=== PATIENT | male | born 1955 | race Caucasian/White ===

== ENCOUNTER 2024-02-17 15:14 | Emergency (ER) | payer OTHER, SELFPAY ==
[2024-02-17 15:19] VITALS: BP 118/83
[2024-02-17 15:41] LABS: % Basophils 0.4 % (0-2); % Eosinophils 1.2 % (0-6); % Immature Granulocytes 0.4 % (0-0.5); % Monocytes 6.1 % (1.7-9.3); % Neutrophils 59.9 % (42.2-75.2); Absolute Basophils 0.1 10^3/uL (0-0.2); Absolute Eosinophils 0.2 10^3/uL (0-0.7); Absolute Immature Granulocytes 0.1 10^3/uL (0-0.05); Absolute Lymphocytes 4.3 10^3/uL (1.2-3.4); Absolute Monocytes 0.8 10^3/uL (0.1-0.6); Hematocrit 40.7 % (39.0-52.0); Hemoglobin 13.7 g/dL (13.0-18.0); Mean Corp Hgb Conc. 33.7 g/dL (33.0-37.0); Mean Corpuscular Hgb 27.5 pg (27.0-31.0); Mean Corpuscular Volume 81.7 fL (80.0-94.0); Mean Platelet Volume 10.4 fL (7.4-10.4); Nucleated Red Blood Cells % 0 % (-); Platelet Count 431 10^3/uL (130-400); Red Blood Cell Count 4.98 10^6/uL (4.70-6.10); Red Cell Dist. Width 13.2 % (11.5-14.5); White Blood Cell Count 13.4 10^3/uL (4.8-10.8)
[2024-02-17 15:56] LABS: ALT (SGPT) 38 U/L (0-50); AST (SGOT) 47 U/L (17-59); Albumin 4.7 g/dl (3.5-5.0); Alkaline Phosphatase 75 U/L (38-126); Blood Urea Nitrogen 23 mg/dl (9-20); Calcium 10.2 mg/dl (8.4-10.2); Carbon Dioxide 27 mmol/L (22-30); Chloride 94 mmol/L (98-107); Glucose 409 mg/dl (70-99); Lipase 95 U/L (23-300); Potassium 4.4 mmol/L (3.5-5.1); Sodium 135 mmol/L (135-145); Total Bilirubin 0.7 mg/dl (0.2-1.3); Total Protein 7.7 g/dl (6.3-8.2); eGFR 55.43
--- NOTE | 2024-02-17 16:49 | ED.GENMED ---
History of Present Illness
General
Chief Complaint: Abdominal Symptoms
Time Seen by Provider: 02/17/24 16:38
History of Present Illness
History of Present Illness:
68 yo male presents to the Emergency Department for evaluation of fatigue, weakness and EDDY x 2-3 days. Also endorses nausea and vomiting for that period of time as well. Small amount of non bloody diarrhea as well. Denies any abd pain. He is a
known diabetic however has not been on meds; was started on metformin one month ago, did not tolerate this due to GI side effects, ultimately was d/c and switched to Farxiga, which he cannot afford. Does note increased thirst and urination as well.
No fevers or night sweats
Review of Systems
Review of Systems
Allergies reviewed?: Yes
All Other Systems: ROS reviewed and negative except as documented in HPI and ROS
Phy Exam
Physical Exam
Physical Exam:
GEN: Well appearing, NAD, WDWN
Eyes: PERRLA, EOMs intact, no scleral icterus
HENT: NCAT, oral mucosa moist, no JVD
Lungs: CTAB, no wheezes, rales, rhonchi, normal chest wall excursion
Cardiac: RRR, no M/R/G, no peripheral edema. Radial pulses 2+ bilat
Abdomen: S, NT, ND, NABS, no masses or hepatosplenomegaly
Neuro: AO x 3
MSK: No gross deformity or ecchymosis. No edema. No digital clubbing
Skin: No rashes, petechiae. Normal color, no pallor or jaundice.
Psych: Calm, cooperative, proper hygiene
Course
Orders/Labs/Results
Orders:
Orders
02/17/24 15:30
Complete Blood Count/With Diff Urgent
Comprehensive Metabolic Panel Urgent
Lipase Urgent
02/17/24 16:48
Lactated Ringers [Lr] 1,000 ml IV BOLUS
02/17/24 16:49
CR Chest - 2 Views Urgent
Comment:
Reason For Exam: SOB
02/17/24 17:02
Acetone [B-Hydroxybutyrate] Urgent
Venous Blood Gas Urgent
%Oxygen/Room Air: 99
02/17/24 17:08
COVID-19 Antigen Urgent
Source: Nasal Swab
02/17/24 17:42
Insulin Aspart [NOVOLOG vial] 10 units SC NOW STA
02/17/24 17:43
Lactated Ringers [Lr] 1,000 ml IV BOLUS
02/17/24 18:13
Urinalysis Reflex To Culture Urgent
Date Specimen was Collected: 02/17/24
Time Specimen was Collected: 18:11
02/17/24 18:18
Amoxicillin [Amoxil] 2,000 mg PO NOW STA
Azithromycin [Zithromax] 500 mg PO NOW STA
02/17/24 19:00
Bedside Glucose- Treatment ONCE
Abnormal Lab Results
02/17/24 02/17/24 02/17/24
15:30 17:02 18:13
WBC 13.4 H 10^3/uL
(4.8-10.8)
Plt Count 431 H 10^3/uL
(130-400)
Abs Immat Gran (auto) 0.1 H 10^3/uL
(0-0.05)
Absolute Neuts (auto) 8.0 H 10^3/uL
(1.4-6.5)
Absolute Lymphs (auto) 4.3 H 10^3/uL
(1.2-3.4)
Absolute Monos (auto) 0.8 H 10^3/uL
(0.1-0.6)
VBG HCO3 28.5 H mmol/L
(22-27)
Chloride 94 L mmol/L
(98-107)
BUN 23 H mg/dl
(9-20)
Creatinine 1.4 H mg/dL
(0.7-1.3)
Glucose 409 H mg/dl
(70-99)
Urine Glucose 3+ A
(Negative)
POC Glucose
02/17/24 02/17/24
18:15 19:28
WBC
Plt Count
Abs Immat Gran (auto)
Absolute Neuts (auto)
Absolute Lymphs (auto)
Absolute Monos (auto)
VBG HCO3
Chloride
BUN
Creatinine
Glucose
Urine Glucose
POC Glucose 316 H mg/dl 284 H mg/dl
(70-99) (70-99)
02/17/24 15:30
02/17/24 15:30
Vital Signs
Initial and Last Documented VS:
Initial Vital Signs
Temp Pulse Resp BP Pulse Ox
98.0 F 82 16 118/83 99
02/17/24 15:19 02/17/24 15:19 02/17/24 15:19 02/17/24 15:19 02/17/24 15:19
Last Documented Vital Signs
Temp Pulse Resp BP Pulse Ox
98.0 F 65 18 146/79 98
02/17/24 15:19 02/17/24 19:38 02/17/24 19:38 02/17/24 19:38 02/17/24 19:38
MDM/Problems Addressed
MDM/Problems Addressed:
68-year-old male presents with shortness of breath as well as nausea vomiting diarrhea. Workup is significant for hyperglycemia but no evidence for DKA, he was given IV fluids and subcu insulin with great improvement in glucose. He reported
significant improvement in shortness of breath with IV hydration. Likely component of volume loss from GI symptoms coupled with polyuria. Additionally chest x-ray reveals a right basilar infiltrate, he does note coughing and given the report of
shortness of breath we will treat this as an acute pneumonia. He does have leukocytosis but this could also be secondary to volume loss. Will treat with azithromycin and amoxicillin. Of note the patient reportedly has some occasional issues with
dysphagia and coughing post eating, certainly this could represent a aspiration pneumonia, recommend he see a speech pathologist as an outpatient and to assess this further
*Critical Care Note
Total Time (30-74mins, 75-104mins- exclusive of procedures): Not Applicable
ED Attending Note
-
Portions of this chart may have been created with voice recognition software.� Occasional wrong word or��sound alike� substitutions may have occurred due to the inherent limitations of voice recognition software.
Discharge Plan
Departure
Patient Disposition: Home (Routine Discharge)
Date of Disposition: 02/17/24
Time of Disposition: 19:30
Patient with high blood pressure during this ER visit?: No
Discharge Problem:
Right lower lobe pneumonia, Acute hyperglycemia
Instructions: Pneumonia, Adult (DC)
Prescriptions:
New
amoxicillin 500 mg capsule
2,000 mg PO BID Qty: 36 0RF
azithromycin [Zithromax] 250 mg tablet
250 mg PO DAILY Qty: 4 0RF
Referrals:
Zachary Holly DO [Family Provider] -
Activity Restrictions/Additional Instructions:
Follow-up with your primary care physician to discuss more appropriate medications to control your blood pressure
Take the antibiotics as prescribed. If your symptoms worsen return to the emergency department
Interventions
Interventions:
*Risk Screen - Suicide Last Done: 02/17/24 17:24
*General Assessment Last Done: 02/17/24 17:24
*Neglect/Abuse Screening Last Done: 02/17/24 17:24
ED- Fall Risk Assessment Last Done: 02/17/24 19:25
*Nursing Disposition Last Done: 02/17/24 19:39
OI-Rblxwx-Peifjsewan Assessment Last Done: 02/17/24 17:24
ED- Cardiac Assessment Last Done: 02/17/24 17:24
ED- Neurological Assessment Last Done: 02/17/24 17:24
ED- Pulmonary Assessment Last Done: 02/17/24 17:24
Discharge Date and Time
Discharge Date/Time: 02/17/24 19:43
Print Language: [place]
[2024-02-17] MEDS: LR 1000 IV ×2 (17:05→18:21)
[2024-02-17 17:14] LABS: Venous Blood Gas B.E. 3.2 mmol/L (-4 to +4); Venous Blood Gas HCO3 28.5 mmol/L (22-27); Venous Blood Gas O2 Sat % 86.3 %; Venous Blood Gas pCO2 45 mmHg (35-48); Venous Blood Gas pH 7.41 (7.32-7.43); Venous Blood Gas pO2 48 mmHg (30-50)
[2024-02-17 17:22] VITALS: BP 125/87
[2024-02-17 17:32] LABS: COVID-19 Antigen Negative (Negative)
[2024-02-17 18:00] VITALS: BP 142/79
[2024-02-17 18:18] LABS: Glucose - Point of Care 316 mg/dl (70-99)
[2024-02-17] MEDS: NOVOLOG vial 10 UNITS SC (18:19)
[2024-02-17] MEDS: ZITHROMAX 500 MG PO (18:22)
[2024-02-17] MEDS: AMOXIL 2000 MG PO (18:22)
[2024-02-17 18:33] LABS: Urine Albumin Trace (Neg - Trace); Urine Bilirubin Negative (Negative); Urine Character Clear (Clear); Urine Color Yellow; Urine Glucose 3+ (Negative); Urine Ketone Negative (Negative); Urine Leukocyte Negative (Negative); Urine Nitrite Negative (Negative); Urine Occult Blood Negative (Negative); Urine Urobilinogen Negative (Neg - 1+)
[2024-02-17 19:31] LABS: Glucose - Point of Care 284 mg/dl (70-99)
[2024-02-17 19:38] VITALS: BP 146/79
== END 2024-02-17 19:43 | disposition home or self-care (01) ==
LOC: EMR 15:14
PROVIDERS: Emergency Medicine; Physician Assistant; EMERGENCY PHYSICIAN Emergency Medicine; FAMILY PHYSICIAN Family Medicine
DX: J18.9 Pneumonia, unspecified organism (principal); R11.2 Nausea with vomiting, unspecified; E11.65 Type 2 diabetes mellitus with hyperglycemia; R19.7 Diarrhea, unspecified; R13.10 Dysphagia, unspecified; Z11.52 Encounter for screening for COVID-19
CPT/HCPCS: 99284; 96360; 96372; 71046; 80053; 81003; 82010; 82805; 82962; 83690; 85025; 87811

== ENCOUNTER 2024-05-21 00:40 | Inpatient (IN) | payer OTHER, SELFPAY ==
[2024-05-20] VITALS (10 sets, daily range): BP systolic 102–179; BP diastolic 72–91; PULSE 66–83; BMI 26.5
--- NOTE | 2024-05-20 15:06 | ED.GENMED ---
ED Provider Triage
<James Jennings PA-C - Last Filed: 05/20/24 15:08>
-
Patient seen by provider in Triage?: Seen in Triage
68 yo male presents due to orthostasis and SOB x 2-3 days. Near syncope described. No CP. Feels 'weak' at rest but markedly worse when standing. No syncope. No black/bloody stool. Does take BP meds
No orthostasis noted in triage. Does look pale.
Check labs, T&S, EKG
History of Present Illness
<James Jennings PA-C - Last Filed: 05/20/24 15:08>
General
Chief Complaint: Dizziness
Time Seen by Provider: 05/20/24 19:24
<TIFFANY Abernathy - Last Filed: 05/20/24 22:13>
General
Source: patient
Exam Limitations: none
History of Present Illness
History of Present Illness:
This is a 68 year old male that comes in with multiple complaints. States that when he stands up he passes out. States that he can feeling it coming on and he sits down right away. Sates that he did fall 2 days ago when he passed out. States that he
feels like his head is cloudy. State that this started a few days ago. States that he feels weak, and then feels like he can't breath. States that he has had chest discomfort with SOB, nausea, abd pain, headache, dizziness. Denies any fever, chills,
vomiting, diarrhea, urinary burning.
Past History
<TIFFANY Abernathy - Last Filed: 05/20/24 22:13>
Past History
ED Past Medical History: Arrthythmia (Palpitations), Cancer (Bladder cancer), GERD, HTN, Hypercholesterolemia, NIDDM, Psychiatric (Depression) and Other (chronic back and neck pain, Neuropathy, Colitis, Renal calculus, )
ED Past Surgical History: Cardiac (Ablation, ) and Orthopedic (Back surgery, Lumbar fusion, )
Social History
Tobacco: Former smoker
Alcohol: None
Drug: Other (Opiod dependence due to Multiple back surgery)
Personal:
Living: with family
Review of Systems
<TIFFANY Abernathy - Last Filed: 05/20/24 22:13>
Review of Systems
All Other Systems: ROS reviewed and negative except as documented in HPI and ROS
Constitutional: Reports no symptoms; Denies fever or chills
EENT: Reports no symptoms
Respiratory: Reports trouble breathing; Denies cough
Cardiac: Reports chest pain
ABD/GI: Reports abdominal pain and nausea; Denies vomiting or diarrhea
: Reports no symptoms; Denies dysuria, frequency or urgency
Musculoskeletal: Reports no symptoms
Skin: Reports no symptoms
Neurological: Reports dizzy and headache
Psychiatric: Reports no symptoms
Phy Exam
<TIFFANY Abernathy - Last Filed: 05/20/24 22:13>
General Physical Exam
General Presentation: no apparent distress
General age: appears stated age
General Skin: warm and dry
General Habitus: normal
General Mental: alert
General Hydration: appears well hydrated
ENT Exam
ENT Exam: TM's normal, pharynx normal and neck supple
Eye Exam
Eye Exam: EOMI
Cardiovascular Exam
Cardiovascular Exam: regular rate/rhythm, no edema and normal peripheral pulses
Pulmonary Exam
Pulmonary Exam: lungs clear, no respiratory distress, no rales, chest non tender, no crackles, no rhonchi, no wheezing and no cough
Gastrointestinal Exam
Gastrointestinal Exam: normal bowel sounds, soft, no organomegaly, no pulsatile mass, non distended and tender (Generalized tenderness with palpation)
Musculoskeletal Exam
Musculoskeletal Exam: full ROM and no edema
Skin Exam
Skin Exam: normal color, warm/dry, no rash and no petechia
Psychiatric Exam
Psychiatric Exam: normal mood/affect
Course
<James Jennings PA-C - Last Filed: 05/20/24 15:08>
Orders/Labs/Results
Orders:
Orders
05/20/24 15:05
Electrocardiogram (*1) Urgent
Reason for Study: Vertigo / Dizzy
EKG- Treatment ONCE
05/20/24 15:23
Type+Screen Urgent
Complete Blood Count/With Diff Urgent
Comprehensive Metabolic Panel Urgent
05/20/24 20:07
CT Head W/o Iv Contrast Urgent
Comment:
Reason For Exam: Syncope, Falls
0.9% Sodium Chloride 1000 ml [Nss] 1,000 ml IV BOLUS
05/20/24 20:09
ABO2 Urgent
BBK Wristband Number:
Associate notified that ABO2 has been ordered: [id number]
Date: 05/20/24
Time: 15:57
Line Repairer Tower ID: [id number]
CT Chest/abd/pelvis Angio W/wo Urgent
Comment:
Reason For Exam: Chest pain. abd pain, Syncope with standing up
Troponin I Urgent
Abnormal Lab Results
05/20/24
15:23
WBC 14.7 H 10^3/uL
(4.8-10.8)
RBC 4.69 L 10^6/uL
(4.70-6.10)
Plt Count 424 H 10^3/uL
(130-400)
MPV 10.5 H fL
(7.4-10.4)
Abs Immat Gran (auto) 0.1 H 10^3/uL
(0-0.05)
Absolute Neuts (auto) 8.9 H 10^3/uL
(1.4-6.5)
Absolute Lymphs (auto) 4.3 H 10^3/uL
(1.2-3.4)
Absolute Monos (auto) 0.8 H 10^3/uL
(0.1-0.6)
Carbon Dioxide 21 L mmol/L
(22-30)
BUN 21 H mg/dl
(9-20)
Creatinine 1.4 H mg/dL
(0.7-1.3)
Glucose 136 H mg/dl
(70-99)
05/20/24 15:23
05/20/24 15:23
Vital Signs
Initial and Last Documented VS:
Initial Vital Signs
Temp Pulse Resp BP Pulse Ox
97.6 F 83 18 116/86 97
05/20/24 15:02 05/20/24 15:02 05/20/24 15:02 05/20/24 15:02 05/20/24 15:02
Last Documented Vital Signs
Temp Pulse Resp BP Pulse Ox
97.6 F 66 18 127/89 97
05/20/24 17:00 05/20/24 20:45 05/20/24 20:45 05/20/24 20:00 05/20/24 17:00
<TIFFANY Abernathy - Last Filed: 05/20/24 22:13>
Orders/Labs/Results
Orders:
Orders
05/20/24 15:05
Electrocardiogram (*1) Urgent
Reason for Study: Vertigo / Dizzy
EKG- Treatment ONCE
05/20/24 15:23
Type+Screen Urgent
Complete Blood Count/With Diff Urgent
Comprehensive Metabolic Panel Urgent
05/20/24 20:07
CT Head W/o Iv Contrast Urgent
Comment:
Reason For Exam: Syncope, Falls
0.9% Sodium Chloride 1000 ml [Nss] 1,000 ml IV BOLUS
05/20/24 20:09
ABO2 Urgent
BBK Wristband Number:
Associate notified that ABO2 has been ordered: [id number]
Date: 05/20/24
Time: 15:57
Line Repairer Tower ID: [id number]
CT Chest/abd/pelvis Angio W/wo Urgent
Comment:
Reason For Exam: Chest pain. abd pain, Syncope with standing up
Troponin I Urgent
Abnormal Lab Results
05/20/24
15:23
WBC 14.7 H 10^3/uL
(4.8-10.8)
RBC 4.69 L 10^6/uL
(4.70-6.10)
Plt Count 424 H 10^3/uL
(130-400)
MPV 10.5 H fL
(7.4-10.4)
Abs Immat Gran (auto) 0.1 H 10^3/uL
(0-0.05)
Absolute Neuts (auto) 8.9 H 10^3/uL
(1.4-6.5)
Absolute Lymphs (auto) 4.3 H 10^3/uL
(1.2-3.4)
Absolute Monos (auto) 0.8 H 10^3/uL
(0.1-0.6)
Carbon Dioxide 21 L mmol/L
(22-30)
BUN 21 H mg/dl
(9-20)
Creatinine 1.4 H mg/dL
(0.7-1.3)
Glucose 136 H mg/dl
(70-99)
05/20/24 15:23
05/20/24 15:23
Leukocytosis, Plt slightly elevated. Dehydration. Glucose nonfasting.
Vital Signs
Initial and Last Documented VS:
Initial Vital Signs
Temp Pulse Resp BP Pulse Ox
97.6 F 83 18 116/86 97
05/20/24 15:02 05/20/24 15:02 05/20/24 15:02 05/20/24 15:02 05/20/24 15:02
Last Documented Vital Signs
Temp Pulse Resp BP Pulse Ox
97.6 F 66 18 127/89 97
05/20/24 17:00 05/20/24 20:45 05/20/24 20:45 05/20/24 20:00 05/20/24 17:00
<TIFFANY Abernathy - Last Filed: 05/20/24 22:13>
MDM/Problems Addressed
Differential Diagnosis Includes:
Aortic dissection, Dehydration. cardiac arrhythmia.
MDM/Problems Addressed:
This is a 68 year old male that come in with c/o syncope when he stands up. States that this has been going of for a few days. States that he can feel it coming on and if he is not near something to sit down he fals.
Will get labs, Orthostasis, CT head and get CTA of chest/ abd/ pelvis. Will admit patient.
CTA abd/pelvis cont- in the abdominal aorta. Moderate diverticulosis in the sigmoid colon. Mild diffuse urinary bladder wall thickening without evidence for foral mass. Previous laminectomies at L4 and L5
Back into see patient. Explained that he would be admitted and started on antibiotics. CT shows he has a right lower lobe Pneumonia. CT of the head is negative for anything acute. However, patient was orthostatic with standing and since patient
keeps passing out will admit. Hospitalist notified.
Chronic conditions affecting care:
Palpitations
Chronic conditions affecting care: DM
Acute Exacerbation and/or Progression of Chronic Illness: Arrhythmia (Palpitations, )
<TIFFANY Abernathy - Last Filed: 05/20/24 22:13>
*Radiology
Radiology exam reviewed: radiology read reviewed (CT head-No CT evidence for acute intracranial hemorrhage or transcortical infarct. Mild diffuse cerebral volume loss. Mild to moderate cerebellar volume loss. CT chest/Ab/pel= Large dense airspace
consolidation in the basilar segments of the right lower lobe with segemental basilar endobronchial ), all reviewed NAD by ED Provider (CT cont-occlusion. Diagnostic possibilities are (1) mucous plugging/infection in the right lower lobe basilar
bronchi with postobstructive atelectasis or (2) right lower lobe Pneumonia. Mild right hilar and right-sided mediastinal lymphadenopathy, diagnostic possibilities are (1) reactive infectious) and other (CT cont- or inflammatory lymph nodes or (2)
malignant lymphadenopathy. Abd/Pelvis CTA: MIld diffuse hepatic steatosis. Moderate pancreatic lipomatosis. 8mm and 7mm nonobstructing right intrarenal calculi. Mild to moderate scarring in the left kidney. MIld caclcific atherosclerotic plaque in
the )
*Pulse Oximetry
Patient hypoxic: no
*EKG
Interpreted by ED Provider?: Yes
Heart Rate: 76
Rate: normal
Rhythm: sinus
[place]: normal axis
Interval: normal interval
QRS Pattern: normal QRS
Ischemia: no ischemia
*Nurses Educator Interpretation
Rate: normal
Heart Rate: 67
Rhythm: sinus
*Critical Care Note
Total Time (30-74mins, 75-104mins- exclusive of procedures): Not Applicable
ED Attending Note
<James Jennings PA-C - Last Filed: 05/20/24 15:08>
-
Portions of this chart may have been created with voice recognition software.� Occasional wrong word or��sound alike� substitutions may have occurred due to the inherent limitations of voice recognition software.
Discharge Plan
Departure
Patient Disposition: Admit
Date of Disposition: 05/20/24
Time of Disposition: 22:11
Admit to: Med/Surg
Presentation/result/management discussed w/ accepting MD/DO: Hospitalist
Patient with high blood pressure during this ER visit?: No
Condition: Good
Covid-19: Not Applicable
Discharge Problem:
Right lower lobe pneumonia, Syncope and collapse
Prescriptions:
No Action
amoxicillin 500 mg capsule
2,000 mg PO BID Qty: 36 0RF
azithromycin [Zithromax] 250 mg tablet
250 mg PO DAILY Qty: 4 0RF
Referrals:
Zachary Holly, DO [Family Provider] -
Interventions
Interventions:
*Risk Screen - Suicide Last Done: 05/20/24 21:10
*General Assessment Last Done: 05/20/24 21:13
*Neglect/Abuse Screening Last Done: 05/20/24 21:10
ED- Neurological Assessment Last Done: 05/20/24 19:49
ED- Cardiac Assessment Last Done: 05/20/24 19:49
ED Swallowing Screen Last Done: 05/20/24 22:03
Discharge Date and Time
Print Language: CHILEAN
[2024-05-20 15:49] LABS: % Basophils 0.4 % (0-2); % Eosinophils 4.3 % (0-6); % Immature Granulocytes 0.4 % (0-0.5); % Lymphocytes 29.1 % (20.5-51.1); % Monocytes 5.4 % (1.7-9.3); % Neutrophils 60.4 % (42.2-75.2); Absolute Basophils 0.1 10^3/uL (0-0.2); Absolute Eosinophils 0.6 10^3/uL (0-0.7); Absolute Immature Granulocytes 0.1 10^3/uL (0-0.05); Absolute Lymphocytes 4.3 10^3/uL (1.2-3.4); Absolute Monocytes 0.8 10^3/uL (0.1-0.6); Absolute Neutrophils 8.9 10^3/uL (1.4-6.5); Hematocrit 40.3 % (39.0-52.0); Hemoglobin 13.4 g/dL (13.0-18.0); Mean Corp Hgb Conc. 33.3 g/dL (33.0-37.0); Mean Corpuscular Hgb 28.6 pg (27.0-31.0); Mean Corpuscular Volume 85.9 fL (80.0-94.0); Mean Platelet Volume 10.5 fL (7.4-10.4); Nucleated Red Blood Cells % 0 % (-); Platelet Count 424 10^3/uL (130-400); Red Blood Cell Count 4.69 10^6/uL (4.70-6.10); Red Cell Dist. Width 13.5 % (11.5-14.5); White Blood Cell Count 14.7 10^3/uL (4.8-10.8)
[2024-05-20 15:59] LABS: Potassium 4.6 mmol/L (3.5-5.1)
[2024-05-20 16:00] LABS: ALT (SGPT) 19 U/L (0-50); AST (SGOT) 39 U/L (17-59); Albumin 4.7 g/dl (3.5-5.0); Alkaline Phosphatase 58 U/L (38-126); Blood Urea Nitrogen 21 mg/dl (9-20); Calcium 10.2 mg/dl (8.4-10.2); Carbon Dioxide 21 mmol/L (22-30); Chloride 103 mmol/L (98-107); Glucose 136 mg/dl (70-99); Sodium 140 mmol/L (135-145); Total Bilirubin 0.5 mg/dl (0.2-1.3); eGFR 55.43
[2024-05-20] MEDS: NSS 1000 IV (20:08)
[2024-05-20 20:42] LABS: Troponin I < 0.012 ng/ml
[2024-05-20] MEDS: ZOSYN 50 IV (22:26)
[2024-05-21] VITALS (17 sets, daily range): BP systolic 102–183; BP diastolic 64–104; PULSE 65–95
--- NOTE | 2024-05-21 00:08 | HPS.HSE ---
Family Physician
-
Family Physician: Zachary Holly
Chief Complaint
-
Dizziness
History of Present Illness
This is a 68-year-old with past medical history significant for paroxysmal atrial fibrillation not on anticoagulation, hypertension, chronic pain, abe-evqtalm-fwdrlvgob diabetes, hyperlipidemia, BPH presenting to the emergency department with a
recurrent episodes of orthostatic dizziness and syncope.
Patient reports 1 week of symptoms. He reports that anytime he stands up he feels dizzy/lightheaded and has to get down otherwise he passes out. He denies association with palpitations chest tightness. He does report cough that is intermittently
productive of thick yellow sputum. He denies fevers or chills. He denies any known sick contacts. He has no prior history of cancer. He is a former smoker. He reports shortness of breath and mild dyspnea on exertion. He denies exertional chest
pain. He denies pleuritic chest pain. He denies any recent episodes of diarrhea nausea or vomiting. Patient denies any acute changes in his medications. Apparently he had an episode of pneumonia in February and was treated with antibiotics.
He came to the emergency department to evaluate the orthostatic dizziness.
In the emergency department his blood pressure was 143/80, pulse was 60 and respiratory was 20. ECG shows normal sinus rhythm at a rate of 76. Troponin was 0.012. He had a CBC with leukocytosis to 14,000, hemoglobin and platelets were normal.
Electrolytes were normal. Creatinine was 1.4 with a BUN of 21. LFTs are unremarkable. He had a CT chest/abdomen/pelvis angio which does not show any PE and no dissection. It shows a rather large airspace consolidation in the basilar segments of
the right lower lobe, segmental right lower lobe endobronchial occlusion c/w mucous plugging/infection in the right lower lobe basilar bronchi with postobstructive atelectasis or (2) right lower lobe pneumonia.
Medical History
Past Medical History
Past Medical History: Reports Arrhythmia (paroxysmal atrial fibrillation), HTN, Hypercholesterolemia and NIDDM
Additional Past Medical History:
BPH
Past Surgical History: Reports Orthopedic (Cervical spine surgery, lumbar spine surgery)
Social History
Tobacco: Former Smoker
Alcohol: None
Drug: None
Personal:
Living: With Family
Employment: Retired
Family History
Family History: Not pertinent
Allergies / Home Medications
Allergies reflects when Allergies were last updated in [facility].
Home Medications with original date entered in [facility]
Allergy/Medication List:
Allergies
Allergy/AdvReac Type Severity Reaction Status Date / Time
No Known Allergies Allergy Unverified 02/17/24 15:19
Home Medications
bupropion HCl 150 mg 24 hr tablet, extended release (Wellbutrin XL) 150 mg PO DAILY 05/20/24
candesartan 16 mg tablet 8 mg PO DAILY 05/20/24
carvedilol 6.25 mg tablet (Coreg) 6.25 mg PO BID 05/20/24
duloxetine 60 mg capsule,delayed release (Cymbalta) 90 mg PO DAILY 05/20/24
famotidine 40 mg tablet (Pepcid) 40 mg PO DAILY 05/20/24
fenofibrate 160 mg tablet 200 mg PO DAILY 05/20/24
metformin 1,000 mg tablet 1,000 mg PO BID 05/20/24
oxycodone myristate 36 mg capsule sprinkle extended release 12hr(DON'T CRUSH) (Xtampza ER) 36 mg PO Q8H 05/20/24
oxycodone-acetaminophen 10 mg-325 mg tablet 1 tab PO 5/D PRN pain 05/20/24
rosuvastatin 40 mg tablet 40 mg PO DAILY 05/20/24
sotalol 120 mg tablet 120 mg PO BID 05/20/24
tadalafil 5 mg tablet 5 mg PO DAILY 05/20/24
tamsulosin 0.4 mg capsule (Flomax) 0.4 mg PO DAILY 05/20/24
zolpidem 5 mg tablet 5 mg PO HS PRN sleep 05/20/24
Review of Systems
-
Constitutional: Reports No Symptoms
EENT: Reports No Symptoms
Respiratory: Reports Cough and Trouble Breathing
Cardiac: Reports No Symptoms
Abdomen/GI: Reports No Symptoms
: Reports No Symptoms
Musculoskeletal: Reports No Symptoms
Skin: Reports No Symptoms
Neurological: Reports Dizzy
Endocrine: Reports No Symptoms
Hematologic/Lymphatic: Reports No Symptoms
Psych: Reports No Symptoms
Physical Exam
Vital Signs
Vital Signs
Temp Pulse Resp BP Pulse Ox
98 F 69 13 149/101 99
05/20/24 23:55 05/21/24 00:00 05/21/24 00:00 05/21/24 00:00 05/21/24 00:00
Physical Exam
General: Well Developed, Well Nourished, No Apparent Distress and Comfortable
HEENT: NormoCephalic, Anicteric, Moist mucous membranes and Atraumatic
Respiratory: Clear
Cardiac: S1/S2 and Regular Rhythm
Breast: Deferred by me
GI: Soft, Non Tender, Non Distended and Normal Bowel Sounds
Rectal: Deferred by Provider
Genito-urinary: Deferred by me
Musculoskeletal: No Clubbing, No Cyanosis and No Edema
Skin: Warm
Neuro: AO x 3 and Nonfocal/grossly intact
Laboratory Results
-
05/20/24 15:23
05/20/24 15:23
Laboratory Results
Total Bilirubin 0.5 mg/dl (0.2-1.3) 05/20/24 15:23
AST 39 U/L (17-59) 05/20/24 15:23
ALT 19 U/L (0-50) 05/20/24 15:23
Alkaline Phosphatase 58 U/L (38-126) 05/20/24 15:23
Troponin I < 0.012 ng/ml 05/20/24 20:09
Data Reviewed
-
CT Scan: Report Reviewed by me
Medical Tests (Nuc Med, Echo, EKG etc): Image Personally Visualized and interpreted
Lab Data: Labs Reviewed by me
Old Records: Reviewed
Impression/Plan
-
IMPRESSION:
62-year-old male with past medical history of hypertension, hyperlipidemia, paroxysmal atrial fibrillation on sotalol but not anticoagulated who presents to the emergency department with recurrent episodes of orthostatic dizziness/presyncope and
found to have a large right lower lobe consolidation.
PLAN:
1. RLL PNA - Appears to be secondary to mucus plugging with post-obstructive pneumonia or atelectasis. He is afebrile and HD stable. No hypoxia. No wheezing on exam.
- admit to telemetry for syncope
- atypical pneumonia, possible aspiration given h/o dysphagia, IV zosyn for now
- sputum culture/grm stain
- check procalcitonin
- nebs RTC, muculytics
- Pulmonary consultation, possible malignancy w/u
2. Syncope - Orthostatic syncope with standing.
- telemetry
- check orthostatic vs
- CT angio negative
- echo for valve evaluation
- consider carotid u/s
3. pAFIb - rate controlled on carvedilol and sotalol. CHADS2 = 2. No AC or aspirin and no known h/o contraindication.
- currently normal sinus, continue sotalol and monitor on telemetry
- continue carvedilol
4. DM II
- hold metformin s/p contrast
- sliding scale insulin
DVT PPX - lovenox sq
Code status - Full Code
[2024-05-21 02:24] LABS: Glucose - Point of Care 126 mg/dl (70-99)
[2024-05-21] MEDS: OXYCONTIN (CONTROLLED RELEASE) PO (02:41)
[2024-05-21] MEDS: BETAPACE 120 MG PO ×3 (02:41→20:12)
[2024-05-21] MEDS: ZOSYN 50 IV ×4 (03:59→22:25)
[2024-05-21 05:49] LABS: Hematocrit 38.7 % (39.0-52.0); Hemoglobin 12.8 g/dL (13.0-18.0); Mean Corp Hgb Conc. 33.1 g/dL (33.0-37.0); Mean Corpuscular Hgb 28.8 pg (27.0-31.0); Mean Corpuscular Volume 87.2 fL (80.0-94.0); Mean Platelet Volume 10.6 fL (7.4-10.4); Platelet Count 357 10^3/uL (130-400); Red Blood Cell Count 4.44 10^6/uL (4.70-6.10); Red Cell Dist. Width 13.5 % (11.5-14.5); White Blood Cell Count 19.1 10^3/uL (4.8-10.8)
[2024-05-21 05:58] LABS: Blood Urea Nitrogen 20 mg/dl (9-20); Calcium 9.4 mg/dl (8.4-10.2); Carbon Dioxide 24 mmol/L (22-30); Chloride 103 mmol/L (98-107); Estimated Creatinine Clearance 76 ml/min; Glucose 109 mg/dl (70-99); Potassium 4.1 mmol/L (3.5-5.1); Sodium 139 mmol/L (135-145); eGFR > 60.00
[2024-05-21 06:15] LABS: Procalcitonin 0.05 ng/ml (0.0-0.25)
--- NOTE | 2024-05-21 07:22 | W.PN.HOSP.TC ---
Today's Communication/Plan
-
Continue antibiotics -- worsened leukocytosis
Monitor on tele
Assessment / Plan
Assessment / Plan
Physical Exam
General: Not in acute distress
HEENT: Normocephalic
Respiratory: Clear
Cardiac: S1/S2 and Regular Rhythm
GI: Soft, Non Tender, Non Distended and Normal Bowel Sounds
Musculoskeletal: No Cyanosis and No Edema
Skin: Warm. Dry.
Neuro: AAO x 3 and Nonfocal/grossly intact
Assessment/Plan
IMPRESSION:
62-year-old male with past medical history of hypertension, hyperlipidemia, paroxysmal atrial fibrillation on sotalol but not anticoagulated who presents to the emergency department with recurrent episodes of orthostatic dizziness/presyncope and
found to have a large right lower lobe consolidation.
PLAN:
#RLL PNA - Appears to be secondary to RLL mucus plugging with post-obstructive pneumonia or atelectasis
- atypical pneumonia, possible aspiration given h/o dysphagia, IV zosyn for now
- sputum culture/grm stain
- Procal is low
- nebs RTC, muculytics
- Pulmonary consulted at the time of admission, possible malignancy w/u
#Syncope - Orthostatic syncope with dizziness when standing.
- telemetry
- check orthostatic vs
- CT angio negative
- echo for valve evaluation
- consider carotid u/s
#pAFIb - rate controlled on carvedilol and sotalol. CHADS2 = 2. No AC or aspirin and no known h/o contraindication.
- currently normal sinus, continue sotalol and monitor on telemetry
- continue carvedilol
#Type 2 Diabetes Mellitus
- hold metformin s/p contrast
- sliding scale insulin
DVT Prophylaxis: Lovenox SUBQ
Code Status: Full Code
Anticipated Discharge: > 48 hours
Subjective/Interval History
-
Date of Service: May 21, 2024
Patient was seen and examined. He denied any new symptoms or complaints.
Objective Data
-
Labs:
Laboratory Results
05/21/24
05:34
WBC 19.1 H
Hgb 12.8 L
Hct 38.7 L
Plt Count 357
Sodium 139
Potassium 4.1
Chloride 103
Carbon Dioxide 24
BUN 20
Creatinine 1.2
Glucose 109 H
Calcium 9.4
Vital Signs:
Vital Signs
Temp Pulse Resp BP Pulse Ox
98 F 65 15 154/94 97
05/20/24 23:55 05/21/24 05:00 05/21/24 05:00 05/21/24 02:41 05/21/24 01:00
[2024-05-21 08:00] LABS: Glucose - Point of Care 102 mg/dl (70-99)
[2024-05-21] MEDS: ATACAND 8 MG PO (08:09)
[2024-05-21] MEDS: NOVOLOG FLEXPEN-LOW RESISTANCE SC ×2 (08:09→16:47)
[2024-05-21] MEDS: COREG 6.25 MG PO ×2 (08:10→20:12)
[2024-05-21] MEDS: CRESTOR 40 MG PO (08:11)
[2024-05-21] MEDS: CYMBALTA DELAYED RELEASE 90 MG PO (08:11)
[2024-05-21] MEDS: OXYCONTIN (CONTROLLED RELEASE) 40 MG PO ×3 (08:12→23:26)
[2024-05-21] MEDS: TRICOR 145 MG PO (08:12)
[2024-05-21] MEDS: FLOMAX 0.4 MG PO (08:16)
[2024-05-21] MEDS: WELLBUTRIN XL (24 hour extended release) 150 MG PO (08:16)
[2024-05-21] MEDS: PEPCID 40 MG PO (08:16)
[2024-05-21] MEDS: ATROVENT NEBULES INH (08:49)
[2024-05-21] MEDS: ATROVENT NEBULES 0.5 MG INH ×3 (10:55→18:33)
[2024-05-21 11:32] LABS: Glucose - Point of Care 192 mg/dl (70-99)
[2024-05-21] MEDS: NOVOLOG FLEXPEN-LOW RESISTANCE 1 UNITS SC (13:31)
[2024-05-21 16:40] LABS: Glucose - Point of Care 139 mg/dl (70-99)
--- NOTE | 2024-05-21 17:00 | PTCARENOTE ---
Patient admitted to room 1144-2. AAOx3. Oriented to unit and call donis. VSS. Telemetry monitoring continued.
[2024-05-21] MEDS: LOVENOX 40 MG SC (18:22)
[2024-05-21] MEDS: TYLENOL 650 MG PO (20:12)
[2024-05-21 21:29] LABS: Glucose - Point of Care 121 mg/dl (70-99)
[2024-05-21] MEDS: AMBIEN 5 MG PO (23:26)
[2024-05-22 03:01] VITALS: BP 137/76
[2024-05-22] MEDS: ZOSYN 50 IV ×4 (04:10→21:32)
[2024-05-22 06:41] LABS: % Basophils 0.5 % (0-2); % Eosinophils 5.6 % (0-6); % Immature Granulocytes 0.1 % (0-0.5); % Neutrophils 52.8 % (42.2-75.2); Absolute Basophils 0.1 10^3/uL (0-0.2); Absolute Eosinophils 0.6 10^3/uL (0-0.7); Absolute Lymphocytes 3.8 10^3/uL (1.2-3.4); Absolute Monocytes 0.8 10^3/uL (0.1-0.6); Absolute Neutrophils 5.9 10^3/uL (1.4-6.5); Hematocrit 35.8 % (39.0-52.0); Hemoglobin 11.7 g/dL (13.0-18.0); Mean Corp Hgb Conc. 32.7 g/dL (33.0-37.0); Mean Corpuscular Hgb 28.5 pg (27.0-31.0); Mean Corpuscular Volume 87.1 fL (80.0-94.0); Mean Platelet Volume 10.5 fL (7.4-10.4); Nucleated Red Blood Cells % 0 % (-); Platelet Count 291 10^3/uL (130-400); Red Blood Cell Count 4.11 10^6/uL (4.70-6.10); Red Cell Dist. Width 13.6 % (11.5-14.5); White Blood Cell Count 11.2 10^3/uL (4.8-10.8)
[2024-05-22 07:00] VITALS: BP 117/82
[2024-05-22 07:07] LABS: Blood Urea Nitrogen 17 mg/dl (9-20); Calcium 9.4 mg/dl (8.4-10.2); Carbon Dioxide 28 mmol/L (22-30); Chloride 103 mmol/L (98-107); Estimated Creatinine Clearance 65 ml/min; Glucose 122 mg/dl (70-99); Magnesium 1.5 mg/dl (1.6-2.3); Sodium 140 mmol/L (135-145); eGFR 55.43
[2024-05-22] MEDS: ATROVENT NEBULES 0.5 MG INH ×4 (07:52→21:21)
[2024-05-22 08:38] LABS: Glucose - Point of Care 114 mg/dl (70-99)
[2024-05-22] MEDS: NOVOLOG FLEXPEN-LOW RESISTANCE SC ×3 (09:11→18:16)
[2024-05-22] MEDS: BETAPACE 120 MG PO ×2 (09:37→20:34)
[2024-05-22] MEDS: ATACAND 8 MG PO (09:37)
[2024-05-22] MEDS: PEPCID 40 MG PO (09:38)
[2024-05-22] MEDS: OXYCONTIN (CONTROLLED RELEASE) 40 MG PO ×3 (09:38→23:09)
[2024-05-22] MEDS: CRESTOR 40 MG PO (09:38)
[2024-05-22] MEDS: WELLBUTRIN XL (24 hour extended release) 150 MG PO (09:38)
[2024-05-22] MEDS: TRICOR 145 MG PO (09:38)
[2024-05-22] MEDS: FLOMAX 0.4 MG PO (09:39)
[2024-05-22] MEDS: COREG 6.25 MG PO ×2 (09:39→20:34)
[2024-05-22] MEDS: CYMBALTA DELAYED RELEASE 90 MG PO (09:42)
[2024-05-22 13:06] LABS: Glucose - Point of Care 142 mg/dl (70-99)
--- NOTE | 2024-05-22 13:37 | W.PN.HOSP.TC ---
Today's Communication/Plan
-
Continue monitoring on tele
Please see below
Assessment / Plan
Assessment / Plan
Physical Exam
General: Not in acute distress
HEENT: Normocephalic
Respiratory: Clear
Cardiac: S1/S2 and Regular Rhythm
GI: Soft, Non Tender, Non Distended and Normal Bowel Sounds
Musculoskeletal: No Cyanosis and No Edema
Skin: Warm. Dry.
Neuro: AAO x 3 and Nonfocal/grossly intact
Assessment/Plan
68-year-old male with past medical history of hypertension, hyperlipidemia, paroxysmal atrial fibrillation on sotalol but not anticoagulated who presents to the emergency department with recurrent episodes of orthostatic dizziness/presyncope and
found to have a large right lower lobe consolidation.
#RLL PNA - Appears to be secondary to RLL mucus plugging with post-obstructive pneumonia or atelectasis
#Endobronchial obstruction probably likely due to mucous plugging.
- atypical pneumonia, possible aspiration given h/o dysphagia, IV zosyn for now -- continue antibiotics for 7 days
- Sputum culture growing Staph aureus-wait for identification
- Procal is low
- nebs RTC, muculytics
- Pulmonary consulted at the time of admission, possible malignancy w/u
-Repeat CXR in 24 to 48 hours
#Syncope - Orthostatic syncope with dizziness when standing.
#Orthostatic Hypotension
- Patient is on multiple medications that can contribute to this
- telemetry
- Monitor orthostatic vs
- CT angio negative
- echo
- carotid u/s
#pAFIb - rate controlled on carvedilol and sotalol. [id number] at least 3. No AC or aspirin and no known h/o contraindication.
- currently normal sinus, continue sotalol and monitor on telemetry
- continue carvedilol
-Patient's risk management director is Sriram Thompson MD in [facility]
-Two questions for cardiology: can we reduce his Coreg, and why is he not on Eliquis? Consulted cardiology, appreciate their eval and recommendations.
#Type 2 Diabetes Mellitus
- hold metformin s/p contrast
- sliding scale insulin
#Chronic Neuropathy of Bilateral Upper and Lower Extremities
-Patient follows Dr. Lopez (neurologist) at [facility]
DVT Prophylaxis: Lovenox SUBQ
Code Status: Full Code
Anticipated Discharge: 24 - 48 hours
Subjective/Interval History
-
Date of Service: May 22, 2024
Patient was seen and examined. He denied any new symptoms, overall feeling better.
Objective Data
-
Labs:
Laboratory Results
05/22/24
06:15
WBC 11.2 H
Hgb 11.7 L
Hct 35.8 L
Plt Count 291
Sodium 140
Potassium 4.0
Chloride 103
Carbon Dioxide 28
BUN 17
Creatinine 1.4 H
Glucose 122 H
Calcium 9.4
Vital Signs:
Vital Signs
Temp Pulse Resp BP Pulse Ox
97.8 F 67 16 117/82 97
05/22/24 07:00 05/22/24 11:35 05/22/24 11:35 05/22/24 07:00 05/22/24 11:35
I&O
05/21/24 05/22/24 05/23/24
06:59 06:59 06:59
Intake Total 1490 / 1490
Balance 1490 / 1490
[2024-05-22 15:00] VITALS: BP 136/75
[2024-05-22] MEDS: LOVENOX 40 MG SC (17:17)
[2024-05-22 17:53] LABS: Glucose - Point of Care 137 mg/dl (70-99)
--- NOTE | 2024-05-22 18:51 | CON.PUL ---
Consultation
Consultation Request
Date/Time Consultation Requested: 05/22/2024
Date/Time Consultation Performed: 05/22/2024
Requesting Provider: Dr. Ortiz
Performing Provider: Dr. Ramírez Humphreys
Reason for Consultation: Pneumonia/abnormal x-ray
Medical History
-
History of Present Illness:
68-year-old man with past medical history significant for paroxysmal atrial fibrillation not on anticoagulation, hypertension, chronic back pain, auq-gzhhnvy-rhdoyocpu diabetic, hyperlipidemia, BPH came to the emergency room with recurrent episode
of orthostatic hypotension/dizziness and syncope.
Patient reports 1 week of symptoms. Significant orthostatic symptoms with near syncopal episode multiple times. Has been complaining of cough with thick yellow phlegm production.
Denies fevers or chills.
Patient is a former smoker. Denies any history of pulmonary problems.
Denies any vomiting or swallowing problems.
Reports history of pneumonia in February and he completed antibiotic therapy for
In the emergency room found to have leukocytosis. Normal hemoglobin. CT of the chest without pulmonary embolism, dissection or effusion.
Large airspace consolidation on the right lower lobe, possible segmental right lower lobe endobronchial occlusion with mucous plugging/infection.
We were consulted for evaluation of abnormal CT chest
-
Patient report being a former smoker who quit 26 years ago.
Mother with history of lung cancer
Brother also had cancer-unspecified site.
Both were smokers
He also reports spot in his' lungs ', possibly CAT scans in the past at [facility].
Past Medical History
Past Medical History: Other (See assessment and plan)
Social History
Tobacco: Former Smoker
Alcohol: None
Drug: None
Personal:
Living: With Family
Employment: Retired
Family History
Family History: Reviewed & Not Pertinent
Allergies / Home Medications
Allergies
Allergy/AdvReac Type Severity Reaction Status Date / Time
No Known Allergies Allergy Verified 05/21/24 06:40
Home Medications
�Medication �Instructions �Recorded �Confirmed �Last Taken �Type
bupropion HCl 150 mg 24 hr tablet, 150 mg PO DAILY Mental 05/20/24 05/21/24 Unknown History
extended release (Wellbutrin XL) Health/Anxiety
candesartan 16 mg tablet 8 mg PO DAILY Blood Pressure 05/20/24 05/21/24 Unknown History
carvedilol 6.25 mg tablet (Coreg) 6.25 mg PO BID Blood Pressure 05/20/24 05/21/24 Unknown History
duloxetine 60 mg capsule,delayed 60 mg PO HS Mental Health/Anxiety 05/20/24 05/21/24 Unknown History
release (Cymbalta)
famotidine 40 mg tablet (Pepcid) 40 mg PO DAILY Gastrointestinal 05/20/24 05/21/24 Unknown History
Issue
fenofibrate 160 mg tablet 200 mg PO DAILY High Cholesterol 05/20/24 05/21/24 Unknown History
metformin 1,000 mg tablet 1,000 mg PO BID Diabetes 05/20/24 05/21/24 Unknown History
oxycodone myristate 36 mg capsule 36 mg PO Q8H Pain 05/20/24 05/21/24 Unknown History
sprinkle extended release
12hr(DON'T CRUSH) (Xtampza ER)
oxycodone-acetaminophen 10 mg-325 1 tab PO 5/D PRN break through 05/20/24 05/21/24 Unknown History
mg tablet
rosuvastatin 40 mg tablet 40 mg PO DAILY High Cholesterol 05/20/24 05/21/24 Unknown History
sotalol 120 mg tablet 120 mg PO BID Blood Pressure 05/20/24 05/21/24 Unknown History
tadalafil 5 mg tablet 5 mg PO DAILY Urinary Issue 05/20/24 05/21/24 Unknown History
tamsulosin 0.4 mg capsule (Flomax) 0.4 mg PO DAILY Urinary Issue 05/20/24 05/21/24 Unknown History
zolpidem 5 mg tablet 5 mg PO HSPRN PRN sleep 05/20/24 05/21/24 Unknown History
duloxetine 30 mg capsule,delayed 30 mg PO DAILY Mental 05/21/24 05/21/24 Unknown History
release (Cymbalta) Health/Anxiety
tizanidine 4 mg tablet 4 mg PO TIDPRN PRN spasms 05/21/24 05/21/24 Unknown History
Review of Systems
-
History Source: Patient
All other systems: Negative unless noted
Vitals / Labs / Diagnostic Testing
Vital Signs
Temp Pulse Resp BP Pulse Ox
97.3 F 74 16 136/75 98
05/22/24 15:00 05/22/24 15:54 05/22/24 15:54 05/22/24 15:00 05/22/24 15:54
Lab Data
05/22/24 06:15
05/22/24 06:15
Microbiology
05/21/24 09:27 Sputum Respiratory Culture - Preliminary
Staphylococcus aureus
05/21/24 09:27 Sputum Gram Stain - Preliminary
05/21/24 05:30 Urine Legionella Urinary Antigen - Final
Negative for Legionella pneumophila Serogroup 1 antigen.
A negative result does not rule out the possiblity of
Legionella infection due to other serogroups or species of
Legionella. Clinical correlation is recommended.
Diagnostic Testing:
Physical Exam
-
HEENT: Normocephalic
Cardiovascular: S1/S2
Respiratory: Non-Labored Respirations and Other (Decreased breath sounds in the right base)
GI: Soft and Non Distended
Neurology: Awake, Alert, AO x 3 and No Motor Deficits
Skin: Warm
General: Comfortable
Assessment
-
68-year-old man with past medical history noted, admitted with shortness of breath, dizziness, multiple syncopal episodes. Also cough with phlegm production for the last several days weeks. Part of the evaluation including a CT chest demonstrated
right lower lobe infiltrate with possible endobronchial mucous plugging. We were consulted for abnormal CT chest 05/22/2024.
Abnormal CT chest 05/20/2024: Mild right paratracheal, subcarinal and right hilar lymphadenopathy. There is endobronchial occlusion of the basilar segment of the right lower lobe. There is large dense airspace consolidation in the basilar segment of
the right lower lobe. Minimal lingular scarring.
No pericardial effusion no pneumothorax.
Dizziness/syncope/shortness of breath-suspect cardiac in etiology.
Conditions present prior admission:
Paroxysmal atrial fibrillation
Hypertension
Hypercholesterolemia
Type 2 diabetes
BPH
History of cervical spine surgery and lumbar spine surgery
Former smoker
Assessment and plan:
Abnormal CT chest, leukocytosis, cough and phlegm production suspect infectious in etiology.
Endobronchial obstruction probably likely due to mucous plugging.
I am wondering if this patient has aspirated and one of his syncopal episode.
Agree with antibiotics for 7 days
Currently on Zosyn, seems to be responding, decreasing leukocytosis. Afebrile.
MRSA screening pending-if positive consider adding vancomycin.
Sputum culture growing Staph aureus-wait for identification
-
Agree with secretion clearance interventions Atrovent/Xopenex
Mucolytic's
Acapella device
Vest therapy
Repeat chest x-ray in the next 24 to 48 hours
Eventually will need repeat CT chest to document complete resolution, if there is no complete resolution then at that time airway inspection will be needed.
I do not appreciate evidence of mass on this current CAT scan.
-
Syncope/orthostatic dizziness: Management per primary team.
Lung parenchyma without interstitial lung disease or emphysema
Doubt underlying significant pulmonary disease
Recommend outpatient pulmonary follow-up, patient aware that he will need repeat imaging of the chest to make sure there is no malignancy.
-
Will follow
Will need pulmonary follow-up upon discharge
[2024-05-22 19:35] VITALS: BP 84/52; BP 84/63; BP 91/66; PULSE 78; PULSE 80; PULSE 89
[2024-05-22 19:39] VITALS: BP 120/80
[2024-05-22] MEDS: MAGNESIUM SULFATE 102 GRAMS IV (20:34)
[2024-05-22 21:20] LABS: Glucose - Point of Care 132 mg/dl (70-99)
[2024-05-22] MEDS: XOPENEX 0.63 MG INHALANT SOLUTION INH (21:22)
[2024-05-22] MEDS: AMBIEN 5 MG PO (23:08)
[2024-05-22 23:20] VITALS: BP 97/56
[2024-05-23 03:44] VITALS: BP 130/76
[2024-05-23] MEDS: ZOSYN 50 IV ×4 (03:46→22:32)
[2024-05-23] MEDS: ATROVENT NEBULES 0.5 MG INH ×3 (07:08→19:39)
[2024-05-23] MEDS: XOPENEX 0.63 MG INHALANT SOLUTION INH ×3 (07:08→19:39)
[2024-05-23 07:40] VITALS: BP 103/60
--- NOTE | 2024-05-23 08:14 | CON.CAR ---
Consultation
Consultation Request
Date/Time Consultation Requested: 05/23/24 07
Date/Time Consultation Performed: 05/23/24 0800
Requesting Provider: hospitalist
Performing Provider: bandar
Reason for Consultation: lightheadedness/ syncope/ near syncope
Medical History
-
History of Present Illness:
Primary blood bank technician is Dr Thompson in [place]
68 year old with HTN, afib ( on sotalol) , NIDDM, hypercholesterolemianot on anticoagulation
.
Patient with episodes of lightheadedness over the last couple weeks. Episodes only occur after standing. Shortly after standing he gets lightheaded, headache SOB and feels like he might pass out. He says he has fallen breifely passed out on 2-3
occasions. No palpitations. No CP. No change in meds. Adequate oral in take denies fever. Patient has been reported to have cough with some sputum production
NO h/o CAD
afib dx about 10 years ago. on Sotalol. No on anticoagulation
Past Medical History
Past Medical History: None and Other (afib, HTN.BPH, hyperlipidemia , GERD, NIDDM)
Social History
Tobacco: Non-Smoker
Family History
Family History: Other (negative premature CAD)
Allergies / Home Medications
Allergy/AdvReac Type Severity Reaction Status Date / Time
No Known Allergies Allergy Verified 05/21/24 06:40
�Medication �Instructions �Recorded �Confirmed �Type
bupropion HCl 150 mg 24 hr tablet, 150 mg PO DAILY Mental 05/20/24 05/21/24 History
extended release (Wellbutrin XL) Health/Anxiety
candesartan 16 mg tablet 8 mg PO DAILY Blood Pressure 05/20/24 05/21/24 History
carvedilol 6.25 mg tablet (Coreg) 6.25 mg PO BID Blood Pressure 05/20/24 05/21/24 History
duloxetine 60 mg capsule,delayed 60 mg PO HS Mental Health/Anxiety 05/20/24 05/21/24 History
release (Cymbalta)
famotidine 40 mg tablet (Pepcid) 40 mg PO DAILY Gastrointestinal 05/20/24 05/21/24 History
Issue
fenofibrate 160 mg tablet 200 mg PO DAILY High Cholesterol 05/20/24 05/21/24 History
metformin 1,000 mg tablet 1,000 mg PO BID Diabetes 05/20/24 05/21/24 History
oxycodone myristate 36 mg capsule 36 mg PO Q8H Pain 05/20/24 05/21/24 History
sprinkle extended release
12hr(DON'T CRUSH) (Xtampza ER)
oxycodone-acetaminophen 10 mg-325 1 tab PO 5/D PRN break through 05/20/24 05/21/24 History
mg tablet
rosuvastatin 40 mg tablet 40 mg PO DAILY High Cholesterol 05/20/24 05/21/24 History
sotalol 120 mg tablet 120 mg PO BID Blood Pressure 05/20/24 05/21/24 History
tadalafil 5 mg tablet 5 mg PO DAILY Urinary Issue 05/20/24 05/21/24 History
tamsulosin 0.4 mg capsule (Flomax) 0.4 mg PO DAILY Urinary Issue 05/20/24 05/21/24 History
zolpidem 5 mg tablet 5 mg PO HSPRN PRN sleep 05/20/24 05/21/24 History
duloxetine 30 mg capsule,delayed 30 mg PO DAILY Mental 05/21/24 05/21/24 History
release (Cymbalta) Health/Anxiety
tizanidine 4 mg tablet 4 mg PO TIDPRN PRN spasms 05/21/24 05/21/24 History
Review of Systems
-
All other systems: Negative unless noted
Physical Exam
Vital Signs
Temp Pulse Resp BP Pulse Ox
97.2 F 64 12 103/60 96
05/23/24 07:40 05/23/24 07:40 05/23/24 07:40 05/23/24 07:40 05/23/24 07:40
Lab Results
Troponin I < 0.012 ng/ml 05/20/24 20:09
Physical Exam
General: Well Developed and Well Nourished
HEENT: Normocephalic
Respiratory: Clear and Other (no wheezes rales or rhonchi)
GI: Soft
Musculoskeletal: No Cyanosis
Skin: Warm
Neuro: Alert
Hematologic/Lymphatic: No Lymphadenopathy
Impression / Plan
-
Near syncope / syncope
- some symptoms sound orthostatic but consider other causes. Patient has some associated shortness of breath with episodes unclear if some of this is related to periods of hypoxemia patient with abnormal chest CT
May also consider neurologic issues consider some of his description associated with headache.
- echo
- hold candesartan. lower coreg to 3.125 BID
- orthostatic vitals
-Ambulatory pulse oximetry
.
afib - remains in sinus
- continue Sotalol
- CHADSVASC 3 ( 67, HTN, DM)
- not on anticoagulation may be due to CHADSVASC score being lower at time ofdiagnosis but can get addtional records to see if other cause
.
Abnormal chest CT/large dense airspace consolidation in the basilar segments right lower lobe with segmental basilar endobronchial occlusion possibility is mucous plugging/infection right lower lobe basilar bronchi with postobstructive atelectasis
or right lower lobe pneumonia mild right hilar and right mediastinal lymphadenopathy
-Evaluation and treatment pain directed by primary team
HTN - monitor with Med changes
hyperlipidemia - statin
Data Reviewed
-
EKG: Tracing Personally Visualized and interpreted (NSR)
CT Scan: Report Reviewed by me
Ultrasound: Report Reviewed by me
MRI: Report Reviewed by me
Medical Tests (Nuc Med, Echo etc): Report Reviewed by me
Labs: Labs Reviewed by me
[2024-05-23 08:37] LABS: Glucose - Point of Care 117 mg/dl (70-99)
[2024-05-23] MEDS: NOVOLOG FLEXPEN-LOW RESISTANCE SC ×2 (08:39→13:07)
[2024-05-23] MEDS: ATACAND PO (08:39)
[2024-05-23] MEDS: BETAPACE 120 MG PO ×2 (08:42→21:15)
[2024-05-23] MEDS: CYMBALTA DELAYED RELEASE 90 MG PO (08:42)
[2024-05-23] MEDS: FLOMAX 0.4 MG PO (08:42)
[2024-05-23] MEDS: CRESTOR 40 MG PO (08:42)
[2024-05-23] MEDS: OXYCONTIN (CONTROLLED RELEASE) 40 MG PO ×3 (08:42→23:34)
[2024-05-23] MEDS: TRICOR 145 MG PO (08:42)
[2024-05-23] MEDS: COREG 6.25 MG PO (08:43)
[2024-05-23] MEDS: WELLBUTRIN XL (24 hour extended release) 150 MG PO (08:43)
[2024-05-23] MEDS: PEPCID 40 MG PO (08:43)
[2024-05-23 09:21] LABS: Hemoglobin 11.2 g/dL (13.0-18.0); Mean Corpuscular Hgb 28.5 pg (27.0-31.0); Mean Corpuscular Volume 89.1 fL (80.0-94.0); Mean Platelet Volume 10.5 fL (7.4-10.4); Platelet Count 323 10^3/uL (130-400); Red Blood Cell Count 3.93 10^6/uL (4.70-6.10); Red Cell Dist. Width 13.6 % (11.5-14.5); White Blood Cell Count 11.2 10^3/uL (4.8-10.8)
[2024-05-23 09:25] LABS: Blood Urea Nitrogen 18 mg/dl (9-20); Calcium 9.4 mg/dl (8.4-10.2); Carbon Dioxide 30 mmol/L (22-30); Chloride 101 mmol/L (98-107); Estimated Creatinine Clearance 65 ml/min; Glucose 113 mg/dl (70-99); Magnesium 1.8 mg/dl (1.6-2.3); Potassium 4.4 mmol/L (3.5-5.1); Sodium 138 mmol/L (135-145); eGFR 55.43
--- NOTE | 2024-05-23 11:13 | W.PN.PUL.V3 ---
Today's Communication / Plan
-
Continue antibiotics
Follow radiographically-Ensure clearing
Outpatient CT chest and pulmonary follow-up
Assessment
-
68-year-old man with past medical history noted, admitted with shortness of breath, dizziness, multiple syncopal episodes. Also cough with phlegm production for the last several days weeks. Part of the evaluation including a CT chest demonstrated
right lower lobe infiltrate with possible endobronchial mucous plugging. We were consulted for abnormal CT chest 05/22/2024.
Abnormal CT chest 05/20/2024: Mild right paratracheal, subcarinal and right hilar lymphadenopathy. There is endobronchial occlusion of the basilar segment of the right lower lobe. There is large dense airspace consolidation in the basilar segment of
the right lower lobe. Minimal lingular scarring.
No pericardial effusion no pneumothorax.
Dizziness/syncope/shortness of breath-suspect cardiac in etiology.
Conditions present prior admission:
Paroxysmal atrial fibrillation
Hypertension
Hypercholesterolemia
Type 2 diabetes
BPH
History of cervical spine surgery and lumbar spine surgery
Former smoker
Assessment and plan:
Respiratory status only minimally improved.
Supplemental options needed.
Incentive spirometry.
Mucolytic.
Nebulizers-Xopenex
Vest therapy
Mucus clearing devices..
Follow radiographically
Check cultures.
Sputum culture-staph aureus
MRSA screen negative
Empiric antibiotics-on Zosyn
Monitor leukocytosis
Cardiology consultation.-Correspondence reviewed.
Near syncope/syncope
DVT prophylaxis.-On Lovenox
Nutrition
Early mobilization
Outpatient pulmonary follow-up
Subjective Data
-
Date of Service:
Date of Service: May 23, 2024
Chief Complaint: Pulmonary Follow Up and Dyspnea Follow Up
Subjective:
Feels the nebulizers helping, still has some dyspnea on exertion, no chest pain, has productive cough, no abdominal pain
Review of Systems
General: Other ( Per HPI)
Objective Data
Data Reviewed
Vital Signs / I&O:
Vital Signs
Temp Pulse Resp BP Pulse Ox
97.2 F 64 12 103/60 96
05/23/24 07:40 05/23/24 08:43 05/23/24 07:40 05/23/24 08:43 05/23/24 07:40
Intake and Output
05/22/24 05/23/24 05/24/24
06:59 06:59 06:59
Intake Total 1590 / 1590 580 / 580
Balance 1590 / 1590 580 / 580
SaO2: 96
Physical Exam
General: Respiratory Distress (n) and Comfortable
HEENT: Normocephalic, Anicteric and Moist Mucous Membranes
Cardiovascular: Regular Rhythm
Respiratory: Wheeze (n), Crackles, Rhonchi, Non-Labored Respirations, Accessory Resp Muscle Use and Stridor (n)
GI: Soft, Non Distended and Non Tender
Neurology: Awake and No Motor Deficits
Skin: Warm, Good Color, Cyanosis (n), Jaundice (n) and Rash (n)
Labs/Micro/Reports
Lab Data
05/23/24 08:32
05/23/24 08:32
Microbiology
05/21/24 18:28 Nose MRSA Screen - Final
No Methicillin Resistant Staphylococcus aureus isolated.
05/21/24 09:27 Sputum Respiratory Culture - Preliminary
Staphylococcus aureus
05/21/24 09:27 Sputum Gram Stain - Preliminary
05/21/24 05:30 Urine Legionella Urinary Antigen - Final
Negative for Legionella pneumophila Serogroup 1 antigen.
A negative result does not rule out the possiblity of
Legionella infection due to other serogroups or species of
Legionella. Clinical correlation is recommended.
[2024-05-23 11:24] VITALS: BP 115/61; BP 87/50; BP 92/54; PULSE 70; PULSE 72; PULSE 78
[2024-05-23 13:05] LABS: Glucose - Point of Care 88 mg/dl (70-99)
[2024-05-23 15:52] VITALS: BP 96/62
[2024-05-23 17:56] LABS: Glucose - Point of Care 157 mg/dl (70-99)
[2024-05-23] MEDS: NOVOLOG FLEXPEN-LOW RESISTANCE 1 UNITS SC (18:03)
[2024-05-23] MEDS: LOVENOX 40 MG SC (18:03)
--- NOTE | 2024-05-23 18:23 | W.PN.HOSP.TC ---
Today's Communication/Plan
-
Follow sputum cultures
Coreg reduced, Candesartan on hold
Assessment / Plan
Assessment / Plan
Physical Exam
General: Not in acute distress
HEENT: Normocephalic
Respiratory: Clear
Cardiac: S1/S2 and Regular Rhythm
GI: Soft, Non Tender, Non Distended and Normal Bowel Sounds
Musculoskeletal: No Cyanosis and No Edema
Skin: Warm. Dry.
Neuro: AAO x 3 and Nonfocal/grossly intact
Assessment/Plan
68-year-old male with past medical history of hypertension, hyperlipidemia, paroxysmal atrial fibrillation on sotalol but not anticoagulated who presents to the emergency department with recurrent episodes of orthostatic dizziness/presyncope and
found to have a large right lower lobe consolidation.
#RLL PNA - Appears to be secondary to RLL mucus plugging with post-obstructive pneumonia or atelectasis
#Endobronchial obstruction probably likely due to mucous plugging.
- atypical pneumonia, possible aspiration given h/o dysphagia, IV zosyn for now -- continue antibiotics for 7 days
- Sputum culture growing Staph aureus-continue to follow
- No MRSA
- Procal is low
- nebs RTC, muculytics
- Pulmonary consulted at the time of admission, possible malignancy w/u
- Repeat CXR in 24 to 48 hours
#Syncope - Orthostatic syncope with dizziness when standing.
#Orthostatic Hypotension
- Patient is on multiple medications that can contribute to this: hold Candesartan, reduce Coreg to 3.125 mg BID
- telemetry
- Monitor orthostatic vs
- CT angio negative
- echo
- carotid u/s with carotid plaques, but less than 50% stenosis bilaterally
#pAFIb - rate controlled on carvedilol and sotalol. [id number] at least 3. No AC or aspirin and no known h/o contraindication.
- currently normal sinus, continue sotalol and monitor on telemetry
- continue carvedilol
-Patient's impregnator and drier helper is Sriram Thompson MD in [facility]
-Two questions for cardiology: can we reduce his Coreg, and why is he not on Eliquis? Consulted cardiology, appreciate their eval and recommendations --> Coreg reduced.
-Patient will need evaluation outpatient for the starting of Eliquis
#Type 2 Diabetes Mellitus
- hold metformin s/p contrast
- sliding scale insulin
#Chronic Neuropathy of Bilateral Upper and Lower Extremities
-Patient follows Dr. Lopez (neurologist) at [facility]
DVT Prophylaxis: Lovenox SUBQ
Code Status: Full Code
Anticipated Discharge: 24 - 48 hours
Subjective/Interval History
-
Date of Service: May 23, 2024
Patient was seen and examined. He reports his symptoms have improved.
Objective Data
-
Labs:
Laboratory Results
05/23/24
08:32
WBC 11.2 H
Hgb 11.2 L
Hct 35.0 L
Plt Count 323
Sodium 138
Potassium 4.4
Chloride 101
Carbon Dioxide 30
BUN 18
Creatinine 1.4 H
Glucose 113 H
Calcium 9.4
Vital Signs:
Vital Signs
Temp Pulse Resp BP Pulse Ox
97.6 F 63 10 96/62 95
05/23/24 15:52 05/23/24 15:52 05/23/24 15:52 05/23/24 15:52 05/23/24 15:52
I&O
05/22/24 05/23/24 05/24/24
06:59 06:59 06:59
Intake Total 1590 / 1590 580 / 580
Balance 1590 / 1590 580 / 580
[2024-05-23 20:57] VITALS: BP 100/52; BP 106/69; BP 113/73; PULSE 70; PULSE 74; PULSE 80
[2024-05-23] MEDS: COREG 3.125 MG PO (21:15)
[2024-05-23 21:35] LABS: Glucose - Point of Care 132 mg/dl (70-99)
[2024-05-23 23:04] VITALS: BP 105/61
[2024-05-23] MEDS: AMBIEN 5 MG PO (23:34)
[2024-05-24 03:51] VITALS: BP 115/67
[2024-05-24] MEDS: ZOSYN 50 IV ×3 (04:29→16:15)
[2024-05-24 07:00] VITALS: BP 99/63
[2024-05-24] MEDS: ATROVENT NEBULES 0.5 MG INH ×3 (07:18→20:19)
[2024-05-24] MEDS: XOPENEX 0.63 MG INHALANT SOLUTION INH ×3 (07:18→20:19)
[2024-05-24 07:28] LABS: % Basophils 0.8 % (0-2); % Eosinophils 8.5 % (0-6); % Immature Granulocytes 0.3 % (0-0.5); % Lymphocytes 38.2 % (20.5-51.1); % Monocytes 6.7 % (1.7-9.3); % Neutrophils 45.5 % (42.2-75.2); Absolute Basophils 0.1 10^3/uL (0-0.2); Absolute Eosinophils 0.8 10^3/uL (0-0.7); Absolute Lymphocytes 3.8 10^3/uL (1.2-3.4); Absolute Monocytes 0.7 10^3/uL (0.1-0.6); Absolute Neutrophils 4.5 10^3/uL (1.4-6.5); Hematocrit 31.9 % (39.0-52.0); Hemoglobin 10.6 g/dL (13.0-18.0); Mean Corp Hgb Conc. 33.2 g/dL (33.0-37.0); Mean Corpuscular Hgb 29.5 pg (27.0-31.0); Mean Corpuscular Volume 88.9 fL (80.0-94.0); Mean Platelet Volume 10.5 fL (7.4-10.4); Nucleated Red Blood Cells % 0 % (-); Platelet Count 296 10^3/uL (130-400); Red Blood Cell Count 3.59 10^6/uL (4.70-6.10); Red Cell Dist. Width 13.7 % (11.5-14.5); White Blood Cell Count 9.9 10^3/uL (4.8-10.8)
[2024-05-24 07:52] LABS: Blood Urea Nitrogen 18 mg/dl (9-20); Calcium 8.9 mg/dl (8.4-10.2); Carbon Dioxide 32 mmol/L (22-30); Chloride 100 mmol/L (98-107); Estimated Creatinine Clearance 65 ml/min; Glucose 118 mg/dl (70-99); Magnesium 1.7 mg/dl (1.6-2.3); Potassium 4.1 mmol/L (3.5-5.1); Sodium 140 mmol/L (135-145); eGFR 55.43
[2024-05-24] MEDS: NOVOLOG FLEXPEN-LOW RESISTANCE SC ×2 (07:55→12:48)
[2024-05-24] MEDS: CRESTOR 40 MG PO (07:55)
[2024-05-24] MEDS: CYMBALTA DELAYED RELEASE 90 MG PO (07:55)
[2024-05-24] MEDS: TRICOR 145 MG PO (07:55)
[2024-05-24] MEDS: FLOMAX 0.4 MG PO (07:56)
[2024-05-24] MEDS: OXYCONTIN (CONTROLLED RELEASE) 40 MG PO ×3 (07:56→23:24)
[2024-05-24] MEDS: WELLBUTRIN XL (24 hour extended release) 150 MG PO (07:56)
[2024-05-24] MEDS: PEPCID 40 MG PO (07:56)
[2024-05-24] MEDS: BETAPACE 120 MG PO ×2 (07:56→20:41)
[2024-05-24] MEDS: COREG 3.125 MG PO ×2 (07:56→20:41)
[2024-05-24 08:04] LABS: Glucose - Point of Care 128 mg/dl (70-99)
--- NOTE | 2024-05-24 08:28 | W.PN.CD ---
Today's Communication / Plan
-
Cont coreg and sotalol
I discussed with him contacting Dr Thompson to obtain a 30 day monitor
Pain meds/muscle relaxants could be contributing?
This does not appear to be cardiac in origin
We will sign off please call with questions/concerns.
He should reach out to Dr Thompson about 30 day monitor.
Impression / Plan
-
Near syncope / syncope
- some symptoms sound orthostatic but consider other causes. Patient has some associated shortness of breath with episodes unclear if some of this is related to periods of hypoxemia patient with abnormal chest CT
May also consider neurologic issues consider some of his description associated with headache.
- echo
- Cont coreg 3.125 BID
- orthostatic vitals
-Ambulatory pulse oximetry
- he also on opioids and muscle relaxants that can cause lightheadedness/dizziness
.
afib - remains in sinus
- continue Sotalol
- CHADSVASC 3 ( 67, HTN, DM)
- not on anticoagulation may be due to CHADSVASC score being lower at time of diagnosis but can get addtional records to see if other cause
.
Abnormal chest CT/large dense airspace consolidation in the basilar segments right lower lobe with segmental basilar endobronchial occlusion possibility is mucous plugging/infection right lower lobe basilar bronchi with postobstructive atelectasis
or right lower lobe pneumonia mild right hilar and right mediastinal lymphadenopathy
-Evaluation and treatment pain directed by primary team
HTN - monitor with Med changes
hyperlipidemia - statin
Subjective: feeling a little improved, dizzy this AM though
EchO: CONCLUSIONS
LV ejection fraction is 55-60% by visual assessment.
Mild concentric left ventricular hypertrophy.
Normal diastolic function.
Normal right ventricular size and function.
No significant valvular disease.
Normal pericardium without effusion.
No prior study available for comparison.
Physical Exam
Vital Signs/Labs
Vital Signs
Temp Pulse Resp BP Pulse Ox
97.8 F 92 16 110/79 96
05/24/24 03:51 05/24/24 07:20 05/24/24 07:20 05/24/24 07:56 05/24/24 07:20
05/24/24 06:48
05/24/24 06:48
Magnesium 1.7 mg/dl (1.6-2.3) 05/24/24 06:48
Physical Exam
Constitutional: No acute distress and Comfortable
EENT: Anicteric
Cardiovascular: Rhythm & rate is regular and Pedal edema present (trace)
Respiratory: Respiratory effort normal
GI: Soft
Neuro/Psych: AO x 3
Data Reviewed
-
Date of Service: May 24, 2024
Medical Decision Making: Reviewed Test Results
EKG: Tracing Personally Visualized and interpreted (sr)
Echo: Report Reviewed by me
Labs: Labs Reviewed by me
--- NOTE | 2024-05-24 10:38 | W.PN.PUL.V3 ---
Today's Communication / Plan
-
.
Osktuxaoqoq-[id number] changed to oral antibiotic-finish 7-10 day course
Increase activity.
Nebulizers if needed-less bronchospastic
Assessment
-
68-year-old man with past medical history noted, admitted with shortness of breath, dizziness, multiple syncopal episodes. Also cough with phlegm production for the last several days weeks. Part of the evaluation including a CT chest demonstrated
right lower lobe infiltrate with possible endobronchial mucous plugging. We were consulted for abnormal CT chest 05/22/2024.
Abnormal CT chest 05/20/2024: Mild right paratracheal, subcarinal and right hilar lymphadenopathy. There is endobronchial occlusion of the basilar segment of the right lower lobe. There is large dense airspace consolidation in the basilar segment of
the right lower lobe. Minimal lingular scarring.
No pericardial effusion no pneumothorax.
Dizziness/syncope/shortness of breath-suspect cardiac in etiology.
Conditions present prior admission:
Paroxysmal atrial fibrillation
Hypertension
Hypercholesterolemia
Type 2 diabetes
BPH
History of cervical spine surgery and lumbar spine surgery
Former smoker
Assessment and plan:
Respiratory status slowly improving
Supplemental options needed-. Room air saturation 95%
Incentive spirometry.
Mucolytic.
Nebulizers-Xopenex
Vest therapy
Mucus clearing devices..
Follow radiographically
Check cultures.
Sputum culture-staph aureus-methicillin sensitive
MRSA screen negative
Empiric antibiotics-on Zosyn-eventually changed to oral antibiotic-? Bactrim, doxycycline,,
Monitor leukocytosis-Improved
Cardiology consultation.-Correspondence reviewed-signed off today
Near syncope/syncope
DVT prophylaxis.-On Lovenox
Nutrition
Early mobilization
Outpatient pulmonary follow-up
Subjective Data
-
Date of Service:
Date of Service: May 24, 2024
Chief Complaint: Pulmonary Follow Up and Dyspnea Follow Up
Subjective:
Feels better, less shortness of breath with exertion, recovers faster, no chest pain or abdominal pain was still producing sputum
Review of Systems
General: Other (per HPI)
Objective Data
Data Reviewed
Vital Signs / I&O:
Vital Signs
Temp Pulse Resp BP Pulse Ox
97.7 F 92 16 110/79 96
05/24/24 07:00 05/24/24 07:20 05/24/24 07:20 05/24/24 07:56 05/24/24 07:20
Intake and Output
05/23/24 05/24/24 05/25/24
06:59 06:59 06:59
Intake Total 580 / 580 1400 / 1400
Balance 580 / 580 1400 / 1400
SaO2: 96
Physical Exam
General: Respiratory Distress (n) and Comfortable
HEENT: Normocephalic, Anicteric and Moist Mucous Membranes
Cardiovascular: Regular Rhythm
Respiratory: Wheeze (n), Crackles, Rhonchi, Non-Labored Respirations, Accessory Resp Muscle Use and Stridor (n)
GI: Soft, Non Distended and Non Tender
Neurology: Awake and No Motor Deficits
Skin: Warm, Good Color, Cyanosis (n), Jaundice (n) and Rash (n)
Labs/Micro/Reports
Lab Data
05/24/24 06:48
05/24/24 06:48
Microbiology
05/21/24 09:27 Sputum Respiratory Culture - Final
S aureus-Methicillin Sensitive
05/21/24 09:27 Sputum Gram Stain - Final
05/21/24 18:28 Nose MRSA Screen - Final
No Methicillin Resistant Staphylococcus aureus isolated.
05/21/24 05:30 Urine Legionella Urinary Antigen - Final
Negative for Legionella pneumophila Serogroup 1 antigen.
A negative result does not rule out the possiblity of
Legionella infection due to other serogroups or species of
Legionella. Clinical correlation is recommended.
[2024-05-24 11:00] VITALS: BP 100/64; BP 125/74; BP 76/53; PULSE 64; PULSE 67; PULSE 74
[2024-05-24 12:58] LABS: Glucose - Point of Care 104 mg/dl (70-99)
--- NOTE | 2024-05-24 13:24 | W.PN.HOSP.TC ---
Today's Communication/Plan
-
See below
Assessment / Plan
Assessment / Plan
Physical Exam
General: Not in acute distress
HEENT: Normocephalic
Respiratory: Clear
Cardiac: S1/S2 and Regular Rhythm
GI: Soft, Non Tender, Non Distended and Normal Bowel Sounds
Musculoskeletal: No Cyanosis and No Edema
Skin: Warm. Dry.
Neuro: AAO x 3 and Nonfocal/grossly intact
Assessment/Plan
68-year-old male with past medical history of hypertension, hyperlipidemia, paroxysmal atrial fibrillation on sotalol but not anticoagulated who presents to the emergency department with recurrent episodes of orthostatic dizziness/presyncope and
found to have a large right lower lobe consolidation.
#RLL PNA - Appears to be secondary to RLL mucus plugging with post-obstructive pneumonia or atelectasis
#Endobronchial obstruction probably likely due to mucous plugging.
- atypical pneumonia, possible aspiration given h/o dysphagia, IV zosyn switched to Augmentin 875 mg BID -- continue antibiotics for 7 days (through 05/27/24)
- Sputum culture grew MSSA
- No MRSA
- Procal is low
- nebs RTC, muculytics
- Pulmonary consulted at the time of admission, possible malignancy w/u
- Repeat CXR
#Syncope - Orthostatic syncope with dizziness when standing.
#Orthostatic Hypotension
- Patient is on multiple medications that can contribute to this: hold Candesartan, reduce Coreg to 3.125 mg BID
- telemetry
- Monitor orthostatic vs
- CT angio negative
- echo
- Carotid u/s with carotid plaques, but less than 50% stenosis bilaterally
- Cannot do MRI: patient has spinal stimulator. [employer] considers the lead placement (not in spinal cord) NOT MRI Conditional. The patient is not a MRI candidate. (as per MRI department)
- ADDIS stockings, abdominal binder
#pAFIb - rate controlled on carvedilol and sotalol. [id number] at least 3. No AC or aspirin and no known h/o contraindication.
- currently normal sinus, continue sotalol and monitor on telemetry
- continue carvedilol
- Patient's mining manager is Sriram Thompson MD in [facility] to get a night monitor
- Two questions for cardiology: can we reduce his Coreg, and why is he not on Eliquis? Consulted cardiology, appreciate their eval and recommendations --> Coreg reduced.
- Patient will need evaluation outpatient for the starting of Eliquis
#Type 2 Diabetes Mellitus
- hold metformin s/p contrast
- sliding scale insulin
#Chronic Neuropathy of Bilateral Upper and Lower Extremities
-Patient follows Dr. Lopez (neurologist) at [facility]
DVT Prophylaxis: Lovenox SUBQ
Code Status: Full Code
Anticipated Discharge: 24 - 48 hours
Subjective/Interval History
-
Date of Service: May 24, 2024
Patient was seen and examined. He reported orthostatic symptoms when standing.
Objective Data
-
Labs:
Laboratory Results
05/24/24
06:48
WBC 9.9
Hgb 10.6 L
Hct 31.9 L
Plt Count 296
Sodium 140
Potassium 4.1
Chloride 100
Carbon Dioxide 32 H
BUN 18
Creatinine 1.4 H
Glucose 118 H
Calcium 8.9
Vital Signs:
Vital Signs
Temp Pulse Resp BP Pulse Ox
97.3 F 64 16 125/74 95
05/24/24 11:00 05/24/24 11:00 05/24/24 11:00 05/24/24 11:00 05/24/24 13:20
I&O
05/23/24 05/24/24 05/25/24
06:59 06:59 06:59
Intake Total 580 / 580 1400 / 1400
Balance 580 / 580 1400 / 1400
--- NOTE | 2024-05-24 14:47 | CM ---
CM met with pt bedside
Pt resides with his spouse in a 3Sh with 2 [address], sleeps on 3rd floor, 13+ 13 steps upstairs
Pt ambulates indep, utilizes a quad cane or WW depending on how he feels day to day
His spouse will assist with ADLs as well if needed, on some days he may be indep
Denies financial insecurities
No hx with VN/SNF
PCOP- [facility]
Rx- [facility]
PT/OT pending
CM consulted for possible SNF placement
Will await outcome of therapy evals
He will need [employer] auth if SNF on dc, he is aware Cigna not widely accepted in the area
Discharge Disposition- TBD, home with services vs SNF
[2024-05-24 15:00] VITALS: BP 117/72
[2024-05-24] MEDS: LOVENOX 40 MG SC (17:29)
[2024-05-24 18:06] LABS: Glucose - Point of Care 160 mg/dl (70-99)
[2024-05-24] MEDS: NOVOLOG FLEXPEN-LOW RESISTANCE 1 UNITS SC (18:18)
[2024-05-24 19:37] VITALS: BP 130/76
[2024-05-24] MEDS: AUGMENTIN 875 MG/125 MG 1 TABLET PO (20:41)
[2024-05-24 21:43] LABS: Glucose - Point of Care 117 mg/dl (70-99)
[2024-05-24 23:00] VITALS: BP 134/85; BP 145/85; BP 93/68; PULSE 67; PULSE 68; PULSE 75
--- NOTE | 2024-05-24 23:00 | PTCARENOTE ---
applied teds and abdominal binder. later assess v/s pt positive for orthos. 145/85, 134/85, 93/68. pt felt lightheaded and dizzy. pt was unsteady on his feet. instructed pt not to get oob w/o nursing. call donis in reach.
[2024-05-24] MEDS: AMBIEN 5 MG PO (23:25)
[2024-05-25 03:18] VITALS: BP 128/71
[2024-05-25 07:50] LABS: % Basophils 0.7 % (0-2); % Eosinophils 9.8 % (0-6); % Immature Granulocytes 0.2 % (0-0.5); % Lymphocytes 36.6 % (20.5-51.1); % Monocytes 7.3 % (1.7-9.3); % Neutrophils 45.4 % (42.2-75.2); Absolute Basophils 0.1 10^3/uL (0-0.2); Absolute Lymphocytes 3.6 10^3/uL (1.2-3.4); Absolute Monocytes 0.7 10^3/uL (0.1-0.6); Absolute Neutrophils 4.4 10^3/uL (1.4-6.5); Hematocrit 33.5 % (39.0-52.0); Hemoglobin 10.8 g/dL (13.0-18.0); Mean Corp Hgb Conc. 32.2 g/dL (33.0-37.0); Mean Corpuscular Hgb 28.7 pg (27.0-31.0); Mean Corpuscular Volume 89.1 fL (80.0-94.0); Mean Platelet Volume 10.5 fL (7.4-10.4); Nucleated Red Blood Cells % 0 % (-); Platelet Count 286 10^3/uL (130-400); Red Blood Cell Count 3.76 10^6/uL (4.70-6.10); Red Cell Dist. Width 13.5 % (11.5-14.5); White Blood Cell Count 9.7 10^3/uL (4.8-10.8)
[2024-05-25 08:08] VITALS: BP 137/76
--- NOTE | 2024-05-25 08:11 | W.PN.HOSP.TC ---
Today's Communication/Plan
-
Discharge today
Assessment / Plan
Assessment / Plan
Physical Exam
General: Not in acute distress
HEENT: Normocephalic
Respiratory: Clear
Cardiac: S1/S2 and Regular Rhythm
GI: Soft, Non Tender, Non Distended and Normal Bowel Sounds
Musculoskeletal: No Cyanosis and No Edema
Skin: Warm. Dry.
Neuro: AAO x 3 and Nonfocal/grossly intact
Assessment/Plan
68-year-old male with past medical history of hypertension, hyperlipidemia, paroxysmal atrial fibrillation on sotalol but not anticoagulated who presents to the emergency department with recurrent episodes of orthostatic dizziness/presyncope and
found to have a large right lower lobe consolidation.
#RLL PNA - Appears to be secondary to RLL mucus plugging with post-obstructive pneumonia or atelectasis
#Endobronchial obstruction probably likely due to mucous plugging.
- atypical pneumonia, possible aspiration given h/o dysphagia, IV zosyn switched to Augmentin 875 mg BID -- continue antibiotics for 7 days (through 05/27/24)
- Sputum culture grew MSSA
- No MRSA
- Procal is low
- nebs RTC, muculytics
- Levalbuterol as needed - 2 inhalations every 4 to 6 hours as needed
- Pulmonary consulted at the time of admission, possible malignancy w/u
- Outpatient radiographic and pulmonary follow-up
#Syncope - Orthostatic syncope with dizziness when standing - Pain meds/muscle relaxants could be contributing?
#Orthostatic Hypotension - Pain meds/muscle relaxants could be contributing?
- Patient is on multiple medications that can contribute to this: hold Candesartan, reduce Coreg to 3.125 mg BID
- telemetry
- Monitor orthostatic vs
- CT angio negative
- echo
- Carotid u/s with carotid plaques, but less than 50% stenosis bilaterally
- Cannot do MRI: patient has spinal stimulator. [employer] considers the lead placement (not in spinal cord) NOT MRI Conditional. The patient is not a MRI candidate. (as per MRI department)
- ADDIS stockings, abdominal binder
- Patient needs to contact his outpatient neurologist Dr. Lopez after discharge
#pAFIb - rate controlled on carvedilol and sotalol. [id number] at least 3. No AC or aspirin and no known h/o contraindication.
- currently normal sinus, continue sotalol and monitor on telemetry
- continue carvedilol
- Patient's operational communication chief is Sriram Thompson MD in [facility] to get a 30-day vehicle monitor technician
- Two questions for cardiology: can we reduce his Coreg, and why is he not on Eliquis? Consulted cardiology, appreciate their eval and recommendations --> Coreg reduced to 3.125 mg BID, and hold Candesartan.
- Patient will need evaluation outpatient for the starting of Eliquis
- He needs to contact his neurologist and operational communication chief -- consider at least Aspirin 81 mg daily outpatient
#Type 2 Diabetes Mellitus
- hold metformin s/p contrast
- sliding scale insulin
#Chronic Neuropathy of Bilateral Upper and Lower Extremities
-Patient follows Dr. Lopez (neurologist) at [facility]
DVT Prophylaxis: Lovenox SUBQ
Code Status: Full Code
More than 30 minutes spent in discharge including
Final examination of the patient
Summarizing hospital stay
Instructions for continuing care to all relevant caregivers
Preparation of discharge records, prescriptions, and referral forms
Total time spent (in minutes): 38
Anticipated Discharge: Today
Subjective/Interval History
-
Date of Service: May 25, 2024
Patient was seen and examined. He reported his dizziness is better, denied any other symptoms or complaints.
Objective Data
-
Labs:
Laboratory Results
05/25/24
07:24
WBC 9.7
Hgb 10.8 L
Hct 33.5 L
Plt Count 286
Sodium Pending
Potassium Pending
Chloride Pending
Carbon Dioxide Pending
BUN Pending
Creatinine Pending
Glucose Pending
Calcium Pending
Vital Signs:
Vital Signs
Temp Pulse Resp BP Pulse Ox
97.6 F 64 18 137/76 96
05/25/24 08:08 05/25/24 08:08 05/25/24 08:08 05/25/24 08:08 05/25/24 08:08
I&O
05/24/24 05/25/24 05/26/24
06:59 06:59 06:59
Intake Total 1400 / 1400 480 / 480
Balance 1400 / 1400 480 / 480
[2024-05-25 08:20] LABS: Blood Urea Nitrogen 21 mg/dl (9-20); Carbon Dioxide 33 mmol/L (22-30); Chloride 102 mmol/L (98-107); Estimated Creatinine Clearance 61 ml/min; Glucose 118 mg/dl (70-99); Magnesium 1.9 mg/dl (1.6-2.3); Potassium 4.4 mmol/L (3.5-5.1); Sodium 141 mmol/L (135-145); eGFR 51.03
[2024-05-25] MEDS: OXYCONTIN (CONTROLLED RELEASE) 40 MG PO ×2 (08:41→15:50)
[2024-05-25] MEDS: CYMBALTA DELAYED RELEASE 90 MG PO (08:41)
[2024-05-25 08:42] LABS: Glucose - Point of Care 137 mg/dl (70-99)
[2024-05-25] MEDS: CRESTOR 40 MG PO (08:42)
[2024-05-25] MEDS: AUGMENTIN 875 MG/125 MG 1 TABLET PO (08:42)
[2024-05-25] MEDS: WELLBUTRIN XL (24 hour extended release) 150 MG PO (08:42)
[2024-05-25] MEDS: FLOMAX 0.4 MG PO (08:42)
[2024-05-25] MEDS: PEPCID 40 MG PO (08:42)
[2024-05-25] MEDS: TRICOR 145 MG PO (08:42)
[2024-05-25] MEDS: COREG 3.125 MG PO (08:42)
[2024-05-25] MEDS: BETAPACE 120 MG PO (08:42)
[2024-05-25] MEDS: NOVOLOG FLEXPEN-LOW RESISTANCE SC (08:47)
[2024-05-25] MEDS: XOPENEX 0.63 MG INHALANT SOLUTION INH ×2 (08:50→13:59)
[2024-05-25] MEDS: ATROVENT NEBULES 0.5 MG INH ×2 (08:50→13:59)
--- NOTE | 2024-05-25 10:08 | W.PN.PUL.V3 ---
Today's Communication / Plan
-
. Increase activity.
Check exercise oximetry.
Finite course of antibiotics.
Outpatient radiographic and pulmonary follow-up
Assessment
-
68-year-old man with past medical history noted, admitted with shortness of breath, dizziness, multiple syncopal episodes. Also cough with phlegm production for the last several days weeks. Part of the evaluation including a CT chest demonstrated
right lower lobe infiltrate with possible endobronchial mucous plugging. We were consulted for abnormal CT chest 05/22/2024.
Abnormal CT chest 05/20/2024: Mild right paratracheal, subcarinal and right hilar lymphadenopathy. There is endobronchial occlusion of the basilar segment of the right lower lobe. There is large dense airspace consolidation in the basilar segment of
the right lower lobe. Minimal lingular scarring.
No pericardial effusion no pneumothorax.
Dizziness/syncope/shortness of breath-suspect cardiac in etiology.
Conditions present prior admission:
Paroxysmal atrial fibrillation
Hypertension
Hypercholesterolemia
Type 2 diabetes
BPH
History of cervical spine surgery and lumbar spine surgery
Former smoker
Assessment and plan:
Respiratory status continues to improve
Supplemental options needed-. Room air saturation 96% n.
Check ambulatory pulse oximetry prior to discharge
Incentive spirometry.
Mucolytic.
Nebulizers-Xopenex
Vest therapy
Mucus clearing devices..
Follow radiographically
.
Cultures reviewed.
Sputum culture-staph aureus-methicillin sensitive
MRSA screen negative
Empiric antibiotics-on Zosyn-eventually changed to oral antibiotic-changed to Augmentin
Monitor leukocytosis-Improved
Cardiology consultation.-Correspondence reviewed-signed off yesterday
Near syncope/syncope
DVT prophylaxis.-On Lovenox
Nutrition
Early mobilization.
Respiratory status improved-finished her final course of antibiotics and radiographic [id number]. We'll sign off-. Please call with questions
Outpatient pulmonary follow-up
Subjective Data
-
Date of Service:
Date of Service: May 25, 2024
Chief Complaint: Pulmonary Follow Up and Dyspnea Follow Up
Subjective:
Feels better, no complains or seizures breath or chest pain or abdominal pain, recovering faster, persistent mild dyspnea on exertion
Review of Systems
General: Other (. HPI)
Objective Data
Data Reviewed
Vital Signs / I&O:
Vital Signs
Temp Pulse Resp BP Pulse Ox
97.6 F 84 16 137/76 96
05/25/24 08:08 05/25/24 08:53 05/25/24 08:53 05/25/24 08:42 05/25/24 08:53
Intake and Output
05/24/24 05/25/24 05/26/24
06:59 06:59 06:59
Intake Total 1400 / 1400 480 / 480
Balance 1400 / 1400 480 / 480
SaO2: 96
Physical Exam
General: Respiratory Distress (n) and Comfortable
HEENT: Normocephalic, Anicteric and Moist Mucous Membranes
Cardiovascular: Regular Rhythm
Respiratory: Wheeze (n), Crackles, Rhonchi, Non-Labored Respirations, Accessory Resp Muscle Use and Stridor (n)
GI: Soft, Non Distended and Non Tender
Neurology: Awake and No Motor Deficits
Skin: Warm, Good Color, Cyanosis (n), Jaundice (n) and Rash (n)
Labs/Micro/Reports
Lab Data
05/25/24 07:24
05/25/24 07:24
Microbiology
05/21/24 09:27 Sputum Respiratory Culture - Final
S aureus-Methicillin Sensitive
05/21/24 09:27 Sputum Gram Stain - Final
05/21/24 18:28 Nose MRSA Screen - Final
No Methicillin Resistant Staphylococcus aureus isolated.
--- NOTE | 2024-05-25 10:42 | CM ---
Addendum entered by Jessie Gonzales 05/25/24 16:13:
CM met with Ellis in room 1144 Bed 2. Imm reviewed; pt stated he did not feel ready for discharge but also refused to considering appeal of discharge.
Options for VN reviewed and pt chose [facility]. Darlyn To aware of same.
Plan: Pt will discharge to home with [facility]. He called his to come pick him up.
Addendum entered by Jessie Gonzales 05/25/24 15:29:
PT recommends VN for discharge home with need for RW.
Original Note:
CM following to coordinate discharge needs; Await PT/OT evaluation/recommendations.
[2024-05-25 11:08] VITALS: BP 108/84; BP 120/79; PULSE 73; O2SAT 93
[2024-05-25 11:09] VITALS: BP 109/84; BP 120/79; PULSE 72; PULSE 82; O2SAT 94
[2024-05-25 12:00] VITALS: BP 121/71
[2024-05-25] MEDS: NOVOLOG FLEXPEN-LOW RESISTANCE 1 UNITS SC (12:45)
[2024-05-25 12:53] LABS: Glucose - Point of Care 150 mg/dl (70-99)
--- NOTE | 2024-05-25 16:16 | VNURNOTE ---
Home Health Liaison met with patient at bedside to discuss [facility] nurse/therapy, visits, schedule and homebound status. Patient is agreeable and understands that visits at home will be 2-3 x per week to assess and teach medical management. He has RW
to take home. [facility] brochure provided with contact information. Patient is aware that [facility] will contact them for start of care in 1-2 days after discharge from .
[facility] referral completed in [facility].
[2024-05-25 18:14] VITALS: BP 126/86
== END 2024-05-25 18:19 | disposition home health service (06) | DRG 178 ==
LOC: 1 ACUTE 00:40
PROVIDERS: Clinical Nurse Specialist Family Health; Physician Assistant; ADMITTING PHYSICIAN Internal Medicine; ATTENDING PHYSICIAN Hospitalist; CONSULT PHYSICIAN Internal Medicine Critical Care Medicine; EMERGENCY PHYSICIAN Emergency Medicine; FAMILY PHYSICIAN Family Medicine; OTHER PHYSICIAN Internal Medicine Cardiovascular Disease
DX: J15.211 Pneumonia due to Methicillin susceptible Staphylococcus aureus (principal); F11.20 Opioid dependence, uncomplicated; J98.11 Atelectasis; E78.00 Pure hypercholesterolemia, unspecified; I48.0 Paroxysmal atrial fibrillation; I95.1 Orthostatic hypotension; E11.42 Type 2 diabetes mellitus with diabetic polyneuropathy; E86.0 Dehydration; F32.A Depression, unspecified; G89.29 Other chronic pain; K21.9 Gastro-esophageal reflux disease without esophagitis; Z87.891 Personal history of nicotine dependence; Z79.84 Long term (current) use of oral hypoglycemic drugs; Z79.899 Other long term (current) drug therapy
CPT/HCPCS: 70450; 71275; 74174; 80048; 80053; 82962; 83735; 84145; 84484; 85025; 85027; 86850; 86900; 86901; 87070; 87147; 87186; 87205; 87449; 90662; 93005; 93306; 93880; 94640; 96361; 96365; 97112; 97163; 97166; 99285; G0008; Q9967

== ENCOUNTER 2024-06-22 19:42 | Inpatient (IN) | payer OTHER, SELFPAY ==
[2024-06-22] VITALS (27 sets, daily range): BP systolic 127–207; BP diastolic 73–116; BMI 35.5
[2024-06-22 15:08] LABS: % Basophils 0.5 % (0-2); % Eosinophils 3.4 % (0-6); % Immature Granulocytes 0.2 % (0-0.5); % Monocytes 5.2 % (1.7-9.3); % Neutrophils 63.7 % (42.2-75.2); Absolute Basophils 0.1 10^3/uL (0-0.2); Absolute Eosinophils 0.4 10^3/uL (0-0.7); Absolute Lymphocytes 3.5 10^3/uL (1.2-3.4); Absolute Monocytes 0.7 10^3/uL (0.1-0.6); Absolute Neutrophils 8.3 10^3/uL (1.4-6.5); Hemoglobin 13.2 g/dL (13.0-18.0); Mean Corpuscular Hgb 28.7 pg (27.0-31.0); Mean Platelet Volume 10.3 fL (7.4-10.4); Nucleated Red Blood Cells % 0 % (-); Platelet Count 395 10^3/uL (130-400); Red Cell Dist. Width 13.6 % (11.5-14.5)
[2024-06-22 15:28] LABS: ALT (SGPT) 16 U/L (0-50); AST (SGOT) 34 U/L (17-59); Albumin 5.5 g/dl (3.5-5.0); Alkaline Phosphatase 66 U/L (38-126); Blood Urea Nitrogen 18 mg/dl (9-20); Calcium 10.5 mg/dl (8.4-10.2); Carbon Dioxide 24 mmol/L (22-30); Chloride 104 mmol/L (98-107); Glucose 149 mg/dl (70-99); Potassium 3.9 mmol/L (3.5-5.1); Sodium 142 mmol/L (135-145); Total Bilirubin 1.1 mg/dl (0.2-1.3); Total Protein 9.3 g/dl (6.3-8.2); eGFR > 60.00
[2024-06-22 15:38] LABS: Troponin I < 0.012 ng/ml
[2024-06-22] MEDS: APRESOLINE 10 MG IV ×2 (16:59→18:10)
--- NOTE | 2024-06-22 17:33 | ED.GENMED ---
History of Present Illness
General
Chief Complaint: Blood Pressure Problem
Time Seen by Provider: 06/22/24 16:10
History of Present Illness
History of Present Illness:
68-year-old male with history of hypertension, hyperlipidemia, and ohk-ykdzeqv-wvfcabzcg diabetes presents to the emergency department for evaluation of uncontrolled high blood pressure. States for the past week or more he has been feeling
lightheaded with a severe headache, blood pressure has been consistently greater than 200/100. Patient was recently admitted to this hospital in early May due to a right lower lobe pneumonia, at that time he was complaining of orthostatic
dizziness, he was recommended that his blood pressure medication be decreased however the patient was not compliant with this. He remained on 6.25 mg of carvedilol and recently restarted 8 mg of candesartan. Denies any chest pain or shortness of
breath at this time. He is also on tamsulosin, uses tadalafil intermittently but has not used in the past 48 hours
Past History
Past History
ED Past Medical History: Arrthythmia (Palpitations), Cancer (Bladder cancer), GERD, HTN, Hypercholesterolemia, NIDDM, Psychiatric (Depression) and Other (chronic back and neck pain, Neuropathy, Colitis, Renal calculus, )
ED Past Surgical History: Cardiac (Ablation, ) and Orthopedic (Back surgery, Lumbar fusion, )
Social History
Tobacco: Former smoker
Alcohol: None
Drug: Other (Opiod dependence due to Multiple back surgery)
Personal:
Living: with family
Review of Systems
Review of Systems
Allergies reviewed?: Yes
All Other Systems: ROS reviewed and negative except as documented in HPI and ROS
Phy Exam
Physical Exam
Physical Exam:
GEN: Well appearing, NAD, WDWN
HEENT: Oral mucosa moist, no scleral icterus
Cardiac: Regular rate
Lung: No respiratory distress, no tachypnea
MSK: No gross deformity or injuries
Skin: Good color, no pallor or jaundice, no rashes
Neuro: AO x3, moves all extremities freely
Psych: Calm, cooperative
Course
Orders/Labs/Results
Orders:
Orders
06/22/24 14:44
Electrocardiogram (*1) Urgent
Reason for Study: Hypertension, Benign
Other Reason for Exam: dizziness
EKG- Treatment ONCE
06/22/24 14:55
Complete Blood Count/With Diff Urgent
Comprehensive Metabolic Panel Urgent
Troponin I Urgent
06/22/24 16:46
HydrALAZINE [Apresoline] 10 mg IV NOW STA
06/22/24 18:04
HydrALAZINE [Apresoline] 10 mg IV NOW STA
Ketorolac [Toradol] 15 mg IV NOW STA
Abnormal Lab Results
06/22/24
14:55
WBC 13.0 H 10^3/uL
(4.8-10.8)
RBC 4.60 L 10^6/uL
(4.70-6.10)
Absolute Neuts (auto) 8.3 H 10^3/uL
(1.4-6.5)
Absolute Lymphs (auto) 3.5 H 10^3/uL
(1.2-3.4)
Absolute Monos (auto) 0.7 H 10^3/uL
(0.1-0.6)
Glucose 149 H mg/dl
(70-99)
Calcium 10.5 H mg/dl
(8.4-10.2)
Total Protein 9.3 H g/dl
(6.3-8.2)
Albumin 5.5 H g/dl
(3.5-5.0)
06/22/24 14:55
06/22/24 14:55
Vital Signs
Initial and Last Documented VS:
Initial Vital Signs
Temp Pulse Resp BP Pulse Ox
98.1 F 88 16 198/116 98
06/22/24 14:39 06/22/24 14:39 06/22/24 14:39 06/22/24 14:39 06/22/24 14:39
Last Documented Vital Signs
Temp Pulse Resp BP Pulse Ox
98.1 F 88 16 195/119 98
06/22/24 14:39 06/22/24 14:39 06/22/24 14:39 06/22/24 16:59 06/22/24 14:39
MDM/Problems Addressed
MDM/Problems Addressed:
68-year-old male presents with markedly elevated high blood pressure complaining of lightheadedness and headache. He was compliant with blood pressure medication regimen at home. Did have some improvement with IV hydralazine however gradually up
trended to greater than over 200 systolic. At this time there is no clear evidence of endorgan damage, labs are reassuring and he has no focal neurologic deficits warranting head CT. I did offer the patient discharge home with increase of his home
BP meds however he is quite uneasy about the possibility of further home management as he is quite concerned he will 'have a stroke at any minute'. As result we will admit to the hospital service for tighter blood pressure control
*Critical Care Note
Total Time (30-74mins, 75-104mins- exclusive of procedures): Not Applicable
ED Attending Note
-
Portions of this chart may have been created with voice recognition software.� Occasional wrong word or��sound alike� substitutions may have occurred due to the inherent limitations of voice recognition software.
Discharge Plan
Departure
Patient Disposition: Admit
Date of Disposition: 06/22/24
Time of Disposition: 18:05
Admit to: Telemetry
Presentation/result/management discussed w/ accepting MD/DO: Hospitalist
Discharge Problem:
Hypertensive urgency
Prescriptions:
No Action
famotidine [Pepcid] 40 mg Tablet
40 mg PO DAILY
sotalol 120 mg Tablet
120 mg PO BID
oxycodone-acetaminophen 10-325 mg Tablet
1 tab PO 5/D PRN (Reason: break through)
tamsulosin [Flomax] 0.4 mg Capsule
0.4 mg PO DAILY
metformin 1,000 mg Tablet
1,000 mg PO BID
candesartan 16 mg Tablet
8 mg PO DAILY
zolpidem 5 mg Tablet
5 mg PO HSPRN PRN (Reason: sleep)
rosuvastatin 40 mg Tablet
40 mg PO DAILY
bupropion HCl [Wellbutrin XL] 150 mg Tablet Extended Release 24 Hr
150 mg PO DAILY
tadalafil 5 mg Tablet
5 mg PO DAILY
duloxetine [Cymbalta] 60 mg Capsule,Delayed Release(Dr/Ec)
60 mg PO HS
fenofibrate 160 mg Tablet
200 mg PO DAILY
Xtampza ER 36 mg Cap,Sprinkl,Er12hr(Dont Crush)
36 mg PO Q8H
tizanidine 4 mg Tablet
4 mg PO TIDPRN PRN (Reason: spasms)
duloxetine [Cymbalta] 30 mg Capsule,Delayed Release(Dr/Ec)
30 mg PO DAILY
amoxicillin-pot clavulanate 875-125 mg Tablet
1 tab PO Q12 Qty: 5 0RF
carvedilol 3.125 mg Tablet
3.125 mg PO BID Qty: 60 1RF
levalbuterol tartrate [Xopenex HFA] 45 mcg/actuation HFA aerosol inhaler
2 inh inhalation Q6H PRN (Reason: shortness of breath or wheezing) Qty: 15 0RF
(DME) Clair Walker
See Rx Instructions .Route .MEDSUPPLY Qty: 1 0RF
Rx Instructions:
As directed
Referrals:
Zachary Holly DO [Family Provider] -
Interventions
Interventions:
*Risk Screen - Suicide Last Done: 06/22/24 14:39
*General Assessment Last Done: 06/22/24 14:39
*Neglect/Abuse Screening Last Done: 06/22/24 14:39
Discharge Date and Time
Print Language: SERBIAN
[2024-06-22] MEDS: TORADOL 15 MG IV (18:10)
--- NOTE | 2024-06-22 18:52 | HPS.HSE ---
Family Physician
-
Family Physician: Zachary Holly
Chief Complaint
-
Elevated blood pressure
History of Present Illness
This is a 68-year-old with past medical history significant for hypertension, GERD, hyperlipidemia, uav-gcuppqq-ysgfszlgm diabetes, history of bladder cancer status post resection and treatment, history of neuropathy, cardiac ablation presenting to
the emergency department with hypertension.
Patient was recently admitted to the hospital for pneumonia. At that time he had orthostatic hypotension. His medications were adjusted with decreasing his Coreg and discontinuation of candesartan. His medications were recently restarted again.
Since the last 1 week patient reported that his had persistent elevated blood pressure. When he gets up his blood pressure actually increases further. He states that in the past has had orthostatic hypotension and has held his medications when he
felt lightheaded. However this time we will do he feels lightheaded his blood pressure was elevated. He reports a persistent headache. Denies nausea or vomiting. Denies any numbness or tingling. Denies having any chest pain. He denies any
shortness of breath. Measured blood pressure as high as 240 at home and was directed to come to the ED.
In the emergency department he was hypertensive to 210/110, pulse 70 he was afebrile. ECG shows a normal sinus rhythm at a rate of [address] or T wave changes. Troponin negative. White count was 13 otherwise CBC unremarkable.
Electrolytes BUN/creatinine were stable and unremarkable. Giving IV doses of hydralazine x 2 and Toradol. Still hypertensive in the 190s and creeping up. Still with a headache.
Medical History
Past Medical History
Past Medical History: Reports Other
Additional Past Medical History:
Arrthythmia (Palpitations), Cancer (Bladder cancer), GERD, HTN, Hypercholesterolemia, NIDDM, Psychiatric (Depression) and Other (chronic back and neck pain, Neuropathy, Colitis, Renal calculus, )
Past Surgical History: Reports Other
Additional Past Surgical History:
Cardiac (Ablation, ) and Orthopedic (Back surgery, Lumbar fusion, )
Social History
Tobacco: Non-smoker
Alcohol: None
Drug: None
Personal:
Living: With Family
Family History
Family History: Not pertinent
Allergies / Home Medications
Allergies reflects when Allergies were last updated in [facility].
Home Medications with original date entered in [facility]
Allergy/Medication List:
Allergies
Allergy/AdvReac Type Severity Reaction Status Date / Time
tamsulosin Allergy Unknown Verified 06/22/24 18:18
Home Medications
bupropion HCl 150 mg 24 hr tablet, extended release (Wellbutrin XL) 150 mg PO DAILY Mental Health/Anxiety 05/20/24
candesartan 16 mg tablet 8 mg PO DAILY Blood Pressure 05/20/24
duloxetine 60 mg capsule,delayed release (Cymbalta) 60 mg PO HS Mental Health/Anxiety 05/20/24
famotidine 40 mg tablet (Pepcid) 40 mg PO DAILY Gastrointestinal Issue 05/20/24
fenofibrate 160 mg tablet 200 mg PO DAILY High Cholesterol 05/20/24
metformin 1,000 mg tablet 1,000 mg PO BID Diabetes 05/20/24
oxycodone myristate 36 mg capsule sprinkle extended release 12hr(DON'T CRUSH) (Xtampza ER) 36 mg PO Q8H Pain 05/20/24
oxycodone-acetaminophen 10 mg-325 mg tablet 1 tab PO 5/D PRN break through 05/20/24
rosuvastatin 40 mg tablet 40 mg PO DAILY High Cholesterol 05/20/24
sotalol 120 mg tablet 120 mg PO BID Blood Pressure 05/20/24
tadalafil 5 mg tablet 5 mg PO DAILY Urinary Issue 05/20/24
tamsulosin 0.4 mg capsule (Flomax) 0.4 mg PO DAILY Urinary Issue 05/20/24
zolpidem 5 mg tablet 5 mg PO HSPRN PRN sleep 05/20/24
duloxetine 30 mg capsule,delayed release (Cymbalta) 30 mg PO DAILY Mental Health/Anxiety 05/21/24
tizanidine 4 mg tablet 4 mg PO TIDPRN PRN spasms 05/21/24
Rolling Walker #1 ea 05/25/24
amoxicillin 875 mg-potassium clavulanate 125 mg tablet 1 tab PO Q12 #5 tabs 05/25/24
carvedilol 3.125 mg tablet 3.125 mg PO BID #60 tabs 05/25/24
levalbuterol tartrate 45 mcg/actuation aerosol inhaler (Xopenex HFA) 2 inh inhalation Q6H PRN shortness of breath or wheezing #15 grams 05/25/24
Review of Systems
-
History Source: Patient
Constitutional: Reports No Symptoms
EENT: Reports No Symptoms
Respiratory: Reports No Symptoms
Cardiac: Reports No Symptoms
Abdomen/GI: Reports No Symptoms
: Reports No Symptoms
Musculoskeletal: Reports No Symptoms
Skin: Reports No Symptoms
Neurological: Reports Headache
Endocrine: Reports No Symptoms
Hematologic/Lymphatic: Reports No Symptoms
Psych: Reports No Symptoms
Physical Exam
Vital Signs
Vital Signs
Temp Pulse Resp BP Pulse Ox
98.1 F 70 15 207/101 96
06/22/24 14:39 06/22/24 18:25 06/22/24 18:00 06/22/24 18:10 06/22/24 18:26
Physical Exam
General: Well Developed, Well Nourished and Pain
HEENT: NormoCephalic, Anicteric, Moist mucous membranes, Atraumatic, PERRLA, No Ptosis and Other (facial redness/flushing)
Respiratory: Clear
Cardiac: S1/S2 and Regular Rhythm
Breast: Deferred by me
GI: Soft, Non Tender, Non Distended and Normal Bowel Sounds
Rectal: Deferred by Provider
Genito-urinary: Deferred by me
Musculoskeletal: No Clubbing, No Cyanosis and No Edema
Skin: Warm
Neuro: AO x 3 and Nonfocal/grossly intact
Hematologic/Lymphatic: No Lymphadenopathy
Psych: Calm
Laboratory Results
-
06/22/24 14:55
06/22/24 14:55
Laboratory Results
Total Bilirubin 1.1 mg/dl (0.2-1.3) 06/22/24 14:55
AST 34 U/L (17-59) 06/22/24 14:55
ALT 16 U/L (0-50) 06/22/24 14:55
Alkaline Phosphatase 66 U/L (38-126) 06/22/24 14:55
Troponin I < 0.012 ng/ml 06/22/24 14:55
Data Reviewed
-
Medical Tests (Nuc Med, Echo, EKG etc): Image Personally Visualized and interpreted
Lab Data: Labs Reviewed by me
Old Records: Reviewed
Impression/Plan
-
IMPRESSION:
Uncontrolled hypertension with headache and facial flushing consistent to hypertensive urgency.
PLAN:
1. Uncontrolled hypertension w/ persistent headache
- admit to imu
- start nicardipine gtt for goal SBP < 170 for now
- continue home candesartan 8, carvedilolol 6.25
- check orthostatics
- consider screening urine metanephrines as outpatient
2. DM II
- continue metformin 1000 bid
- insulin sliding scale
- continue statin and fenofibrate
3. Headache
- tylenol
- reglan prn
4. Allergy - Patient developed facial flushing and rash after just recieving iv meds. Hydralazine/toradol. Unsure which triggered the rash. Mild SOB.
- iv benadryl
- no further hydralazine, switching to nicardipine
- acetaminophen for headache
- reglan x 1
DVT PPX - SCDs for now
Code status - full code
[2024-06-22] MEDS: CARDENE 200 IV (19:56)
[2024-06-22] MEDS: REGLAN 10 MG IV (20:03)
[2024-06-22] MEDS: BENADRYL 25 MG IV (20:04)
[2024-06-22] MEDS: TYLENOL 650 MG PO (20:20)
[2024-06-22] MEDS: COREG 6.25 MG PO (21:23)
[2024-06-22] MEDS: OXYCONTIN (CONTROLLED RELEASE) 40 MG PO (21:24)
--- NOTE | 2024-06-22 22:00 | PTCARENOTE ---
Received pt via transfer from ED. Pt AAOx3 able to ambulate and use the bathroom, afebrile. NSR- SB, palpable pulses in upper and lower extremities, hypertensive on cardene gtt. Hypoactive bowel sounds in all 4Q. Urinal at bedside, voiding clear
yellow urine. Skin CDI with slight red flush in face. Son and call donis at bedside.
[2024-06-22] MEDS: BETAPACE 120 MG PO (22:30)
[2024-06-22] MEDS: ZANAFLEX 4 MG PO (23:04)
[2024-06-22] MEDS: AMBIEN 5 MG PO (23:04)
[2024-06-23] VITALS (53 sets, daily range): BP systolic 77–201; BP diastolic 53–134; PULSE 65–83; BMI 35.4; BMI 35.2
[2024-06-23 04:54] LABS: Hematocrit 38.6 % (39.0-52.0); Hemoglobin 12.7 g/dL (13.0-18.0); Mean Corp Hgb Conc. 32.9 g/dL (33.0-37.0); Mean Corpuscular Hgb 28.3 pg (27.0-31.0); Mean Corpuscular Volume 86.2 fL (80.0-94.0); Mean Platelet Volume 10.1 fL (7.4-10.4); Platelet Count 374 10^3/uL (130-400); Red Blood Cell Count 4.48 10^6/uL (4.70-6.10); Red Cell Dist. Width 13.6 % (11.5-14.5); White Blood Cell Count 14.2 10^3/uL (4.8-10.8)
[2024-06-23 05:02] LABS: INR 1.07; PT 14.4 Sec (11.4-14.6)
--- NOTE | 2024-06-23 05:07 | PTCARENOTE ---
All systems reassessed, labs drawn and hygiene performed.
[2024-06-23 05:29] LABS: Blood Urea Nitrogen 20 mg/dl (9-20); Calcium 9.8 mg/dl (8.4-10.2); Carbon Dioxide 23 mmol/L (22-30); Chloride 102 mmol/L (98-107); Estimated Creatinine Clearance 78 ml/min; Glucose 117 mg/dl (70-99); Magnesium 1.7 mg/dl (1.6-2.3); Potassium 4.2 mmol/L (3.5-5.1); Sodium 137 mmol/L (135-145); eGFR > 60.00
--- NOTE | 2024-06-23 07:15 | PTCARENOTE ---
went in to see pt who was again hypertensive. repeat bp as charted. pt c/o frontal headache returning. cardene resumed.
[2024-06-23] MEDS: TRICOR 145 MG PO (07:47)
[2024-06-23] MEDS: TYLENOL 650 MG PO ×2 (07:47→14:10)
[2024-06-23] MEDS: PEPCID 40 MG PO (07:48)
[2024-06-23] MEDS: OXYCONTIN (CONTROLLED RELEASE) 40 MG PO ×3 (07:48→23:10)
[2024-06-23] MEDS: GLUCOPHAGE 1000 MG PO ×2 (07:48→16:58)
[2024-06-23] MEDS: COREG 6.25 MG PO ×2 (07:49→20:06)
[2024-06-23] MEDS: CYMBALTA DELAYED RELEASE 90 MG PO (07:49)
[2024-06-23] MEDS: BETAPACE 120 MG PO ×2 (07:49→20:05)
[2024-06-23] MEDS: CRESTOR 40 MG PO (07:49)
[2024-06-23] MEDS: WELLBUTRIN XL (24 hour extended release) 150 MG PO (07:49)
[2024-06-23] MEDS: ATACAND 8 MG PO ×2 (07:49→20:05)
[2024-06-23 08:14] LABS: Glucose - Point of Care 108 mg/dl (70-99)
--- NOTE | 2024-06-23 10:12 | VNURNOTE ---
Chart reviewed. Patient is current with [facility] nursing, PT. Will continue to follow hospital course and DC plans.
--- NOTE | 2024-06-23 10:57 | CON.INTV ---
Consultation
Consultation Request
Date/Time Consultation Requested: 06/22/2024
Date/Time Consultation Performed: 06/23/2024
Requesting Provider: Austin Nix
Performing Provider: Ramírez Beaver
Reason for Consultation: Hypertensive Emergency
Medical History
-
Chief Complaint: High blood pressure and headache
History of Present Illness:
Patient is a 68-year-old male with past medical history significant for hypertension, GERD, hyperlipidemia, npm-tcgcqkt-drctxxvxg diabetes mellitus, history of bladder cancer s/p resection and treatment, history of neuropathy, cardiac ablation
presenting to the emergency department with high blood pressure reading of 240/140 at home along with headache in frontal region.
According to the patient, he was last admitted to the hospital when he had a near syncope episode at home, at that time his medications were adjusted with a reduction in dose of carvedilol and discontinuation of candesartan. His medications were
restarted, but despite being compliant to the medication he had increased blood pressure readings on several occasions. He regularly checks his blood pressure at home. Yesterday morning, he had frontal headache so he decided to check his blood
pressure that came to 240/140, so he decided to come to the ER. He had a severe allergic reaction to hydralazine in ER with facial flushing and rash. He was started on nicardipine infusion and transferred to ICU. He says that with the high blood
pressure he also had heaviness in his arms and it felt like someone was pushing his arms down. An EKG was done in the ER that showed normal sinus rhythm and no acute ST-T changes.
Patient also has history of atrial fibrillation, he takes sotalol at home, denies any anticoagulation. His [id number] score is 3, he regularly follows up with his sample coordinator Dr. Reeves, and Dr. Thompson but nobody has ever initiated the discussion
for anticoagulation and patient feels that he is okay with that as his father was on blood thinners and he always bled very briskly with minor trauma.
He denies any nausea, vomiting, chest pain, palpitations, shortness of breath, body aches but he does say that his arms feel heavy and there is a frontal headache that is milder in intensity than yesterday but is still there.
Currently patient is off nicardipine, started on low-dose Lasix, to help with the blood pressures. Of note, patient's heart rate is ranging in 50s to 60s, and he is allergic to hydralazine.
Patient is eating a cholesterol-lowering diet, consumed breakfast 100%. His orthostatic vitals were, lying 160/90, sitting 124/90, standing 133/100.
Past Medical History
Past Medical History: Arrhythmias (palpitations, paroxysmal atrial fibrillation), Cancer (Bladder cancer), GERD, HTN, Hypercholesterolemia, NIDDM, Psychiatric (Depression) and Other (Chronic back and neck pain, neuropathy, colitis, renal calculus)
Past Surgical History: Orthopedic (Back surgery, lumbar fusion) and Other (Cardiac ablation for atrial fibrillation)
Social History
Tobacco: Non-smoker
Alcohol: None
Drug: None
Personal:
Living: With Family
Family History
Family History: Reviewed & Not Pertinent
Allergies / Home Medications
Allergies
Allergy/AdvReac Type Severity Reaction Status Date / Time
hydralazine Allergy facial Verified 06/22/24 19:34
flush/rash
- given @
same time
as
ketorolac
06/22/24
ketorolac Allergy facial Verified 06/22/24 19:34
flush/rash
- given @
same time
as
hydralazine
06/22/24
tamsulosin Allergy Unknown Verified 06/22/24 18:18
Home Medications
�Medication �Instructions �Recorded �Confirmed �Last Taken �Type
bupropion HCl 150 mg 24 hr tablet, 150 mg PO DAILY Mental 05/20/24 05/21/24 Unknown History
extended release (Wellbutrin XL) Health/Anxiety
candesartan 16 mg tablet 8 mg PO DAILY Blood Pressure 05/20/24 05/21/24 Unknown History
duloxetine 60 mg capsule,delayed 60 mg PO DAILY Mental 05/20/24 05/21/24 Unknown History
release (Cymbalta) Health/Anxiety
famotidine 40 mg tablet (Pepcid) 40 mg PO DAILY Gastrointestinal 05/20/24 05/21/24 Unknown History
Issue
fenofibrate 160 mg tablet 200 mg PO DAILY High Cholesterol 05/20/24 05/21/24 Unknown History
metformin 1,000 mg tablet 1,000 mg PO BID Diabetes 05/20/24 05/21/24 Unknown History
oxycodone myristate 36 mg capsule 36 mg PO Q8H Pain 05/20/24 05/21/24 Unknown History
sprinkle extended release
12hr(DON'T CRUSH) (Xtampza ER)
oxycodone-acetaminophen 10 mg-325 1 tab PO 5/D PRN break through 05/20/24 05/21/24 Unknown History
mg tablet
rosuvastatin 40 mg tablet 40 mg PO DAILY High Cholesterol 05/20/24 05/21/24 Unknown History
sotalol 120 mg tablet 120 mg PO BID Blood Pressure 05/20/24 05/21/24 Unknown History
tadalafil 5 mg tablet 5 mg PO DAILY Urinary Issue 05/20/24 05/21/24 Unknown History
tamsulosin 0.4 mg capsule (Flomax) 0.4 mg PO DAILY Urinary Issue 05/20/24 05/21/24 Unknown History
zolpidem 5 mg tablet 5 mg PO HSPRN PRN sleep 05/20/24 05/21/24 Unknown History
duloxetine 30 mg capsule,delayed 30 mg PO DAILY Mental 05/21/24 05/21/24 Unknown History
release (Cymbalta) Health/Anxiety
tizanidine 4 mg tablet 4 mg PO TIDPRN PRN spasms 05/21/24 05/21/24 Unknown History
Rolling Walker #1 ea 05/25/24 Unknown Rx
levalbuterol tartrate 45 2 inh inhalation Q6H PRN shortness 05/25/24 Unknown Rx
mcg/actuation aerosol inhaler of breath or wheezing #15 grams
(Xopenex HFA)
carvedilol 3.125 mg tablet 6.25 mg PO BID 06/22/24 Unknown History
finasteride 5 mg tablet 5 mg PO DAILY 06/22/24 Unknown History
ondansetron 4 mg disintegrating 4 mg PO Q6H PRN nausea 06/22/24 Unknown History
tablet
Review of Systems
-
All other systems: Negative unless noted
Vitals / Labs / Diagnostic Testing
Vital Signs
Temp Pulse Resp BP Pulse Ox
97.6 F 66 13 173/88 91
06/23/24 07:30 06/23/24 10:00 06/23/24 10:00 06/23/24 10:00 06/23/24 10:00
Lab Data
06/23/24 04:40
06/23/24 04:40
Laboratory Results
06/23/24
04:40
PT 14.4
INR 1.07
Diagnostic Testing:
Physical Exam
-
HEENT: Normocephalic, Anicteric and Moist Mucous Membranes
Cardiovascular: S1/S2, Regular Rhythm and Other (No murmur or rub, no peripheral edema)
Respiratory: Clear and Non-Labored Respirations
GI: Soft, Non Distended, Non Tender and Normal Bowel Sounds
Neurology: Awake, Oriented and No Motor Deficits
Skin: Warm, Dry and Other (Tattoos on arms and back)
General: Comfortable and Pain (Frontal headache)
Assessment
-
Impression
Patient is a 68-year-old male, extensive past medical history, admitted with high blood pressure with systolic blood pressure greater than 200 and diastolic blood pressure greater than 110, symptomatically complained of headache and bilateral
heaviness of arms. Denies any chest pain, shortness of breath, weakness of any side, nausea, vomiting or any other issues. States that he is compliant to his medication. Takes sotalol for atrial fibrillation, currently in sinus rhythm.
Assessment
# Hypertensive urgency
# Atrial fibrillation
# Yft-pzfbpcv-bnnguctgx diabetes mellitus
# Allergic reaction to hydralazine/Toradol
#Increased BMI
# Depression
# Chronic neuropathic pain
Plan
# Hypertensive urgency
Patient presented with a blood pressure of 200/116, with persistent headache and heaviness of arms
EKG and chest x-ray normal, patient denies any chest pain
Titrated off nicardipine, Continue home dose of candesartan and carvedilol, added tamsulosin and low-dose diuretic to help with blood pressure optimization
Orthostatic vitals, lying 160/90, sitting 123/90, standing 133/100, patient denied any dizziness
Continue to monitor
# Atrial fibrillation
Takes sotalol 120 mg twice daily, has never been on any anticoagulation-currently in sinus rhythm
CHADVASC score 3 -consider cardiology consult for anticoagulation
# Rvz-nqzzrxa-wlgfptkef diabetes mellitus
Takes metformin 1000 mg twice daily
Accu-Cheks and HbA1c
# Allergic reaction to hydralazine/Toradol
Patient developed facial flushing and rash after receiving hydralazine and Toradol in ER
Unsure about the trigger, mild shortness of breath-treated with IV Benadryl
No further hydralazine or Toradol
#Increased BMI
Affects all aspects of care
# Depression
Continue home medications
# Chronic neuropathic pain
As needed medications
CODE STATUS-full code
-DVT prophylaxis-enoxaparin 40 mg every afternoon
[2024-06-23] MEDS: LASIX 40 MG PO (11:13)
[2024-06-23 11:48] LABS: Glucose - Point of Care 170 mg/dl (70-99)
--- NOTE | 2024-06-23 11:53 | CON.CAR ---
Addendum entered and electronically signed by Amandeep Tripathi MD 06/23/24 13:28:
I saw and examined the patient.
The [employer] INTERFACE DEVELOPER's note was reviewed and I agree with the note.
Comment: 68 y/o male (Dr. Thompson is EP, Dr. Reeves is primary bobcat driver/labor) with hypertension, AFIB (on sotalol), DM2, HLD, hx bladder cancer, and GERD. He is here for evaluation of elevated BP's with light-headedness and headaches.
Discussed need for AC, he is agreeable, will start apixaban.
Can increase ARB as necessary for BP
Original Note:
Consultation
Consultation Request
Date/Time Consultation Requested: 06/23/24 1120
Date/Time Consultation Performed: 06/23/24 1154
Requesting Provider: Dr. Estes
Performing Provider: Diana ALLEN for Dr. Tripathi
Reason for Consultation: AFIB, not on OAC
Medical History
-
Chief Complaint: light-headed, headache, hypertension
History of Present Illness:
68 y/o male (Dr. Thompson is EP, Dr. Reeves is primary bobcat driver/labor) with hypertension, AFIB (on sotalol), DM2, HLD, hx bladder cancer, and GERD. He is here for evaluation of elevated BP's with light-headedness and headaches. He was recently
hospitalized with PNA and there was some concern for orthostasis as well. He was placed on Cardene drip here, which is now off. BP's have improved and he is feeling fine. We are consulted since he has AFIB and is not on OAC.
Past Medical History
Past Medical History: Arrhythmias, Cancer, GERD, HTN, Hypercholesterolemia and NIDDM
Social History
Tobacco: Non-Smoker
Family History
Family History: Reviewed & Not Pertinent
Allergies / Home Medications
Allergy/AdvReac Type Severity Reaction Status Date / Time
hydralazine Allergy facial Verified 06/22/24 19:34
flush/rash
- given @
same time
as
ketorolac
06/22/24
ketorolac Allergy facial Verified 06/22/24 19:34
flush/rash
- given @
same time
as
hydralazine
06/22/24
�Medication �Instructions �Recorded �Confirmed �Type
bupropion HCl 150 mg 24 hr tablet, 150 mg PO DAILY Mental 05/20/24 06/23/24 History
extended release (Wellbutrin XL) Health/Anxiety
candesartan 16 mg tablet 8 mg PO DAILY Blood Pressure 05/20/24 06/23/24 History
duloxetine 60 mg capsule,delayed 60 mg PO DAILY Mental 05/20/24 06/23/24 History
release (Cymbalta) Health/Anxiety
famotidine 40 mg tablet (Pepcid) 40 mg PO DAILY Gastrointestinal 05/20/24 06/23/24 History
Issue
fenofibrate 160 mg tablet 200 mg PO DAILY High Cholesterol 05/20/24 06/23/24 History
metformin 1,000 mg tablet 1,000 mg PO BID Diabetes 05/20/24 06/23/24 History
oxycodone myristate 36 mg capsule 36 mg PO Q8H Pain 05/20/24 06/23/24 History
sprinkle extended release
12hr(DON'T CRUSH) (Xtampza ER)
oxycodone-acetaminophen 10 mg-325 1 tab PO 5/D PRN break through 05/20/24 05/21/24 History
mg tablet
rosuvastatin 40 mg tablet 40 mg PO DAILY High Cholesterol 05/20/24 05/21/24 History
sotalol 120 mg tablet 120 mg PO BID Blood Pressure 05/20/24 06/23/24 History
tadalafil 5 mg tablet 5 mg PO DAILY Urinary Issue 05/20/24 06/23/24 History
tamsulosin 0.4 mg capsule (Flomax) 0.4 mg PO DAILY Urinary Issue 05/20/24 06/23/24 History
zolpidem 5 mg tablet 5 mg PO HSPRN PRN sleep 05/20/24 06/23/24 History
duloxetine 30 mg capsule,delayed 30 mg PO DAILY Mental 05/21/24 06/23/24 History
release (Cymbalta) Health/Anxiety
tizanidine 4 mg tablet 4 mg PO TIDPRN PRN spasms 05/21/24 06/23/24 History
Rolling Walker #1 ea 05/25/24 Rx
levalbuterol tartrate 45 2 inh inhalation Q6H PRN shortness 05/25/24 06/23/24 Rx
mcg/actuation aerosol inhaler of breath or wheezing #15 grams
(Xopenex HFA)
carvedilol 3.125 mg tablet 6.25 mg PO BID 06/22/24 06/23/24 History
finasteride 5 mg tablet 5 mg PO DAILY 06/22/24 06/23/24 History
ondansetron 4 mg disintegrating 4 mg PO Q6H PRN nausea 06/22/24 06/23/24 History
tablet
Review of Systems
-
History Source: Patient
All other systems: Negative unless noted
Constitutional: Other (light-headedness)
Neurological: Headache
Physical Exam
Vital Signs
Temp Pulse Resp BP Pulse Ox
97.6 F 66 13 173/88 91
06/23/24 07:30 06/23/24 10:00 06/23/24 10:00 06/23/24 10:00 06/23/24 10:00
Lab Results
06/23/24 04:40
06/23/24 04:40
Troponin I < 0.012 ng/ml 06/22/24 14:55
Physical Exam
General: Well Developed, Well Nourished and No Apparent Distress
HEENT: Normocephalic and Anicteric
Respiratory: Clear
Cardiac: Regular Rhythm
Musculoskeletal: No Edema
Skin: Warm and Dry
Neuro: AO x 3
Psych: Calm
Impression / Plan
-
Hypertensive urgency:
-Hypertension severe on arrival
-BP improved. Now off Cardene drip.
-otherwise, Coreg and ARB are continued and BP's being managed by primary team.
AFIB:
-stable in SR
-on sotalol
-hx ablation
-his EP is Dr. Thompson, his primary bobcat driver/labor is Dr. Reeves
-[id number] score is 3 for age, HTN, DM. He denies any hx serious bleeding. Does not fall frequently. He is agreeable to start Eliquis for OAC- will ask CM to help see if affordable.
DM2:
-per primary
HLD:
-on statin
Data Reviewed
-
EKG: Tracing Personally Visualized and interpreted (NSR stable QTC)
Radiology: Report Reviewed by me (CXR: No acute disease of the chest. Stable mild consolidation in the medial right lower lobe probably atelectasis/scar tissue.)
Medical Tests (Nuc Med, Echo etc): Report Reviewed by me (Echo 05/23/24: LV ejection fraction is 55-60% by visual assessment. Mild concentric left ventricular hypertrophy. Normal diastolic function. Normal right ventricular size and function. No
significant valvular disease. Normal pericardium without effusion.)
Labs: Labs Reviewed by me
--- NOTE | 2024-06-23 12:01 | PTCARENOTE ---
Pt remains off cardene, Still with mild headache at center of forehead. Not orthostatic with getting oob. No heaviness in arms as pt previously described with elevated bp. Gave oral lasix as ordered. Otherwise no changes.
[2024-06-23 13:07] LABS: Glycohemoglobin (HgbA1c) 6.4 % (4.0-5.6)
[2024-06-23] MEDS: FLOMAX 0.4 MG PO (14:12)
--- NOTE | 2024-06-23 14:14 | W.PN.HOSP.TC ---
Today's Communication/Plan
-
increase ARB to 16 mg daily
Assessment / Plan
Assessment / Plan
1. Uncontrolled hypertension w/ persistent headache
- admitted to imu
- started nicardipine gtt for goal SBP < 170 for now, has been off since 9AM
- continue home candesartan 8 (Atacand), carvedilolol 6.25
recommended by cardio to increase ARB to 16 mg daily
BP currently 151/95
- check orthostatics
- consider screening urine metanephrines as outpatient
2. DM II
- continue metformin 1000 bid
- insulin sliding scale
- continue statin and fenofibrate
3. Headache
- tylenol
- reglan prn
4. Allergy - Patient developed facial flushing and rash after just recieving iv meds. Hydralazine/toradol. Unsure which triggered the rash. Mild SOB.
- iv benadryl
- no further hydralazine, switching to nicardipine
- acetaminophen for headache
- reglan x 1
DVT PPX - SCDs for now
Code status - full code
Anticipated Discharge: 24 - 48 hours
Subjective/Interval History
-
Date of Service: June 23, 2024
Headache doing better
Objective Data
-
Labs:
Laboratory Results
06/23/24
04:40
WBC 14.2 H
Hgb 12.7 L
Hct 38.6 L
Plt Count 374
PT 14.4
INR 1.07
Sodium 137
Potassium 4.2
Chloride 102
Carbon Dioxide 23
BUN 20
Creatinine 1.1
Glucose 117 H
Calcium 9.8
Vital Signs:
Vital Signs
Temp Pulse Resp BP Pulse Ox
97.4 F 73 11 115/90 96
06/23/24 12:08 06/23/24 13:00 06/23/24 13:00 06/23/24 13:00 06/23/24 11:00
I&O
06/22/24 06/23/24 06/24/24
06:59 06:59 06:59
Intake Total 120 / 132.5 565.0 / 565.0
Output Total 300 / 300
Balance 120 / 132.5 265.0 / 265.0
Review of Systems
-
History Source: Patient and Coordinated Provider
Constitutional: Denies Fever
EENT: Reports No Symptoms Reported
Respiratory: Reports No Symptoms; Denies Cough
Cardiac: Reports No Symptoms; Denies Chest Pain
Genitourinary: Reports No Symptoms
Physical Exam
-
General: Well Developed, Well Nourished and No Apparent Distress
HEENT: Normocephalic, Atraumatic and Moist Mucous Membranes
Respiratory: Clear to Auscultation; Negative Wheezes, Rales or Rhonchi
Cardiac: Regular Rhythm and S1/S2
GI: Soft, Nontender and Nondistended
Genito-urinary: No Costovertebral Tender
Musculoskeletal: No Clubbing, No Cyanosis and No Edema
Neuro: Awake, Alert and Oriented
--- NOTE | 2024-06-23 15:18 | CM ---
Patient in ICU with recent hospitalization for PNA with Dx Uncontrolled hypertension w/ persistent headache. Room air.
Met with patient and ;
patient resides with his in a 3 story townhouse with 2 [address] and 2 flights stairs up to bedroom.
The patient was independent in ADLs and ambulation, sometimes using his quad cane due to feeling 'wobbly' on his feet.
He states he is current with [facility] for SN and also recently had PT which has completed.
DME - quad cane, RW
No prior SNF.
PCP - Zachary oHlly
Pharmacy - [facility] [place]
CM COnsult: Pearson Check Eliquis 5mg BID
Per [facility], cost at [facility] is $47/month or $141 for 90 day supply.
Patient/ ok with cost.
Eliquis Free Month Card provided.
Patient wishes to resume [facility] at discharge ---> message to [facility] Liaison.
Patient may benefit from PT Eval---> message to Dr Calderon.
Plan home with resumption of [facility], with Eliquis Free Month Card.
--- NOTE | 2024-06-23 15:34 | W.PN.UPDATE ---
Update Note
Progress Note Update
Blood pressure improved, has not required Cardene since this morning
Minimal headache. No other new symptoms
Transferred to telemetry
[2024-06-23] MEDS: ELIQUIS 5 MG PO (20:05)
--- NOTE | 2024-06-23 22:36 | PTCARENOTE ---
Patient transferred to tele with belongings
--- NOTE | 2024-06-23 22:59 | PTCARENOTE ---
Pt transferred at 2245 from ICU . Pt was able to ambulate to bed. VSS. head to toe assessment complete. bed locked and in lowest position. call donis with in reach.
[2024-06-23] MEDS: AMBIEN 5 MG PO (23:10)
[2024-06-23] MEDS: ZANAFLEX 4 MG PO (23:10)
[2024-06-23] MEDS: XOPENEX HFA 45 MCG INHALER 2 PUFF INH (23:35)
[2024-06-24 03:15] VITALS: BP 111/52
[2024-06-24 07:09] LABS: Glucose - Point of Care 124 mg/dl (70-99)
[2024-06-24 08:00] VITALS: BP 118/76
[2024-06-24] MEDS: CRESTOR 40 MG PO (08:00)
[2024-06-24] MEDS: BETAPACE 120 MG PO (08:02)
[2024-06-24] MEDS: OXYCONTIN (CONTROLLED RELEASE) 40 MG PO (08:02)
[2024-06-24] MEDS: ELIQUIS 5 MG PO (08:03)
[2024-06-24] MEDS: FLOMAX 0.4 MG PO (08:03)
[2024-06-24] MEDS: PEPCID 40 MG PO (08:03)
[2024-06-24] MEDS: TRICOR 145 MG PO (08:04)
[2024-06-24] MEDS: ATACAND 8 MG PO (08:04)
[2024-06-24] MEDS: GLUCOPHAGE 1000 MG PO (08:04)
[2024-06-24] MEDS: COREG 6.25 MG PO (08:04)
[2024-06-24] MEDS: WELLBUTRIN XL (24 hour extended release) 150 MG PO (08:05)
--- NOTE | 2024-06-24 09:37 | PN.CDI ---
CDI
- -
CDI:
Physician Documentation Request
Admit Date: 06/22/24 19:42
Dear Doctor Otis,
Clinical Indicators:
2/6 PN, 'Uncontrolled hypertension w/ persistent headache'
2/5 -2/6 Cardene gtt 2.5 mg/hr
BP trend:
06/22/24
14:39 06/22/24
16:59 06/22/24
17:03
Blood pressure 198/116 195/119 192/95
06/22/24
18:00 06/22/24
19:00
Blood pressure 207/101 201/98
Please clarify which, if any of the following, is a more accurate diagnosis reflecting the type and acuity of the documented hypertension:
Hypertensive Urgency - B/P is severely elevated (systolic > or = to 180 or diastolic > or = to 110) but there is no associated organ damage. Symptoms may include: headache, shortness of breath, nosebleeds, severe anxiety. Treatment usually consists
of addition to or adjusting of oral medications and does not generally necessitate hospitalization.
Hypertensive Emergency - B/P is severely elevated (systolic > or = to 180 or diastolic > or = to 110) but can occur at lower levels especially in patients who did not previously have high B/P. There is usually associated organ damage. Symptoms may
include: memory loss, LOC, CVA, CT, angina, renal failure, pulmonary edema. Generally requires more aggressive treatment and a hospitalization.
Hypertensive Crisis - an acute elevation in B/P that can lead to organ damage. Broad term that is further differentiated to include urgency or emergency based on presence of organ damage.
Other (please specify)
Use of terms such as suspected, likely, concern for, or probable (associated with a specific diagnosis that is being evaluated, monitored, or treated as if it exists) are acceptable and can be coded in the inpatient setting, when documented at the
time of discharge.
Thank you,
Maxine Medina RN BSN
CDI Specialist
available via tiger text
Please use your independent medical judgment in providing your response.
[2024-06-24] MEDS: CYMBALTA DELAYED RELEASE 30 MG PO (09:50)
[2024-06-24] MEDS: CYMBALTA DELAYED RELEASE PO (09:55)
--- NOTE | 2024-06-24 10:06 | W.PN.CD ---
Today's Communication / Plan
-
Cont anti-HTN meds
Possible unwanted side effects from other medications ie lightheadedness and SOB?
Cont Eliquis
He will f/u with home clinical rn manager.
We will sign off please call with questions/concerns.
Impression / Plan
-
Hypertensive urgency:
-Hypertension severe on arrival now much better controlled
- Candesartan is now bid
- cont coreg and sotalol
AFIB:
-stable in SR
-on sotalol
-hx ablation
-his EP is Dr. Thompson, his primary clinical rn manager is Dr. Reeves
-[id number] score is 3 for age, HTN, DM. He denies any hx serious bleeding. Does not fall frequently.
- Cont Eliquis
SOB/Lightheadedness
- significant narcotic use and muscle relaxant with possible SE of dizziness and hypotension
- can these be contributing?
- per primary
DM2:
-per primary
HLD:
-on statin
Subjective: Feeling better today walked in room w/o significant symptoms
Physical Exam
Vital Signs/Labs
Vital Signs
Temp Pulse Resp BP Pulse Ox
97.2 F 88 16 118/76 97
06/24/24 07:10 06/24/24 08:04 06/24/24 07:10 06/24/24 08:04 06/24/24 07:10
06/23/24 06/24/24 06/25/24
06:59 06:59 06:59
Actual Weight 232 lb 12.93 oz 231 lb 6.4 oz
06/23/24 04:40
06/23/24 04:40
PT 14.4 Sec (11.4-14.6) 06/23/24 04:40
INR 1.07 06/23/24 04:40
Magnesium 1.7 mg/dl (1.6-2.3) 06/23/24 04:40
LAB Results
06/22/24
14:55
Troponin I < 0.012
Physical Exam
Constitutional: No acute distress
EENT: Anicteric
Cardiovascular: Rhythm & rate is regular and Pedal edema is absent
Respiratory: Respiratory effort normal and Lungs clear to auscul.
GI: Soft
Neuro/Psych: AO x 3
Data Reviewed
-
Date of Service: June 24, 2024
EKG: Tracing Personally Visualized and interpreted (sr)
Echo: Report Reviewed by me
Labs: Labs Reviewed by me
[2024-06-24 11:02] VITALS: BP 133/75
--- NOTE | 2024-06-24 13:31 | W.PN.HOSP.TC ---
Today's Communication/Plan
-
dc now
Assessment / Plan
Assessment / Plan
1. Uncontrolled hypertension w/ persistent headache
Hypertensive Urgency
- admitted to imu
- started nicardipine gtt for goal SBP < 170 for now, has been off since 9AM 2/6
- continue home candesartan 8 (Atacand), carvedilolol 6.25
recommended by cardio to increase ARB to 16 mg daily
BP currently 133/75
- check orthostatics
- consider screening urine metanephrines as outpatient
2. DM II
- continue metformin 1000 bid
- stop insulin sliding scale
- continue statin and fenofibrate
3. Headache
- tylenol
- reglan prn
4. Allergy - Patient developed facial flushing and rash after just recieving iv meds. Hydralazine/toradol. Unsure which triggered the rash. Mild SOB.
- resolved
DVT PPX - SCDs for now
Code status - full code
dc to home
see dictated note
reviewed with cardio and at computer
More than 30 minutes spent in discharge including
Final examination of the patient
Summarizing hospital stay
Instructions for continuing care to all relevant caregivers
Preparation of discharge records, prescriptions, and referral forms
Total time spent (in minutes): 45
Anticipated Discharge: Today
Subjective/Interval History
-
Date of Service: June 24, 2024
Feels well
Objective Data
-
Vital Signs:
Vital Signs
Temp Pulse Resp BP Pulse Ox
97.5 F 70 16 133/75 98
06/24/24 11:02 06/24/24 11:02 06/24/24 11:02 06/24/24 11:02 06/24/24 11:02
I&O
06/23/24 06/24/24 06/25/24
06:59 06:59 06:59
Intake Total 120 / 132.5 1525.0 / 1525.0
Output Total 375 / 375
Balance 120 / 132.5 1150.0 / 1150.0
Review of Systems
-
History Source: Patient and Coordinated Provider
Constitutional: Denies Fever
EENT: Reports No Symptoms Reported
Respiratory: Reports No Symptoms; Denies Cough
Cardiac: Reports No Symptoms; Denies Chest Pain
Genitourinary: Reports No Symptoms
Physical Exam
-
General: Well Developed, Well Nourished and No Apparent Distress
HEENT: Normocephalic, Atraumatic and Moist Mucous Membranes
Respiratory: Clear to Auscultation; Negative Wheezes, Rales or Rhonchi
Cardiac: Regular Rhythm and S1/S2
GI: Soft, Nontender and Nondistended
Genito-urinary: No Costovertebral Tender
Musculoskeletal: No Clubbing, No Cyanosis and No Edema
Neuro: Awake, Alert and Oriented
--- NOTE | 2024-06-24 14:11 | CM ---
Pt for discharge today
[facility] to follow
Has ride home
Given IMM
Plan - home with [facility]
--- NOTE | 2024-06-24 14:17 | W.DS.TRANS ---
DC Summary - Banquet Prep Cook
-
Discharge Instructions:
Discharge Diagnosis/Procedures Hypertensive Urgency
Diet Low Sodium
Activity As tolerated
Additional Activity caution with steps. Check BP 2x/day and
orthostatic 2-3x per week
Driving Restrictions Not until seen by your Dr
Bathing Restrictions None
Blood Work CBC, CMP in 1-2 weeks
Other Services VN
Instructions:
Stand-Alone Forms:
Changes to Home Medications: Yes
Discharge Medications:
DC Medications w/original date entered in [employer]
bupropion HCl 150 mg 24 hr tablet, extended release (Wellbutrin XL) 150 mg PO DAILY Mental Health/Anxiety 05/20/24
duloxetine 60 mg capsule,delayed release (Cymbalta) 60 mg PO DAILY Neurological Condition 05/20/24
famotidine 40 mg tablet (Pepcid) 40 mg PO DAILY Gastrointestinal Issue 05/20/24
fenofibrate 160 mg tablet 200 mg PO DAILY High Cholesterol 05/20/24
metformin 1,000 mg tablet 1,000 mg PO BID Diabetes 05/20/24
oxycodone-acetaminophen 10 mg-325 mg tablet 1 tab PO 5/D PRN break through 05/20/24
rosuvastatin 40 mg tablet 40 mg PO DAILY High Cholesterol 05/20/24
sotalol 120 mg tablet 120 mg PO BID Arrhythmia 05/20/24
tadalafil 5 mg tablet 5 mg PO DAILY Urinary Issue 05/20/24
tamsulosin 0.4 mg capsule (Flomax) 0.4 mg PO DAILY Urinary Issue 05/20/24
zolpidem 5 mg tablet 5 mg PO HSPRN PRN sleep 05/20/24
duloxetine 30 mg capsule,delayed release (Cymbalta) 30 mg PO DAILY Neurological Condition 05/21/24
tizanidine 4 mg tablet 4 mg PO TIDPRN PRN spasms 05/21/24
Rolling Walker #1 ea 05/25/24
levalbuterol tartrate 45 mcg/actuation aerosol inhaler (Xopenex HFA) 2 inh inhalation Q6H PRN shortness of breath or wheezing #15 grams 05/25/24
finasteride 5 mg tablet 5 mg PO DAILY Urinary Issue 06/22/24
apixaban 5 mg tablet (Eliquis) 5 mg PO BID #60 tabs 06/24/24
candesartan 8 mg tablet 8 mg PO BID #0 tabs 06/24/24
carvedilol 6.25 mg tablet 6.25 mg PO BID #60 tabs 06/24/24
Home Medication Changes
start Eliquis
Increase Candesartan to 16 mg daily
Increase Coreg to 6.25 mg bid
Pending Results: No
--- NOTE | 2024-06-24 14:19 | VNURNOTE ---
[facility] liaison spoke with patient. Confirmed he would like to resume [facility] services upon DC. Resumption referral accepted in [facility].
[2024-06-24] MEDS: FLUAD (65 yr+) 2024-2025 FORMULA 0.5 ML IM (14:39)
== END 2024-06-24 15:43 | disposition home health service (06) | DRG 305 ==
LOC: 2 SOUTH 19:42
PROVIDERS: Nurse Practitioner Primary Care; ADMITTING PHYSICIAN Internal Medicine; ATTENDING PHYSICIAN Internal Medicine; CONSULT PHYSICIAN Internal Medicine Cardiovascular Disease; EMERGENCY PHYSICIAN Emergency Medicine; FAMILY PHYSICIAN Family Medicine; OTHER PHYSICIAN Internal Medicine Critical Care Medicine
PROC: 3E02340 Introduction of Influenza Vaccine into Muscle, Percutaneous Approach (ICD-10-PCS; 2024-06-24)
DX: I16.0 Hypertensive urgency (principal); F11.20 Opioid dependence, uncomplicated; I10 Essential (primary) hypertension; K21.9 Gastro-esophageal reflux disease without esophagitis; I48.0 Paroxysmal atrial fibrillation; E78.00 Pure hypercholesterolemia, unspecified; E11.9 Type 2 diabetes mellitus without complications; G89.29 Other chronic pain; M54.9 Dorsalgia, unspecified; F32.A Depression, unspecified; Z79.899 Other long term (current) drug therapy; Z79.84 Long term (current) use of oral hypoglycemic drugs; Z85.51 Personal history of malignant neoplasm of bladder; Z87.891 Personal history of nicotine dependence; Z88.8 Allergy status to other drugs, medicaments and biological substances; Z23 Encounter for immunization
CPT/HCPCS: 71045; 80048; 80053; 82962; 83036; 83735; 84484; 85025; 85027; 85610; 90662; 93005; 94640; 96365; 96375; 96376; 99285; G0008

== ENCOUNTER 2024-08-28 23:09 | Inpatient (IN) | payer OTHER, SELFPAY ==
[2024-08-28] VITALS (14 sets, daily range): BP systolic 138–223; BP diastolic 73–126; BMI 29.4
[2024-08-28 18:54] LABS: % Basophils 0.6 % (0-2); % Eosinophils 3.8 % (0-6); % Immature Granulocytes 0.1 % (0-0.5); % Lymphocytes 37.1 % (20.5-51.1); % Monocytes 6.2 % (1.7-9.3); % Neutrophils 52.2 % (42.2-75.2); Absolute Basophils 0.1 10^3/uL (0-0.2); Absolute Eosinophils 0.5 10^3/uL (0-0.7); Absolute Lymphocytes 4.4 10^3/uL (1.2-3.4); Absolute Monocytes 0.7 10^3/uL (0.1-0.6); Absolute Neutrophils 6.2 10^3/uL (1.4-6.5); Hematocrit 42.9 % (39.0-52.0); Hemoglobin 14.2 g/dL (13.0-18.0); Mean Corp Hgb Conc. 33.1 g/dL (33.0-37.0); Mean Corpuscular Hgb 27.5 pg (27.0-31.0); Mean Corpuscular Volume 83.1 fL (80.0-94.0); Nucleated Red Blood Cells % 0 % (-); Platelet Count 350 10^3/uL (130-400); Red Blood Cell Count 5.16 10^6/uL (4.70-6.10); White Blood Cell Count 11.9 10^3/uL (4.8-10.8)
--- NOTE | 2024-08-28 19:08 | ED.GENMED ---
History of Present Illness
General
Chief Complaint: Blood Pressure Problem
Source: patient
Exam Limitations: none
Time Seen by Provider: 08/28/24 18:45
History of Present Illness
History of Present Illness:
68-year-old male with history of hypertension, A-fib, qbr-[id number] diabetes presents with elevated blood pressure readings at home with associated dizziness. He also had a headache that was moderate to severe earlier today that has since
resolved. No vision change. No chest pain arm numbness or tingling. No leg swelling. He has been taking all of his blood pressure medications as prescribed.
Past History
Past History
ED Past Medical History: Arrthythmia (Palpitations), Cancer (Bladder cancer), GERD, HTN, Hypercholesterolemia, NIDDM, Psychiatric (Depression) and Other (chronic back and neck pain, Neuropathy, Colitis, Renal calculus, )
ED Past Surgical History: Cardiac (Ablation, ) and Orthopedic (Back surgery, Lumbar fusion, )
Social History
Tobacco: Former smoker
Alcohol: None
Drug: Other (Opiod dependence due to Multiple back surgery)
Personal:
Living: with family
Phy Exam
Physical Exam
Physical Exam:
General: Well-appearing male no acute respiratory distress
HEENT: NC/AT
Heart: RRR, no murmurs
LUngs; CTA
Ext: no cyanosis or edema
Neuro: alert and oriented, no facial asymmetry
Abd: soft, nontender
Course
Orders/Labs/Results
Orders:
Orders
08/28/24 18:41
Electrocardiogram (*1) Urgent
Reason for Study: Hypertension, Benign
08/28/24 18:42
EKG- Treatment ONCE
08/28/24 18:45
Complete Blood Count/With Diff Urgent
Comprehensive Metabolic Panel Urgent
08/28/24 19:03
CT Head W/o Iv Contrast Urgent
Comment:
Reason For Exam: headache, dizzy
08/28/24 19:10
Troponin I Urgent
08/28/24 21:56
Metoprolol [Lopressor] 5 mg IV NOW STA
Abnormal Lab Results
08/28/24
18:45
WBC 11.9 H 10^3/uL
(4.8-10.8)
Absolute Lymphs (auto) 4.4 H 10^3/uL
(1.2-3.4)
Absolute Monos (auto) 0.7 H 10^3/uL
(0.1-0.6)
BUN 22 H mg/dl
(9-20)
Glucose 131 H mg/dl
(70-99)
08/28/24 18:45
08/28/24 18:45
Vital Signs
Initial and Last Documented VS:
Initial Vital Signs
Temp Pulse Resp BP Pulse Ox
98.1 F 91 16 223/126 99
08/28/24 18:37 08/28/24 18:37 08/28/24 18:37 08/28/24 18:37 08/28/24 18:37
Last Documented Vital Signs
Temp Pulse Resp BP Pulse Ox
98.1 F 71 16 211/105 97
08/28/24 18:37 08/28/24 21:00 08/28/24 21:03 08/28/24 21:00 08/28/24 21:00
MDM/Problems Addressed
Differential Diagnosis Includes:
Elevated blood pressure readings at home. Initial value here was 223/126 however recheck was 179/110. Patient describes a dizzy sensation CT of the head pending. Labs pending. EKG ordered as well with troponin
*Critical Care Note
Total Time (30-74mins, 75-104mins- exclusive of procedures): Not Applicable
Update Note
Update Note:
Initial blood pressure rechecked did improve slightly to the 170s over 110 however subsequent checks kept creeping in the upward direction. Patient still with some wooziness. CT of the head negative. Lopressor ordered will admit for hypertensive
urgency
ED Attending Note
-
Portions of this chart may have been created with voice recognition software.� Occasional wrong word or��sound alike� substitutions may have occurred due to the inherent limitations of voice recognition software.
Discharge Plan
Departure
Patient Disposition: Admit
Date of Disposition: 08/28/24
Time of Disposition: 22:02
Presentation/result/management discussed w/ accepting MD/DO: Hospitalist
Discharge Problem:
Hypertensive urgency
Prescriptions:
No Action
famotidine [Pepcid] 40 mg Tablet
40 mg PO DAILY
sotalol 120 mg Tablet
120 mg PO BID
oxycodone-acetaminophen 10-325 mg Tablet
1 tab PO 5/D PRN (Reason: break through)
tamsulosin [Flomax] 0.4 mg Capsule
0.4 mg PO DAILY
metformin 1,000 mg Tablet
1,000 mg PO BID
zolpidem 5 mg Tablet
5 mg PO HSPRN PRN (Reason: sleep)
rosuvastatin 40 mg Tablet
40 mg PO DAILY
bupropion HCl [Wellbutrin XL] 150 mg Tablet Extended Release 24 Hr
150 mg PO DAILY
tadalafil 5 mg Tablet
5 mg PO DAILY
duloxetine [Cymbalta] 60 mg Capsule,Delayed Release(Dr/Ec)
60 mg PO DAILY
fenofibrate 160 mg Tablet
200 mg PO DAILY
tizanidine 4 mg Tablet
4 mg PO TIDPRN PRN (Reason: spasms)
duloxetine [Cymbalta] 30 mg Capsule,Delayed Release(Dr/Ec)
30 mg PO DAILY
levalbuterol tartrate [Xopenex HFA] 45 mcg/actuation HFA aerosol inhaler
2 inh inhalation Q6H PRN (Reason: shortness of breath or wheezing) Qty: 15 0RF
(DME) Rolling Walker
See Rx Instructions .Route .MEDSUPPLY Qty: 1 0RF
Rx Instructions:
As directed
finasteride 5 mg Tablet
5 mg PO DAILY
carvedilol 6.25 mg Tablet
6.25 mg PO BID Qty: 60 2RF
candesartan 8 mg Tablet
8 mg PO BID Qty: 0 0RF
Eliquis 5 mg Tablet
5 mg PO BID Qty: 60 3RF
Referrals:
Zachary Holly, [Family Provider] -
Interventions
Interventions:
*Risk Screen - Suicide Last Done: 08/28/24 18:37
*General Assessment Last Done: 08/28/24 18:37
*Neglect/Abuse Screening Last Done: 08/28/24 18:37
*ED- Fall Risk Assessment Last Done: 08/28/24 18:37
*ED COVID-19 Vaccine History Last Done: 08/28/24 18:37
ED- Cardiac Assessment Last Done: 08/28/24 18:40
ED- Neurological Assessment Last Done: 08/28/24 18:40
ED- Pulmonary Assessment Last Done: 08/28/24 18:40
Discharge Date and Time
Print Language: CYMRO
[2024-08-28 19:09] LABS: ALT (SGPT) 26 U/L (0-50); AST (SGOT) 46 U/L (17-59); Albumin 4.7 g/dl (3.5-5.0); Alkaline Phosphatase 75 U/L (38-126); Blood Urea Nitrogen 22 mg/dl (9-20); Calcium 9.9 mg/dl (8.4-10.2); Carbon Dioxide 23 mmol/L (22-30); Chloride 106 mmol/L (98-107); Estimated Creatinine Clearance 92 ml/min; Glucose 131 mg/dl (70-99); Potassium 3.5 mmol/L (3.5-5.1); Sodium 142 mmol/L (135-145); Total Bilirubin 0.5 mg/dl (0.2-1.3); Total Protein 7.9 g/dl (6.3-8.2); eGFR > 60.00
[2024-08-28 19:39] LABS: Troponin I < 0.012 ng/ml
--- NOTE | 2024-08-28 22:05 | HPS.HSE ---
Family Physician
-
Family Physician: Zachary Holly
Chief Complaint
-
elevated blood pressure reading at home
History of Present Illness
Patient is a 68-year-old male with past medical history significant for hypertension, hyperlipidemia, atrial fibrillation, NIDDM, GERD and depression who presented to [facility] ED for evaluation of elevated blood pressure reading at home with associated
dizziness. Patient reports waking this morning with a headache and was temporarily relieved with Tylenol. He reports that he checks his blood pressure multiple times a day and can usually tell when it rises from the headache. Patient states his
headache is mainly in the bilateral temporal region. He reports associated lightheadedness with intermittent spins, nausea, exertional shortness of breath, nonradiating chest pain (he reports feels like gas pains that he gets frequently), has had
diarrhea today and dry cough. He also reports the flipping of 'hot and cold' with chills all day. Patient denies any vomiting or urinary symptoms.
Medical History
Past Medical History
Past Medical History: Reports Other
Additional Past Medical History:
hypertension
hyperlipidemia
atrial fibrillation
NIDDM
GERD
depression
Past Surgical History: Reports Other
Additional Past Surgical History:
cardiac ablation
lumbar fusion
Social History
Tobacco: Former Smoker (quit 26 years ago )
Alcohol: None
Drug: Marijuana (smokes or edibles for insomnia nightly )
Personal:
Living: With Family
Employment: Retired
Family History
Family History: Other (Mother: , Lung cancer; Brother: at 59 with Alzheimer's; Brother: colon cancer )
Allergies / Home Medications
Allergies reflects when Allergies were last updated in [employer].
Home Medications with original date entered in [employer]
Allergy/Medication List:
Allergies
Allergy/AdvReac Type Severity Reaction Status Date / Time
hydralazine Allergy facial Verified 06/22/24 19:34
flush/rash
- given @
same time
as
ketorolac
06/22/24
ketorolac Allergy facial Verified 06/22/24 19:34
flush/rash
- given @
same time
as
hydralazine
06/22/24
Home Medications
bupropion HCl 150 mg 24 hr tablet, extended release (Wellbutrin XL) 150 mg PO DAILY Mental Health/Anxiety 05/20/24
duloxetine 60 mg capsule,delayed release (Cymbalta) 60 mg PO HS Neurological Condition 05/20/24
famotidine 40 mg tablet (Pepcid) 40 mg PO DAILY Gastrointestinal Issue 05/20/24
fenofibrate 160 mg tablet 200 mg PO DAILY High Cholesterol 05/20/24
oxycodone-acetaminophen 10 mg-325 mg tablet 1 tab PO 5/D PRN break through 05/20/24
rosuvastatin 40 mg tablet 40 mg PO DAILY High Cholesterol 05/20/24
sotalol 120 mg tablet 120 mg PO BID Arrhythmia 05/20/24
tadalafil 5 mg tablet 5 mg PO DAILY Urinary Issue 05/20/24
tamsulosin 0.4 mg capsule (Flomax) 0.4 mg PO DAILY Urinary Issue 05/20/24
zolpidem 5 mg tablet 5 mg PO HSPRN PRN sleep 05/20/24
duloxetine 30 mg capsule,delayed release (Cymbalta) 30 mg PO DAILY Neurological Condition 05/21/24
tizanidine 4 mg tablet 4 mg PO TIDPRN PRN spasms 05/21/24
Rolling Walker #1 ea 05/25/24
levalbuterol tartrate 45 mcg/actuation aerosol inhaler (Xopenex HFA) 2 inh inhalation Q6H PRN shortness of breath or wheezing #15 grams 05/25/24
finasteride 5 mg tablet 5 mg PO DAILY Urinary Issue 06/22/24
apixaban 5 mg tablet (Eliquis) 5 mg PO BID #60 tabs 06/24/24
carvedilol 6.25 mg tablet 6.25 mg PO BID #60 tabs 06/24/24
candesartan 32 mg tablet 32 mg PO BID 08/28/24
oxycodone myristate 36 mg capsule sprinkle extended release 12hr(DON'T CRUSH) (Xtampza ER) 36 mg PO TIDPRN PRN pain 08/28/24
Review of Systems
-
History Source: Patient
Constitutional: Reports Night Sweats and Chills
EENT: Reports Other (burning eyes )
Respiratory: Reports Cough and Trouble Breathing (exertional dyspnea )
Cardiac: Reports Diaphoresis
Abdomen/GI: Reports Nausea
: Reports No Symptoms
Musculoskeletal: Reports No Symptoms
Skin: Reports No Symptoms
Neurological: Reports Dizzy (with 'spins') and Headache
Endocrine: Reports No Symptoms
Hematologic/Lymphatic: Reports No Symptoms
Psych: Reports No Symptoms
Physical Exam
Vital Signs
Vital Signs
Temp Pulse Resp BP Pulse Ox
98.1 F 71 16 211/105 97
08/28/24 18:37 08/28/24 21:00 08/28/24 21:03 08/28/24 21:00 08/28/24 21:00
Physical Exam
General: Well Developed, Well Nourished, No Apparent Distress, Conversant and Morbidly Obese
HEENT: NormoCephalic, Moist mucous membranes, Atraumatic, [place] Conjunctivae, Nose Appears Normal and Ears Appear Normal
Respiratory: Clear, Non Labored Respirations and Decreased Breath Sounds
Cardiac: S1/S2 and Regular Rhythm
Breast: Deferred by me
GI: Soft, Non Tender, Non Distended and Normal Bowel Sounds; No Organomegaly
Rectal: Deferred by Provider
Genito-urinary: Deferred by me
Musculoskeletal: No Clubbing, No Cyanosis and No Edema
Skin: No Rash
Neuro: Awake, Alert, AO x 3 and Nonfocal/grossly intact
Psych: Calm and Intact Judgment/Insight
Laboratory Results
-
08/28/24 18:45
08/28/24 18:45
Laboratory Results
Total Bilirubin 0.5 mg/dl (0.2-1.3) 08/28/24 18:45
AST 46 U/L (17-59) 08/28/24 18:45
ALT 26 U/L (0-50) 08/28/24 18:45
Alkaline Phosphatase 75 U/L (38-126) 08/28/24 18:45
Troponin I < 0.012 ng/ml 08/28/24 19:10
Data Reviewed
-
CT Scan: Report Reviewed by me (Head: No acute intracranial abnormality noted.)
Medical Tests (Nuc Med, Echo, EKG etc): Report Reviewed by me (EKG: NORMAL SINUS RHYTHM NONSPECIFIC ST ABNORMALITY PROLONGED QT)
Lab Data: Labs Reviewed by me
Impression/Plan
-
IMPRESSION/PLAN:
#Hypertensive urgency with associated dizziness
#labile HTN
EKG: NORMAL SINUS RHYTHM
NONSPECIFIC ST ABNORMALITY
PROLONGED QT
Head CT: No acute intracranial abnormality noted.
- Dr. Thompson is EP, Dr. Reeves is primary road service locksmith
- start Nicardipine gtt for goal SBP < 180
- continue candesartan and carvedilol
- UDS screening urine metanephrines
- Cardiology consult
#headache, dizziness, cough
- check Covid and influenza
- PRN Tylenol
- PRN Reglan
#hyperlipidemia
- continue fenofibrate, rosuvastatin
#atrial fibrillation
- continue Eliquis, sotalol
#NIDDM
- AccuCheck AC & HS
- SSI
#GERD
- continue famotidine
#depression
- continue bupropion
#chronic pain
- continue duloxetine, Xtampza and oxycodone
Code status: full code
DVT prophylaxis: Eliquis
[2024-08-28] MEDS: LOPRESSOR 5 MG IV (22:11)
[2024-08-28] MEDS: CARDENE 200 IV (22:27)
--- NOTE | 2024-08-28 22:36 | W.PN.UPDATE ---
Update Note
Progress Note Update
This note serves as an addendum to the H&P by convalescent sitter JESSICA Argentina Beltrán
HPI
68M HX MDR severe HTN , HLD, T2DM, Diabetic neuropathy HX bladder CA status post resection and treatment, HX cardiac ablation seen at ER:
- acute onset of HAMILTON moderate to severe earlier today that has since resolved.
- denied abn vision change but report burning eyes - take allergy medicine
- no chest pain arm numbness or tingling.
- no leg swelling.
- report compliance BP Med as prescribed.
- Denied using OTC Meds for cold
- Remote HX smoking
- denied ETOH daily use
At ER:
BP 200s/105 -> s/p one dose of IV Lopressor 5 mg -> Still BP bounce back to 200s
PHX; see above
VS
08/28/24
08/28/24
08/28/24
Blood pressure 223/126 179/110 193/110--> 211/105
PE
Gen: Not toxic looking
HEENT: symmetric face , nl speech , ANDERSON, no puli constriction
Neck: supple
Lungs: CTA
Cor: RRR S1 S2
Abdomen: soft benign
JACQUARD CARD CUTTER: AAO3, NFND
MS: no edema
Skin: both arms are heavily tatooed
Psych: no mood and affect
Abnormal Lab
08/28/24
18:45
WBC 11.9 H
Absolute Lymphs (auto) 4.4 H
Absolute Monos (auto) 0.7 H
BUN 22 H
Glucose 131 H
06/23/24 08/28/24
04:40 18:45
BUN 22 H
Creatinine 1.1 1.0
eGFR > 60.00 > 60.00
EKG
NORMAL SINUS RHYTHM
NONSPECIFIC ST ABNORMALITY
PROLONGED QT
ABNORMAL ECG
WHEN COMPARED WITH ECG OF 22-JUN-2024 14:48,
NO SIGNIFICANT CHANGE WAS FOUND
HCT: No acute intracranial abnormality
Last hospitalist admission: 06/22/2024 - 06/24/2024
DC DIAGNOSES:
1. Hypertensive urgency.
2. Labile blood pressure.
3. Type 2 noninsulin-dependent diabetes mellitus.
4. Headache, multifactorial.
ASSESSMENT & PLAN
Hypertensive urgency
Labile HTN
HX MDR HTN
Preserved renal function
- Dr. Thompson is EP, Dr. Reeves is primary design printing machine set up operator
- HX Hives with IV Hydralazine
- start Nicardipine gtt for goal SBP < 170
- c/w candesartan 8mg BID , carvedilol 6.25mg PO BID
- UDS screening urine metanephrines
- CBC Cardiology consult
Headache
- check Covid and Flu A & B
- Tylenol PRN
- PRN Reglan
T2 DM
- Hold metformin
- ISS low
HLD
- continue statin and fenofibrate
DVT Px: SCD
Full code
ICU
[2024-08-28 23:08] LABS: COVID-19 Antigen Negative (Negative)
[2024-08-29] VITALS (51 sets, daily range): BP systolic 66–199; BP diastolic 36–128; BMI 28.4
[2024-08-29 00:28] LABS: Amphetamines Negative (Negative); Barbiturates Negative (Negative); Benzodiazepines Negative (Negative); Buprenorphine Negative (Negative); Cocaine Negative (Negative); Marijuana Positive (Negative); Methadone Negative (Negative); Methamphetamines Negative (Negative); Opiates Negative (Negative)
[2024-08-29 00:29] LABS: Phencyclidine Negative (Negative); Tricyclic Antidepressants Negative (Negative)
--- NOTE | 2024-08-29 00:30 | PTCARENOTE ---
pt admit from ED to ICU- aaox3, SR HR 90s, RAC #18 (ems line) with cardene gtt infusing per work list. new LA #20 inserted. RA Sat high 90s. CHG cloths done. POC discussed. call jewels w/pt. care ongoing.
[2024-08-29 00:32] LABS: Glucose - Point of Care 155 mg/dl (70-99)
[2024-08-29 00:56] LABS: Fentanyl, Urine Negative (Negative)
[2024-08-29] MEDS: BETAPACE 120 MG PO ×3 (01:01→19:52)
[2024-08-29] MEDS: CYMBALTA DELAYED RELEASE 60 MG PO ×2 (01:01→22:01)
[2024-08-29] MEDS: ELIQUIS 5 MG PO ×3 (01:02→19:53)
[2024-08-29] MEDS: MYLICON 80 MG PO (01:31)
[2024-08-29] MEDS: AMBIEN 10 MG PO ×2 (01:31→22:01)
[2024-08-29] MEDS: TYLENOL 650 MG PO (03:43)
[2024-08-29 03:52] LABS: Hemoglobin 13.8 g/dL (13.0-18.0); Mean Corp Hgb Conc. 32.9 g/dL (33.0-37.0); Mean Corpuscular Hgb 27.5 pg (27.0-31.0); Mean Corpuscular Volume 83.7 fL (80.0-94.0); Mean Platelet Volume 10.7 fL (7.4-10.4); Platelet Count 340 10^3/uL (130-400); Red Blood Cell Count 5.02 10^6/uL (4.70-6.10); White Blood Cell Count 16.5 10^3/uL (4.8-10.8)
[2024-08-29 03:59] LABS: INR 1.17; PT 15.3 Sec (11.4-14.6)
[2024-08-29 04:00] LABS: APTT 33.3 Sec (23.4-35.0)
[2024-08-29 04:16] LABS: Blood Urea Nitrogen 19 mg/dl (9-20); Calcium 9.7 mg/dl (8.4-10.2); Carbon Dioxide 24 mmol/L (22-30); Chloride 104 mmol/L (98-107); Estimated Creatinine Clearance 102 ml/min; Glucose 213 mg/dl (70-99); Potassium 3.4 mmol/L (3.5-5.1); Sodium 141 mmol/L (135-145); eGFR > 60.00
[2024-08-29 06:25] LABS: ALT (SGPT) 25 U/L (0-50); AST (SGOT) 40 U/L (17-59); Albumin 4.5 g/dl (3.5-5.0); Alkaline Phosphatase 71 U/L (38-126); Direct Bilirubin 0.3 mg/dl (0.0-0.4); Magnesium 1.5 mg/dl (1.6-2.3); Phosphorus 2.8 mg/dl (2.5-4.5); Total Bilirubin 0.7 mg/dl (0.2-1.3); Total Protein 7.6 g/dl (6.3-8.2)
--- NOTE | 2024-08-29 06:34 | W.PN.HOSP.TC ---
Today's Communication/Plan
-
see a/p
Assessment / Plan
Assessment / Plan
Physical Exam
General: no acute distress resting comfortably in bed
HEENT: NormoCephalic, Moist mucous membranes, Atraumatic, [place] Conjunctivae
Respiratory: Clear to auscultation b/l, stable respiratory status on room air.
Cardiac: S1/S2 and Regular Rhythm
GI: Soft, Non Tender, Non Distended and Normal Bowel Sounds; No Organomegaly
Musculoskeletal: No Clubbing, No Cyanosis and No Edema
Skin: No Rash, multiple tattoos on body, back and b/l arms
Neuro: AOx3 conversant coherent
Psych: Calm and Intact Judgment/Insight
68M MDR HTN HLD DM2 neuropathy hx bladder ca hx cardiac ablation here for hypertensive emergency.
#Hypertensive urgency with associated dizziness/headache
#labile HTN
Head CT: No acute intracranial abnormality noted.
- Dr. Thompson is EP, Dr. Reeves is primary extract operator
- Cardio eval appreciated
- Programmer Developer eval appreciated
- Nicardipine gtt for goal BP < 160/100 and new medications nifedipine 30 mg daily as per cardio
- continue candesartan and carvedilol
- UDS screen pos for oxycodone and marijuana
-urine metanephrine studies pending
#headache, dizziness, cough
#suspected underlying asthma, outpt follow up as per Pulm/Programmer Developer
- COVID/Flu negative
- PRN Tylenol
- PRN Reglan
-CR chest appreciated no acute abn's
#hyperlipidemia
- continue fenofibrate, rosuvastatin
#atrial fibrillation
#QT prolongation
-minimize use QT prolonging agents as possible
- continue Eliquis
- cont sotalol as per Cardio
#NIDDM
-A1c 7.3
- AccuCheck AC & HS
- SSI
-metformin 500 mg bid started
#Hypokalemia
#Hypomagnesemia
monitor and replete as necessary
#GERD
- continue famotidine
#depression
- continue bupropion
#chronic pain
- continue duloxetine, Xtampza and oxycodone
Code status: full code
DVT prophylaxis: Eliquis
Total Critical Care Time_40____ minutes. I was immediately available to the patient and staff. I personally examined, reviewed labs, diagnostic images/reports, interpretations, treatment plans, discussed patient care with other providers and
patient, entered orders as appropriate and documented the medical record.
Anticipated Discharge: 24 - 48 hours
Subjective/Interval History
-
Date of Service: August 29, 2024
Reports lightheadedness general malaise. otherwise no acute distress, resting comfortably in bed.
Objective Data
-
Labs:
Laboratory Results
08/28/24 08/29/24 08/29/24
18:45 00:19 03:38
WBC 11.9 H Pending 16.5 H
Hgb 14.2 Pending 13.8
Hct 42.9 Pending 42.0
Plt Count 350 Pending 340
PT 15.3 H
INR 1.17
APTT 33.3
Sodium 142 Cancelled 141
Potassium 3.5 Cancelled 3.4 L
Chloride 106 Cancelled 104
Carbon Dioxide 23 Cancelled 24
BUN 22 H Cancelled 19
Creatinine 1.0 Cancelled 0.9
Glucose 131 H Cancelled 213 H
Calcium 9.9 Cancelled 9.7
Total Bilirubin 0.5 Cancelled 0.7
AST 46 Cancelled 40
ALT 26 Cancelled 25
Alkaline Phosphatase 75 Cancelled 71
Vital Signs:
Vital Signs
Temp Pulse Resp BP Pulse Ox
98.2 F 75 18 166/98 96
08/29/24 00:24 08/29/24 05:30 08/29/24 05:30 08/29/24 05:30 08/29/24 05:30
I&O
08/27/24 08/28/24 08/29/24
06:59 06:59 06:59
Intake Total 505.0 / 505.0
Output Total 200 / 200
Balance 305.0 / 305.0
[2024-08-29] MEDS: KCL 40 MEQ PO (07:11)
[2024-08-29] MEDS: ATACAND 32 MG PO (07:25)
[2024-08-29] MEDS: CYMBALTA DELAYED RELEASE 30 MG PO (07:26)
[2024-08-29] MEDS: COREG 6.25 MG PO (07:26)
[2024-08-29] MEDS: CRESTOR 40 MG PO (07:26)
[2024-08-29] MEDS: PROSCAR 5 MG PO (07:26)
[2024-08-29] MEDS: OXYCONTIN (CONTROLLED RELEASE) 40 MG PO ×3 (07:27→22:01)
[2024-08-29] MEDS: FLOMAX 0.4 MG PO (07:27)
[2024-08-29] MEDS: PEPCID 40 MG PO (07:27)
[2024-08-29] MEDS: WELLBUTRIN XL (24 hour extended release) 150 MG PO (07:27)
[2024-08-29] MEDS: TRICOR 145 MG PO (07:27)
--- NOTE | 2024-08-29 08:11 | CON.INTV ---
Consultation
Consultation Request
Date/Time Consultation Requested: 08/29/202418
Date/Time Consultation Performed: 08/29/2024806
Requesting Provider: TIFFANY Taylor
Performing Provider: Dr. Graf
Reason for Consultation: HTN crisis
Medical History
-
Chief Complaint: High BP with HAMILTON
History of Present Illness:
68-year-old male former tobacco smoker with a past medical history of hypertension, hyperlipidemia, A-fib s/p ablation, GERD, DM type II and depression who presents with lightheadedness and a headache. He says that his BP was elevated with SBP in
the 200s. Normally his BP is in the 160s/80�90s. His headache is in the temporal region on both sides of his head. He had intermittent spins with nausea and exertional shortness of breath with nonradiating chest pain. He also felt hot and cold
with chills all day CRIMINAL DEFENSE ATTORNEY. Initially in the ER, he was afebrile to 98.1 �F, heart rate 91, respiratory rate 16, BP 223/126, and saturating 99% on room air. Initial labs showed WBC 11.9, troponin negative at <0.012, and urine drug screen was positive
for marijuana + oxycodone (Rx percocet at home). COVID-19 antigen was negative. Initial CT head showed no acute intracranial abnormality, and CXR showed mild bibasilar subsegmental atelectasis. In the ER he was given 5 mg Lopressor and started on
Cardene drip and then admitted to the ICU for further care. Cloth Mercerizer Operator services consulted for additional management/recommendations.
When I saw the patient this morning, he was on Cardene drip at 2.5 mg/h with BP 158/103, heart rate 94 and saturating 96% on room air. He had a left-sided temporal headache otherwise had no chest pain or shortness of breath.
PMHx: Hypertension, hyperlipidemia, A-fib, DM type II, GERD, depression, former tobacco smoker
PSHx: Cardiac ablation, lumbar fusion
Past Medical History
Past Medical History: Other (above as per HPI)
Past Surgical History: Other (above as per HPI)
Social History
Tobacco: Former Smoker (Quit 26 years ago)
Alcohol: None
Drug: Marijuana (Smokes or uses edibles mainly for insomnia)
Personal:
Living: With Family
Employment: Retired
Family History
Family History: Cancer (Mother: Lung cancer; brother: Colon cancer) and Other (Brother: Alzheimer's dementia)
Allergies / Home Medications
Allergies
Allergy/AdvReac Type Severity Reaction Status Date / Time
hydralazine Allergy facial Verified 06/22/24 19:34
flush/rash
- given @
same time
as
ketorolac
06/22/24
ketorolac Allergy facial Verified 06/22/24 19:34
flush/rash
- given @
same time
as
hydralazine
06/22/24
Home Medications
�Medication �Instructions �Recorded �Confirmed �Last Taken �Type
bupropion HCl 150 mg 24 hr tablet, 150 mg PO DAILY Mental 05/20/24 08/28/24 08/28/24 History
extended release (Wellbutrin XL) Health/Anxiety
duloxetine 60 mg capsule,delayed 60 mg PO HS Neurological Condition 05/20/24 08/28/24 08/27/24 History
release (Cymbalta)
famotidine 40 mg tablet (Pepcid) 40 mg PO DAILY Gastrointestinal 05/20/24 08/28/24 08/28/24 History
Issue
fenofibrate 160 mg tablet 200 mg PO DAILY High Cholesterol 05/20/24 08/28/24 08/28/24 History
oxycodone-acetaminophen 10 mg-325 1 tab PO 5/D PRN break through 05/20/24 08/28/24 08/28/24 History
mg tablet
rosuvastatin 40 mg tablet 40 mg PO DAILY High Cholesterol 05/20/24 08/28/24 08/28/24 History
sotalol 120 mg tablet 120 mg PO BID Arrhythmia 05/20/24 08/28/24 08/28/24 History
tadalafil 5 mg tablet 5 mg PO DAILY Urinary Issue 05/20/24 08/28/24 08/28/24 History
tamsulosin 0.4 mg capsule (Flomax) 0.4 mg PO DAILY Urinary Issue 05/20/24 08/28/24 08/28/24 History
zolpidem 5 mg tablet 5 mg PO HSPRN PRN sleep 05/20/24 08/28/24 Unknown History
duloxetine 30 mg capsule,delayed 30 mg PO DAILY Neurological 05/21/24 08/28/24 08/28/24 History
release (Cymbalta) Condition
tizanidine 4 mg tablet 4 mg PO TIDPRN PRN spasms 05/21/24 08/28/24 08/28/24 History
Rolling Walker #1 ea 05/25/24 08/28/24 Unknown Rx
levalbuterol tartrate 45 2 inh inhalation Q6H PRN shortness 05/25/24 08/28/24 08/28/24 Rx
mcg/actuation aerosol inhaler of breath or wheezing #15 grams
(Xopenex HFA)
finasteride 5 mg tablet 5 mg PO DAILY Urinary Issue 06/22/24 08/28/24 08/28/24 History
apixaban 5 mg tablet (Eliquis) 5 mg PO BID #60 tabs 06/24/24 08/28/24 08/28/24 Rx
carvedilol 6.25 mg tablet 6.25 mg PO BID #60 tabs 06/24/24 08/28/24 08/28/24 Rx
candesartan 32 mg tablet 32 mg PO BID 08/28/24 08/28/24 08/28/24 History
oxycodone myristate 36 mg capsule 36 mg PO TIDPRN PRN pain 08/28/24 08/28/24 08/28/24 History
sprinkle extended release
12hr(DON'T CRUSH) (Xtampza ER)
Review of Systems
-
History Source: Patient
All other systems: Negative unless noted
Vitals / Labs / Diagnostic Testing
Vital Signs
Temp Pulse Resp BP Pulse Ox
98.2 F 74 16 167/98 97
08/29/24 00:24 08/29/24 06:30 08/29/24 06:30 08/29/24 06:01 08/29/24 06:30
Lab Data
08/29/24 03:38
08/29/24 03:38
Laboratory Results
08/29/24
03:38
PT 15.3 H
INR 1.17
APTT 33.3
Microbiology
08/28/24 22:34 Nasal Swab Influenza Types A & B (HOMERO) - Final
Negative for Influenza A & B, NAAT
Negative results must be combined with clinical observations
and patient history.
Nucleic Acid Amplification test (NAAT)performed on the
[employer] platform.
Diagnostic Testing:
Physical Exam
-
HEENT: Normocephalic and Anicteric
Cardiovascular: S1/S2 and Peripheral Edema (negative)
Respiratory: Wheeze (negative), Rales (negative), Rhonchi (negative), Non-Labored Respirations and Other (Slightly diminished breath sounds on the left compared to the right side)
GI: Soft, Non Distended, Non Tender and Normal Bowel Sounds
Neurology: AO x 3 and Tremors (negative)
Skin: Warm and Dry
General: Respiratory Distress (negative), Comfortable, Fever (negative) and Chills (negative)
Assessment
-
Assessment: 68-year-old male former tobacco smoker with a past medical history of hypertension, hyperlipidemia, A-fib s/p ablation, GERD, DM type II and depression who presents with lightheadedness and a headache. He says that his BP was elevated
with SBP in the 200s. Normally his BP is in the 160s/80�90s. His headache is in the temporal region on both sides of his head. He had intermittent spins with nausea and exertional shortness of breath with nonradiating chest pain. He also felt
hot and cold with chills all day CRIMINAL DEFENSE ATTORNEY. Initially in the ER, he was afebrile to 98.1 �F, heart rate 91, respiratory rate 16, BP 223/126, and saturating 99% on room air. Initial labs showed WBC 11.9, troponin negative at <0.012, and urine drug screen
was positive for marijuana + oxycodone. COVID-[address] antigen was [address] Initial [address] head showed no acute intracranial abnormality, and CXR showed mild bibasilar subsegmental atelectasis. In the ER he was given 5 mg Lopressor and started on Cardene
drip and then admitted to the ICU for further care. Cloth Mercerizer Operator services consulted for additional management/recommendations.
Chronic conditions CRIMINAL DEFENSE ATTORNEY: Hypertension, hyperlipidemia, A-fib, DM type II, GERD, depression, former tobacco smoker
Impression:
#Hypertensive crisis requiring Cardene drip
#Leukocytosis likely reactive due to above
#Suspected asthma with home prn use of Xopenex + absolute eosinophils 500 on admission (has been as high as 1000 on 05/25/2024)
#DM type II (HbA1c: 7.3 on 08/29/2024)
#Hypomagnesemia
#A-fib on Eliquis (currently in NSR)
#Prolonged QTc (491 ms from EKG on 08/29/2024)
#GERD
#Former tobacco smoker (quit 26 years ago)
Plan:
- Considering SBP was in the 200�220 range on admission, would not lower his SBP in the first 24 hours by more than 25%
- Hence his SBP for today should be in the 150�170 range
- His antihypertensives have already been started including sotalol, Coreg and candesartan
- Nifedipine XL started by cardiology, who has been consulted
- Continue monitoring QTc while on sotalol
- Pain control for his headache
- Maintain SpO2 >90-94%; aspiration precautions
- prn nebulized bronchodilators - not currently bronchospastic
- Incentive spirometer encouraged 10x per hour for at least 4 hrs a day
- Patient in no respiratory distress right now and not wheezing, hence although I do suspect he has underlying asthma there is no need to start systemic steroids at this time
- Recommend outpatient pulmonary office follow-up for full PFTs
- Continue with prn albuterol MDI for now
- Leukocytosis likely reactive as he is nontoxic-appearing and remains afebrile
- Continue trending WBC and monitor fever curve
- Hold off on antibiotics for now
- Maintain MAP>65
- Replete electrolytes with K>4, Mg>2
- Maintain euglycemia with goal BG 140-180
- Trend H/H and transfuse if needed to keep Hb>7g/dL; keep plt>20k, unless there is concern for bleeding then keep plt>50k
- DVT ppx: Eliquis
Continue ICU level care while patient remains on Cardene drip. If patient is weaned off and remains hemodynamically stable with SBP in range for >6 hours then can downgrade to telemetry at that time. Once downgraded to telemetry then
Cloth Mercerizer Operator/Pulmonary services will sign off. As stated above, outpatient pulmonary office follow-up will be arranged given suspected underlying asthma/reactive airway disease.
Critical care statement: A total of 43 minutes of critical care time was provided for this patient today. This includes management of unstable vital signs, evaluation of the patient at bedside, reviewing the patient's pertinent medical records
including radiographs, microbiology, laboratory evaluations, and discussion with primary team, consultants, pharmacy, nutrition, physical therapy, case management, charge nurse, critical care nursing, and respiratory therapy.
--- NOTE | 2024-08-29 08:11 | PTCARENOTE ---
Pt bp rising this am, pt with mild atkins and b/l hand numbness. Otherwise no symptoms. AM meds given, except sotalol as it was given late last evening so will stagger am dose. Pt resting in bed when undisturbed. MALCOLM, follows commands. Reports not
sleeping well overnight. Cardene currently off since 2am
[2024-08-29 08:13] LABS: Glucose - Point of Care 183 mg/dl (70-99)
--- NOTE | 2024-08-29 08:25 | CON.CAR ---
Addendum entered and electronically signed by Papa Aguero MD 08/29/24 10:41:
I saw and examined the patient.
The CHIEF WELLNESS OFFICER's note was reviewed and I agree with the note.
Comment:
68-year-old man with paroxysmal atrial fibrillation, hypertension, and yzj-sefrmqw-mfrmrzyke diabetes who presented to ER with hypertensive urgency. He is currently asymptomatic and remains on nicardipine drip. Physical exam reveals regular
rate and rhythm, soft systolic murmur, trace lower extremity edema, and clear lungs bilaterally. Labs notable for creatinine 0.9, K 3.4, A1c 7.3, troponin less than 0.012. ECG with normal sinus rhythm and prolonged QTc (491 ms). For his
hypertension, we will continue his home candesartan 32 mg twice daily and carvedilol 6.25 mg twice daily. We will start nifedipine 30 mg now and do a p.m. blood pressure check to see if we can uptitrate. Goal BP less than 160/100. Titrate
nicardipine to goal. For his QTc prolongation, we will repeat an ECG 2 hours after his a.m. sotalol dose. If QTc greater than 500 ms, we need to decrease sotalol.
Original Note:
Consultation
Consultation Request
Date/Time Consultation Requested: 08/29/2024 00:20
Date/Time Consultation Performed: 08/29/2024 08:20
Requesting Provider: TIFFANY Hennessy
Performing Provider: TIFFANY Borjas for Dr. Aguero
Reason for Consultation: HTN Urgency
Medical History
-
Chief Complaint: Elevated blood pressure
History of Present Illness:
Ellis Lara is a 68-year-old male with paroxysmal atrial fibrillation (on sotalol and apixaban), hypertension, NIDDM, prior bladder cancer, and chronic pain who presented to the emergency department the chief complaint of elevated blood pressure.
He endorsed associated dizziness. Yesterday, he woke up with a headache that was temporarily relieved with acetaminophen. He was found to have hypertensive urgency. He was started on nicardipine. Cardiology was consulted.
Past Medical History
Past Medical History: Arrhythmias (Paroxysmal atrial fibrillation [on sotalol and apixaban]), GERD, HTN, Hypercholesterolemia, NIDDM, Psychiatric (Depression) and Other (Chronic pain)
Social History
Tobacco: Former Smoker
Alcohol: None
Drug: Marijuana
Personal:
Living: With Family
Employment: Not Employed
Family History
Family History: Reviewed & Not Pertinent (No early CAD or SCD.)
Allergies / Home Medications
Allergy/AdvReac Type Severity Reaction Status Date / Time
hydralazine Allergy facial Verified 06/22/24 19:34
flush/rash
- given @
same time
as
ketorolac
06/22/24
ketorolac Allergy facial Verified 06/22/24 19:34
flush/rash
- given @
same time
as
hydralazine
06/22/24
�Medication �Instructions �Recorded �Confirmed �Type
bupropion HCl 150 mg 24 hr tablet, 150 mg PO DAILY Mental 05/20/24 08/28/24 History
extended release (Wellbutrin XL) Health/Anxiety
duloxetine 60 mg capsule,delayed 60 mg PO HS Neurological Condition 05/20/24 08/28/24 History
release (Cymbalta)
famotidine 40 mg tablet (Pepcid) 40 mg PO DAILY Gastrointestinal 05/20/24 08/28/24 History
Issue
fenofibrate 160 mg tablet 200 mg PO DAILY High Cholesterol 05/20/24 08/28/24 History
oxycodone-acetaminophen 10 mg-325 1 tab PO 5/D PRN break through 05/20/24 08/28/24 History
mg tablet
rosuvastatin 40 mg tablet 40 mg PO DAILY High Cholesterol 05/20/24 08/28/24 History
sotalol 120 mg tablet 120 mg PO BID Arrhythmia 05/20/24 08/28/24 History
tadalafil 5 mg tablet 5 mg PO DAILY Urinary Issue 05/20/24 08/28/24 History
tamsulosin 0.4 mg capsule (Flomax) 0.4 mg PO DAILY Urinary Issue 05/20/24 08/28/24 History
zolpidem 5 mg tablet 5 mg PO HSPRN PRN sleep 05/20/24 08/28/24 History
duloxetine 30 mg capsule,delayed 30 mg PO DAILY Neurological 05/21/24 08/28/24 History
release (Cymbalta) Condition
tizanidine 4 mg tablet 4 mg PO TIDPRN PRN spasms 05/21/24 08/28/24 History
Rolling Walker #1 ea 05/25/24 08/28/24 Rx
levalbuterol tartrate 45 2 inh inhalation Q6H PRN shortness 05/25/24 08/28/24 Rx
mcg/actuation aerosol inhaler of breath or wheezing #15 grams
(Xopenex HFA)
finasteride 5 mg tablet 5 mg PO DAILY Urinary Issue 06/22/24 08/28/24 History
apixaban 5 mg tablet (Eliquis) 5 mg PO BID #60 tabs 06/24/24 08/28/24 Rx
carvedilol 6.25 mg tablet 6.25 mg PO BID #60 tabs 06/24/24 08/28/24 Rx
candesartan 32 mg tablet 32 mg PO BID 08/28/24 08/28/24 History
oxycodone myristate 36 mg capsule 36 mg PO TIDPRN PRN pain 08/28/24 08/28/24 History
sprinkle extended release
12hr(DON'T CRUSH) (Xtampza ER)
Physical Exam
Vital Signs
Temp Pulse Resp BP Pulse Ox
97.9 F 73 13 187/114 96
08/29/24 07:11 08/29/24 08:01 08/29/24 08:01 08/29/24 08:01 08/29/24 08:01
Lab Results
08/29/24 03:38
08/29/24 03:38
Troponin I < 0.012 ng/ml 08/28/24 19:10
Impression / Plan
-
I/P: 68M with paroxysmal atrial fibrillation (on sotalol and apixaban), hypertension, NIDDM, prior bladder cancer, and chronic pain who presented to the emergency department the chief complaint of elevated blood pressure.
Outpatient photographer motion picture: Dr. Thompson ([facility])
Outpatient EP: Dr. Reeves ([facility])
Hypertensive urgency
-Requiring Cardene, this requires intensive monitoring
-Mild cLVH on echocardiogram in May,
-Start nifedipine 30mg & titrate
-Continue carvedilol 6.25 mg twice daily and candesartan 32 mg twice daily
-He had a possible drug reaction to hydralazine
Paroxysmal atrial fibrillation
-Rhythm: In sinus, sotalol 120mg, QTc prolonged on admission, update EKG
-Oral Anticoagulation: Eliquis 5mg BID
-[id number]: score 3 (HTN, Diabetes Mellitus, age 65-74)
NIDDM, with hyperglycemia, HgbA1c pending
HLD, on rosuvastatin
Prior bladder cancer
Data Reviewed
-
EKG: Report Reviewed by me (Sinus rhythm, nonspecific ST abnormality, prolonged QTc, rate 82)
Radiology: Report Reviewed by me (CXR: Mild bibasilar subsegmental atelectasis.)
CT Scan: Report Reviewed by me (Head: No acute intracranial abnormality noted.)
Labs: Labs Reviewed by me
Old Records: Reviewed
[2024-08-29 09:07] LABS: Glycohemoglobin (HgbA1c) 7.3 % (4.0-5.6)
[2024-08-29] MEDS: MAGNESIUM OXIDE 500 MG PO (09:08)
[2024-08-29] MEDS: BETAPACE PO (09:25)
[2024-08-29] MEDS: PROCARDIA XL (EXTENDED RELEASE) 30 MG PO (09:31)
[2024-08-29] MEDS: NOVOLOG FLEXPEN-LOW RESISTANCE 1 UNITS SC (09:35)
--- NOTE | 2024-08-29 09:44 | PTCARENOTE ---
EKG completed as ordered. QTC is prolonged. Dr Aguero wanted dose given and ekg done 2 hours after dose. Pt aware
[2024-08-29 11:43] LABS: Glucose - Point of Care 148 mg/dl (70-99)
[2024-08-29] MEDS: NOVOLOG FLEXPEN-MODERATE RESISTANCE SC (11:48)
[2024-08-29] MEDS: GLUCOPHAGE 500 MG PO ×2 (12:06→17:01)
[2024-08-29] MEDS: NSS 500 IV (14:05)
--- NOTE | 2024-08-29 14:12 | PTCARENOTE ---
pt hypotensive, feels mildly lightheaded but otherwise no symptoms. checked bp both arms and bp consistent. pt mentating, just finished eating and brushing teeth. Gretta ALLEN aware and fluid bolus ordered and currently infusing. Pt
currently talking to on phone. Continue to monitor vitals.
--- NOTE | 2024-08-29 14:39 | CM ---
CM reviewed chart, patient seen bedside, initial assessment completed. Patient resides with his in a multiple story home, two steps to enter, bedroom on second floor. Patient reports having a cane and walker at home, typically only uses cane.
Patient is current with [facility], denies SNF history. Patient confirms PCP Zachary Holly, pharmacy [facility], confirms prescription coverage. CM will continue to follow for all discharge planning needs.
Plan; return home with VN
[2024-08-29] MEDS: NOVOLOG FLEXPEN-MODERATE RESISTANCE 1 UNITS SC (17:02)
[2024-08-29 17:06] LABS: Glucose - Point of Care 162 mg/dl (70-99)
--- NOTE | 2024-08-29 17:45 | PTCARENOTE ---
Pt sat up prior to dinner and felt lightheaded and nauseated. Reminded that he will be nauseated until his body adjuists to meformin. BP remains on low side.. Spoke to pharmacist, supervisor refractory products added hold parameters on bp meds, candesartan dose
decreased as charted.
[2024-08-29] MEDS: NSS 1000 IV (18:29)
--- NOTE | 2024-08-29 18:32 | PTCARENOTE ---
After eating, bp again in 70s. Dr Graf aware,IVF added. Pt asymptomatic. Watching tv and texting on his phone.
[2024-08-29] MEDS: ZANAFLEX 4 MG PO (19:51)
[2024-08-29] MEDS: COREG PO (19:52)
--- NOTE | 2024-08-29 20:00 | PTCARENOTE ---
Rec'd pt resting in bed, denies chest pain, has chronic hand numbness, zanaflex 4mg po given for leg spasms, SR w/ prol QT, rec IVF for low bp, pt asymptomatic w/ bp, coreg held due to parameters, weak distal pulses, RA, lungs clear, sat 96, + bowel
sounds, no bm, abd soft, occas 'queasiness since metformin started today' uses urinal prn
[2024-08-29 22:11] LABS: Glucose - Point of Care 133 mg/dl (70-99)
--- NOTE | 2024-08-29 23:30 | PTCARENOTE ---
Pt pulled himself off monitor, pulled out both IV's, took off gown, pt confused to place/ time, hallucinating, MALCOLM equally, speech clear, following commands, NIH- 1,B SAHIL Nix in to assess, taken for stat CT head
[address], CHG bath done, bed alarm on
[2024-08-30] VITALS (24 sets, daily range): BP systolic 116–157; BP diastolic 65–105; BMI 28.9
--- NOTE | 2024-08-30 00:17 | W.PN.UPDATE ---
Addendum entered and electronically signed by TIFFANY Oconnor 08/30/24 01:05:
Lab results, decrease renal function/WILLIAM.
Addendum entered and electronically signed by TIFFANY Oconnor 08/30/24 00:59:
Reduce Ambein amount back to 5mg/prn/hs.
Original Note:
Update Note
Progress Note Update
2324: Notified by nurse that patient is having a change in mental status (confusion).�
On assessment: Patient follows commands, strength 5 out of 5. � No issues with speech or vision. However, is alert to himself, but not to place or time. No change in vitals or temperature.�
Plan: 1) Head CT � 2) Recent�blood sugar = WNL� 3) Labs ordered. 4) Recent administrated Ambien, Zanaflex, oxycodone, and Prozac most likely contributing to confusion.�
[2024-08-30 00:36] LABS: Hemoglobin 12.6 g/dL (13.0-18.0); Mean Corp Hgb Conc. 33.2 g/dL (33.0-37.0); Mean Corpuscular Hgb 27.9 pg (27.0-31.0); Mean Corpuscular Volume 84.3 fL (80.0-94.0); Mean Platelet Volume 10.6 fL (7.4-10.4); Platelet Count 306 10^3/uL (130-400); Red Blood Cell Count 4.51 10^6/uL (4.70-6.10); Red Cell Dist. Width 12.8 % (11.5-14.5); White Blood Cell Count 11.7 10^3/uL (4.8-10.8)
[2024-08-30 00:53] LABS: ALT (SGPT) 20 U/L (0-50); AST (SGOT) 35 U/L (17-59); Albumin 4.1 g/dl (3.5-5.0); Alkaline Phosphatase 57 U/L (38-126); Blood Urea Nitrogen 26 mg/dl (9-20); Calcium 9.3 mg/dl (8.4-10.2); Carbon Dioxide 23 mmol/L (22-30); Chloride 107 mmol/L (98-107); Estimated Creatinine Clearance 54 ml/min; Glucose 152 mg/dl (70-99); Magnesium 1.6 mg/dl (1.6-2.3); Phosphorus 4.6 mg/dl (2.5-4.5); Potassium 4.2 mmol/L (3.5-5.1); Sodium 141 mmol/L (135-145); Total Bilirubin 0.7 mg/dl (0.2-1.3); Total Protein 6.9 g/dl (6.3-8.2); eGFR 43.91
--- NOTE | 2024-08-30 01:02 | PTCARENOTE ---
Trying to climb oob,'i'm looking for the gun in the bed', reoriented pt , bed alarm on
[2024-08-30] MEDS: MAGNESIUM SULFATE 100 IV (01:18)
--- NOTE | 2024-08-30 01:52 | PTCARENOTE ---
Has not voided this shift, bladder scanned for 200ml, B SAHIL Nix aware, pt continues to be confused
--- NOTE | 2024-08-30 03:20 | PTCARENOTE ---
pt sleeping, bp stable
--- NOTE | 2024-08-30 05:56 | PTCARENOTE ---
pt awake, does not remember events of last night- pulling out iv's, taking off gown, hallucinating, oriented, cooperative, bladder scanned for 320ml, then voided 250ml conc shawn urine
--- NOTE | 2024-08-30 06:23 | W.PN.HOSP.TC ---
Addendum entered and electronically signed by Richelle Orellana MD 08/31/24 03:38:
Chronic pain Opioid dependence
Original Note:
Today's Communication/Plan
-
Medically stable for downgrade to Tele
IVF, monitor renal function
Nephro eval
Blood pressure control, avoid over correction, goal SBP 150-160
Sotalol on hold as per cardio
Hold Metformin, cont sliding scale
Hold Candesartan
Avoid nephrotoxic agents as possible
Assessment / Plan
Assessment / Plan
Physical Exam
General: no acute distress resting comfortably in bed
HEENT: NormoCephalic, Moist mucous membranes, Atraumatic, Hessmer Conjunctivae
Respiratory: Clear to auscultation b/l, stable respiratory status on room air.
Cardiac: S1/S2 and Regular Rhythm
GI: Soft, Non Tender, Non Distended and Normal Bowel Sounds; No Organomegaly
Musculoskeletal: No Clubbing, No Cyanosis and No Edema
Skin: No Rash, multiple tattoos on body, back and b/l arms
Neuro: AOx3 conversant coherent
Psych: Calm and Intact Judgment/Insight
68M MDR HTN HLD DM2 neuropathy hx bladder ca hx cardiac ablation here for hypertensive emergency.
#Hypertensive urgency with associated dizziness/headache
#labile HTN
Head CT: No acute intracranial abnormality noted.
- Dr. Thompson is EP, Dr. Reeves is primary pediatric registered nurse
- Cardio eval appreciated
- Health Program Director eval appreciated
-Nephro eval appreciated
- weaned off Nicardipine gtt, started on nifedipine 30 mg daily as per cardio
- home losartan reduced from 32 mg BID to 16 mg BID d/t hypotension, since placed on hold d/t WILLIAM
- continue carvedilol
- UDS screen pos for oxycodone and marijuana
-urine metanephrine studies pending
-goal sbp 150-160 at this time as per nephro
#08/30 WILLIAM
Cr elevated from 0.9 to 1.7 possibly 2/2 severe hypotension noted day prior since resolved
IVF gentle hydration
Nephro eval appreciated
Check Renal US
#headache, dizziness, cough
#suspected underlying asthma, outpt follow up as per Pulm/Health Program Director
- COVID/Flu negative
- PRN Tylenol
- PRN Reglan
-CR chest appreciated no acute abn's
-symptoms since resolved
#hyperlipidemia
- continue fenofibrate, rosuvastatin
#atrial fibrillation
#QT prolongation
-minimize use QT prolonging agents as possible
- continue Eliquis
- cont sotalol as per Cardio, on hold d/t WILLIAM as above received 120 mg AM 08/30/24 last dose (daily dosing recommended w/ Cr clearance 40-60)
-when WILLIMA resolves, preferred max dose sotalol 80 mg bid as per Cardio.
#NIDDM
-A1c 7.3
- AccuCheck AC & HS
- SSI
-metformin 500 mg bid started, since placed on hold d/t WILLIAM
#Hypokalemia
#Hypomagnesemia
monitor and replete as necessary
#GERD
- continue famotidine
#depression
- continue bupropion
#chronic pain
- continue duloxetine, Xtampza and oxycodone
ST/PT/OT eval
Code status: full code
DVT prophylaxis: Eliquis
Medically stable for downgrade to Tele.
Discussed with patient.
I spent a total of 50 minutes with the patient or on the floor. More than 50% of this time involved counseling and coordination of care.
Anticipated Discharge: 24 - 48 hours
Subjective/Interval History
-
Date of Service: August 30, 2024
Seen and examined at bedside in no acute distress sitting up comfortably in bed. Overnight events notable for confusion suspect polypharmacy due to combination pain and sleep medications. Ambien dose since reduced and changed to prn. Patient
otherwise reports feeling well, denies any acute issues a this time. Dizziness lightheadedness resolved at this time.
Objective Data
-
Labs:
Laboratory Results
08/30/24 08/30/24
00:16 06:00
WBC 11.7 H
Hgb 12.6 L
Hct 38.0 L
Plt Count 306
Sodium 141 Cancelled
Potassium 4.2 Cancelled
Chloride 107 Cancelled
Carbon Dioxide 23 Cancelled
BUN 26 H Cancelled
Creatinine 1.7 H Cancelled
Glucose 152 H Cancelled
Calcium 9.3 Cancelled
Total Bilirubin 0.7
AST 35
ALT 20
Alkaline Phosphatase 57
Vital Signs:
Vital Signs
Temp Pulse Resp BP Pulse Ox
97.2 F 68 15 140/105 97
08/30/24 05:54 08/30/24 06:00 08/30/24 06:00 08/30/24 06:00 08/30/24 06:00
I&O
08/28/24 08/29/24 08/30/24
06:59 06:59 06:59
Intake Total 505.0 / 505.0 2257.5 / 2257.5
Output Total 200 / 200 850 / 850
Balance 305.0 / 305.0 1407.5 / 1407.5
[2024-08-30 07:16] LABS: Glucose - Point of Care 118 mg/dl (70-99)
--- NOTE | 2024-08-30 08:00 | PTCARENOTE ---
Assumed care of pt at 0715 following shift report. NIHSS/Neuro assessment completed w/ outgoing shift RN. NIHSS=0. Pt denies pain or new symptoms. Physical assessment completed as documented. Bed exit alarm in use at present as a protective measure.
Pt's conversation appropriate and able to verbalize understanding of using call donis to call and wait for assistance prior to getting OOB. Call donis w/in pt reach and safe environment maintained.
--- NOTE | 2024-08-30 08:17 | W.PN.INTV ---
Today's Communication / Plan
Recommendations
Maintain SBP 150-160 range given his WILLIAM from hypotension yesterday
Nephrology on board and recs appreciated
Trend UOP
Continue IVF for today
Renally dose all medications
Holding candesartan given his WILLIAM; holding nifedipine given his profound hypotension yesterday
Continue with Coreg + sotalol, while trending QTc while on sotalol
Cardiology on board and recs appreciated
Outpatient pulmonary office follow-up given history of eosinophilia with suspected underlying asthma; will obtain outpatient PFTs
Pt stable for downgrade out of ICU to telemetry. No additional recommendations at this time. State Manager/Pulmonary service will now sign off. Please reconsult if there are any additional questions/concerns, or if patient's respiratory status
deteriorates.
Assessment
-
Assessment: 68-year-old male former tobacco smoker with a past medical history of hypertension, hyperlipidemia, A-fib s/p ablation, GERD, DM type II and depression who presents with lightheadedness and a headache. He says that his BP was elevated
with SBP in the 200s. Normally his BP is in the 160s/80�90s. His headache is in the temporal region on both sides of his head. He had intermittent spins with nausea and exertional shortness of breath with nonradiating chest pain. He also felt
hot and cold with chills all day CAN MAKER. Initially in the ER, he was afebrile to 98.1 �F, heart rate 91, respiratory rate 16, BP 223/126, and saturating 99% on room air. Initial labs showed WBC 11.9, troponin negative at <0.012, and urine drug screen
was positive for marijuana + oxycodone. COVID-[address] Initial [address] head showed no acute intracranial abnormality, and CXR showed mild bibasilar subsegmental atelectasis. In the ER he was given 5 mg Lopressor and started on Cardene
drip and then admitted to the ICU for further care. State Manager services consulted for additional management/recommendations.
Chronic conditions CAN MAKER: Hypertension, hyperlipidemia, A-fib, DM type II, GERD, depression, former tobacco smoker
Impression:
#Hypertensive crisis requiring Cardene drip - now off cardene drip since yesterday
#Leukocytosis likely reactive due to above - WBC improving
#WILLIAM (due to ischemic ATN from hypotension yesterday) - baseline Cr 0.9
#Suspected asthma with home prn use of Xopenex + absolute eosinophils 500 on admission (has been as high as 1000 on 05/25/2024)
#DM type II (HbA1c: 7.3 on 08/29/2024)
#Hypomagnesemia
#A-fib on Eliquis (currently in NSR)
#Prolonged QTc (491 ms from EKG on 08/29/2024)
#GERD
#Former tobacco smoker (quit 26 years ago)
Plan:
- SBP was in the 200�220 range on admission
- Off cardene since 08/29 in late morning hours
- Given his WILLIAM, would keep SBP in 150-160 range and continue trending his sCr and monitoring UOP; strict I/O
- Continue sotalol + Coreg; hold candesartan given his WILLIAM
- Nifedipine XL started by cardiology, who has been consulted - need to hold nifedipine now given the hypotension yesterday
- Continue monitoring QTc while on sotalol
- Pain control if HAMILTON recurs
- Maintain SpO2 >90-94%; aspiration precautions
- prn nebulized bronchodilators - not currently bronchospastic
- Incentive spirometer encouraged 10x per hour for at least 4 hrs a day
- Patient in no respiratory distress right now and not wheezing, although I do suspect he has underlying asthma - there is no need to start systemic steroids at this time
- Recommend outpatient pulmonary office follow-up for full PFTs
- Continue with prn albuterol MDI for now
- Leukocytosis likely reactive as he is nontoxic-appearing and remains afebrile
- Continue trending WBC and monitor fever curve
- Hold off on antibiotics for now
- Maintain MAP>65
- Replete electrolytes with K>4, Mg>2
- Maintain euglycemia with goal BG 140-180
- Trend H/H and transfuse if needed to keep Hb>7g/dL; keep plt>20k, unless there is concern for bleeding then keep plt>50k
- DVT ppx: Eliquis
Pt stable for downgrade out of ICU to telemetry. No additional recommendations at this time. State Manager/Pulmonary service will now sign off. Thank you for allowing us to be involved in the care of this patient. Please reconsult if there are any
additional questions/concerns, or if patient's respiratory status deteriorates. As stated above, outpatient pulmonary office follow-up will be arranged given suspected underlying asthma/reactive airway disease.
Total time spent today was 57 minutes for this encounter. Time includes reviewing laboratory test/imaging results, reviewing pertinent medical records, obtaining and reviewing medical history, performing an appropriate exam, ordering medications,
tests and procedures. Time also includes documentation of this encounter, coordinating patient care and communicating with other healthcare professionals. Total time does not include separately billed tests performed on this date of service.
Subjective Dataa
Subjective Data
Date of Service:
Date of Service: August 30, 2024
Chief Complaint: State Manager Follow Up
Subjective:
Pt seen and evaluated this AM. SBP dropped yesterday in the 60s, IVF started. Was very confused overnight - CT head showed no acute intracranial deficit. Cr 1.7 today. BP 136/92 and HR 71. Nifedipine held this AM. His , Lesley, was at
bedside and all questions were answered. Patient denies shortness of breath, chest pain, headache, fevers or chills. Currently on room air saturating 97%. He says his vision is a little blurry but it has been coming and going.
Review of Systems
General: Other (Negative unless mentioned above)
Objective Data
Data Reviewed
Vital Signs / I&O / Oxygen:
Vital Signs
Temp Pulse Resp BP Pulse Ox
97.4 F 68 15 135/95 97
08/30/24 07:39 04/15/25 08:28 08/30/24 08:14 08/30/24 08:28 08/30/24 08:00
Intake and Output
08/29/24 08/30/24 08/31/24
06:59 06:59 06:59
Intake Total 505.0 / 505.0 2257.5 / 2337.5 80 / 80
Output Total 200 / 200 850 / 850
Balance 305.0 / 305.0 1407.5 / 1487.5 80 / 80
SaO2 97
Physical Exam
General: Respiratory Distress (negative), Comfortable, Chills (negative) and Sweats (negative)
HEENT: Normocephalic and Anicteric
Cardiovascular: S1-S2 and Peripheral Edema (negative)
Respiratory: Clear, Wheeze (negative), Crackles (negative), Rhonchi (negative), Non-Labored Respirations and Other (Diminished breath sounds bilaterally)
GI: Soft, Non Distended, Non Tender and Normal Bowel Sounds
Neurology: AO x 3 and Tremors (negative)
Skin: Warm, Dry, Cyanosis (negative) and Jaundice (negative)
Labs/Micro/Reports
Lab Data
08/30/24 00:16
08/30/24 06:00
Microbiology
08/28/24 22:34 Nasal Swab Influenza Types A & B ([facility]) - Final
Negative for Influenza A & B, NAAT
Negative results must be combined with clinical observations
and patient history.
Nucleic Acid Amplification test (NAAT)performed on the
[employer] platform.
[2024-08-30] MEDS: WELLBUTRIN XL (24 hour extended release) 150 MG PO (08:26)
[2024-08-30] MEDS: ATACAND 16 MG PO (08:26)
[2024-08-30] MEDS: NOVOLOG FLEXPEN-MODERATE RESISTANCE SC ×2 (08:26→18:08)
[2024-08-30] MEDS: ELIQUIS 5 MG PO ×2 (08:27→21:30)
[2024-08-30] MEDS: OXYCONTIN (CONTROLLED RELEASE) 40 MG PO ×3 (08:27→22:19)
[2024-08-30] MEDS: PEPCID 40 MG PO (08:27)
[2024-08-30] MEDS: BETAPACE 120 MG PO (08:27)
[2024-08-30] MEDS: FLOMAX 0.4 MG PO (08:27)
[2024-08-30] MEDS: CRESTOR 40 MG PO (08:27)
[2024-08-30] MEDS: TRICOR 145 MG PO (08:28)
[2024-08-30] MEDS: GLUCOPHAGE 500 MG PO (08:28)
[2024-08-30] MEDS: CYMBALTA DELAYED RELEASE 30 MG PO (08:28)
[2024-08-30] MEDS: COREG 6.25 MG PO ×2 (08:28→21:26)
[2024-08-30] MEDS: PROSCAR 5 MG PO (08:28)
[2024-08-30] MEDS: NSS 1000 IV ×2 (09:03→21:33)
--- NOTE | 2024-08-30 09:57 | W.PN.CD ---
Today's Communication / Plan
-
sotalol placed on HOLD (given WILLIAM), when resume likely prefer max 80 BID
Impression / Plan
-
Background: 68M with paroxysmal atrial fibrillation (on sotalol and apixaban), hypertension, NIDDM, prior bladder cancer, and chronic pain who presented to the emergency department the chief complaint of elevated blood pressure.
Outpatient photovoltaic solar cell designer: Dr. Thompson ([facility])
Outpatient EP: Dr. Reeves ([facility])
Resolved hypertensive urgency
Chronic HTN
- Blood pressure acceptable now
- Seems reasonable to use current meds for now: Coreg 6.25 bid, nifedipine ER 30 daily (did not get yet), and candesartan has been stopped (got 16 mg this AM)
- When renal function improves likely resume ARB, will see what nephrology prefers
- Multiple med changes last several days
Transient hypotension on 08/29/2024
New WILLIAM
- Likely from the recent hypotension
- Nephrology consulted
Paroxysmal atrial fibrillation
- Rhythm: In sinus, sotalol 120mg, QTc prolonged on admission
- QTc 503 on sotalol 120 mg but that is with WILLIAM => sotalol placed on HOLD, when resume likely prefer max 80 BID
- Tele w/o PVC/torsades/harper over last 24 hours
- Oral Anticoagulation: Eliquis 5mg BID
- [id number]: score 3 (HTN, Diabetes Mellitus, age 65-74)
DM, type II, with hyperglycemia, HgbA1c 7.3
HLD, on rosuvastatin
Prior bladder cancer
Subjective:
No CP or dyspnea
Physical Exam
Vital Signs/Labs
Vital Signs
Temp Pulse Resp BP Pulse Ox
97.4 F 68 15 135/95 97
08/30/24 07:39 08/30/24 08:28 08/30/24 08:14 08/30/24 08:28 08/30/24 08:00
08/29/24 08/30/24 08/31/24
06:59 06:59 06:59
Actual Weight 108.7 kg 110.6 kg
08/30/24 00:16
08/30/24 06:00
PT 15.3 Sec (11.4-14.6) H 08/29/24 03:38
INR 1.17 08/29/24 03:38
APTT 33.3 Sec (23.4-35.0) 08/29/24 03:38
Magnesium 1.6 mg/dl (1.6-2.3) 08/30/24 00:16
Magnesium Cancelled 08/30/24 00:16
LAB Results
08/28/24
19:10
Troponin I < 0.012
Physical Exam
Constitutional: No acute distress
EENT: Anicteric
Cardiovascular: Rhythm & rate is regular and Pedal edema is absent
Respiratory: Respiratory effort normal and Lungs clear to auscul.
GI: Soft and Distention absent
Neuro/Psych: AO x 3
Data Reviewed
-
Date of Service: August 30, 2024
--- NOTE | 2024-08-30 10:13 | W.CON.NEPH ---
Consultation
-
Date/Time Consultation Requested: August 30, 2024 8 AM
Date/Time Consultation Performed: August 31, 2019 5:10 AM
Requesting Provider: Dr. Orellana
Performing Provider: Dr. Miramontes
Reason for Consultation: Acute kidney injury hypertensive urgency
Medical History
-
Chief Complaint: Acute kidney injury hypertension.
History of Present Illness:
68-year-old male former tobacco smoker with a past medical history of hypertension, hyperlipidemia, A-fib s/p ablation, GERD, DM type II and depression who presents with lightheadedness and a headache. He says that his BP was elevated with SBP in
the 200s. Normally his BP is in the 160s/80�90s. , BP 223/126 at its peak treated with Cardene drip.
He had significant drop in blood pressure down to the 80s systolic.
Subsequently had increasing creatinine to 1.6 from 0.9.
Therefore renal consult.
A previous admission June with similar presentation hypertensive urgency. He is hypertension for 10+ years. He denies any NSAID use
Past Medical History
hypertension, hyperlipidemia, A-fib s/p ablation, GERD, DM type II and depression
Social History
Tobacco: Former Smoker
Alcohol: None
Family History
Family History: Not Pertinent
Allergies / Home Medications
Allergy/AdvReac Type Severity Reaction Status Date / Time
hydralazine Allergy facial Verified 06/22/24 19:34
flush/rash
- given @
same time
as
ketorolac
06/22/24
ketorolac Allergy facial Verified 06/22/24 19:34
flush/rash
- given @
same time
as
hydralazine
06/22/24
�Medication �Instructions �Recorded �Confirmed �Type
bupropion HCl 150 mg 24 hr tablet, 150 mg PO DAILY Mental 05/20/24 08/28/24 History
extended release (Wellbutrin XL) Health/Anxiety
duloxetine 60 mg capsule,delayed 60 mg PO HS Neurological Condition 05/20/24 08/28/24 History
release (Cymbalta)
famotidine 40 mg tablet (Pepcid) 40 mg PO DAILY Gastrointestinal 05/20/24 08/28/24 History
Issue
fenofibrate 160 mg tablet 200 mg PO DAILY High Cholesterol 05/20/24 08/28/24 History
oxycodone-acetaminophen 10 mg-325 1 tab PO 5/D PRN break through 05/20/24 08/28/24 History
mg tablet
rosuvastatin 40 mg tablet 40 mg PO DAILY High Cholesterol 05/20/24 08/28/24 History
sotalol 120 mg tablet 120 mg PO BID Arrhythmia 05/20/24 08/28/24 History
tadalafil 5 mg tablet 5 mg PO DAILY Urinary Issue 05/20/24 08/28/24 History
tamsulosin 0.4 mg capsule (Flomax) 0.4 mg PO DAILY Urinary Issue 05/20/24 08/28/24 History
zolpidem 5 mg tablet 5 mg PO HSPRN PRN sleep 05/20/24 08/28/24 History
duloxetine 30 mg capsule,delayed 30 mg PO DAILY Neurological 05/21/24 08/28/24 History
release (Cymbalta) Condition
tizanidine 4 mg tablet 4 mg PO TIDPRN PRN spasms 05/21/24 08/28/24 History
Rolling Walker #1 ea 05/25/24 08/28/24 Rx
levalbuterol tartrate 45 2 inh inhalation Q6H PRN shortness 05/25/24 08/28/24 Rx
mcg/actuation aerosol inhaler of breath or wheezing #15 grams
(Xopenex HFA)
finasteride 5 mg tablet 5 mg PO DAILY Urinary Issue 06/22/24 08/28/24 History
apixaban 5 mg tablet (Eliquis) 5 mg PO BID #60 tabs 06/24/24 08/28/24 Rx
carvedilol 6.25 mg tablet 6.25 mg PO BID #60 tabs 06/24/24 08/28/24 Rx
candesartan 32 mg tablet 32 mg PO BID Blood Pressure 08/28/24 08/28/24 History
oxycodone myristate 36 mg capsule 36 mg PO TIDPRN PRN pain 08/28/24 08/28/24 History
sprinkle extended release
12hr(DON'T CRUSH) (Xtampza ER)
Review of Systems
-
Headache and no chest pain or shortness of breath
All other systems: Negative unless noted
Physical Exam
Vital Signs
Vital Signs
Temp Pulse Resp BP Pulse Ox
97.4 F 68 15 135/95 97
08/30/24 07:39 08/30/24 08:28 08/30/24 08:14 08/30/24 08:28 08/30/24 08:00
Lab Results
WBC 11.7 10^3/uL (4.8-10.8) H 08/30/24 00:16
RBC 4.51 10^6/uL (4.70-6.10) L 08/30/24 00:16
Hgb 12.6 g/dL (13.0-18.0) L 08/30/24 00:16
Hct 38.0 % (39.0-52.0) L 08/30/24 00:16
Plt Count 306 10^3/uL (130-400) 08/30/24 00:16
Sodium Cancelled 08/30/24 06:00
Potassium Cancelled 08/30/24 06:00
Chloride Cancelled 08/30/24 06:00
Carbon Dioxide Cancelled 08/30/24 06:00
BUN Cancelled 08/30/24 06:00
Creatinine Cancelled 08/30/24 06:00
eGFR Cancelled 08/30/24 06:00
Glucose Cancelled 08/30/24 06:00
Calcium Cancelled 08/30/24 06:00
Phosphorus 4.6 mg/dl (2.5-4.5) H 08/30/24 00:16
Phosphorus Cancelled 08/30/24 00:16
Albumin 4.1 g/dl (3.5-5.0) 08/30/24 00:16
Physical Exam
General no acute distress
HEENT no cephalic atraumatic extraocular muscle intact no scleral icterus no JVD neck supple
lungs clear to auscultation bilateral
heart regular S1-S2 positive
abdomen soft nontender positive bowel sounds
extremities no edema pulses present bilateral
Neurologically nonfocal alert and oriented x 3
Skin no lesions no abrasions no petechiae
Psych normal affect no bizarre behavior
Data Reviewed
-
CT Scan: Image Personally Visualized and interpreted
Assessment/Plan
-
68-year-old male former tobacco smoker with a past medical history of hypertension, hyperlipidemia, A-fib s/p ablation, GERD, DM type II and depression who presents with lightheadedness and a headache. And hypertensive urgency of BP 223/126,
Renal consult for WILLIAM 0.9-1.6 with hypotension
Impression.
Acute kidney injury secondary to hemodynamic changes hypertensive urgency with significant drop in blood pressure in the 70s systolic.
Hypertensive urgency.
Diabetes type 2.
Plan.
Status post Cardene drip discontinue
keep suggest keeping blood pressure at 150-160 and then titrate with WILLIAM avoid further insult.
Currently on Procardia, carvedilol, sotalol
Holding candesartan outpatient with WILLIAM.
Metanephrines okay
Hold on ordering renin and aldosterone as these hormones likely elevated with an acute hypertensive urgency
Check renal Doppler
Discussed with critical care team
Total Time Spent with Patient (in minutes): 35
[2024-08-30 10:30] LABS: Urine Albumin 1+ (Neg - Trace); Urine Bilirubin Negative (Negative); Urine Character Clear (Clear); Urine Color Yellow; Urine Glucose Negative (Negative); Urine Ketone Negative (Negative); Urine Leukocyte Negative (Negative); Urine Nitrite Negative (Negative); Urine Occult Blood 1+ (Negative); Urine Specific Gravity 1.025 (<1.030); Urine Urobilinogen Negative (Neg - 1+)
[2024-08-30 10:45] LABS: Urine Squamous Cell 0-2 /LPF (Few)
[2024-08-30 10:46] LABS: Urine Bacteria Few (Negative); Urine Calcium Oxalate Crystals Present; Urine Red Blood Cell 0-2 /HPF (0-2)
[2024-08-30] MEDS: PROCARDIA XL (EXTENDED RELEASE) PO (10:55)
--- NOTE | 2024-08-30 11:15 | PTCARENOTE ---
Pt assisted OOB to chair. Gait steady, denied lightheaded/dizziness. Pt's visiting in room. Handoff report given to Bertha Ziegler RN
[2024-08-30 11:52] LABS: Glucose - Point of Care 150 mg/dl (70-99)
--- NOTE | 2024-08-30 12:05 | PTCARENOTE ---
assumed care of pt , he is currently oob in chair , no complaints , current BP 145/62, NSR on monitor , continues on telemetry status
--- NOTE | 2024-08-30 13:02 | PN.CDI ---
CDI
- -
CDI:
Physician Documentation Request
Admit Date: 08/28/24 23:09
Dear Doctor Esteban,
Patient admitted for hypertension.
Medications
Oxycodone HCl (Oxycontin 40 Mg Controlled Release Tablet) 40 mg PO TID HARMAN
Stop: 09/12/24 07:59
Last Admin: 08/30/24 08:27 Dose: 40 mg
08/29 Hospitalist PN: 'chronic pain - continue duloxetine, Xtampza and oxycodone'
If possible, please provide further specificity as outlined below:
Opioid dependence
Opioid use
Other
Use of terms such as suspected, likely, concern for, or probable (associated with a specific diagnosis that is being evaluated, monitored, or treated as if it exists) are acceptable and can be coded in the inpatient setting, when documented at the
time of discharge.
Thank you,
Joyce Pedraza RN, BSN
CDI Specialist
Available via [place] text
Please use your independent medical judgment in providing your response.
[2024-08-30] MEDS: NOVOLOG FLEXPEN-MODERATE RESISTANCE 1 UNITS SC (13:35)
--- NOTE | 2024-08-30 15:33 | PTCARENOTE ---
pt to transfer to room 413-1 , report given to receiving RN
[2024-08-30 17:19] LABS: Glucose - Point of Care 120 mg/dl (70-99)
--- NOTE | 2024-08-30 20:00 | PTCARENOTE ---
pt with c/o chest tightness at change of shift rounds. TIMBER SPRINKLER on duty made aware. VSS- afebrile at 97.9, HR 71, BP 142/74, RR 20, 97% on RA. EKG done showing NSR. new orders for CBC, BMP, Mag, and Trop completed. stat calcium carbonate 200mg tab
administered to pt. chest tightness resolved when TIMBER SPRINKLER arrived to evaluate pt. will continue to monitor.
--- NOTE | 2024-08-30 20:07 | W.PN.UPDATE ---
Update Note
Progress Note Update
Patient complained of chest pain, described as LT chest tightness, non radiating. Pain resolved by the time arrived to the patient`s room. denies SOB. BP 142/74, HR 71, afebrile, SPO2 97% on room air.
clear lung sounds during the exam.
EKG (NSR)
Repeated troponin neg,
cbc with normal WBC and hgb level with no changes
bmp with normal k, mag level and cr level improved 1.2 now, earlier 1.7.
[2024-08-30 20:44] LABS: Hematocrit 36.9 % (39.0-52.0); Hemoglobin 12.3 g/dL (13.0-18.0); Mean Corp Hgb Conc. 33.3 g/dL (33.0-37.0); Mean Corpuscular Volume 83.9 fL (80.0-94.0); Mean Platelet Volume 10.1 fL (7.4-10.4); Platelet Count 246 10^3/uL (130-400); Red Cell Dist. Width 12.8 % (11.5-14.5); White Blood Cell Count 9.4 10^3/uL (4.8-10.8)
[2024-08-30 20:56] LABS: Blood Urea Nitrogen 28 mg/dl (9-20); Calcium 9.7 mg/dl (8.4-10.2); Carbon Dioxide 27 mmol/L (22-30); Chloride 103 mmol/L (98-107); Estimated Creatinine Clearance 76 ml/min; Glucose 168 mg/dl (70-99); Potassium 4.4 mmol/L (3.5-5.1); Sodium 139 mmol/L (135-145); eGFR > 60.00
[2024-08-30 21:08] LABS: Troponin I < 0.012 ng/ml
[2024-08-30 21:20] LABS: Glucose - Point of Care 136 mg/dl (70-99)
[2024-08-30] MEDS: TUMS CHEWABLE TABLET 200 MG PO (21:26)
[2024-08-30] MEDS: CYMBALTA DELAYED RELEASE 60 MG PO (21:26)
[2024-08-30] MEDS: AMBIEN 5 MG PO (21:38)
[2024-08-30 22:43] LABS: Magnesium 1.6 mg/dl (1.6-2.3)
[2024-08-31] VITALS (9 sets, daily range): BP systolic 115–163; BP diastolic 61–87; BMI 29.1
[2024-08-31] MEDS: TYLENOL 650 MG PO ×2 (03:16→17:40)
--- NOTE | 2024-08-31 03:36 | PTCARENOTE ---
pt c/o headache awakening him from sleep. ENTERER made aware- manual BP taken 142/70, HR in 90s. appears to be in no acute distress. prn tylenol 60mg administered. will continue to monitor.
--- NOTE | 2024-08-31 06:50 | W.PN.HOSP.TC ---
Today's Communication/Plan
-
see a/p
Assessment / Plan
Assessment / Plan
Physical Exam
General: no acute distress resting comfortably in bed
HEENT: NormoCephalic, Moist mucous membranes, Atraumatic, [place] Conjunctivae
Respiratory: Clear to auscultation b/l, stable respiratory status on room air.
Cardiac: S1/S2 and Regular Rhythm
GI: Soft, Non Tender, Non Distended and Normal Bowel Sounds; No Organomegaly
Musculoskeletal: No Clubbing, No Cyanosis and No Edema
Skin: No Rash, multiple tattoos on body, back and b/l arms
Neuro: AOx3 conversant coherent
Psych: Calm and Intact Judgment/Insight
68M MDR HTN HLD DM2 neuropathy hx bladder ca hx cardiac ablation here for hypertensive emergency.
#Hypertensive urgency with associated dizziness/headache
#labile HTN
Head CT: No acute intracranial abnormality noted.
- Dr. Thompson is EP, Dr. Reeves is primary distribution operations supervisor
- Cardio eval appreciated
- Education Site Manager eval appreciated
-Nephro eval appreciated
- weaned off Nicardipine gtt, started on nifedipine 30 mg daily as per cardio
- home losartan reduced from 32 mg BID to 16 mg BID d/t hypotension, since placed on hold d/t WILLIAM, ok to resume with improvement WILLIAM, not resumed yet to avoid overcorrection BP.
- continue carvedilol
- UDS screen pos for oxycodone and marijuana
-urine/serum metanephrine studies pending
-Renal Doppler no evidence of renal artery stenosis
#08/30 WILLIAM
Cr elevated from 0.9 to 1.7 possibly 2/2 severe hypotension noted day prior since resolved
Cr since improved
IVF gentle hydration completed
Nephro eval appreciated
#headache, dizziness, cough
#suspected underlying asthma, outpt follow up as per Pulm/Education Site Manager
- COVID/Flu negative
- PRN Tylenol
- PRN Reglan
-CR chest appreciated no acute abn's
-symptoms since resolved
#hyperlipidemia
- continue fenofibrate, rosuvastatin
#atrial fibrillation
#QT prolongation
-minimize use QT prolonging agents as possible
- continue Eliquis
- Sotalol held d/t WILLIAM since resumed with improvement in kidney function, sotalol 80 mg bid as per Cardio.
#NIDDM
-A1c 7.3
- AccuCheck AC & HS
- SSI
-metformin 500 mg bid started, held d/t WILLIAM, resumed
#Hypokalemia
#Hypomagnesemia
monitor and replete as necessary
#GERD
- continue famotidine
#depression
- continue bupropion
#chronic pain
- continue duloxetine, Xtampza and oxycodone
PT/OT eval
Code status: full code
DVT prophylaxis: Eliquis
Medically stable for downgrade to Tele.
Discussed with patient.
I spent a total of 50 minutes with the patient or on the floor. More than 50% of this time involved counseling and coordination of care.
Anticipated Discharge: 24 - 48 hours
Subjective/Interval History
-
Date of Service: August 31, 2024
No acute distress resting comfortably in bed. Overnight events notable for brief episode chest pain since resolved, neg ekg troponin. Possible GERD/Heartburn. Tolerating diet.
Objective Data
-
Labs:
Laboratory Results
08/30/24 08/31/24
20:35 06:37
WBC 9.4 Pending
Hgb 12.3 L Pending
Hct 36.9 L Pending
Plt Count 246 Pending
Sodium 139 Pending
Potassium 4.4 Pending
Chloride 103 Pending
Carbon Dioxide 27 Pending
BUN 28 H Pending
Creatinine 1.2 Pending
Glucose 168 H Pending
Calcium 9.7 Pending
Vital Signs:
Vital Signs
Temp Pulse Resp BP Pulse Ox
97.5 F 68 19 127/83 97
08/31/24 03:50 08/31/24 03:50 08/31/24 03:50 08/31/24 03:50 08/31/24 03:50
I&O
08/29/24 08/30/24 08/31/24
06:59 06:59 06:59
Intake Total 505.0 / 505.0 2257.5 / 2337.5 2209 / 2209
Output Total 200 / 200 850 / 850 400 / 400
Balance 305.0 / 305.0 1407.5 / 1487.5 181 / 1809
[2024-08-31 07:09] LABS: Hematocrit 39.2 % (39.0-52.0); Hemoglobin 12.6 g/dL (13.0-18.0); Mean Corp Hgb Conc. 32.1 g/dL (33.0-37.0); Mean Corpuscular Hgb 27.9 pg (27.0-31.0); Mean Corpuscular Volume 86.9 fL (80.0-94.0); Mean Platelet Volume 10.7 fL (7.4-10.4); Platelet Count 264 10^3/uL (130-400); Red Blood Cell Count 4.51 10^6/uL (4.70-6.10); Red Cell Dist. Width 12.7 % (11.5-14.5); White Blood Cell Count 10.4 10^3/uL (4.8-10.8)
[2024-08-31 07:37] LABS: Blood Urea Nitrogen 27 mg/dl (9-20); Calcium 10.2 mg/dl (8.4-10.2); Chloride 104 mmol/L (98-107); Glucose 137 mg/dl (70-99); Magnesium 1.7 mg/dl (1.6-2.3); Phosphorus 4.3 mg/dl (2.5-4.5); Potassium 5.2 mmol/L (3.5-5.1); Sodium 142 mmol/L (135-145)
[2024-08-31 07:52] LABS: Carbon Dioxide 29 mmol/L (22-30); Estimated Creatinine Clearance 76 ml/min; eGFR > 60.00
[2024-08-31 08:14] LABS: Glucose - Point of Care 106 mg/dl (70-99)
[2024-08-31] MEDS: NOVOLOG FLEXPEN-MODERATE RESISTANCE SC (08:36)
[2024-08-31] MEDS: ELIQUIS 5 MG PO ×2 (08:38→21:32)
[2024-08-31] MEDS: OXYCONTIN (CONTROLLED RELEASE) 40 MG PO ×3 (08:38→21:33)
[2024-08-31] MEDS: CRESTOR 40 MG PO (08:38)
[2024-08-31] MEDS: WELLBUTRIN XL (24 hour extended release) 150 MG PO (08:38)
[2024-08-31] MEDS: TRICOR 145 MG PO (08:38)
[2024-08-31] MEDS: PROSCAR 5 MG PO (08:39)
[2024-08-31] MEDS: FLOMAX 0.4 MG PO (08:39)
[2024-08-31] MEDS: PROCARDIA XL (EXTENDED RELEASE) 30 MG PO (08:39)
[2024-08-31] MEDS: PEPCID 20 MG PO (08:39)
[2024-08-31] MEDS: COREG 6.25 MG PO ×2 (08:40→21:33)
[2024-08-31] MEDS: CYMBALTA DELAYED RELEASE 30 MG PO (08:40)
--- NOTE | 2024-08-31 08:40 | W.PN.CD ---
Today's Communication / Plan
-
Resume sotalol at 80 mg BID
EKG daily x 3
Monitor BP, should go home on more BP meds than upon admission, assuming he was fully adherent to home meds
hard to know why BP spikes at times
perhaps at home PRN SL NTG only very severe HTN??
Impression / Plan
-
Background: 68M with paroxysmal atrial fibrillation (on sotalol and apixaban), hypertension, NIDDM, prior bladder cancer, and chronic pain who presented to the emergency department the chief complaint of elevated blood pressure.
Outpatient apartment hotel manager: Dr. Thompson ([facility])
Outpatient EP: Dr. Reeves ([facility])
Resolved hypertensive urgency
Chronic HTN
- Blood pressure acceptable now, hard to know why BP spikes at times
- perhaps at home PRN SL NTG only very severe HTN??
- Multiple med changes last several days
Transient hypotension on 08/29/2024, med related
New WILLIAM => much improved
- Likely from the recent hypotension
- Nephrology consulted
Paroxysmal atrial fibrillation
- Rhythm: In sinus, QTc prolonged on admission
- Resume sotalol but at 80 mg BID
- Tele w/o PVC/torsades/harper over last 48 hours
- Oral Anticoagulation: Eliquis 5mg BID
- [id number]: score 3 (HTN, Diabetes Mellitus, age 65-74)
DM, type II, with hyperglycemia, HgbA1c 7.3
HLD, on rosuvastatin
Prior bladder cancer
Subjective:
No CP or dyspnea
Physical Exam
Vital Signs/Labs
Vital Signs
Temp Pulse Resp BP Pulse Ox
97.5 F 68 19 127/83 97
08/31/24 03:50 08/31/24 03:50 08/31/24 03:50 08/31/24 03:50 08/31/24 03:50
08/30/24 08/31/24 09/01/24
06:59 06:59 06:59
Actual Weight 110.6 kg 111.244 kg
08/31/24 06:37
08/31/24 06:37
PT 15.3 Sec (11.4-14.6) H 08/29/24 03:38
INR 1.17 08/29/24 03:38
APTT 33.3 Sec (23.4-35.0) 08/29/24 03:38
Magnesium 1.7 mg/dl (1.6-2.3) 08/31/24 06:37
LAB Results
08/28/24 08/30/24
19:10 20:35
Troponin I < 0.012 < 0.012
Physical Exam
Constitutional: No acute distress
Cardiovascular: Rhythm & rate is regular and Pedal edema is absent
Respiratory: Respiratory effort normal and Lungs clear to auscul.
GI: Soft and Distention absent
Neuro/Psych: Alert
Data Reviewed
-
Date of Service: August 31, 2024
[2024-08-31] MEDS: BETAPACE 80 MG PO ×2 (11:59→21:33)
--- NOTE | 2024-08-31 12:05 | W.PN.NEPH.PH ---
Today's Communication / Plan
-
Okay to restart candesartan as blood pressure indicates
Assessment/Plan
-
68-year-old male former tobacco smoker with a past medical history of hypertension, hyperlipidemia, A-fib s/p ablation, GERD, DM type II and depression who presents with lightheadedness and a headache. And hypertensive urgency of BP 223/126,
Renal consult for WILLIAM 0.9-1.6 with hypotension
Impression.
Acute kidney injury secondary to hemodynamic changes hypertensive urgency with significant drop in blood pressure in the 70s systolic.
Hypertensive urgency.
Diabetes type 2.
Plan.
Status post Cardene drip discontinue
Currently on Procardia, carvedilol, sotalol
Holding candesartan outpatient with WILLIAM.
Metanephrines pending
Renal Doppler no evidence of renal artery stenosis
Creatinine better can restart candesartan.
Blood pressures
-
-
Date of Service: August 31, 2024
CC / HPI / ROS
-
Chief Complaint:
Presents with hypertensive urgency
History of Present Illness:
Hypertensive urgency developed acute kidney injury improved with IV fluids and stabilizing blood pressure
Review of Systems:.
No chest pain or shortness of breath
Labs
-
Labs:
WBC 10.4 10^3/uL (4.8-10.8) 08/31/24 06:37
RBC 4.51 10^6/uL (4.70-6.10) L 08/31/24 06:37
Hgb 12.6 g/dL (13.0-18.0) L 08/31/24 06:37
Hct 39.2 % (39.0-52.0) 08/31/24 06:37
Plt Count 264 10^3/uL (130-400) 08/31/24 06:37
Sodium 142 mmol/L (135-145) 08/31/24 06:37
Potassium 5.2 mmol/L (3.5-5.1) H 08/31/24 06:37
Chloride 104 mmol/L (98-107) 08/31/24 06:37
Carbon Dioxide 29 mmol/L (22-30) 08/31/24 06:37
BUN 27 mg/dl (9-20) H 08/31/24 06:37
Creatinine 1.2 mg/dL (0.7-1.3) 08/31/24 06:37
eGFR > 60.00 08/31/24 06:37
Glucose 137 mg/dl (70-99) H 08/31/24 06:37
Calcium 10.2 mg/dl (8.4-10.2) 08/31/24 06:37
Phosphorus 4.3 mg/dl (2.5-4.5) 08/31/24 06:37
Albumin 4.1 g/dl (3.5-5.0) 08/30/24 00:16
Physical Exam
-
Vital Signs:
Vital Signs
Temp Pulse Resp BP Pulse Ox
97.3 F 66 16 148/80 98
08/31/24 07:50 08/31/24 07:50 08/31/24 07:50 08/31/24 08:40 08/31/24 07:50
Respiratory:: Bilateral: CTA
Lung Excursion:: Normal
Abdomen:: Soft
Bowel Sounds:: Normal
Extremity Edema:: None: Bilateral:
Collier Catheter: No
[2024-08-31 12:28] LABS: Glucose - Point of Care 182 mg/dl (70-99)
[2024-08-31] MEDS: NOVOLOG FLEXPEN-MODERATE RESISTANCE 1 UNITS SC ×2 (13:02→17:42)
[2024-08-31 16:54] LABS: Glucose - Point of Care 161 mg/dl (70-99)
[2024-08-31 21:16] LABS: Glucose - Point of Care 133 mg/dl (70-99)
[2024-08-31] MEDS: CYMBALTA DELAYED RELEASE 60 MG PO (21:32)
[2024-08-31] MEDS: AMBIEN 5 MG PO (21:59)
[2024-08-31] MEDS: ZANAFLEX 2 MG PO (21:59)
[2024-09-01] VITALS (9 sets, daily range): BP systolic 96–187; BP diastolic 60–103; PULSE 75–98; BMI 28.6
[2024-09-01 04:25] LABS: 24 Hour Urine Total Volume Random mL; Creatinine, Urine per Volume 127 mg/dL; Metanephrine, Urine 83 ug/L; Metanephrine/Creatinine Ratio 65 ug/g CRT (0-300); Normetanephrine, Urine 668 ug/L; Normetanephrine/Creatinine Rat 526 ug/g CRT (0-400); Urine Collection Length Random hr
[2024-09-01 06:31] LABS: Hematocrit 39.4 % (39.0-52.0); Hemoglobin 12.8 g/dL (13.0-18.0); Mean Corp Hgb Conc. 32.5 g/dL (33.0-37.0); Mean Corpuscular Hgb 27.6 pg (27.0-31.0); Mean Corpuscular Volume 85.1 fL (80.0-94.0); Mean Platelet Volume 10.8 fL (7.4-10.4); Platelet Count 280 10^3/uL (130-400); Red Blood Cell Count 4.63 10^6/uL (4.70-6.10); Red Cell Dist. Width 12.6 % (11.5-14.5); White Blood Cell Count 9.2 10^3/uL (4.8-10.8)
[2024-09-01 06:38] LABS: Blood Urea Nitrogen 25 mg/dl (9-20); Calcium 9.7 mg/dl (8.4-10.2); Carbon Dioxide 28 mmol/L (22-30); Chloride 104 mmol/L (98-107); Estimated Creatinine Clearance 83 ml/min; Glucose 129 mg/dl (70-99); Magnesium 1.4 mg/dl (1.6-2.3); Phosphorus 3.8 mg/dl (2.5-4.5); Potassium 4.4 mmol/L (3.5-5.1); Sodium 141 mmol/L (135-145); eGFR > 60.00
--- NOTE | 2024-09-01 06:47 | W.PN.HOSP.TC ---
Today's Communication/Plan
-
see a/p
Assessment / Plan
Assessment / Plan
Physical Exam
General: no acute distress resting comfortably in bed
HEENT: NormoCephalic, Moist mucous membranes, Atraumatic, [place] Conjunctivae
Respiratory: Clear to auscultation b/l, stable respiratory status on room air.
Cardiac: S1/S2 and Regular Rhythm
GI: Soft, Non Tender, Non Distended and Normal Bowel Sounds; No Organomegaly
Musculoskeletal: No Clubbing, No Cyanosis and No Edema
Skin: No Rash, multiple tattoos on body, back and b/l arms
Neuro: AOx3 conversant coherent
Psych: Calm and Intact Judgment/Insight
68M MDR HTN HLD DM2 neuropathy hx bladder ca hx cardiac ablation here for hypertensive emergency.
#Hypertensive urgency with associated dizziness/headache
#labile HTN
Head CT: No acute intracranial abnormality noted.
- Dr. Thompson is EP, Dr. Reeves is primary reticle printer
- Cardio eval appreciated
- Mobile Marketing Manager eval appreciated
-Nephro eval appreciated
- weaned off Nicardipine gtt, started on nifedipine 30 mg daily as per cardio
- home candesartan reduced from 32 mg BID to 16 mg BID d/t hypotension, was placed on hold d/t WILLIAM, restarted at 32 mg daily as per nephro
- continue carvedilol
- UDS screen pos for oxycodone and marijuana
-urine/serum metanephrine studies pending
-Renal Doppler no evidence of renal artery stenosis
#Symptomatic Orthostatic Hypotension
TEDs abd binder ordered
monitor orthostatic vitals
#08/30 WILLIAM
Cr elevated from 0.9 to 1.7 possibly 2/2 severe hypotension noted day prior since resolved
Cr since improved
IVF gentle hydration completed
Nephro eval appreciated
#headache, dizziness, cough
#suspected underlying asthma, outpt follow up as per Pulm/Mobile Marketing Manager
- COVID/Flu negative
- PRN Tylenol
- PRN Reglan
-CR chest appreciated no acute abn's
-symptoms since resolved
#hyperlipidemia
- continue fenofibrate, rosuvastatin
#atrial fibrillation
#QT prolongation
-minimize use QT prolonging agents as possible
- continue Eliquis
- Sotalol held d/t WILLIAM since resumed with improvement in kidney function, sotalol 80 mg bid as per Cardio.
#NIDDM
-A1c 7.3
- AccuCheck AC & HS
- SSI
-metformin 500 mg bid started, held d/t WILLIAM, resumed
#Hypokalemia
#Hypomagnesemia
monitor and replete as necessary
#GERD
- continue famotidine
- Maalox prn
#depression
- continue bupropion
#chronic pain
- continue duloxetine, Xtampza and oxycodone
PT/OT eval
Code status: full code
DVT prophylaxis: Eliquis
Discussed with patient.
I spent a total of 45 minutes with the patient or on the floor. More than 50% of this time involved counseling and coordination of care.
Anticipated Discharge: 24 - 48 hours
Subjective/Interval History
-
Date of Service: September 01, 2024
Orthostatic vitals positive symptomatic with dizziness. Patient otherwise no acute distress at rest.
Objective Data
-
Labs:
Laboratory Results
09/01/24
05:58
WBC 9.2
Hgb 12.8 L
Hct 39.4
Plt Count 280
Sodium 141
Potassium 4.4
Chloride 104
Carbon Dioxide 28
BUN 25 H
Creatinine 1.1
Glucose 129 H
Calcium 9.7
Vital Signs:
Vital Signs
Temp Pulse Resp BP Pulse Ox
97.4 F 70 20 149/87 97
09/01/24 03:41 09/01/24 04:10 09/01/24 03:41 09/01/24 04:10 09/01/24 03:41
I&O
08/30/24 08/31/24 09/01/24
06:59 06:59 06:59
Intake Total 2257.5 / 2337.5 2210 / 2210 420 / 420
Output Total 850 / 850 400 / 400 300 / 300
Balance 1407.5 / 1487.5 1810 / 1810 120 / 120
[2024-09-01 07:08] LABS: Glucose - Point of Care 131 mg/dl (70-99)
[2024-09-01] MEDS: NOVOLOG FLEXPEN-MODERATE RESISTANCE SC (08:15)
[2024-09-01] MEDS: FLOMAX 0.4 MG PO (08:57)
[2024-09-01] MEDS: TRICOR 145 MG PO (08:57)
[2024-09-01] MEDS: WELLBUTRIN XL (24 hour extended release) 150 MG PO (08:57)
[2024-09-01] MEDS: PROCARDIA XL (EXTENDED RELEASE) 30 MG PO (08:57)
[2024-09-01] MEDS: COREG 6.25 MG PO (08:58)
[2024-09-01] MEDS: CYMBALTA DELAYED RELEASE 30 MG PO (08:58)
[2024-09-01] MEDS: GLUCOPHAGE 500 MG PO ×2 (08:58→16:14)
[2024-09-01] MEDS: PROSCAR 5 MG PO (08:58)
[2024-09-01] MEDS: OXYCONTIN (CONTROLLED RELEASE) 40 MG PO ×3 (08:58→21:57)
[2024-09-01] MEDS: CRESTOR 40 MG PO (08:58)
[2024-09-01] MEDS: ELIQUIS 5 MG PO ×2 (08:58→20:06)
[2024-09-01] MEDS: PEPCID 20 MG PO (08:58)
[2024-09-01] MEDS: BETAPACE 80 MG PO ×2 (09:01→20:04)
--- NOTE | 2024-09-01 09:06 | W.PN.UPDATE ---
Update Note
Progress Note Update
restarted candasartan
[2024-09-01] MEDS: ATACAND 32 MG PO (10:02)
--- NOTE | 2024-09-01 10:37 | W.PN.CD ---
Today's Communication / Plan
-
Increased Coreg today
Avoid too many med changes quickly
Discharge on Sotalol 80 BID
Cardiology will sign off. He should see his PCP in 2 weeks for more BP med adjustments
He should see his accounts receivable bookkeeper routinely. I suggest no more than 80 BID of sotalol
Impression / Plan
-
Background: 68M with paroxysmal atrial fibrillation (on sotalol and apixaban), hypertension, NIDDM, prior bladder cancer, and chronic pain who presented to the emergency department the chief complaint of elevated blood pressure.
Outpatient accounts receivable bookkeeper: Dr. Thompson ([facility])
Outpatient EP: Dr. Reeves ([facility])
Resolved hypertensive urgency
Chronic HTN
- Blood pressure acceptable now, hard to know why BP spikes at times
- perhaps at home PRN SL NTG only very severe HTN??
- BP climbing: Will increase Coreg to 12.5 BID, now on Procardia XL 30 daily, candesartan 32 daily
- Next med added should be Aldactone but could first increase procardia, but I suggest not increasing more frequently than every two weeks
Transient hypotension on 08/29/2024, med related
New WILLIAM => much improved
- Likely from the recent hypotension
- Nephrology consulted
Paroxysmal atrial fibrillation
- Rhythm: In sinus, QTc prolonged on admission
- Tolerating sotalol but at 80 mg BID
- Tele w/o PVC/torsades/harper over last 48 hours
- EKG good
- Oral Anticoagulation: Eliquis 5mg BID
- [id number]: score 3 (HTN, Diabetes Mellitus, age 65-74)
DM, type II, with hyperglycemia, HgbA1c 7.3
HLD, on rosuvastatin
Prior bladder cancer
Subjective:
No CP or dyspnea
Physical Exam
Vital Signs/Labs
Vital Signs
Temp Pulse Resp BP Pulse Ox
97.6 F 76 20 162/91 98
09/01/24 07:10 09/01/24 09:01 09/01/24 07:10 09/01/24 09:01 09/01/24 07:10
08/31/24 09/01/24 09/02/24
06:59 06:59 06:59
Actual Weight 111.244 kg 109.486 kg
09/01/24 05:58
09/01/24 05:58
PT 15.3 Sec (11.4-14.6) H 08/29/24 03:38
INR 1.17 08/29/24 03:38
APTT 33.3 Sec (23.4-35.0) 08/29/24 03:38
Magnesium 1.4 mg/dl (1.6-2.3) L 09/01/24 05:58
LAB Results
08/30/24
20:35
Troponin I < 0.012
Physical Exam
Constitutional: No acute distress
EENT: Anicteric
Cardiovascular: Rhythm & rate is regular and Pedal edema is absent
Respiratory: Respiratory effort normal and Lungs clear to auscul.
GI: Soft and Distention absent
Neuro/Psych: AO x 3
Data Reviewed
-
Date of Service: September 01, 2024
--- NOTE | 2024-09-01 10:39 | W.PN.NEPH.PH ---
Today's Communication / Plan
-
Restarted candesartan
Assessment/Plan
-
68-year-old male former tobacco smoker with a past medical history of hypertension, hyperlipidemia, A-fib s/p ablation, GERD, DM type II and depression who presents with lightheadedness and a headache. And hypertensive urgency of BP 223/126,
Renal consult for WILLIAM 0.9-1.6 with hypotension
Impression.
Acute kidney injury secondary to hemodynamic changes hypertensive urgency with significant drop in blood pressure in the 70s systolic.
Hypertensive urgency.
Diabetes type 2.
Plan.
Status post Cardene drip discontinue
Currently on Procardia, carvedilol, sotalol
Holding candesartan outpatient with WILLIAM.
Metanephrines pending
Renal Doppler no evidence of renal artery stenosis
Restarted candesartan.
Blood pressures remains elevated
-
-
Date of Service: September 01, 2024
CC / HPI / ROS
-
Chief Complaint:
Presents with hypertensive urgency
History of Present Illness:
Hypertensive urgency developed acute kidney injury improved with IV fluids and stabilizing blood pressure
Review of Systems:.
No chest pain or shortness of breath
Labs
-
Labs:
WBC 9.2 10^3/uL (4.8-10.8) 09/01/24 05:58
RBC 4.63 10^6/uL (4.70-6.10) L 09/01/24 05:58
Hgb 12.8 g/dL (13.0-18.0) L 09/01/24 05:58
Hct 39.4 % (39.0-52.0) 09/01/24 05:58
Plt Count 280 10^3/uL (130-400) 09/01/24 05:58
Sodium 141 mmol/L (135-145) 09/01/24 05:58
Potassium 4.4 mmol/L (3.5-5.1) 09/01/24 05:58
Chloride 104 mmol/L (98-107) 09/01/24 05:58
Carbon Dioxide 28 mmol/L (22-30) 09/01/24 05:58
BUN 25 mg/dl (9-20) H 09/01/24 05:58
Creatinine 1.1 mg/dL (0.7-1.3) 09/01/24 05:58
eGFR > 60.00 09/01/24 05:58
Glucose 129 mg/dl (70-99) H 09/01/24 05:58
Calcium 9.7 mg/dl (8.4-10.2) 09/01/24 05:58
Phosphorus 3.8 mg/dl (2.5-4.5) 09/01/24 05:58
Albumin 4.1 g/dl (3.5-5.0) 08/30/24 00:16
Physical Exam
-
Vital Signs:
Vital Signs
Temp Pulse Resp BP Pulse Ox
97.6 F 76 20 162/91 98
09/01/24 07:10 09/01/24 09:01 09/01/24 07:10 09/01/24 09:01 09/01/24 07:10
Respiratory:: Bilateral: CTA
Lung Excursion:: Normal
Abdomen:: Soft
Bowel Sounds:: Normal
Extremity Edema:: None: Bilateral:
Collier Catheter: No
[2024-09-01 11:47] LABS: Glucose - Point of Care 160 mg/dl (70-99)
[2024-09-01] MEDS: MAGNESIUM SULFATE 100 IV (12:25)
[2024-09-01] MEDS: NOVOLOG FLEXPEN-MODERATE RESISTANCE 1 UNITS SC ×2 (12:32→17:42)
--- NOTE | 2024-09-01 15:49 | CM ---
Reviewed patient's therapy progress. Recommendation is for patient to return home. He is doing well in PT.
Plan: Case management will continue to follow and assist with discharge planning. Home when stable.
[2024-09-01 16:52] LABS: Glucose - Point of Care 193 mg/dl (70-99)
[2024-09-01] MEDS: TYLENOL 650 MG PO (17:45)
[2024-09-01] MEDS: COREG 12.5 MG PO (20:04)
[2024-09-01] MEDS: CYMBALTA DELAYED RELEASE 60 MG PO (20:04)
[2024-09-01 21:18] LABS: Glucose - Point of Care 111 mg/dl (70-99)
[2024-09-01] MEDS: AMBIEN 5 MG PO (21:57)
[2024-09-01] MEDS: ZANAFLEX 2 MG PO (21:57)
[2024-09-02] VITALS (7 sets, daily range): BP systolic 93–189; BP diastolic 55–105; PULSE 73–93; BMI 28.6
[2024-09-02 06:57] LABS: Hematocrit 41.5 % (39.0-52.0); Hemoglobin 13.5 g/dL (13.0-18.0); Mean Corp Hgb Conc. 32.5 g/dL (33.0-37.0); Mean Corpuscular Hgb 27.8 pg (27.0-31.0); Mean Corpuscular Volume 85.4 fL (80.0-94.0); Platelet Count 302 10^3/uL (130-400); Red Blood Cell Count 4.86 10^6/uL (4.70-6.10); Red Cell Dist. Width 12.8 % (11.5-14.5); White Blood Cell Count 9.6 10^3/uL (4.8-10.8)
[2024-09-02 07:24] LABS: Glucose - Point of Care 139 mg/dl (70-99)
[2024-09-02 07:26] LABS: Blood Urea Nitrogen 28 mg/dl (9-20); Calcium 9.7 mg/dl (8.4-10.2); Carbon Dioxide 31 mmol/L (22-30); Chloride 102 mmol/L (98-107); Estimated Creatinine Clearance 76 ml/min; Glucose 149 mg/dl (70-99); Magnesium 1.8 mg/dl (1.6-2.3); Phosphorus 4.1 mg/dl (2.5-4.5); Potassium 5.6 mmol/L (3.5-5.1); Sodium 140 mmol/L (135-145); eGFR > 60.00
--- NOTE | 2024-09-02 07:31 | W.PN.HOSP.TC ---
Today's Communication/Plan
-
blood pressure control
monitor orthostatic vitals
Abd binder TEDS
PT/OT
Lokelma as per nephro, hold candesartan, potassium restrict diet
Assessment / Plan
Assessment / Plan
Physical Exam
General: no acute distress resting comfortably in bed
HEENT: NormoCephalic, Moist mucous membranes, Atraumatic, [place] Conjunctivae
Respiratory: Clear to auscultation b/l, stable respiratory status on room air.
Cardiac: S1/S2 and Regular Rhythm
GI: Soft, Non Tender, Non Distended and Normal Bowel Sounds; No Organomegaly
Musculoskeletal: No Clubbing, No Cyanosis and No Edema
Skin: No Rash, multiple tattoos on body, back and b/l arms
Neuro: AOx3 conversant coherent
Psych: Calm and Intact Judgment/Insight
68M MDR HTN HLD DM2 neuropathy hx bladder ca hx cardiac ablation here for hypertensive emergency.
#Hypertensive urgency with associated dizziness/headache
#labile HTN
Head CT: No acute intracranial abnormality noted.
- Dr. Thompson is EP, Dr. Reeves is primary repairer helper
- Cardio eval appreciated
- Shingle Weaver eval appreciated
-Nephro eval appreciated checking ARR
- weaned off Nicardipine gtt, started on nifedipine 30 mg daily as per cardio
- home candesartan reduced from 32 mg BID to 16 mg BID d/t hypotension, was placed on hold d/t WILLIAM, restarted at 32 mg daily but then placed on hold again d/t hyperkalemia as below
- continue carvedilol
- UDS screen pos for oxycodone and marijuana
-serum metanephrine studies pending
-urine metanephrine noted elevated, CT abd/pelvis noted no acute abn's or adrenal masses, case discussed with Endocrine low suspicion for Pheo awaiting serum metanephrine results
-Renal Doppler no evidence of renal artery stenosis
#Symptomatic Orthostatic Hypotension
TEDs abd binder ordered
monitor orthostatic vitals
cont PT/OT
#08/30 WILLIAM
Cr elevated from 0.9 to 1.7 possibly 2/2 severe hypotension noted day prior since resolved
Cr since improved
IVF gentle hydration completed
Nephro eval appreciated
Hyperkalemia
-Lokelma as per Nephro
-Candesartan placed on hold
-potassium restricted diet
#headache, dizziness, cough
#suspected underlying asthma, outpt follow up as per Pulm/Shingle Weaver
- COVID/Flu negative
- PRN Tylenol
- PRN Reglan
-CR chest appreciated no acute abn's
-symptoms since resolved
#hyperlipidemia
- continue fenofibrate, rosuvastatin
#atrial fibrillation
#QT prolongation
-minimize use QT prolonging agents as possible
- continue Eliquis
- Sotalol held d/t WILLIAM since resumed with improvement in kidney function, sotalol 80 mg bid as per Cardio.
#NIDDM
-A1c 7.3
- AccuCheck AC & HS
- SSI
-metformin 500 mg bid started, held d/t WILLIAM, resumed
#Hypokalemia
#Hypomagnesemia
monitor and replete as necessary
#GERD
- continue famotidine
- Maalox prn
#depression
- continue bupropion
#chronic pain
- continue duloxetine, Xtampza and oxycodone
PT/OT eval
Code status: full code
DVT prophylaxis: Eliquis
Discussed with patient.
I spent a total of 45 minutes with the patient or on the floor. More than 50% of this time involved counseling and coordination of care.
Anticipated Discharge: 24 - 48 hours
Subjective/Interval History
-
Date of Service: September 02, 2024
symptomatic orthostatic hypotension persists with dizziness on standing/sitting up. Otherwise appears comfortable at rest no acute distress.
Objective Data
-
Labs:
Laboratory Results
09/02/24
06:36
WBC 9.6
Hgb 13.5
Hct 41.5
Plt Count 302
Sodium 140
Potassium 5.6 H D
Chloride 102
Carbon Dioxide 31 H
BUN 28 H
Creatinine 1.2
Glucose 149 H
Calcium 9.7
Vital Signs:
Vital Signs
Temp Pulse Resp BP Pulse Ox
97.6 F 67 18 141/82 97
09/02/24 03:21 09/02/24 03:21 09/02/24 03:21 09/02/24 03:21 09/02/24 03:21
I&O
09/01/24 09/02/24 09/03/24
06:59 06:59 06:59
Intake Total 420 / 420 1440 / 1440
Output Total 300 / 300 125 / 125
Balance 120 / 120 1315 / 1315
[2024-09-02] MEDS: NOVOLOG FLEXPEN-MODERATE RESISTANCE SC ×2 (09:38→12:19)
[2024-09-02] MEDS: WELLBUTRIN XL (24 hour extended release) 150 MG PO (09:39)
[2024-09-02] MEDS: TRICOR 145 MG PO (09:39)
[2024-09-02] MEDS: CYMBALTA DELAYED RELEASE 30 MG PO (09:39)
[2024-09-02] MEDS: ATACAND PO (09:39)
[2024-09-02] MEDS: GLUCOPHAGE 500 MG PO ×2 (09:39→17:12)
[2024-09-02] MEDS: BETAPACE 80 MG PO ×2 (09:39→20:01)
[2024-09-02] MEDS: FLOMAX 0.4 MG PO (09:40)
[2024-09-02] MEDS: PROSCAR 5 MG PO (09:40)
[2024-09-02] MEDS: CRESTOR 40 MG PO (09:40)
[2024-09-02] MEDS: COREG 12.5 MG PO ×2 (09:40→20:02)
[2024-09-02] MEDS: PEPCID 20 MG PO (09:40)
[2024-09-02] MEDS: PROCARDIA XL (EXTENDED RELEASE) 30 MG PO (09:40)
[2024-09-02] MEDS: ELIQUIS 5 MG PO ×2 (09:40→20:02)
[2024-09-02] MEDS: FLUSH (NSS) 1 FLUSH IV (09:41)
[2024-09-02] MEDS: OXYCONTIN (CONTROLLED RELEASE) 40 MG PO ×3 (09:43→21:42)
[2024-09-02] MEDS: FLUSH (NSS) IV (09:43)
[2024-09-02 12:07] LABS: Glucose - Point of Care 139 mg/dl (70-99)
[2024-09-02] MEDS: OMNIPAQUE 50 ML PO (12:26)
--- NOTE | 2024-09-02 15:34 | W.PN.NEPH.PH ---
Today's Communication / Plan
-
Lokelma, hold ARB
check ARR
await CT
Assessment/Plan
-
68-year-old male former tobacco smoker with a past medical history of hypertension, hyperlipidemia, A-fib s/p ablation, GERD, DM type II and depression who presents with lightheadedness and a headache. And hypertensive urgency of BP 223/126,
Renal consult for WILLIAM 0.9-1.6 with hypotension
Impression.
Acute kidney injury secondary to hemodynamic changes hypertensive urgency with significant drop in blood pressure in the 70s systolic.
Hypertensive urgency.
Diabetes type 2.
Plan.
Bp labile, monitor with current meds
mild hyperkalemia-ARB on hold, give Lokelma
check bladder scan
CT abd today per primary
U metanephrine only mildly elevated -unlikely pheo, endo consulted per primary
serum Metanephrines pending
Renal Doppler no evidence of renal artery stenosis
check ARR too
probably next medication HCTZ
-
-
Date of Service: September 02, 2024
CC / HPI / ROS
-
Chief Complaint:
Presents with hypertensive urgency
History of Present Illness:
Hypertensive urgency developed acute kidney injury improved with IV fluids and stabilizing blood pressure
off nitro gtt
BP still labile
cr 1.2, k high 5.6
Review of Systems:.
No chest pain or shortness of breath
c/o feeling dizzy still -no change
Labs
-
Labs:
WBC 9.6 10^3/uL (4.8-10.8) 09/02/24 06:36
RBC 4.86 10^6/uL (4.70-6.10) 09/02/24 06:36
Hgb 13.5 g/dL (13.0-18.0) 09/02/24 06:36
Hct 41.5 % (39.0-52.0) 09/02/24 06:36
Plt Count 302 10^3/uL (130-400) 09/02/24 06:36
Sodium 140 mmol/L (135-145) 09/02/24 06:36
Potassium 5.6 mmol/L (3.5-5.1) H D 09/02/24 06:36
Chloride 102 mmol/L (98-107) 09/02/24 06:36
Carbon Dioxide 31 mmol/L (22-30) H 09/02/24 06:36
BUN 28 mg/dl (9-20) H 09/02/24 06:36
Creatinine 1.2 mg/dL (0.7-1.3) 09/02/24 06:36
eGFR > 60.00 09/02/24 06:36
Glucose 149 mg/dl (70-99) H 09/02/24 06:36
Calcium 9.7 mg/dl (8.4-10.2) 09/02/24 06:36
Phosphorus 4.1 mg/dl (2.5-4.5) 09/02/24 06:36
Albumin 4.1 g/dl (3.5-5.0) 08/30/24 00:16
Physical Exam
-
Vital Signs:
Vital Signs
Temp Pulse Resp BP Pulse Ox
97.6 F 73 16 179/97 98
09/02/24 11:15 09/02/24 11:15 09/02/24 11:15 09/02/24 11:15 09/02/24 11:15
Cardiovascular:: Regular rate and rhythm
Respiratory:: Bilateral: CTA
Lung Excursion:: Normal
Abdomen:: Nontender and Soft
Extremity Edema:: None: Bilateral:
Collier Catheter: No
[2024-09-02] MEDS: LOKELMA 10 GRAM PO (17:11)
[2024-09-02] MEDS: CYMBALTA DELAYED RELEASE 60 MG PO (21:42)
[2024-09-02] MEDS: ZANAFLEX 2 MG PO (21:45)
[2024-09-02] MEDS: AMBIEN 5 MG PO (23:56)
[2024-09-03] VITALS (8 sets, daily range): BP systolic 87–146; BP diastolic 55–84; PULSE 78–96; BMI 28.5
[2024-09-03 05:50] LABS: Hematocrit 40.1 % (39.0-52.0); Hemoglobin 13.2 g/dL (13.0-18.0); Mean Corp Hgb Conc. 32.9 g/dL (33.0-37.0); Mean Corpuscular Hgb 28.1 pg (27.0-31.0); Mean Corpuscular Volume 85.3 fL (80.0-94.0); Mean Platelet Volume 10.8 fL (7.4-10.4); Platelet Count 309 10^3/uL (130-400); Red Cell Dist. Width 12.7 % (11.5-14.5); White Blood Cell Count 10.9 10^3/uL (4.8-10.8)
--- NOTE | 2024-09-03 06:30 | W.PN.HOSP.TC ---
Today's Communication/Plan
-
see a/p
Assessment / Plan
Assessment / Plan
Physical Exam
General: no acute distress resting comfortably in bed
HEENT: NormoCephalic, Moist mucous membranes, Atraumatic, [place] Conjunctivae
Respiratory: Clear to auscultation b/l, stable respiratory status on room air.
Cardiac: S1/S2 and Regular Rhythm
GI: Soft, Non Tender, Non Distended and Normal Bowel Sounds; No Organomegaly
Musculoskeletal: No Clubbing, No Cyanosis and No Edema
Skin: No Rash, multiple tattoos on body, back and b/l arms
Neuro: AOx3 conversant coherent
Psych: Calm and Intact Judgment/Insight
68M MDR HTN HLD DM2 neuropathy hx bladder ca hx cardiac ablation here for hypertensive emergency.
#Hypertensive urgency with associated dizziness/headache
#labile HTN
Head CT: No acute intracranial abnormality noted.
- Dr. Thompson is EP, Dr. Reeves is primary armature tester
- Cardio eval appreciated
- Hay Rake Operator eval appreciated
-Nephro eval appreciated checking ARR, Coreg decreased to 6.25 mg BID d/t orthostatic hypotension
- weaned off Nicardipine gtt, started on nifedipine 30 mg daily as per cardio
- home candesartan reduced from 32 mg BID to 16 mg BID d/t hypotension, was placed on hold d/t WILLIAM, restarted at 32 mg daily but then placed on hold again d/t hyperkalemia as below
- continue carvedilol
- UDS screen pos for oxycodone and marijuana
-serum metanephrine studies pending
-urine metanephrine noted elevated, CT abd/pelvis noted no acute abn's or adrenal masses, case discussed with Endocrine low suspicion for Pheo awaiting serum metanephrine results
-Renal Doppler no evidence of renal artery stenosis
#Symptomatic Orthostatic Hypotension
TEDs abd binder ordered
monitor orthostatic vitals
cont PT/OT
possible Vertigo overlapping with symptoms dizziness, meclizine prn ordered
#08/30 WILLIAM
Cr elevated from 0.9 to 1.7 possibly 2/2 severe hypotension since resolved
Cr since improved
IVF gentle hydration completed
Nephro eval appreciated
Hyperkalemia
-Lokelma as per Nephro
-Candesartan placed on hold
-potassium restricted diet
#headache, dizziness, cough
#suspected underlying asthma, outpt follow up as per Pulm/Hay Rake Operator
- COVID/Flu negative
- PRN Tylenol
- PRN Reglan
-CR chest appreciated no acute abn's
-symptoms since resolved
#reporting ear congestion b/l
4 days debrox ear drops started
#hyperlipidemia
- continue fenofibrate, rosuvastatin
#atrial fibrillation
#QT prolongation
-minimize use QT prolonging agents as possible
- continue Eliquis
- Sotalol held d/t WILLIAM since resumed with improvement in kidney function, sotalol 80 mg bid as per Cardio.
#NIDDM
-A1c 7.3
- AccuCheck AC & HS
- SSI
-metformin 500 mg bid started, held d/t WILLIAM, since resumed, cont
#Hypokalemia
#Hypomagnesemia
monitor and replete as necessary
#GERD
- continue famotidine
- Maalox prn
#depression
- continue bupropion
#chronic pain
- continue duloxetine, Xtampza and oxycodone
PT/OT eval
Code status: full code
DVT prophylaxis: Eliquis
Discussed with patient.
I spent a total of 45 minutes with the patient or on the floor. More than 50% of this time involved counseling and coordination of care.
Anticipated Discharge: 24 - 48 hours
Subjective/Interval History
-
Date of Service: September 03, 2024
Objective Data
-
Labs:
Laboratory Results
09/03/24
05:11
WBC 10.9 H
Hgb 13.2
Hct 40.1
Plt Count 309
Sodium Pending
Potassium Pending
Chloride Pending
Carbon Dioxide Pending
BUN Pending
Creatinine Pending
Glucose Pending
Calcium Pending
Vital Signs:
Vital Signs
Temp Pulse Resp BP Pulse Ox
97.5 F 78 12 93/55 96
09/03/24 03:53 09/03/24 03:53 09/03/24 03:53 09/03/24 03:53 09/03/24 03:53
I&O
09/01/24 09/02/24 09/03/24
06:59 06:59 06:59
Intake Total 420 / 420 1440 / 1440 1440 / 1440
Output Total 300 / 300 125 / 125 1450 / 1450
Balance 120 / 120 1315 / 1315 -10 / -10
[2024-09-03 06:45] LABS: Blood Urea Nitrogen 29 mg/dl (9-20); Calcium 9.8 mg/dl (8.4-10.2); Carbon Dioxide 28 mmol/L (22-30); Chloride 103 mmol/L (98-107); Estimated Creatinine Clearance 76 ml/min; Glucose 116 mg/dl (70-99); Magnesium 1.8 mg/dl (1.6-2.3); Phosphorus 4.6 mg/dl (2.5-4.5); Potassium 4.9 mmol/L (3.5-5.1); Sodium 142 mmol/L (135-145); eGFR > 60.00
[2024-09-03 06:55] LABS: TSH Reflex To Free T4 3.73 uIU/ml (0.47-4.68)
--- NOTE | 2024-09-03 09:00 | PTCARENOTE ---
Pt's orthostatic BPs are as follows this morning: Supine 146/84, Sitting 101/68, Standing 87/62. Pt symptomatic once sitting, felt dizzy. Pts' thigh high TEDs and Abdominal binder on person. Made Dr. Orellana aware of positive orthostatic BPs and
questioned if he wants pt to receive all BP meds this am. Dr. Orellana wanted all meds administered. Updated pt on plan and will continue to monitor.
[2024-09-03] MEDS: BETAPACE 80 MG PO ×2 (09:05→20:18)
[2024-09-03] MEDS: GLUCOPHAGE 500 MG PO ×2 (09:06→16:35)
[2024-09-03] MEDS: COREG 12.5 MG PO (09:06)
[2024-09-03] MEDS: CRESTOR 40 MG PO (09:06)
[2024-09-03] MEDS: ELIQUIS 5 MG PO ×2 (09:06→20:18)
[2024-09-03] MEDS: FLOMAX 0.4 MG PO (09:06)
[2024-09-03] MEDS: CYMBALTA DELAYED RELEASE 30 MG PO (09:06)
[2024-09-03] MEDS: OXYCONTIN (CONTROLLED RELEASE) 40 MG PO ×3 (09:06→22:42)
[2024-09-03] MEDS: PROSCAR 5 MG PO (09:07)
[2024-09-03] MEDS: PEPCID 20 MG PO (09:07)
[2024-09-03] MEDS: FLUSH (NSS) 1 FLUSH IV (09:07)
[2024-09-03] MEDS: PROCARDIA XL (EXTENDED RELEASE) 30 MG PO (09:07)
[2024-09-03] MEDS: TRICOR 145 MG PO (09:07)
[2024-09-03] MEDS: WELLBUTRIN XL (24 hour extended release) 150 MG PO (09:07)
[2024-09-03 10:49] LABS: ALT (SGPT) 21 U/L (0-50); AST (SGOT) 36 U/L (17-59); Albumin 3.9 g/dl (3.5-5.0); Alkaline Phosphatase 74 U/L (38-126); Direct Bilirubin 0.2 mg/dl (0.0-0.4); Total Bilirubin 0.4 mg/dl (0.2-1.3); Total Protein 6.9 g/dl (6.3-8.2)
[2024-09-03] MEDS: ANTIVERT 12.5 MG PO (14:14)
--- NOTE | 2024-09-03 14:19 | PTCARENOTE ---
Addendum entered by Iram Chow 09/03/24 19:40:
Pt states that he doesn't feel like Antivert made any change in his dizziness on reassessment.
Original Note:
Pt and his daughter questioning if dizziness related to Vertigo at all. Discussed with Dr. Orellana, Antivert 12.5mg po PRN added for pt. Updated pt and administered dose, will monitor effectiveness.
--- NOTE | 2024-09-03 16:31 | W.PN.NEPH.PH ---
Today's Communication / Plan
-
decrease coreg with orhtostatic hypotension
Assessment/Plan
-
68-year-old male former tobacco smoker with a past medical history of hypertension, hyperlipidemia, A-fib s/p ablation, GERD, DM type II and depression who presents with lightheadedness and a headache. And hypertensive urgency of BP 223/126,
Renal consult for WILLIAM 0.9-1.6 with hypotension
Impression.
Acute kidney injury secondary to hemodynamic changes hypertensive urgency with significant drop in blood pressure in the 70s systolic.
Hypertensive urgency.
Diabetes type 2.
Plan.
Bp labile and orthostatic bps possible symptomatic
cotn ADDIS and abd binder
permissive HTN to avoid sig drop, decrease coreg to 6.25mg , cont procardia
hyperkalemia better s/p Lokelma and cont to hold ARB
check bladder scan 46cc
CT abd no acute findings on 09/02
U metanephrine only mildly elevated -unlikely pheo, endo consulted per primary
serum Metanephrines , ARR pending
Renal Doppler no evidence of renal artery stenosis
-
-
Date of Service: September 03, 2024
CC / HPI / ROS
-
Chief Complaint:
Presents with hypertensive urgency
History of Present Illness:
BP still labile , orthostatic BP with symp
cr 1.2 stable , k better at 4.9
Review of Systems:.
No chest pain or shortness of breath
c/o feeling dizzy still -no change
Labs
-
Labs:
WBC 10.9 10^3/uL (4.8-10.8) H 09/03/24 05:11
RBC 4.70 10^6/uL (4.70-6.10) 09/03/24 05:11
Hgb 13.2 g/dL (13.0-18.0) 09/03/24 05:11
Hct 40.1 % (39.0-52.0) 09/03/24 05:11
Plt Count 309 10^3/uL (130-400) 09/03/24 05:11
Sodium 142 mmol/L (135-145) 09/03/24 05:11
Potassium 4.9 mmol/L (3.5-5.1) 09/03/24 05:11
Chloride 103 mmol/L (98-107) 09/03/24 05:11
Carbon Dioxide 28 mmol/L (22-30) 09/03/24 05:11
BUN 29 mg/dl (9-20) H 09/03/24 05:11
Creatinine 1.2 mg/dL (0.7-1.3) 09/03/24 05:11
eGFR > 60.00 09/03/24 05:11
Glucose 116 mg/dl (70-99) H 09/03/24 05:11
Calcium 9.8 mg/dl (8.4-10.2) 09/03/24 05:11
Phosphorus 4.6 mg/dl (2.5-4.5) H 09/03/24 05:11
Albumin 3.9 g/dl (3.5-5.0) 09/03/24 05:11
Physical Exam
-
Vital Signs:
Vital Signs
Temp Pulse Resp BP Pulse Ox
97.9 F 76 18 131/82 100
09/03/24 11:56 09/03/24 11:56 09/03/24 11:56 09/03/24 11:56 09/03/24 11:56
Cardiovascular:: Regular rate and rhythm
Respiratory:: Bilateral: CTA
Lung Excursion:: Normal
Abdomen:: Nontender and Soft
Extremity Edema:: None: Bilateral:
Collier Catheter: No
[2024-09-03] MEDS: MIRALAX 17 GRAMS PO (16:35)
--- NOTE | 2024-09-03 18:30 | PTCARENOTE ---
Pt's Coreg decreased by Dr. Kerr this evening. Assessed pt's BP prior to administering, Bp 114/77 (pt supine in bed at time of assessment). Pt denying dizziness supine but once he sits up he starts feeling dizzy. Discussed with Dr. Kerr and
she indicated to hold evening dose of Coreg. Updated pt on plan.
[2024-09-03] MEDS: COREG PO (18:32)
[2024-09-03] MEDS: SENOKOT-S 1 TABLET PO (20:19)
[2024-09-03] MEDS: CYMBALTA DELAYED RELEASE 60 MG PO (22:42)
[2024-09-03] MEDS: ZANAFLEX 2 MG PO (22:42)
[2024-09-03] MEDS: AMBIEN 5 MG PO (23:56)
[2024-09-04] VITALS (7 sets, daily range): BP systolic 90–152; BP diastolic 65–101; PULSE 89–100; BMI 27.9
[2024-09-04 05:48] LABS: Hematocrit 41.1 % (39.0-52.0); Hemoglobin 13.3 g/dL (13.0-18.0); Mean Corp Hgb Conc. 32.4 g/dL (33.0-37.0); Mean Corpuscular Hgb 27.8 pg (27.0-31.0); Mean Platelet Volume 10.2 fL (7.4-10.4); Platelet Count 302 10^3/uL (130-400); Red Blood Cell Count 4.78 10^6/uL (4.70-6.10); Red Cell Dist. Width 12.8 % (11.5-14.5); White Blood Cell Count 10.7 10^3/uL (4.8-10.8)
[2024-09-04 06:11] LABS: Blood Urea Nitrogen 31 mg/dl (9-20); Calcium 9.6 mg/dl (8.4-10.2); Carbon Dioxide 27 mmol/L (22-30); Chloride 102 mmol/L (98-107); Estimated Creatinine Clearance 70 ml/min; Glucose 145 mg/dl (70-99); Magnesium 1.6 mg/dl (1.6-2.3); Phosphorus 3.8 mg/dl (2.5-4.5); Potassium 4.6 mmol/L (3.5-5.1); Sodium 140 mmol/L (135-145); eGFR > 60.00
--- NOTE | 2024-09-04 07:53 | W.PN.HOSP.TC ---
Today's Communication/Plan
-
see a/p
Assessment / Plan
Assessment / Plan
Physical Exam
General: no acute distress resting comfortably in bed
HEENT: NormoCephalic, Moist mucous membranes, Atraumatic, [place] Conjunctivae
Respiratory: Clear to auscultation b/l, stable respiratory status on room air.
Cardiac: S1/S2 and Regular Rhythm
GI: Soft, Non Tender, Non Distended and Normal Bowel Sounds; No Organomegaly
Musculoskeletal: No Clubbing, No Cyanosis and No Edema
Skin: No Rash, multiple tattoos on body, back and b/l arms
Neuro: AOx3 conversant coherent
Psych: Calm and Intact Judgment/Insight
68M MDR HTN HLD DM2 neuropathy hx bladder ca hx cardiac ablation here for hypertensive emergency.
#Hypertensive urgency with associated dizziness/headache
#labile HTN
Head CT: No acute intracranial abnormality noted.
- Dr. Thompson is EP, Dr. Reeves is primary manager career
- Cardio eval appreciated
- Computer Operations Supervisor eval appreciated
-Nephro eval appreciated checking ARR, Coreg decreased to 6.25 mg BID d/t orthostatic hypotension
- weaned off Nicardipine gtt, started on nifedipine 30 mg daily as per cardio later placed on hold as per nephro d/t symptomatic orthostatic hypotension
- home candesartan reduced from 32 mg BID to 16 mg BID d/t hypotension, was placed on hold d/t WILLIAM, restarted at 32 mg daily but then placed on hold again d/t hyperkalemia as below
- UDS screen pos for oxycodone and marijuana
-urine normetanephrine noted elevated, CT abd/pelvis noted no acute abn's or adrenal masses, serum normetanephrine also noted elevated, discussed with endocrine, elevations modest, typically levels four-fold upper limit of normal elevations before
seriously considering Pheo, current elevations attributable to physiologic stress while being in hospital, Tylenol use can also cause false positives- typically need to be held 72 hrs prior to collection serum metanephrine levels.
-Renal Doppler no evidence of renal artery stenosis
#Symptomatic Orthostatic Hypotension
TEDs abd binder ordered
monitor orthostatic vitals
cont PT/OT
possible Vertigo overlapping with symptoms dizziness, meclizine prn ordered
#Ear congestion b/l
Debrox ear drops ordered
#08/30 WILLIAM
Cr elevated from 0.9 to 1.7 possibly 2/2 severe hypotension since resolved
Cr since improved
IVF gentle hydration completed
Nephro eval appreciated
Hyperkalemia
-Lokelma as per Nephro
-Candesartan placed on hold
-brief potassium restriction diet, discontinued with resolution hyperkalemia.
#headache, dizziness, cough
#suspected underlying asthma, outpt follow up as per Pulm/Computer Operations Supervisor
- COVID/Flu negative
- PRN Tylenol
- PRN Reglan
-CR chest appreciated no acute abn's
-symptoms since resolved
#reporting ear congestion b/l
4 days debrox ear drops started
#hyperlipidemia
- continue fenofibrate, rosuvastatin
#atrial fibrillation
#QT prolongation
-minimize use QT prolonging agents as possible
- continue Eliquis
- Sotalol held d/t WILLIAM since resumed with improvement in kidney function, sotalol 80 mg bid as per Cardio.
#NIDDM
-A1c 7.3
- AccuCheck AC & HS
- SSI
-metformin 500 mg bid started, briefly held d/t WILLIAM, since resumed, cont
-Carb controlled diet
#Hypokalemia
#Hypomagnesemia
monitor and replete as necessary
#GERD
- continue famotidine
- Maalox prn
#depression
- continue bupropion
#chronic pain
- continue duloxetine, Xtampza and oxycodone
PT/OT eval appreciated outpt therapy recommended
Code status: full code
DVT prophylaxis: Eliquis
Discussed with patient.
I spent a total of 45 minutes with the patient or on the floor. More than 50% of this time involved counseling and coordination of care.
Anticipated Discharge: 24 - 48 hours
Subjective/Interval History
-
Date of Service: September 04, 2024
Dizziness sitting standing persists along with significant orthostatic hypotension.
Objective Data
-
Labs:
Laboratory Results
09/04/24
05:17
WBC 10.7
Hgb 13.3
Hct 41.1
Plt Count 302
Sodium 140
Potassium 4.6
Chloride 102
Carbon Dioxide 27
BUN 31 H
Creatinine 1.3
Glucose 145 H
Calcium 9.6
Vital Signs:
Vital Signs
Temp Pulse Resp BP Pulse Ox
97.4 F 73 16 121/83 96
09/04/24 03:53 09/04/24 03:53 09/04/24 03:53 09/04/24 03:53 09/04/24 03:53
I&O
09/03/24 09/04/24 09/05/24
06:59 06:59 06:59
Intake Total 1440 / 1440 1580 / 1580
Output Total 1450 / 1450 925 / 925
Balance -10 / -10 655 / 655
[2024-09-04] MEDS: BETAPACE 80 MG PO ×2 (09:48→20:32)
[2024-09-04] MEDS: CRESTOR 40 MG PO (09:48)
[2024-09-04] MEDS: TRICOR 145 MG PO (09:48)
[2024-09-04] MEDS: PROCARDIA XL (EXTENDED RELEASE) 30 MG PO (09:49)
[2024-09-04] MEDS: WELLBUTRIN XL (24 hour extended release) 150 MG PO (09:49)
[2024-09-04] MEDS: GLUCOPHAGE 500 MG PO ×2 (09:49→17:06)
[2024-09-04] MEDS: CYMBALTA DELAYED RELEASE 30 MG PO (09:49)
[2024-09-04] MEDS: ELIQUIS 5 MG PO ×2 (09:49→20:31)
[2024-09-04] MEDS: PROSCAR 5 MG PO (09:49)
[2024-09-04] MEDS: OXYCONTIN (CONTROLLED RELEASE) 40 MG PO ×3 (09:50→22:08)
[2024-09-04] MEDS: SENOKOT-S 1 TABLET PO ×2 (09:50→20:31)
[2024-09-04] MEDS: PEPCID 20 MG PO (09:50)
[2024-09-04] MEDS: COREG 6.25 MG PO ×2 (09:50→20:31)
[2024-09-04] MEDS: FLOMAX 0.4 MG PO (09:51)
[2024-09-04] MEDS: MIRALAX 17 GRAMS PO (09:51)
[2024-09-04] MEDS: DEBROX EAR DROPS 1 DROP OTIC ×2 (09:51→20:32)
--- NOTE | 2024-09-04 16:02 | W.PN.NEPH.PH ---
Today's Communication / Plan
-
hold procardia
Assessment/Plan
-
68-year-old male former tobacco smoker with a past medical history of hypertension, hyperlipidemia, A-fib s/p ablation, GERD, DM type II and depression who presents with lightheadedness and a headache. And hypertensive urgency of BP 223/126,
Renal consult for WILLIAM 0.9-1.6 with hypotension
Impression.
Acute kidney injury secondary to hemodynamic changes hypertensive urgency with significant drop in blood pressure in the 70s systolic.
Hypertensive urgency.
Diabetes type 2.
Plan.
Bp labile and orthostatic bps possible symptomatic
cotn ADDIS and abd binder
permissive HTN to avoid orthostatic hypotension
decreased coreg to 6.25mg 09/03, hold procardia as he still with sig drop SBP from 150to 90
cont to hold ARB for hyperkalemia
stable renal function cr 1.3
CT abd no acute findings on 09/02
U metanephrine only mildly elevated -unlikely pheo,
serum normetanephrine 1.38 is also not diagnostic of pheo( should be over 2.2)
ARR pending
Renal Doppler no evidence of renal artery stenosis
check cortisol
avoid sedatives and pain meds
-
-
Date of Service: September 04, 2024
CC / HPI / ROS
-
Chief Complaint:
Presents with hypertensive urgency
History of Present Illness:
BP still labile , orthostatic BP with symp
cr 1.3 stable
Review of Systems:.
No chest pain or shortness of breath
c/o feeling dizzy still -even turning head to side
Labs
-
Labs:
WBC 10.7 10^3/uL (4.8-10.8) 09/04/24 05:17
RBC 4.78 10^6/uL (4.70-6.10) 09/04/24 05:17
Hgb 13.3 g/dL (13.0-18.0) 09/04/24 05:17
Hct 41.1 % (39.0-52.0) 09/04/24 05:17
Plt Count 302 10^3/uL (130-400) 09/04/24 05:17
Sodium 140 mmol/L (135-145) 09/04/24 05:17
Potassium 4.6 mmol/L (3.5-5.1) 09/04/24 05:17
Chloride 102 mmol/L (98-107) 09/04/24 05:17
Carbon Dioxide 27 mmol/L (22-30) 09/04/24 05:17
BUN 31 mg/dl (9-20) H 09/04/24 05:17
Creatinine 1.3 mg/dL (0.7-1.3) 09/04/24 05:17
eGFR > 60.00 09/04/24 05:17
Glucose 145 mg/dl (70-99) H 09/04/24 05:17
Calcium 9.6 mg/dl (8.4-10.2) 09/04/24 05:17
Phosphorus 3.8 mg/dl (2.5-4.5) 09/04/24 05:17
Albumin 3.9 g/dl (3.5-5.0) 09/03/24 05:11
Physical Exam
-
Vital Signs:
Vital Signs
Temp Pulse Resp BP Pulse Ox
98.0 F 77 16 152/79 97
09/04/24 11:10 09/04/24 11:10 09/04/24 11:10 09/04/24 11:10 09/04/24 11:10
Cardiovascular:: Regular rate and rhythm
Respiratory:: Bilateral: CTA
Lung Excursion:: Normal
Abdomen:: Nontender and Soft
Extremity Edema:: None: Bilateral:
Collier Catheter: No
[2024-09-04] MEDS: CYMBALTA DELAYED RELEASE 60 MG PO (22:08)
[2024-09-04] MEDS: ZANAFLEX 2 MG PO (22:09)
[2024-09-04] MEDS: AMBIEN 5 MG PO (23:56)
[2024-09-05] VITALS (9 sets, daily range): BP systolic 97–163; BP diastolic 69–116; PULSE 74–98; O2SAT 95; BMI 28.3
[2024-09-05 06:55] LABS: Hematocrit 43.8 % (39.0-52.0); Hemoglobin 14.4 g/dL (13.0-18.0); Mean Corp Hgb Conc. 32.9 g/dL (33.0-37.0); Mean Platelet Volume 10.2 fL (7.4-10.4); Platelet Count 359 10^3/uL (130-400); Red Blood Cell Count 5.15 10^6/uL (4.70-6.10); Red Cell Dist. Width 12.8 % (11.5-14.5)
[2024-09-05 07:07] LABS: Blood Urea Nitrogen 32 mg/dl (9-20); Calcium 10.1 mg/dl (8.4-10.2); Carbon Dioxide 26 mmol/L (22-30); Chloride 104 mmol/L (98-107); Estimated Creatinine Clearance 70 ml/min; Glucose 152 mg/dl (70-99); Magnesium 1.7 mg/dl (1.6-2.3); Phosphorus 4.4 mg/dl (2.5-4.5); Potassium 4.7 mmol/L (3.5-5.1); Sodium 142 mmol/L (135-145); eGFR > 60.00
[2024-09-05] MEDS: CRESTOR 40 MG PO (08:30)
[2024-09-05] MEDS: BETAPACE 80 MG PO ×2 (08:30→21:04)
[2024-09-05] MEDS: MIRALAX 17 GRAMS PO (08:30)
[2024-09-05] MEDS: GLUCOPHAGE 500 MG PO ×2 (08:31→17:13)
[2024-09-05] MEDS: PEPCID 20 MG PO (08:31)
[2024-09-05] MEDS: COREG 6.25 MG PO ×2 (08:31→21:04)
[2024-09-05] MEDS: FLOMAX 0.4 MG PO (08:31)
[2024-09-05] MEDS: OXYCONTIN (CONTROLLED RELEASE) 40 MG PO ×3 (08:31→23:00)
[2024-09-05] MEDS: TRICOR 145 MG PO (08:31)
[2024-09-05] MEDS: PROSCAR 5 MG PO (08:31)
[2024-09-05] MEDS: ELIQUIS 5 MG PO ×2 (08:31→21:04)
[2024-09-05] MEDS: SENOKOT-S 1 TABLET PO (08:31)
[2024-09-05] MEDS: CYMBALTA DELAYED RELEASE 30 MG PO (08:31)
[2024-09-05] MEDS: DEBROX EAR DROPS 1 DROP OTIC ×2 (08:34→21:05)
[2024-09-05] MEDS: WELLBUTRIN XL (24 hour extended release) 150 MG PO (08:35)
--- NOTE | 2024-09-05 12:51 | W.PN.HOSP.TC ---
Today's Communication/Plan
-
repeat orthos pending
?midodrine prn w/activity
TEDs/abdomen binder
monitor BP
nephro recs
Assessment / Plan
Assessment / Plan
Physical Exam
General: no acute distress resting comfortably in bed
HEENT: NormoCephalic, Moist mucous membranes, Atraumatic, [place] Conjunctivae
Respiratory: Clear to auscultation b/l, stable respiratory status on room air.
Cardiac: S1/S2 and Regular Rhythm
GI: Soft, Non Tender, Non Distended and Normal Bowel Sounds; No Organomegaly
Musculoskeletal: No Clubbing, No Cyanosis and No Edema
Skin: No Rash, multiple tattoos on body, back and b/l arms
Neuro: AOx3 conversant coherent
Psych: Calm and Intact Judgment/Insight
68M MDR HTN HLD DM2 neuropathy hx bladder ca hx cardiac ablation here for hypertensive emergency.
#Hypertensive urgency with associated dizziness/headache
#labile HTN
Head CT: No acute intracranial abnormality noted.
- Dr. Thompson is EP, Dr. Reeves is primary ammonia worker
- Cardio eval appreciated
- Workday Consultant eval appreciated
-Nephro eval appreciated checking ARR, Coreg decreased to 6.25 mg BID d/t orthostatic hypotension
- weaned off Nicardipine gtt, started on nifedipine 30 mg daily as per cardio later placed on hold as per nephro d/t symptomatic orthostatic hypotension
- home candesartan reduced from 32 mg BID to 16 mg BID d/t hypotension, was placed on hold d/t WILLIAM, restarted at 32 mg daily but then placed on hold again d/t hyperkalemia as below
- UDS screen pos for oxycodone and marijuana
-urine normetanephrine noted elevated, CT abd/pelvis noted no acute abn's or adrenal masses, serum normetanephrine also noted elevated, discussed with endocrine, elevations modest, typically levels four-fold upper limit of normal elevations before
seriously considering Pheo, current elevations attributable to physiologic stress while being in hospital, Tylenol use can also cause false positives- typically need to be held 72 hrs prior to collection serum meta-nephrine levels.
-Renal Doppler no evidence of renal artery stenosis
- Recommended outpatient ophthalmology evaluation for retinal inspection as w/uncontrolled BP. No diplopia vision difficulty. States of increased tearing ?allergies
#Symptomatic Orthostatic Hypotension
TEDs abd binder ordered
monitor orthostatic vitals
cont PT/OT
possible Vertigo overlapping with symptoms dizziness, meclizine prn ordered
may need midodrine prn w/activity.RN to try to obtain orthos again for today. Positive yesterday noted.
#08/30 WILLIAM
Cr elevated from 0.9 to 1.7 possibly 2/2 severe hypotension since resolved
Cr since improved
IVF gentle hydration completed
Nephro eval appreciated
Hyperkalemia
-Lokelma as per Nephro
-Candesartan placed on hold
-brief potassium restriction diet, discontinued with resolution hyperkalemia.
#headache, dizziness, cough
#suspected underlying asthma, outpt follow up as per Pulm/Workday Consultant
- COVID/Flu negative
- PRN Tylenol
- PRN Reglan
-CR chest appreciated no acute abn's
-symptoms since resolved
#reporting ear congestion b/l
4 days debrox ear drops started
#hyperlipidemia
- continue fenofibrate, rosuvastatin
#atrial fibrillation
#QT prolongation
-minimize use QT prolonging agents as possible
- continue Eliquis
- Sotalol held d/t WILLIAM since resumed with improvement in kidney function, sotalol 80 mg bid as per Cardio.
#NIDDM
-A1c 7.3
- AccuCheck AC & HS
- SSI
-metformin 500 mg bid started, briefly held d/t WILLIAM, since resumed, cont
-Carb controlled diet
#Hypokalemia
#Hypomagnesemia
monitor and replete as necessary
#GERD
- continue famotidine
- Maalox prn
#depression
- continue bupropion
#chronic pain
- continue duloxetine, Xtampza and oxycodone
PT/OT eval appreciated outpt therapy recommended
Code status: full code
DVT prophylaxis: Eliquis
Anticipated Discharge: Within 24 hours
Subjective/Interval History
-
Date of Service: September 05, 2024
states was feeling dizzy yesterday upon standing up
Objective Data
-
Labs:
Laboratory Results
09/05/24
06:15
WBC 11.0 H
Hgb 14.4
Hct 43.8
Plt Count 359
Sodium 142
Potassium 4.7
Chloride 104
Carbon Dioxide 26
BUN 32 H
Creatinine 1.3
Glucose 152 H
Calcium 10.1
Vital Signs:
Vital Signs
Temp Pulse Resp BP Pulse Ox
98.3 F 74 18 144/102 99
09/05/24 11:21 09/05/24 11:21 09/05/24 11:21 09/05/24 11:21 09/05/24 11:21
I&O
09/04/24 09/05/24 09/06/24
06:59 06:59 06:59
Intake Total 1580 / 1580 480 / 480
Output Total 925 / 925 1200 / 1200
Balance 655 / 655 -720 / -720
--- NOTE | 2024-09-05 14:50 | W.PN.NEPH.PH ---
Today's Communication / Plan
-
trial of midodrine
Assessment/Plan
-
68-year-old male former tobacco smoker with a past medical history of hypertension, hyperlipidemia, A-fib s/p ablation, GERD, DM type II and depression who presents with lightheadedness and a headache. And hypertensive urgency of BP 223/126,
Renal consult for WILLIAM 0.9-1.6 with hypotension
Impression.
Acute kidney injury secondary to hemodynamic changes hypertensive urgency with significant drop in blood pressure in the 70s systolic.
Hypertensive urgency.
Diabetes type 2.
Plan.
Bp labile and orthostatic bps possible symptomatic
cotn ADDIS and abd binder
permissive HTN to avoid orthostatic hypotension
decreased coreg to 6.25mg 09/03, holding procardia as he still with sig drop SBP from 160to 90
add low dose midodrine with activity
cont to hold ARB for hyperkalemia
stable renal function cr 1.3
CT abd no acute findings on 09/02
U metanephrine only mildly elevated -unlikely pheo,
serum normetanephrine 1.38 is also not diagnostic of pheo( should be over 2.2)
ARR pending
Renal Doppler no evidence of renal artery stenosis
check cortisol
avoid sedatives -on ambien daily and pain meds
-
-
Date of Service: September 05, 2024
CC / HPI / ROS
-
Chief Complaint:
Presents with hypertensive urgency
History of Present Illness:
BP still labile , orthostatic BP with symp
cr 1.3 stable
Review of Systems:.
No chest pain or shortness of breath
c/o feeling dizzy still -even turning head to side
Labs
-
Labs:
WBC 11.0 10^3/uL (4.8-10.8) H 09/05/24 06:15
RBC 5.15 10^6/uL (4.70-6.10) 09/05/24 06:15
Hgb 14.4 g/dL (13.0-18.0) 09/05/24 06:15
Hct 43.8 % (39.0-52.0) 09/05/24 06:15
Plt Count 359 10^3/uL (130-400) 09/05/24 06:15
Sodium 142 mmol/L (135-145) 09/05/24 06:15
Potassium 4.7 mmol/L (3.5-5.1) 09/05/24 06:15
Chloride 104 mmol/L (98-107) 09/05/24 06:15
Carbon Dioxide 26 mmol/L (22-30) 09/05/24 06:15
BUN 32 mg/dl (9-20) H 09/05/24 06:15
Creatinine 1.3 mg/dL (0.7-1.3) 09/05/24 06:15
eGFR > 60.00 09/05/24 06:15
Glucose 152 mg/dl (70-99) H 09/05/24 06:15
Calcium 10.1 mg/dl (8.4-10.2) 09/05/24 06:15
Phosphorus 4.4 mg/dl (2.5-4.5) 09/05/24 06:15
Albumin 3.9 g/dl (3.5-5.0) 09/03/24 05:11
Physical Exam
-
Vital Signs:
Vital Signs
Temp Pulse Resp BP Pulse Ox
98.3 F 74 18 144/102 99
09/05/24 11:21 09/05/24 11:21 09/05/24 11:21 09/05/24 11:21 09/05/24 11:21
Cardiovascular:: Regular rate and rhythm
Respiratory:: Bilateral: CTA
Lung Excursion:: Normal
Abdomen:: Nontender and Soft
Extremity Edema:: None: Bilateral:
Collier Catheter: No
[2024-09-05] MEDS: ProAmatine 2.5 MG PO (14:57)
[2024-09-05] MEDS: ZOFRAN 4 MG IV (14:58)
--- NOTE | 2024-09-05 16:46 | CM ---
Patient doing well in therapy however is not quite at baseline. PT recommending outpatient PT once patient returns home.
Plan: Case management will continue to follow and assist with discharge planning. Patient can return home, f/u with outpatient threapy.
[2024-09-05] MEDS: CYMBALTA DELAYED RELEASE 60 MG PO (21:04)
[2024-09-05] MEDS: SENOKOT-S PO (21:04)
[2024-09-05] MEDS: ZANAFLEX 2 MG PO (21:09)
[2024-09-05] MEDS: AMBIEN 5 MG PO (23:00)
[2024-09-06] VITALS (7 sets, daily range): BP systolic 67–155; BP diastolic 45–90; PULSE 73–96; BMI 28.3
[2024-09-06] MEDS: GLUCOPHAGE 500 MG PO ×2 (08:17→16:22)
[2024-09-06] MEDS: CRESTOR 40 MG PO (08:18)
[2024-09-06] MEDS: PEPCID 20 MG PO (08:18)
[2024-09-06] MEDS: COREG 6.25 MG PO (08:18)
[2024-09-06] MEDS: TRICOR 145 MG PO (08:18)
[2024-09-06] MEDS: WELLBUTRIN XL (24 hour extended release) 150 MG PO (08:18)
[2024-09-06] MEDS: CYMBALTA DELAYED RELEASE 30 MG PO (08:18)
[2024-09-06] MEDS: ELIQUIS 5 MG PO ×2 (08:18→21:05)
[2024-09-06] MEDS: OXYCONTIN (CONTROLLED RELEASE) 40 MG PO ×3 (08:18→23:00)
[2024-09-06] MEDS: PROSCAR 5 MG PO (08:18)
[2024-09-06] MEDS: BETAPACE 80 MG PO ×2 (08:18→21:04)
[2024-09-06] MEDS: FLOMAX 0.4 MG PO (08:18)
[2024-09-06] MEDS: DEBROX EAR DROPS 1 DROP OTIC ×2 (08:19→21:05)
[2024-09-06] MEDS: MIRALAX PO (08:19)
[2024-09-06] MEDS: SENOKOT-S PO ×2 (08:19→20:51)
[2024-09-06 08:54] LABS: Blood Urea Nitrogen 26 mg/dl (9-20); Carbon Dioxide 27 mmol/L (22-30); Chloride 103 mmol/L (98-107); Estimated Creatinine Clearance 70 ml/min; Glucose 133 mg/dl (70-99); Sodium 141 mmol/L (135-145); eGFR > 60.00
[2024-09-06] MEDS: ProAmatine 2.5 MG PO (10:34)
--- NOTE | 2024-09-06 12:51 | W.PN.HOSP.TC ---
Addendum entered and electronically signed by Remington Vizcarra MD 09/06/24 15:02:
Updated spouse over the phone in details. All questions answered. She was appreciative of update.
Vishal [phone]
Original Note:
Today's Communication/Plan
-
Increase midodrine prn
Trial of IVF
Teds
abd binder if can tolerate
nephro recs
Assessment / Plan
Assessment / Plan
Physical Exam
General: no acute distress resting comfortably in bed
HEENT: NormoCephalic, Moist mucous membranes, Atraumatic, [place] Conjunctivae
Respiratory: Clear to auscultation b/l, stable respiratory status on room air.
Cardiac: S1/S2 and Regular Rhythm
GI: Soft, Non Tender, Non Distended and Normal Bowel Sounds; No Organomegaly
Musculoskeletal: No Clubbing, No Cyanosis and No Edema
Skin: No Rash, multiple tattoos on body, back and b/l arms
Neuro: AOx3 conversant coherent
Psych: Calm and Intact Judgment/Insight
68M MDR HTN HLD DM2 neuropathy hx bladder ca hx cardiac ablation here for hypertensive emergency.
#Hypertensive urgency with associated dizziness/headache
#labile HTN
Head CT: No acute intracranial abnormality noted.
- Dr. Thompson is EP, Dr. Reeves is primary m1 armor crewman
- Cardio eval appreciated
- Welder Gas eval appreciated
-Nephro eval appreciated checking ARR, Coreg decreased to 6.25 mg BID d/t orthostatic hypotension
- weaned off Nicardipine gtt, started on nifedipine 30 mg daily as per cardio later placed on hold as per nephro d/t symptomatic orthostatic hypotension
- home candesartan reduced from 32 mg BID to 16 mg BID d/t hypotension, was placed on hold d/t WILLIAM, restarted at 32 mg daily but then placed on hold again d/t hyperkalemia as below
- UDS screen pos for oxycodone and marijuana
-urine normetanephrine noted elevated, CT abd/pelvis noted no acute abn's or adrenal masses, serum normetanephrine also noted elevated, discussed with endocrine, elevations modest, typically levels four-fold upper limit of normal elevations before
seriously considering Pheo, current elevations attributable to physiologic stress while being in hospital, Tylenol use can also cause false positives- typically need to be held 72 hrs prior to collection serum meta-nephrine levels.
-Renal Doppler no evidence of renal artery stenosis
- Recommended outpatient ophthalmology evaluation for retinal inspection as w/uncontrolled BP. No diplopia vision difficulty. States of increased tearing ?allergies
#Symptomatic Orthostatic Hypotension
Probably not used to low BP
TEDs on. Not able to tolerate abd binder
monitor orthostatic vitals-remains positive.
cont PT/OT
possible Vertigo overlapping with symptoms dizziness, meclizine prn ordered
may need midodrine prn dose increased.
Trial of IVF x 1L
#08/30 WILLIAM
Cr elevated from 0.9 to 1.7 possibly 2/2 severe hypotension since resolved
Cr since improved
IVF gentle hydration completed
Nephro eval appreciated
Hyperkalemia
-Lokelma as per Nephro
-Candesartan placed on hold
-brief potassium restriction diet, discontinued with resolution hyperkalemia.
#headache, dizziness, cough
#suspected underlying asthma, outpt follow up as per Pulm/Welder Gas
- COVID/Flu negative
- PRN Tylenol
- PRN Reglan
-CR chest appreciated no acute abn's
-symptoms since resolved
#reporting ear congestion b/l
4 days debrox ear drops started
#hyperlipidemia
- continue fenofibrate, rosuvastatin
#atrial fibrillation
#QT prolongation
-minimize use QT prolonging agents as possible
- continue Eliquis
- Sotalol held d/t WILLIAM since resumed with improvement in kidney function, sotalol 80 mg bid as per Cardio.
#NIDDM
-A1c 7.3
- AccuCheck AC & HS
- SSI
-metformin 500 mg bid started, briefly held d/t WILLIAM, since resumed, cont
-Carb controlled diet
#Hypokalemia
#Hypomagnesemia
monitor and replete as necessary
#GERD
- continue famotidine
- Maalox prn
#depression
- continue bupropion
#chronic pain
- continue duloxetine, Xtampza and oxycodone
PT/OT eval appreciated outpt therapy recommended
Code status: full code
DVT prophylaxis: Eliquis
Anticipated Discharge: Within 24 hours
Subjective/Interval History
-
Date of Service: September 06, 2024
states of feeling dizzy w/activity and standing up
positive orthos
Objective Data
-
Labs:
Laboratory Results
09/06/24
06:22
Sodium 141
Potassium 5.0
Chloride 103
Carbon Dioxide 27
BUN 26 H
Creatinine 1.3
Glucose 133 H
Calcium 10.0
Vital Signs:
Vital Signs
Temp Pulse Resp BP Pulse Ox
97.8 F 68 18 130/77 97
09/06/24 11:36 09/06/24 08:06 09/06/24 11:36 09/06/24 08:06 09/06/24 11:36
I&O
09/05/24 09/06/24 09/07/24
06:59 06:59 06:59
Intake Total 480 / 480 1020 / 1020
Output Total 1200 / 1200 600 / 600 300 / 300
Balance -720 / -720 420 / 420 -300 / -300
[2024-09-06] MEDS: NSS 1000 IV ×2 (13:04→19:44)
[2024-09-06] MEDS: ProAmatine 5 MG PO (16:22)
--- NOTE | 2024-09-06 16:50 | W.PN.NEPH.PH ---
Today's Communication / Plan
-
Observe
Assessment/Plan
-
68-year-old male former tobacco smoker with a past medical history of hypertension, hyperlipidemia, A-fib s/p ablation, GERD, DM type II and depression who presents with lightheadedness and a headache. And hypertensive urgency of BP 223/126,
Renal consult for WILLIAM 0.9-1.6 with hypotension
Impression.
Acute kidney injury secondary to hemodynamic changes hypertensive urgency with significant drop in blood pressure in the 70s systolic.
Hypertensive urgency.
Diabetes type 2. with neuropathy
Plan.
Creatinine improved to 1.3, no need for further IV fluid
Bp labile and orthostatic bps possible symptomatic
Continue ADDIS and abd binder
permissive HTN to avoid orthostatic hypotension
Previously decreased coreg to 6.25mg 09/03, holding procardia as he still with sig drop SBP from 160 to 90
Maintain midodrine with activity
continue to hold ARB for hyperkalemia
stable renal function cr 1.3
CT abd no acute findings on 09/02
U metanephrine only mildly elevated -unlikely pheo,
serum normetanephrine 1.38 is also not diagnostic of pheo( should be over 2.2)
ARR pending
Renal Doppler no evidence of renal artery stenosis
check cortisol ~10
avoid sedatives -on ambien daily and pain meds
Unfortunately patient likely has underlying diabetic autonomic neuropathy and this can only be treated as opposed to being cured (i.e. anti-htns with midodrine)
-
-
Date of Service: September 06, 2024
CC / HPI / ROS
-
Chief Complaint:
Presents with hypertensive urgency
History of Present Illness:
BP still labile , orthostatic BP with symptoms
cr 1.3 stable
Review of Systems:.
No chest pain or shortness of breath
c/o feeling dizzy still -even turning head to side
Labs
-
Labs:
WBC 11.0 10^3/uL (4.8-10.8) H 09/05/24 06:15
RBC 5.15 10^6/uL (4.70-6.10) 09/05/24 06:15
Hgb 14.4 g/dL (13.0-18.0) 09/05/24 06:15
Hct 43.8 % (39.0-52.0) 09/05/24 06:15
Plt Count 359 10^3/uL (130-400) 09/05/24 06:15
Sodium 141 mmol/L (135-145) 09/06/24 06:22
Potassium 5.0 mmol/L (3.5-5.1) 09/06/24 06:22
Chloride 103 mmol/L (98-107) 09/06/24 06:22
Carbon Dioxide 27 mmol/L (22-30) 09/06/24 06:22
BUN 26 mg/dl (9-20) H 09/06/24 06:22
Creatinine 1.3 mg/dL (0.7-1.3) 09/06/24 06:22
eGFR > 60.00 09/06/24 06:22
Glucose 133 mg/dl (70-99) H 09/06/24 06:22
Calcium 10.0 mg/dl (8.4-10.2) 09/06/24 06:22
Phosphorus 4.4 mg/dl (2.5-4.5) 09/05/24 06:15
Albumin 3.9 g/dl (3.5-5.0) 09/03/24 05:11
Physical Exam
-
Vital Signs:
Vital Signs
Temp Pulse Resp BP Pulse Ox
97.9 F 75 18 132/90 98
09/06/24 15:51 09/06/24 15:51 09/06/24 15:51 09/06/24 15:51 09/06/24 15:51
Cardiovascular:: Regular rate and rhythm
Respiratory:: Bilateral: CTA
Lung Excursion:: Normal
Abdomen:: Nontender and Soft
Extremity Edema:: None: Bilateral:
Collier Catheter: No
[2024-09-06 19:11] LABS: Aldosterone, Serum 5.3 ng/dL; Aldosterone/Renin Activ Ratio 13.4 ratio (<=25.0); Renin Activity Results 0.4 ng/mL/hr
[2024-09-06] MEDS: CYMBALTA DELAYED RELEASE 60 MG PO (21:04)
[2024-09-06] MEDS: COREG 3.125 MG PO (21:05)
[2024-09-06] MEDS: MAALOX 30 ML PO (21:05)
[2024-09-06 21:31] LABS: Glucose - Point of Care 155 mg/dl (70-99)
[2024-09-06] MEDS: AMBIEN 5 MG PO (23:00)
[2024-09-07] VITALS (7 sets, daily range): BP systolic 116–183; BP diastolic 71–98; PULSE 73–86; BMI 28.8
[2024-09-07] MEDS: NSS 1000 IV (03:46)
[2024-09-07] MEDS: ANTIVERT 12.5 MG PO (08:09)
[2024-09-07] MEDS: ProAmatine 5 MG PO (08:09)
[2024-09-07] MEDS: SENOKOT-S PO ×3 (08:09→20:45)
[2024-09-07] MEDS: ELIQUIS 5 MG PO ×2 (08:09→20:45)
[2024-09-07] MEDS: CYMBALTA DELAYED RELEASE 30 MG PO (08:09)
[2024-09-07] MEDS: TRICOR 145 MG PO (08:09)
[2024-09-07] MEDS: PEPCID 20 MG PO (08:09)
[2024-09-07] MEDS: OXYCONTIN (CONTROLLED RELEASE) 40 MG PO ×3 (08:09→22:57)
[2024-09-07] MEDS: FLOMAX 0.4 MG PO (08:09)
[2024-09-07] MEDS: WELLBUTRIN XL (24 hour extended release) 150 MG PO (08:09)
[2024-09-07] MEDS: CRESTOR 40 MG PO (08:09)
[2024-09-07] MEDS: COREG 3.125 MG PO ×2 (08:09→20:45)
[2024-09-07] MEDS: BETAPACE 80 MG PO ×2 (08:09→20:45)
[2024-09-07] MEDS: PROSCAR 5 MG PO (08:09)
[2024-09-07] MEDS: GLUCOPHAGE 500 MG PO ×2 (08:09→17:09)
[2024-09-07] MEDS: MIRALAX PO (08:14)
[2024-09-07] MEDS: DEBROX EAR DROPS OTIC (08:14)
[2024-09-07 08:24] LABS: Blood Urea Nitrogen 20 mg/dl (9-20); Calcium 9.6 mg/dl (8.4-10.2); Carbon Dioxide 29 mmol/L (22-30); Chloride 106 mmol/L (98-107); Estimated Creatinine Clearance 76 ml/min; Glucose 134 mg/dl (70-99); Sodium 143 mmol/L (135-145); eGFR > 60.00
--- NOTE | 2024-09-07 11:53 | W.PN.HOSP.TC ---
Today's Communication/Plan
-
Monitor BP w/activity
stop IVF
surya/abd binder
may need to consider midodrine standing
Assessment / Plan
Assessment / Plan
Physical Exam
General: no acute distress resting comfortably in bed
HEENT: NormoCephalic, Moist mucous membranes, Atraumatic, [place] Conjunctivae
Respiratory: Clear to auscultation b/l, stable respiratory status on room air.
Cardiac: S1/S2 and Regular Rhythm
GI: Soft, Non Tender, Non Distended and Normal Bowel Sounds; No Organomegaly
Musculoskeletal: No Clubbing, No Cyanosis and No Edema
Skin: No Rash, multiple tattoos on body, back and b/l arms
Neuro: AOx3 conversant coherent
Psych: Calm and Intact Judgment/Insight
68M MDR HTN HLD DM2 neuropathy hx bladder ca hx cardiac ablation here for hypertensive emergency.
#Hypertensive urgency with associated dizziness/headache
#labile HTN
Head CT: No acute intracranial abnormality noted.
- Dr. Thompson is EP, Dr. Reeves is primary automobile designer
- Cardio eval appreciated
- Network Technician eval appreciated
- Nephro eval appreciated checking ARR, Coreg decreased further to 3.125 mg BID d/t orthostatic hypotension
- weaned off Nicardipine gtt, started on nifedipine 30 mg daily as per cardio later placed on hold as per nephro d/t symptomatic orthostatic hypotension
- home candesartan reduced from 32 mg BID to 16 mg BID d/t hypotension, was placed on hold d/t WILLIAM, restarted at 32 mg daily but then placed on hold again d/t hyperkalemia as below
- UDS screen pos for oxycodone and marijuana
-urine normetanephrine noted elevated, CT abd/pelvis noted no acute abn's or adrenal masses, serum normetanephrine also noted elevated, discussed with endocrine, elevations modest, typically levels four-fold upper limit of normal elevations before
seriously considering Pheo, current elevations attributable to physiologic stress while being in hospital, Tylenol use can also cause false positives- typically need to be held 72 hrs prior to collection serum meta-nephrine levels.
-Renal Doppler no evidence of renal artery stenosis
- Recommended outpatient ophthalmology evaluation for retinal inspection as w/uncontrolled BP. No diplopia vision difficulty. States of increased tearing ?allergies
#Symptomatic Orthostatic Hypotension secondary to autonomic neuropathy
Probably not used to low BP
TEDs on. Will try to apply abdominal binder
monitor orthostatic vitals-remains positive.
cont PT/OT
possible Vertigo overlapping with symptoms dizziness, meclizine prn ordered
may need midodrine prn dose increased.
Status post trial of IV fluids
Will need to except elevated supine blood pressure
#08/30 WILLIAM
Cr elevated from 0.9 to 1.7 possibly 2/2 severe hypotension since resolved
Cr since improved
IVF gentle hydration completed
Nephro eval appreciated
Hyperkalemia
-Lokelma as per Nephro
-Candesartan placed on hold
-brief potassium restriction diet, discontinued with resolution hyperkalemia.
#headache, dizziness, cough
#suspected underlying asthma, outpt follow up as per Pulm/Network Technician
- COVID/Flu negative
- PRN Tylenol
- PRN Reglan
-CR chest appreciated no acute abn's
-symptoms since resolved
#reporting ear congestion b/l
4 days debrox ear drops started
#hyperlipidemia
- continue fenofibrate, rosuvastatin
#atrial fibrillation
#QT prolongation
-minimize use QT prolonging agents as possible
- continue Eliquis. Coreg dose decreased
- Sotalol held d/t WILLIAM since resumed with improvement in kidney function, sotalol 80 mg bid as per Cardio.
#NIDDM
-A1c 7.3
- AccuCheck AC & HS
- SSI
-metformin 500 mg bid started, briefly held d/t WILLIAM, since resumed, cont
-Carb controlled diet
#Hypokalemia
#Hypomagnesemia
monitor and replete as necessary
#GERD
- continue famotidine
- Maalox prn
#depression
- continue bupropion
#chronic pain
- continue duloxetine, Xtampza and oxycodone
PT/OT eval appreciated outpt therapy recommended
Code status: full code
DVT prophylaxis: Eliquis
Updated spouse over the phone in detail 09/06/24
Anticipated Discharge: 24 - 48 hours
Subjective/Interval History
-
Date of Service: September 07, 2024
States felt dizzy yesterday
Agreed to wear abdominal binder upon standing or getting out of bed
Objective Data
-
Labs:
Laboratory Results
09/07/24
06:30
Sodium 143
Potassium 5.0
Chloride 106
Carbon Dioxide 29
BUN 20
Creatinine 1.2
Glucose 134 H
Calcium 9.6
Vital Signs:
Vital Signs
Temp Pulse Resp BP Pulse Ox
98.1 F 74 18 143/82 99
09/07/24 11:44 09/07/24 08:07 09/07/24 11:44 09/07/24 08:07 09/07/24 11:44
I&O
09/06/24 09/07/24 09/08/24
06:59 06:59 06:59
Intake Total 1020 / 1020 1980 / 1980 480 / 480
Output Total 600 / 600 1400 / 1400 350 / 350
Balance 420 / 420 580 / 580 130 / 130
--- NOTE | 2024-09-07 15:08 | W.PN.NEPH.PH ---
Today's Communication / Plan
-
Change midodrine to 2.5 mg 3 times daily standing order
Assessment/Plan
-
68-year-old male former tobacco smoker with a past medical history of hypertension, hyperlipidemia, A-fib s/p ablation, GERD, DM type II and depression who presents with lightheadedness and a headache. And hypertensive urgency of BP 223/126,
Renal consult for WILLIAM 0.9-1.6 with hypotension
Impression.
Acute kidney injury secondary to hemodynamic changes hypertensive urgency with significant drop in blood pressure in the 70s systolic.
Hypertensive urgency.
Diabetes type 2. with neuropathy
Plan.
Creatinine improved to 1.3
Bp labile and orthostatic bps possible symptomatic
Continue ADDIS and abd binder
permissive HTN to avoid orthostatic hypotension
Previously decreased coreg to 6.25mg 09/03, holding procardia with drops in her blood pressure though less today
Maintain midodrine
Off ARB
stable renal function cr 1.3
U metanephrine only mildly elevated -unlikely pheo,
serum normetanephrine 1.38 is also not diagnostic of pheo( should be over 2.2)
ARR pending
Renal Doppler no evidence of renal artery stenosis
check cortisol ~10
avoid sedatives -on ambien daily and pain meds
Unfortunately patient likely has underlying diabetic autonomic neuropathy and this can only be treated as opposed to being cured (i.e. anti-htns with midodrine)
Change midodrine to 2.5 mg 3 times daily as we need a dispo plan on treating this on a chronic basis rather than asking the patient to do this as needed
-
-
Date of Service: September 07, 2024
CC / HPI / ROS
-
Chief Complaint:
Presents with hypertensive urgency
History of Present Illness:
BP still labile , orthostatic BP with symptoms
cr 1.3 stable
Review of Systems:.
No chest pain or shortness of breath
c/o feeling dizzy still -even turning head to side
Labs
-
Labs:
WBC 11.0 10^3/uL (4.8-10.8) H 09/05/24 06:15
RBC 5.15 10^6/uL (4.70-6.10) 09/05/24 06:15
Hgb 14.4 g/dL (13.0-18.0) 09/05/24 06:15
Hct 43.8 % (39.0-52.0) 09/05/24 06:15
Plt Count 359 10^3/uL (130-400) 09/05/24 06:15
Sodium 143 mmol/L (135-145) 09/07/24 06:30
Potassium 5.0 mmol/L (3.5-5.1) 09/07/24 06:30
Chloride 106 mmol/L (98-107) 09/07/24 06:30
Carbon Dioxide 29 mmol/L (22-30) 09/07/24 06:30
BUN 20 mg/dl (9-20) 09/07/24 06:30
Creatinine 1.2 mg/dL (0.7-1.3) 09/07/24 06:30
eGFR > 60.00 09/07/24 06:30
Glucose 134 mg/dl (70-99) H 09/07/24 06:30
Calcium 9.6 mg/dl (8.4-10.2) 09/07/24 06:30
Phosphorus 4.4 mg/dl (2.5-4.5) 09/05/24 06:15
Albumin 3.9 g/dl (3.5-5.0) 09/03/24 05:11
Physical Exam
-
Vital Signs:
Vital Signs
Temp Pulse Resp BP Pulse Ox
98.1 F 74 18 143/82 99
09/07/24 11:44 09/07/24 08:07 09/07/24 11:44 09/07/24 08:07 09/07/24 11:44
Cardiovascular:: Regular rate and rhythm
Respiratory:: Bilateral: CTA
Lung Excursion:: Normal
Abdomen:: Nontender and Soft
Extremity Edema:: None: Bilateral:
Collier Catheter: No
[2024-09-07 16:48] LABS: Glucose - Point of Care 125 mg/dl (70-99)
[2024-09-07] MEDS: ProAmatine 2.5 MG PO (17:09)
[2024-09-07] MEDS: CYMBALTA DELAYED RELEASE 60 MG PO (20:45)
[2024-09-07] MEDS: DEBROX EAR DROPS 1 DROP OTIC (20:45)
[2024-09-07 21:02] LABS: Glucose - Point of Care 185 mg/dl (70-99)
[2024-09-07] MEDS: AMBIEN 5 MG PO (23:00)
[2024-09-07] MEDS: TYLENOL 650 MG PO (23:02)
[2024-09-08] VITALS (8 sets, daily range): BP systolic 101–195; BP diastolic 71–112; PULSE 71–91; BMI 28.9
--- NOTE | 2024-09-08 06:27 | DOWNTIME ---
There was a [employer] Client Service Liaison Representative Downtime on 09/08/2024 from 0200 to 09/09/2023 at 0318 . Downtime documentation of patient's care, including medication administrations, has been reconciled in the electronic record per guidelines. Refer to the
patient's paper chart under the miscellaneous tab to see printed paper medication records and downtime forms.
[2024-09-08 08:05] LABS: Glucose - Point of Care 149 mg/dl (70-99)
[2024-09-08 08:23] LABS: Blood Urea Nitrogen 16 mg/dl (9-20); Calcium 9.6 mg/dl (8.4-10.2); Carbon Dioxide 29 mmol/L (22-30); Chloride 104 mmol/L (98-107); Estimated Creatinine Clearance 83 ml/min; Glucose 170 mg/dl (70-99); Potassium 4.4 mmol/L (3.5-5.1); Sodium 143 mmol/L (135-145); eGFR > 60.00
[2024-09-08] MEDS: OXYCONTIN (CONTROLLED RELEASE) 40 MG PO ×3 (08:54→21:41)
[2024-09-08] MEDS: TRICOR 145 MG PO (08:56)
[2024-09-08] MEDS: ProAmatine 2.5 MG PO ×3 (08:56→17:23)
[2024-09-08] MEDS: CRESTOR 40 MG PO (08:56)
[2024-09-08] MEDS: WELLBUTRIN XL (24 hour extended release) 150 MG PO (08:56)
[2024-09-08] MEDS: ELIQUIS 5 MG PO ×2 (08:57→21:41)
[2024-09-08] MEDS: FLOMAX 0.4 MG PO (08:57)
[2024-09-08] MEDS: SENOKOT-S PO ×3 (08:57→21:36)
[2024-09-08] MEDS: GLUCOPHAGE 500 MG PO ×2 (08:57→16:45)
[2024-09-08] MEDS: COREG 3.125 MG PO ×2 (08:57→21:41)
[2024-09-08] MEDS: BETAPACE 80 MG PO ×2 (08:57→21:41)
[2024-09-08] MEDS: CYMBALTA DELAYED RELEASE 30 MG PO (08:57)
[2024-09-08] MEDS: PEPCID 20 MG PO (08:57)
[2024-09-08] MEDS: PROSCAR 5 MG PO (08:58)
[2024-09-08] MEDS: MIRALAX PO ×2 (08:58→09:08)
[2024-09-08] MEDS: FLUSH (NSS) 1 FLUSH IV (09:00)
[2024-09-08] MEDS: ANTIVERT 12.5 MG PO ×2 (09:02→17:23)
[2024-09-08 11:39] LABS: Glucose - Point of Care 133 mg/dl (70-99)
--- NOTE | 2024-09-08 12:07 | W.PN.HOSP.TC ---
Today's Communication/Plan
-
Elevated blood pressure supine expected
Continue with midodrine
Out of bed with assistance in therapy
Monitor symptoms
Assessment / Plan
Assessment / Plan
Physical Exam
General: no acute distress resting comfortably in bed
HEENT: NormoCephalic, Moist mucous membranes, Atraumatic, [place] Conjunctivae
Respiratory: Clear to auscultation b/l, stable respiratory status on room air.
Cardiac: S1/S2 and Regular Rhythm
GI: Soft, Non Tender, Non Distended and Normal Bowel Sounds; No Organomegaly
Musculoskeletal: No Clubbing, No Cyanosis and No Edema
Skin: No Rash, multiple tattoos on body, back and b/l arms
Neuro: AOx3 conversant coherent
Psych: Calm and Intact Judgment/Insight
68M MDR HTN HLD DM2 neuropathy hx bladder ca hx cardiac ablation here for hypertensive emergency.
#Symptomatic Orthostatic Hypotension secondary to autonomic neuropathy
Probably not used to low BP
TEDs on. Will try to apply abdominal binder
monitor orthostatic vitals-remains positive.
cont PT/OT
possible Vertigo overlapping with symptoms dizziness, meclizine prn ordered
Started on low-dose midodrine standing
Status post trial of IV fluids
Patient understand this is a chronic condition and symptoms will only be treated.
#Hypertensive urgency with associated dizziness/headache
#labile HTN
Head CT: No acute intracranial abnormality noted.
- Dr. Thompson is EP, Dr. Reeves is primary security coordinator
- Cardio eval appreciated
- Paleology Teacher eval appreciated
- Nephro eval appreciated checking ARR, Coreg decreased further to 3.125 mg BID d/t orthostatic hypotension
- weaned off Nicardipine gtt, started on nifedipine 30 mg daily as per cardio later placed on hold as per nephro d/t symptomatic orthostatic hypotension
- home candesartan reduced from 32 mg BID to 16 mg BID d/t hypotension, was placed on hold d/t WILLIAM, restarted at 32 mg daily but then placed on hold again d/t hyperkalemia as below
- UDS screen pos for oxycodone and marijuana
-urine normetanephrine noted elevated, CT abd/pelvis noted no acute abn's or adrenal masses, serum normetanephrine also noted elevated, discussed with endocrine, elevations modest, typically levels four-fold upper limit of normal elevations before
seriously considering Pheo, current elevations attributable to physiologic stress while being in hospital, Tylenol use can also cause false positives- typically need to be held 72 hrs prior to collection serum meta-nephrine levels.
-Renal Doppler no evidence of renal artery stenosis
- Recommended outpatient ophthalmology evaluation for retinal inspection as w/uncontrolled BP. No diplopia vision difficulty. States of increased tearing ?allergies
#08/30 WILLIAM
Cr elevated from 0.9 to 1.7 possibly 2/2 severe hypotension since resolved
Cr since improved
IVF gentle hydration completed
Nephro eval appreciated
Hyperkalemia
-Lokelma as per Nephro
-Candesartan placed on hold
-brief potassium restriction diet, discontinued with resolution hyperkalemia.
#headache, dizziness, cough
#suspected underlying asthma, outpt follow up as per Pulm/Paleology Teacher
- COVID/Flu negative
- PRN Tylenol
- PRN Reglan
-CR chest appreciated no acute abn's
-symptoms since resolved
#reporting ear congestion b/l
4 days debrox ear drops started
#hyperlipidemia
- continue fenofibrate, rosuvastatin
#atrial fibrillation
#QT prolongation
-minimize use QT prolonging agents as possible
- continue Eliquis. Coreg dose decreased
- Sotalol held d/t WILLIAM since resumed with improvement in kidney function, sotalol 80 mg bid as per Cardio.
#NIDDM
-A1c 7.3
- AccuCheck AC & HS
- SSI
-metformin 500 mg bid started, briefly held d/t WILLIAM, since resumed, cont
-Carb controlled diet
#Hypokalemia
#Hypomagnesemia
monitor and replete as necessary
#GERD
- continue famotidine
- Maalox prn
#depression
- continue bupropion
#chronic pain
- continue duloxetine, Xtampza and oxycodone
PT/OT eval appreciated outpt therapy recommended
Code status: full code
DVT prophylaxis: Eliquis
Anticipated Discharge: Within 24 hours
Subjective/Interval History
-
Date of Service: September 08, 2024
Stated he felt better yesterday
Was mildly dizzy earlier today
Objective Data
-
Labs:
Laboratory Results
09/08/24
07:06
Sodium 143
Potassium 4.4
Chloride 104
Carbon Dioxide 29
BUN 16
Creatinine 1.1
Glucose 170 H
Calcium 9.6
Vital Signs:
Vital Signs
Temp Pulse Resp BP Pulse Ox
97.9 F 75 20 184/112 98
09/08/24 11:36 09/08/24 11:36 09/08/24 11:36 09/08/24 11:36 09/08/24 11:36
I&O
09/07/24 09/08/24 09/09/24
06:59 06:59 06:59
Intake Total 1979 / 1979 1440 / 1440
Output Total 1400 / 1400 1275 / 1275
Balance 580 / 580 165 / 165
--- NOTE | 2024-09-08 15:27 | W.PN.NEPH.PH ---
Today's Communication / Plan
-
Continue midodrine standing order
Assessment/Plan
-
68-year-old male former tobacco smoker with a past medical history of hypertension, hyperlipidemia, A-fib s/p ablation, GERD, DM type II and depression who presents with lightheadedness and a headache. And hypertensive urgency of BP 223/126,
Renal consult for WILLIAM 0.9-1.6 with hypotension
Impression.
Acute kidney injury secondary to hemodynamic changes hypertensive urgency with significant drop in blood pressure in the 70s systolic.
Hypertensive urgency.
Diabetes type 2. with neuropathy
Plan.
Creatinine improved to 1.3
Bp labile and orthostatic bps possible symptomatic
Continue ADDIS and abd binder
permissive HTN to avoid orthostatic hypotension
Previously decreased coreg to 6.25mg 09/03, holding procardia with drops in her blood pressure though less today
Maintain midodrine
Off ARB
stable renal function cr 1.3
U metanephrine only mildly elevated -unlikely pheo,
serum normetanephrine 1.38 is also not diagnostic of pheo( should be over 2.2)
ARR pending
Renal Doppler no evidence of renal artery stenosis
check cortisol ~10
avoid sedatives -on ambien daily and pain meds
Unfortunately patient likely has underlying diabetic autonomic neuropathy and this can only be treated as opposed to being cured (i.e. anti-htns with midodrine)
Change midodrine to 2.5 mg 3 times daily as we need a dispo plan on treating this on a chronic basis rather than asking the patient to do this as needed
Much less orthostatic today although he continues to have a dizziness despite drops in blood pressure= he asked about neurological consult as I will defer to primary
-
-
Date of Service: September 08, 2024
CC / HPI / ROS
-
Chief Complaint:
Presents with hypertensive urgency
History of Present Illness:
BP still labile , orthostatic BP with symptoms improved
cr 1.1 stable
Review of Systems:.
No chest pain or shortness of breath
c/o feeling dizzy still -despite less orthostatic blood pressure
Labs
-
Labs:
WBC 11.0 10^3/uL (4.8-10.8) H 09/05/24 06:15
RBC 5.15 10^6/uL (4.70-6.10) 09/05/24 06:15
Hgb 14.4 g/dL (13.0-18.0) 09/05/24 06:15
Hct 43.8 % (39.0-52.0) 09/05/24 06:15
Plt Count 359 10^3/uL (130-400) 09/05/24 06:15
Sodium 143 mmol/L (135-145) 09/08/24 07:06
Potassium 4.4 mmol/L (3.5-5.1) 09/08/24 07:06
Chloride 104 mmol/L (98-107) 09/08/24 07:06
Carbon Dioxide 29 mmol/L (22-30) 09/08/24 07:06
BUN 16 mg/dl (9-20) 09/08/24 07:06
Creatinine 1.1 mg/dL (0.7-1.3) 09/08/24 07:06
eGFR > 60.00 09/08/24 07:06
Glucose 170 mg/dl (70-99) H 09/08/24 07:06
Calcium 9.6 mg/dl (8.4-10.2) 09/08/24 07:06
Phosphorus 4.4 mg/dl (2.5-4.5) 09/05/24 06:15
Albumin 3.9 g/dl (3.5-5.0) 09/03/24 05:11
Physical Exam
-
Vital Signs:
Vital Signs
Temp Pulse Resp BP Pulse Ox
97.9 F 75 20 184/112 98
09/08/24 11:36 09/08/24 11:36 09/08/24 11:36 09/08/24 11:36 09/08/24 11:36
Cardiovascular:: Regular rate and rhythm
Respiratory:: Bilateral: CTA
Lung Excursion:: Normal
Abdomen:: Nontender and Soft
Extremity Edema:: None: Bilateral:
[place] Catheter: No
[2024-09-08 15:58] LABS: Glucose - Point of Care 133 mg/dl (70-99)
--- NOTE | 2024-09-08 16:39 | CM ---
Patient doing well in therapy and appears close to baseline per PT.
Plan: Case management will continue to follow and assist with discharge planning. Home when stable.
[2024-09-08 21:03] LABS: Glucose - Point of Care 125 mg/dl (70-99)
[2024-09-08] MEDS: CYMBALTA DELAYED RELEASE 60 MG PO (21:41)
[2024-09-08] MEDS: AMBIEN 5 MG PO (23:00)
[2024-09-09] VITALS (7 sets, daily range): BP systolic 121–186; BP diastolic 73–117; PULSE 72–90; BMI 28.6
[2024-09-09 07:42] LABS: Blood Urea Nitrogen 18 mg/dl (9-20); Calcium 9.5 mg/dl (8.4-10.2); Carbon Dioxide 29 mmol/L (22-30); Chloride 104 mmol/L (98-107); Estimated Creatinine Clearance 83 ml/min; Glucose 124 mg/dl (70-99); Potassium 4.8 mmol/L (3.5-5.1); Sodium 143 mmol/L (135-145); eGFR > 60.00
[2024-09-09 08:08] LABS: Glucose - Point of Care 117 mg/dl (70-99)
[2024-09-09] MEDS: CRESTOR 40 MG PO (09:15)
[2024-09-09] MEDS: OXYCONTIN (CONTROLLED RELEASE) 40 MG PO ×3 (09:15→21:03)
[2024-09-09] MEDS: PROSCAR 5 MG PO (09:15)
[2024-09-09] MEDS: ProAmatine 2.5 MG PO ×2 (09:15→17:54)
[2024-09-09] MEDS: TRICOR 145 MG PO (09:15)
[2024-09-09] MEDS: GLUCOPHAGE 500 MG PO ×2 (09:16→16:28)
[2024-09-09] MEDS: FLOMAX 0.4 MG PO (09:16)
[2024-09-09] MEDS: WELLBUTRIN XL (24 hour extended release) 150 MG PO (09:16)
[2024-09-09] MEDS: CYMBALTA DELAYED RELEASE 30 MG PO (09:16)
[2024-09-09] MEDS: PEPCID 20 MG PO (09:16)
[2024-09-09] MEDS: BETAPACE 80 MG PO ×2 (09:16→21:03)
[2024-09-09] MEDS: ANTIVERT 12.5 MG PO (09:17)
[2024-09-09] MEDS: COREG 3.125 MG PO ×2 (09:17→21:04)
[2024-09-09] MEDS: MIRALAX PO (09:17)
[2024-09-09] MEDS: ELIQUIS 5 MG PO ×2 (09:17→21:04)
[2024-09-09] MEDS: SENOKOT-S PO (09:18)
[2024-09-09] MEDS: FLUSH (NSS) 1 FLUSH IV (09:18)
[2024-09-09] MEDS: TYLENOL 650 MG PO (09:29)
[2024-09-09 11:45] LABS: Glucose - Point of Care 142 mg/dl (70-99)
[2024-09-09] MEDS: ProAmatine PO (12:18)
--- NOTE | 2024-09-09 12:18 | PTCARENOTE ---
orthostatic vital signs noted. patient asymptomatic. due for midodrine- discussed with Dr Vizcarra who instructed to hold 1200 dose , encourage to sit in chair and continue to monitor. instructed patient to sit in chair- he said he would when his
lunch arrived. plan of care on going.
--- NOTE | 2024-09-09 12:33 | W.PN.HOSP.TC ---
Today's Communication/Plan
-
orthos negative
monitor bp
monitor for symptoms
if improving possible dc over weekend
Assessment / Plan
Assessment / Plan
Physical Exam
General: no acute distress resting comfortably in bed
HEENT: NormoCephalic, Moist mucous membranes, Atraumatic, [place] Conjunctivae
Respiratory: Clear to auscultation b/l, stable respiratory status on room air.
Cardiac: S1/S2 and Regular Rhythm
GI: Soft, Non Tender, Non Distended and Normal Bowel Sounds; No Organomegaly
Musculoskeletal: No Clubbing, No Cyanosis and No Edema
Skin: No Rash, multiple tattoos on body, back and b/l arms
Neuro: AOx3 conversant coherent
Psych: Calm and Intact Judgment/Insight
68M MDR HTN HLD DM2 neuropathy hx bladder ca hx cardiac ablation here for hypertensive emergency.
#Symptomatic Orthostatic Hypotension secondary to autonomic neuropathy
Probably not used to low BP
TEDs on. Will try to apply abdominal binder
monitor orthostatic vitals-negative today.
cont PT/OT
possible Vertigo overlapping with symptoms dizziness, meclizine prn ordered
Started on low-dose midodrine standing 2.5mg TID. BP uptrending now unfortunately. Hold afternoon midodrine dose
Status post trial of IV fluids
Patient understand this is a chronic condition and symptoms will only be treated.
#Hypertensive urgency with associated dizziness/headache
#labile HTN
Head CT: No acute intracranial abnormality noted.
- Dr. Thompson is EP, Dr. Reeves is primary analysis intern
- Cardio eval appreciated
- Surgical Brace Maker eval appreciated
- Nephro eval appreciated checking ARR, Coreg decreased further to 3.125 mg BID d/t orthostatic hypotension
- weaned off Nicardipine gtt, started on nifedipine 30 mg daily as per cardio later placed on hold as per nephro d/t symptomatic orthostatic hypotension
- home candesartan reduced from 32 mg BID to 16 mg BID d/t hypotension, was placed on hold d/t WILLIAM, restarted at 32 mg daily but then placed on hold again d/t hyperkalemia as below
- UDS screen pos for oxycodone and marijuana
-urine normetanephrine noted elevated, CT abd/pelvis noted no acute abn's or adrenal masses, serum normetanephrine also noted elevated, discussed with endocrine, elevations modest, typically levels four-fold upper limit of normal elevations before
seriously considering Pheo, current elevations attributable to physiologic stress while being in hospital, Tylenol use can also cause false positives- typically need to be held 72 hrs prior to collection serum meta-nephrine levels.
-Renal Doppler no evidence of renal artery stenosis
- Recommended outpatient ophthalmology evaluation for retinal inspection as w/uncontrolled BP. No diplopia vision difficulty. States of increased tearing ?allergies
#08/30 WILLIAM
Cr elevated from 0.9 to 1.7 possibly 2/2 severe hypotension since resolved
Cr since improved
IVF gentle hydration completed
Nephro eval appreciated
Hyperkalemia
-Lokelma as per Nephro
-Candesartan placed on hold
-brief potassium restriction diet, discontinued with resolution hyperkalemia.
#headache, dizziness, cough
#suspected underlying asthma, outpt follow up as per Pulm/Surgical Brace Maker
- COVID/Flu negative
- PRN Tylenol
- PRN Reglan
-CR chest appreciated no acute abn's
-symptoms since resolved
#reporting ear congestion b/l
4 days debrox ear drops started
#hyperlipidemia
- continue fenofibrate, rosuvastatin
#atrial fibrillation
#QT prolongation
-minimize use QT prolonging agents as possible
- continue Eliquis. Coreg dose decreased
- Sotalol held d/t WILLIAM since resumed with improvement in kidney function, sotalol 80 mg bid as per Cardio.
#NIDDM
-A1c 7.3
- AccuCheck AC & HS
- SSI
-metformin 500 mg bid started, briefly held d/t WILLIAM, since resumed, cont
-Carb controlled diet
#Hypokalemia
#Hypomagnesemia
monitor and replete as necessary
#GERD
- continue famotidine
- Maalox prn
#depression
- continue bupropion
#chronic pain
- continue duloxetine, Xtampza and oxycodone
PT/OT eval appreciated outpt therapy recommended
Code status: full code
DVT prophylaxis: Eliquis
PT-OP therapy. Tentative plan home in 24h. Recommend surya/abd binder/oob to recliner.
Anticipated Discharge: Within 24 hours
Subjective/Interval History
-
Date of Service: September 09, 2024
usually in morning upon waking pt feels lightheaded
walked well w/PT yesterday
Objective Data
-
Labs:
Laboratory Results
09/09/24
06:56
Sodium 143
Potassium 4.8
Chloride 104
Carbon Dioxide 29
BUN 18
Creatinine 1.1
Glucose 124 H
Calcium 9.5
Vital Signs:
Vital Signs
Temp Pulse Resp BP Pulse Ox
97.6 F 69 18 181/110 97
09/09/24 11:51 09/09/24 08:14 09/09/24 11:51 09/09/24 12:18 09/09/24 11:51
I&O
09/08/24 09/09/24 09/10/24
06:59 06:59 06:59
Intake Total 1440 / 1440 660 / 660
Output Total 1275 / 1275 425 / 425 650 / 650
Balance 165 / 165 235 / 235 -650 / -650
--- NOTE | 2024-09-09 14:38 | W.PN.NEPH.PH ---
Today's Communication / Plan
-
Maintain current dosages of midodrine 2.5 mg 3 times daily with hold
And low-dose carvedilol
Assessment/Plan
-
68-year-old male former tobacco smoker with a past medical history of hypertension, hyperlipidemia, A-fib s/p ablation, GERD, DM type II and depression who presents with lightheadedness and a headache. And hypertensive urgency of BP 223/126,
Renal consult for WILLIAM 0.9-1.6 with hypotension
Impression.
Acute kidney injury secondary to hemodynamic changes hypertensive urgency with significant drop in blood pressure in the 70s systolic.
Hypertensive urgency.
Diabetes type 2. with neuropathy
Plan.
Creatinine improved to 1.1
Bp labile and orthostatic bps possible symptomatic
Continue ADDIS and abd binder
permissive HTN to avoid orthostatic hypotension
Previously decreased coreg to 3.125mg BID holding procardia with drops in her blood pressure though less today
Maintain midodrine 2.5mg TID (held today as standing bp was elevated)
Off ARB
U metanephrine only mildly elevated -unlikely pheo,
serum normetanephrine 1.38 is also not diagnostic of pheo( should be over 2.2)
ARR pending
Renal Doppler no evidence of renal artery stenosis
check cortisol ~10
avoid sedatives -on ambien daily and pain meds
Unfortunately patient likely has underlying diabetic autonomic neuropathy and this can only be treated as opposed to being cured (i.e. anti-htns with midodrine)
Changed midodrine to 2.5 mg 3 times daily as we need a dispo plan on treating this on a chronic basis rather than asking the patient to do this as needed
Much less orthostatic today although he continues to have a dizziness despite drops in blood pressure= he asked about neurological consult as I will defer to primary
-
-
Date of Service: September 09, 2024
CC / HPI / ROS
-
Chief Complaint:
Presents with hypertensive urgency
History of Present Illness:
BP still labile , orthostatic BP with symptoms improved
cr 1.1 stable
Review of Systems:.
No chest pain or shortness of breath
c/o feeling dizzy still -despite less orthostatic blood pressure
Labs
-
Labs:
WBC 11.0 10^3/uL (4.8-10.8) H 09/05/24 06:15
RBC 5.15 10^6/uL (4.70-6.10) 09/05/24 06:15
Hgb 14.4 g/dL (13.0-18.0) 09/05/24 06:15
Hct 43.8 % (39.0-52.0) 09/05/24 06:15
Plt Count 359 10^3/uL (130-400) 09/05/24 06:15
Sodium 143 mmol/L (135-145) 09/09/24 06:56
Potassium 4.8 mmol/L (3.5-5.1) 09/09/24 06:56
Chloride 104 mmol/L (98-107) 09/09/24 06:56
Carbon Dioxide 29 mmol/L (22-30) 09/09/24 06:56
BUN 18 mg/dl (9-20) 09/09/24 06:56
Creatinine 1.1 mg/dL (0.7-1.3) 09/09/24 06:56
eGFR > 60.00 09/09/24 06:56
Glucose 124 mg/dl (70-99) H 09/09/24 06:56
Calcium 9.5 mg/dl (8.4-10.2) 09/09/24 06:56
Phosphorus 4.4 mg/dl (2.5-4.5) 09/05/24 06:15
Albumin 3.9 g/dl (3.5-5.0) 09/03/24 05:11
Physical Exam
-
Vital Signs:
Vital Signs
Temp Pulse Resp BP Pulse Ox
97.6 F 69 18 181/110 97
09/09/24 11:51 09/09/24 08:14 09/09/24 11:51 09/09/24 12:18 09/09/24 11:51
[2024-09-09 17:29] LABS: Glucose - Point of Care 208 mg/dl (70-99)
[2024-09-09] MEDS: NOVOLOG FLEXPEN-LOW RESISTANCE 2 UNITS SC (17:53)
[2024-09-09] MEDS: CYMBALTA DELAYED RELEASE 60 MG PO (21:03)
[2024-09-09] MEDS: SENOKOT-S 1 TABLET PO (21:04)
[2024-09-09 21:33] LABS: Glucose - Point of Care 163 mg/dl (70-99)
[2024-09-10] VITALS (8 sets, daily range): BP systolic 88–188; BP diastolic 56–110; PULSE 65–93; BMI 28.3
[2024-09-10] MEDS: AMBIEN 5 MG PO (00:11)
[2024-09-10] MEDS: ZANAFLEX 2 MG PO (00:11)
[2024-09-10 07:05] LABS: Blood Urea Nitrogen 18 mg/dl (9-20); Calcium 9.9 mg/dl (8.4-10.2); Carbon Dioxide 29 mmol/L (22-30); Chloride 107 mmol/L (98-107); Estimated Creatinine Clearance 83 ml/min; Glucose 111 mg/dl (70-99); Sodium 145 mmol/L (135-145); eGFR > 60.00
[2024-09-10] MEDS: BETAPACE 80 MG PO ×2 (07:47→21:22)
[2024-09-10] MEDS: WELLBUTRIN XL (24 hour extended release) 150 MG PO (07:47)
[2024-09-10] MEDS: ProAmatine PO ×3 (07:48→18:10)
[2024-09-10] MEDS: CRESTOR 40 MG PO (07:49)
[2024-09-10] MEDS: OXYCONTIN (CONTROLLED RELEASE) 40 MG PO ×3 (07:50→21:23)
[2024-09-10] MEDS: CYMBALTA DELAYED RELEASE 30 MG PO (07:50)
[2024-09-10] MEDS: TYLENOL 650 MG PO (07:50)
[2024-09-10] MEDS: ELIQUIS 5 MG PO ×2 (07:50→21:23)
[2024-09-10] MEDS: PEPCID 20 MG PO (07:51)
[2024-09-10] MEDS: FLOMAX 0.4 MG PO (07:51)
[2024-09-10] MEDS: SENOKOT-S 1 TABLET PO ×2 (07:51→21:23)
[2024-09-10] MEDS: PROSCAR 5 MG PO (07:51)
[2024-09-10] MEDS: COREG 3.125 MG PO ×2 (07:51→21:22)
[2024-09-10] MEDS: TRICOR 145 MG PO (07:51)
[2024-09-10] MEDS: GLUCOPHAGE 500 MG PO ×2 (07:51→16:35)
[2024-09-10] MEDS: MIRALAX 17 GRAMS PO (07:52)
[2024-09-10 08:46] LABS: Glucose - Point of Care 110 mg/dl (70-99)
[2024-09-10] MEDS: NOVOLOG FLEXPEN-LOW RESISTANCE SC ×2 (08:46→12:28)
[2024-09-10] MEDS: FIORICET 1 TAB PO (12:02)
[2024-09-10 12:27] LABS: Glucose - Point of Care 109 mg/dl (70-99)
--- NOTE | 2024-09-10 12:45 | W.PN.HOSP.TC ---
Today's Communication/Plan
-
Monitor blood pressure
Monitor requirement of midodrine
Recommend out of bed with stockings and binder
Assessment / Plan
Assessment / Plan
Physical Exam
General: distress due to headache
HEENT: NormoCephalic, Moist mucous membranes, Atraumatic, [place] Conjunctivae
Respiratory: Clear to auscultation b/l, stable respiratory status on room air.
Cardiac: S1/S2 and Regular Rhythm
GI: Soft, Non Tender, Non Distended and Normal Bowel Sounds;
Musculoskeletal: No Clubbing, No Cyanosis and No Edema
Skin: No Rash, multiple tattoos on body, back and b/l arms
Neuro: AOx3 conversant coherent
Psych: Calm and Intact Judgment/Insight
68M MDR HTN HLD DM2 neuropathy hx bladder ca hx cardiac ablation here for hypertensive emergency.
#Symptomatic Orthostatic Hypotension secondary to autonomic neuropathy
Probably not used to low BP
TEDs on. Will try to apply abdominal binder
cont PT/OT
possible Vertigo overlapping with symptoms dizziness, meclizine prn ordered
Started on low-dose midodrine standing 2.5mg TID. BP uptrending up now unfortunately. Hold midodrine dose
Status post trial of IV fluids
Patient understand this is a chronic condition and symptoms will only be treated.
Recommend patient to get out of bed and sit in recliner and ambulate if not feeling dizzy
#Hypertensive urgency with associated dizziness/headache
#labile HTN
Head CT: No acute intracranial abnormality noted.
- Dr. Thompson is EP, Dr. Reeves is primary innersole fitter
- Cardio eval appreciated
- Supervisor Electric eval appreciated
- Nephro eval appreciated checking ARR, Coreg decreased further to 3.125 mg BID d/t orthostatic hypotension
- weaned off Nicardipine gtt, started on nifedipine 30 mg daily as per cardio later placed on hold as per nephro d/t symptomatic orthostatic hypotension
- home candesartan reduced from 32 mg BID to 16 mg BID d/t hypotension, was placed on hold d/t WILLIAM, restarted at 32 mg daily but then placed on hold again d/t hyperkalemia as below
- UDS screen pos for oxycodone and marijuana
-urine normetanephrine noted elevated, CT abd/pelvis noted no acute abn's or adrenal masses, serum normetanephrine also noted elevated, discussed with endocrine, elevations modest, typically levels four-fold upper limit of normal elevations before
seriously considering Pheo, current elevations attributable to physiologic stress while being in hospital, Tylenol use can also cause false positives- typically need to be held 72 hrs prior to collection serum meta-nephrine levels.
-Renal Doppler no evidence of renal artery stenosis
- Recommended outpatient ophthalmology evaluation for retinal inspection as w/uncontrolled BP. No diplopia vision difficulty. States of increased tearing ?allergies
#08/30 WILLIAM
Cr elevated from 0.9 to 1.7 possibly 2/2 severe hypotension since resolved
Cr since improved
IVF gentle hydration completed
Nephro eval appreciated
Hyperkalemia
-Lokelma as per Nephro
-Candesartan placed on hold
-brief potassium restriction diet, discontinued with resolution hyperkalemia.
#headache, dizziness, cough
#suspected underlying asthma, outpt follow up as per Pulm/Supervisor Electric
- COVID/Flu negative
- PRN Tylenol
- PRN Reglan
-CR chest appreciated no acute abn's
- Headache improved with dose of fioricet
#reporting ear congestion b/l
4 days debrox ear drops started
#hyperlipidemia
- continue fenofibrate, rosuvastatin
#atrial fibrillation
#QT prolongation
-minimize use QT prolonging agents as possible
- continue Eliquis. Coreg dose decreased
- Sotalol held d/t WILLIAM since resumed with improvement in kidney function, sotalol 80 mg bid as per Cardio.
#NIDDM
-A1c 7.3
- AccuCheck AC & HS
- SSI
-metformin 500 mg bid started, briefly held d/t WILLIAM, since resumed, cont
-Carb controlled diet
#Hypokalemia
#Hypomagnesemia
monitor and replete as necessary
#GERD
- continue famotidine
- Maalox prn
#depression
- continue bupropion
#chronic pain
- continue duloxetine, Xtampza and oxycodone
PT/OT eval appreciated outpt therapy recommended
Code status: full code
DVT prophylaxis: Eliquis
PT-OP therapy. Recommend surya/abd binder/oob to recliner.
Anticipated Discharge: Within 24 hours
Subjective/Interval History
-
Date of Service: September 10, 2024
States of headache this morning
Blood pressure elevated supine
Did well with physical therapy yesterday
Objective Data
-
Labs:
Laboratory Results
09/10/24
06:13
Sodium 145
Potassium 5.0
Chloride 107
Carbon Dioxide 29
BUN 18
Creatinine 1.1
Glucose 111 H
Calcium 9.9
Vital Signs:
Vital Signs
Temp Pulse Resp BP Pulse Ox
97.8 F 63 18 182/104 97
09/10/24 11:44 09/10/24 11:44 09/10/24 11:44 09/10/24 11:44 09/10/24 11:44
I&O
09/09/24 09/10/24 09/11/24
06:59 06:59 06:59
Intake Total 660 / 660
Output Total 425 / 425 650 / 650 600 / 600
Balance 235 / 235 -650 / -650 -600 / -600
--- NOTE | 2024-09-10 13:04 | PTCARENOTE ---
BP with high supine BP. Orthostatic vitals positive. Asymptomatic. MD aware. Earlier in AM complained of 10 headache, PRN Tylenol administered, re-evaluation pt states 11/24 headache. MD aware, Fioricet ordered and administered. Pt reports 07/25.
Encouraged pt to sit/stand up to help with BP, thigh high ADDIS stocking on pt. No complaints at this time. Plan of care ongoing.
--- NOTE | 2024-09-10 13:14 | CM ---
Chart reviewed. Patient doing well in therapy and appears close to baseline per PT.
Plan: Home; no needs
[2024-09-10 16:46] LABS: Glucose - Point of Care 179 mg/dl (70-99)
[2024-09-10] MEDS: NOVOLOG FLEXPEN-LOW RESISTANCE 1 UNITS SC (16:47)
[2024-09-10] MEDS: CYMBALTA DELAYED RELEASE 60 MG PO (21:23)
[2024-09-10 21:59] LABS: Glucose - Point of Care 151 mg/dl (70-99)
[2024-09-11] VITALS (9 sets, daily range): BP systolic 121–180; BP diastolic 75–113; PULSE 76–100; BMI 28.4
[2024-09-11] MEDS: AMBIEN 5 MG PO (00:11)
[2024-09-11] MEDS: ZANAFLEX 2 MG PO ×2 (00:11→21:43)
[2024-09-11 07:22] LABS: Blood Urea Nitrogen 19 mg/dl (9-20); Calcium 9.5 mg/dl (8.4-10.2); Carbon Dioxide 27 mmol/L (22-30); Chloride 105 mmol/L (98-107); Estimated Creatinine Clearance 83 ml/min; Glucose 113 mg/dl (70-99); Potassium 4.5 mmol/L (3.5-5.1); Sodium 142 mmol/L (135-145); eGFR > 60.00
[2024-09-11] MEDS: TRICOR 145 MG PO (08:27)
[2024-09-11] MEDS: CYMBALTA DELAYED RELEASE 30 MG PO (08:27)
[2024-09-11] MEDS: PROSCAR 5 MG PO (08:27)
[2024-09-11] MEDS: CRESTOR 40 MG PO (08:27)
[2024-09-11] MEDS: FLOMAX 0.4 MG PO (08:27)
[2024-09-11] MEDS: COREG 3.125 MG PO ×2 (08:27→19:29)
[2024-09-11] MEDS: GLUCOPHAGE 500 MG PO ×2 (08:27→16:15)
[2024-09-11] MEDS: WELLBUTRIN XL (24 hour extended release) 150 MG PO (08:28)
[2024-09-11] MEDS: ELIQUIS 5 MG PO ×2 (08:28→19:29)
[2024-09-11] MEDS: ProAmatine PO ×3 (08:28→18:01)
[2024-09-11] MEDS: PEPCID 20 MG PO (08:28)
[2024-09-11] MEDS: BETAPACE 80 MG PO ×2 (08:28→19:29)
[2024-09-11] MEDS: OXYCONTIN (CONTROLLED RELEASE) 40 MG PO ×3 (08:30→21:43)
[2024-09-11 08:35] LABS: Glucose - Point of Care 107 mg/dl (70-99)
[2024-09-11] MEDS: MIRALAX PO (08:35)
[2024-09-11] MEDS: SENOKOT-S PO ×2 (08:35→19:34)
[2024-09-11] MEDS: NOVOLOG FLEXPEN-LOW RESISTANCE SC ×2 (08:35→17:05)
--- NOTE | 2024-09-11 10:30 | W.PN.HOSP.TC ---
Addendum entered and electronically signed by Remington Vizcarra MD 09/11/24 14:02:
update spouse over the phone in details. Spouse also understand that patient with autonomic neuropathy. She was appreciative for updates.
Please call spouse Nando AT [phone]
Original Note:
Today's Communication/Plan
-
monitor need of midodrine-prn vs daily basis
Monitor activity tolerance -oob/ambulation
Assessment / Plan
Assessment / Plan
Physical Exam
General: distress due to headache
HEENT: NormoCephalic, Moist mucous membranes, Atraumatic, [place] Conjunctivae
Respiratory: Clear to auscultation b/l, stable respiratory status on room air.
Cardiac: S1/S2 and Regular Rhythm
GI: Soft, Non Tender, Non Distended and Normal Bowel Sounds;
Musculoskeletal: No Clubbing, No Cyanosis and No Edema
Skin: No Rash, multiple tattoos on body, back and b/l arms
Neuro: AOx3 conversant coherent
Psych: Calm and Intact Judgment/Insight
68M MDR HTN HLD DM2 neuropathy hx bladder ca hx cardiac ablation here for hypertensive emergency.
#Symptomatic Orthostatic Hypotension secondary to autonomic neuropathy
Probably not used to low BP
TEDs on. Will try to apply abdominal binder
cont PT/OT
possible Vertigo overlapping with symptoms dizziness, meclizine prn ordered
Started on low-dose midodrine standing 2.5mg TID. BP uptrending up now unfortunately. Hold midodrine dose. Probably may need to change back to PRN or daily AM dose and than prn basis w/ blood pressure check.
Status post trial of IV fluids
Patient understand this is a chronic condition and symptoms will only be treated.
Recommend patient to get out of bed and sit in recliner and ambulate if not feeling dizzy
#Hypertensive urgency with associated dizziness/headache
#labile HTN
Head CT: No acute intracranial abnormality noted.
- Dr. Thompson is EP, Dr. Reeves is primary chief underwriter
- Cardio eval appreciated
- Feed Preparation Operator eval appreciated
- Nephro eval appreciated checking ARR, Coreg decreased further to 3.125 mg BID d/t orthostatic hypotension
- weaned off Nicardipine gtt, started on nifedipine 30 mg daily as per cardio later placed on hold as per nephro d/t symptomatic orthostatic hypotension
- home candesartan reduced from 32 mg BID to 16 mg BID d/t hypotension, was placed on hold d/t WILLIAM, restarted at 32 mg daily but then placed on hold again d/t hyperkalemia as below
- UDS screen pos for oxycodone and marijuana
-urine normetanephrine noted elevated, CT abd/pelvis noted no acute abn's or adrenal masses, serum normetanephrine also noted elevated, discussed with endocrine, elevations modest, typically levels four-fold upper limit of normal elevations before
seriously considering Pheo, current elevations attributable to physiologic stress while being in hospital, Tylenol use can also cause false positives- typically need to be held 72 hrs prior to collection serum meta-nephrine levels.
-Renal Doppler no evidence of renal artery stenosis
- Recommended outpatient ophthalmology evaluation for retinal inspection as w/uncontrolled BP. No diplopia vision difficulty. States of increased tearing ?allergies
#08/30 WILLIAM
Cr elevated from 0.9 to 1.7 possibly 2/2 severe hypotension since resolved
Cr since improved
IVF gentle hydration completed
Nephro eval appreciated
Hyperkalemia
-Lokelma as per Nephro
-Candesartan placed on hold
-brief potassium restriction diet, discontinued with resolution hyperkalemia.
#headache, dizziness, cough
#suspected underlying asthma, outpt follow up as per Pulm/Feed Preparation Operator
- COVID/Flu negative
- PRN Tylenol
- PRN Reglan
-CR chest appreciated no acute abn's
- Headache resolved.
#reporting ear congestion b/l
4 days debrox ear drops started
#hyperlipidemia
- continue fenofibrate, rosuvastatin
#atrial fibrillation
#QT prolongation
-minimize use QT prolonging agents as possible
- continue Eliquis. Coreg dose decreased
- Sotalol held d/t WILLIAM since resumed with improvement in kidney function, sotalol 80 mg bid as per Cardio.
#NIDDM
-A1c 7.3
- AccuCheck AC & HS
- SSI
-metformin 500 mg bid started, briefly held d/t WILLIAM, since resumed, cont
-Carb controlled diet
#Hypokalemia
#Hypomagnesemia
monitor and replete as necessary
#GERD
- continue famotidine
- Maalox prn
#depression
- continue bupropion
#chronic pain
- continue duloxetine, Xtampza and oxycodone
PT/OT eval appreciated outpt therapy recommended
Code status: full code
DVT prophylaxis: Eliquis
PT-OP therapy. Recommend surya/abd binder/oob to recliner.
Anticipated Discharge: Within 24 hours
Subjective/Interval History
-
Date of Service: September 11, 2024
states felt fuzzy yesterday
no headache this morning
was able to tolerate 2h in recliner chair yesterday-will try to increase time today
Objective Data
-
Labs:
Laboratory Results
09/11/24
06:18
Sodium 142
Potassium 4.5
Chloride 105
Carbon Dioxide 27
BUN 19
Creatinine 1.1
Glucose 113 H
Calcium 9.5
Vital Signs:
Vital Signs
Temp Pulse Resp BP Pulse Ox
98.0 F 64 14 170/95 96
09/11/24 07:55 09/11/24 08:28 09/11/24 07:55 09/11/24 08:09/11/24 09:46
I&O
09/10/24 09/11/24 09/12/24
06:59 06:59 06:59
Intake Total 1440 / 1440
Output Total 650 / 650 1325 / 1325
Balance -650 / -650 115 / 115
[2024-09-11 12:27] LABS: Glucose - Point of Care 162 mg/dl (70-99)
[2024-09-11] MEDS: NOVOLOG FLEXPEN-LOW RESISTANCE 1 UNITS SC (12:27)
[2024-09-11] MEDS: TYLENOL 650 MG PO (13:00)
[2024-09-11 17:02] LABS: Glucose - Point of Care 126 mg/dl (70-99)
[2024-09-11] MEDS: CLARITIN 10 MG PO (19:48)
[2024-09-11 21:12] LABS: Glucose - Point of Care 124 mg/dl (70-99)
[2024-09-11] MEDS: CYMBALTA DELAYED RELEASE 60 MG PO (21:43)
[2024-09-12] VITALS (11 sets, daily range): BP systolic 125–188; BP diastolic 78–127; PULSE 67–98; BMI 28.3
--- NOTE | 2024-09-12 06:46 | W.PN.HOSP.TC ---
Today's Communication/Plan
-
CT neck
pain control
neuro eval
out of bed to chair
Assessment / Plan
Assessment / Plan
Physical Exam
General: no acute distress, appears comfortable at this time.
HEENT: NormoCephalic, Moist mucous membranes, Atraumatic, [place] Conjunctivae
Respiratory: Clear to auscultation b/l, stable respiratory status on room air.
Cardiac: S1/S2 and Regular Rhythm
GI: Soft, Non Tender, Non Distended and Normal Bowel Sounds;
Musculoskeletal: No Clubbing, No Cyanosis and No Edema
Skin: No Rash, multiple tattoos on body, back and b/l arms
Neuro: AOx3 conversant coherent
Psych: Calm and Intact Judgment/Insight
68M MDR HTN HLD DM2 neuropathy hx bladder ca hx cardiac ablation here for hypertensive emergency.
#Symptomatic Orthostatic Hypotension secondary to autonomic neuropathy
#Dizziness
Probably not used to low BP
TEDs Abd binder
PT/OT appreciated outpt therapy
possible Vertigo overlapping with symptoms dizziness, meclizine prn ordered
Started on low-dose midodrine standing 2.5mg TID. BP uptrending up now unfortunately. Hold midodrine dose. Probably may need to change back to PRN or daily AM dose and than prn basis w/ blood pressure check.
Status post trial of IV fluids
Patient understand this is a chronic condition and symptoms will only be treated.
Recommend patient to get out of bed and sit in recliner and ambulate if not feeling dizzy
Neuro eval appreciated
#Neck pain, hx disc implant/fusion
CT neck appreciated no acute abn's, advancing arthritis
#Hypertensive urgency with associated dizziness/headache
#labile HTN
Head CT: No acute intracranial abnormality noted.
- Dr. Thompson is EP, Dr. Reeves is primary used car lot porter
- Cardio eval appreciated
- [facility] Psychiatrist eval appreciated
- Nephro eval appreciated checking ARR, Coreg decreased further to 3.125 mg BID d/t orthostatic hypotension
- weaned off Nicardipine gtt, started on nifedipine 30 mg daily as per cardio later placed on hold as per nephro d/t symptomatic orthostatic hypotension
- home candesartan reduced from 32 mg BID to 16 mg BID d/t hypotension, was placed on hold d/t WILLIAM, restarted at 32 mg daily but then placed on hold again d/t hyperkalemia as below
- UDS screen pos for oxycodone and marijuana
-urine normetanephrine noted elevated, CT abd/pelvis noted no acute abn's or adrenal masses, serum normetanephrine also noted elevated, discussed with endocrine, elevations modest, typically levels four-fold upper limit of normal elevations before
seriously considering Pheo, current elevations attributable to physiologic stress while being in hospital, Tylenol use can also cause false positives- typically need to be held 72 hrs prior to collection serum meta-nephrine levels.
-Renal Doppler no evidence of renal artery stenosis
- Recommended outpatient ophthalmology evaluation for retinal inspection as w/uncontrolled BP. No diplopia vision difficulty. States of increased tearing ?allergies
#08/30 WILLIAM
Cr elevated from 0.9 to 1.7 possibly 2/2 severe hypotension since resolved
Cr since improved
IVF gentle hydration completed
Nephro eval appreciated
Hyperkalemia
-Lokelma as per Nephro
-Candesartan placed on hold
-brief potassium restriction diet, discontinued with resolution hyperkalemia.
#headache, dizziness, cough
#suspected underlying asthma, outpt follow up as per Pulm/[facility] Psychiatrist
- COVID/Flu negative
- PRN Tylenol
- PRN Reglan
-CR chest appreciated no acute abn's
- Headache resolved.
#reporting ear congestion b/l
4 days debrox ear drops started
#hyperlipidemia
- continue fenofibrate, rosuvastatin
#atrial fibrillation
#QT prolongation
-minimize use QT prolonging agents as possible
- continue Eliquis. Coreg dose decreased
- Sotalol held d/t WILLIAM since resumed with improvement in kidney function, sotalol 80 mg bid as per Cardio.
#NIDDM
-A1c 7.3
- AccuCheck AC & HS
- SSI
-metformin 500 mg bid started, briefly held d/t WILLIAM, since resumed, cont
-Carb controlled diet
#Hypokalemia
#Hypomagnesemia
monitor and replete as necessary
#GERD
- continue famotidine
- Maalox prn
#depression
- continue bupropion
#chronic pain
- continue duloxetine, Xtampza substituted with Oxycontin while inpt, oxycodone prn
PT/OT eval appreciated outpt therapy recommended
Code status: full code
DVT prophylaxis: Eliquis
PT-OP therapy. Recommend surya/abd binder/oob to recliner.
discussed with patient and patient's Nando
I spent a total of 45 minutes with the patient or on the floor. More than 50% of this time involved counseling and coordination of care.
Anticipated Discharge: Within 24 hours
Subjective/Interval History
-
Date of Service: September 12, 2024
Orthostatic hypotension resolved this morning though BP remains high. Dizziness persists.
Objective Data
-
Labs:
Laboratory Results
09/12/24
06:00
Sodium Pending
Potassium Pending
Chloride Pending
Carbon Dioxide Pending
BUN Pending
Creatinine Pending
Glucose Pending
Calcium Pending
Vital Signs:
Vital Signs
Temp Pulse Resp BP Pulse Ox
98.2 F 66 18 136/78 97
09/12/24 04:06 09/12/24 04:06 09/12/24 04:06 09/12/24 04:06 09/12/24 04:06
I&O
09/10/24 09/11/24 09/12/24
06:59 06:59 06:59
Intake Total 1440 / 1440 2039
Output Total 650 / 650 1325 / 1325 800 / 800
Balance -650 / -650 115 / 115 1240 / 1240
[2024-09-12 08:04] LABS: Blood Urea Nitrogen 17 mg/dl (9-20); Calcium 9.6 mg/dl (8.4-10.2); Carbon Dioxide 29 mmol/L (22-30); Chloride 104 mmol/L (98-107); Estimated Creatinine Clearance 83 ml/min; Glucose 134 mg/dl (70-99); Potassium 4.1 mmol/L (3.5-5.1); Sodium 143 mmol/L (135-145); eGFR > 60.00
[2024-09-12 08:13] LABS: Glucose - Point of Care 100 mg/dl (70-99)
[2024-09-12] MEDS: NOVOLOG FLEXPEN-LOW RESISTANCE SC ×2 (08:14→12:33)
[2024-09-12] MEDS: BETAPACE 80 MG PO ×2 (09:07→20:41)
[2024-09-12] MEDS: CLARITIN 10 MG PO (09:07)
[2024-09-12] MEDS: CRESTOR 40 MG PO (09:08)
[2024-09-12] MEDS: ELIQUIS 5 MG PO ×2 (09:08→20:41)
[2024-09-12] MEDS: CYMBALTA DELAYED RELEASE 30 MG PO (09:08)
[2024-09-12] MEDS: FLOMAX 0.4 MG PO (09:08)
[2024-09-12] MEDS: PEPCID 20 MG PO (09:08)
[2024-09-12] MEDS: COREG 3.125 MG PO ×2 (09:08→20:41)
[2024-09-12] MEDS: PROSCAR 5 MG PO (09:08)
[2024-09-12] MEDS: GLUCOPHAGE 500 MG PO ×2 (09:08→16:51)
[2024-09-12] MEDS: FLUSH (NSS) 1 FLUSH IV (09:09)
[2024-09-12] MEDS: WELLBUTRIN XL (24 hour extended release) 150 MG PO (09:09)
[2024-09-12] MEDS: TRICOR 145 MG PO (09:09)
[2024-09-12] MEDS: MIRALAX PO (09:17)
[2024-09-12] MEDS: SENOKOT-S PO ×2 (09:17→20:32)
[2024-09-12] MEDS: OXYCONTIN (CONTROLLED RELEASE) 40 MG PO ×3 (09:34→21:59)
[2024-09-12] MEDS: ProAmatine PO ×3 (10:12→18:37)
[2024-09-12 12:21] LABS: Glucose - Point of Care 122 mg/dl (70-99)
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
[2024-09-12] MEDS: TYLENOL 650 MG PO (13:59)
--- NOTE | 2024-09-12 15:18 | PTCARENOTE ---
Addendum entered by Iram Chow 09/12/24 19:47:
Pt's BP elevated at 1530 check 170/114, Dr. Orellana thinks may be pain related. Administered ordered Oxycontin and rechecked BP manually. BP down to 148/86 at 1700, will monitor.
Original Note:
Pt's BP with his BP check prior to Midodrine at 1330 was 170/114. Pt denies any dizziness, slight headache. Administered PRN Tylenol for headache. Made Dr. Orellana aware of BP. He requested manual BP. Manual BP after Tylenol was 158/88, headache
improved with Tylenol.
[2024-09-12] MEDS: NOVOLOG FLEXPEN-LOW RESISTANCE 1 UNITS SC (16:51)
[2024-09-12 16:52] LABS: Glucose - Point of Care 152 mg/dl (70-99)
--- NOTE | 2024-09-12 18:00 | CM ---
LISSETTE attempted to meet with Ellis this afternoon, however he was off the floor for for C spine CT.
LISSETTE will follow up in AM.
[2024-09-12] MEDS: ROXICODONE 5 MG PO (19:38)
[2024-09-12 21:26] LABS: Glucose - Point of Care 143 mg/dl (70-99)
[2024-09-12] MEDS: AMBIEN 5 MG PO (21:58)
[2024-09-12] MEDS: CYMBALTA DELAYED RELEASE 60 MG PO (21:58)
[2024-09-12] MEDS: ZANAFLEX 2 MG PO (21:58)
[2024-09-13 04:00] VITALS: BP 118/86
[2024-09-13 05:11] VITALS: BMI 28.1
[2024-09-13 07:20] LABS: Glucose - Point of Care 105 mg/dl (70-99)
[2024-09-13 07:35] VITALS: BP 158/105
--- NOTE | 2024-09-13 08:11 | W.PN.HOSP.TC ---
Today's Communication/Plan
-
Pain control
Tylenol prn Headache
capsaicin cream neck pain
Morning Duloxetine resumed
Out of bed to chair
PT/OT re-eval
Possible discharge tomorrow
Assessment / Plan
Assessment / Plan
Physical Exam
General: mild moderate distress d/t neck pain headache
HEENT: NormoCephalic, Moist mucous membranes, Atraumatic, [place] Conjunctivae
Respiratory: Clear to auscultation b/l, stable respiratory status on room air.
Cardiac: S1/S2 and Regular Rhythm
GI: Soft, Non Tender, Non Distended and Normal Bowel Sounds;
Musculoskeletal: No Clubbing, No Cyanosis and No Edema
Skin: No Rash, multiple tattoos on body, back and b/l arms
Neuro: AOx3 conversant coherent
Psych: Calm and Intact Judgment/Insight
68M MDR HTN HLD DM2 neuropathy hx bladder ca hx cardiac ablation here for hypertensive emergency.
#Symptomatic Orthostatic Hypotension secondary to autonomic neuropathy
#Dizziness
Probably not used to low BP
TEDs Abd binder
PT/OT appreciated outpt therapy
possible Vertigo overlapping with symptoms dizziness, meclizine prn ordered
Was Started on low-dose midodrine standing 2.5mg TID however frequently held d/t elevated pressures, since discontinued
Status post trial of IV fluids
Patient understand this is a chronic condition and symptoms will only be treated.
Recommend patient to get out of bed and sit in recliner and ambulate if not feeling dizzy
Neuro eval appreciated outpt EMG and CT thoracic lumbar spine
#Neck pain, hx disc implant/fusion
#Neuropathy
#Chronic pain
#hx spinal stimulator
CT neck appreciated no acute abn's, advancing arthritis
at this time suspect neck pain w associate headache source of elevated pressures
continue duloxetine, Xtampza substituted with Oxycontin while inpt, oxycodone prn
Duloxetine briefly tapered to 60 mg HS, morning 30 mg held, d/t concern possibly contributing to orthostatic hypotension, resumed morning dose given increase and neck pain and associate headache following hold
#Hypertensive urgency with associated dizziness/headache
#labile HTN
Head CT: No acute intracranial abnormality noted.
- Dr. Thompson is EP, Dr. Reeves is primary animated cartoons painter
- Cardio eval appreciated
- Audio Visual Manager eval appreciated
- Nephro eval appreciated checking ARR, Coreg decreased further to 3.125 mg BID d/t orthostatic hypotension
- weaned off Nicardipine gtt, started on nifedipine 30 mg daily as per cardio later placed on hold as per nephro d/t symptomatic orthostatic hypotension
- home candesartan reduced from 32 mg BID to 16 mg BID d/t hypotension, was placed on hold d/t WILLIAM, restarted at 32 mg daily but then placed on hold again d/t hyperkalemia as below
- UDS screen pos for oxycodone and marijuana
-urine normetanephrine noted elevated, CT abd/pelvis noted no acute abn's or adrenal masses, serum normetanephrine also noted elevated, discussed with endocrine, elevations modest, typically levels four-fold upper limit of normal elevations before
seriously considering Pheo, current elevations attributable to physiologic stress while being in hospital, Tylenol use can also cause false positives- typically need to be held 72 hrs prior to collection serum meta-nephrine levels.
-Renal Doppler no evidence of renal artery stenosis
- Recommended outpatient ophthalmology evaluation for retinal inspection as w/uncontrolled BP. No diplopia vision difficulty.
#08/30 WILLIAM resolved
Cr elevated from 0.9 to 1.7 possibly 2/2 severe hypotension since resolved
Cr since improved
IVF gentle hydration completed
Nephro eval appreciated
Hyperkalemia
-Lokelma as per Nephro
-Candesartan placed on hold
-brief potassium restriction diet, discontinued with resolution hyperkalemia.
#headache, dizziness, cough
#suspected underlying asthma, outpt follow up as per Pulm/Audio Visual Manager
- COVID/Flu negative
- PRN Tylenol
- PRN Reglan
-CR chest appreciated no acute abn's
#reporting ear congestion b/l
4 days debrox ear drops completed
#hyperlipidemia
- continue fenofibrate, rosuvastatin
#atrial fibrillation
#QT prolongation
-minimize use QT prolonging agents as possible
- continue Eliquis. Coreg dose decreased
- Sotalol held d/t WILLIAM since resumed with improvement in kidney function, sotalol 80 mg bid as per Cardio.
#NIDDM
-A1c 7.3
- AccuCheck AC & HS
- SSI
-metformin 500 mg bid started, briefly held d/t WILLIAM, since resumed, cont
-Carb controlled diet
#Hypokalemia
#Hypomagnesemia
monitor and replete as necessary
#GERD
- continue famotidine
- Maalox prn
#depression
- continue bupropion
PT/OT eval appreciated outpt therapy recommended
Code status: full code
DVT prophylaxis: Eliquis
PT-OP therapy. Recommend surya/abd binder/oob to recliner.
discussed with patient and patient's Nando
I spent a total of 45 minutes with the patient or on the floor. More than 50% of this time involved counseling and coordination of care.
Anticipated Discharge: Within 24 hours
Subjective/Interval History
-
Date of Service: September 13, 2024
Reporting significant headache with associate neck pain.
Objective Data
-
Vital Signs:
Vital Signs
Temp Pulse Resp BP Pulse Ox
97.6 F 68 20 118/86 96
09/13/24 04:00 09/13/24 04:00 09/13/24 04:00 09/13/24 04:00 09/13/24 04:00
I&O
04/09/13/24 09/14/24
06:59 06:59 06:59
Intake Total 2039 1660 / 1660
Output Total 800 / 800 990 / 990
Balance 1240 / 1240 670 / 670
[2024-09-13] MEDS: FLOMAX 0.4 MG PO (08:31)
[2024-09-13] MEDS: TRICOR 145 MG PO (08:31)
[2024-09-13] MEDS: PROSCAR 5 MG PO (08:31)
[2024-09-13] MEDS: ELIQUIS 5 MG PO ×2 (08:31→20:16)
[2024-09-13] MEDS: WELLBUTRIN XL (24 hour extended release) 150 MG PO (08:31)
[2024-09-13] MEDS: CRESTOR 40 MG PO (08:31)
[2024-09-13] MEDS: BETAPACE 80 MG PO ×2 (08:31→20:16)
[2024-09-13] MEDS: OXYCONTIN (CONTROLLED RELEASE) 40 MG PO ×3 (08:31→21:49)
[2024-09-13] MEDS: NOVOLOG FLEXPEN-LOW RESISTANCE SC (08:31)
[2024-09-13] MEDS: CLARITIN 10 MG PO (08:32)
[2024-09-13] MEDS: GLUCOPHAGE 500 MG PO ×2 (08:32→16:26)
[2024-09-13] MEDS: ProAmatine PO (08:32)
[2024-09-13] MEDS: COREG 3.125 MG PO ×2 (08:32→20:16)
[2024-09-13] MEDS: PEPCID 20 MG PO (08:32)
[2024-09-13] MEDS: MIRALAX PO (08:34)
[2024-09-13] MEDS: SENOKOT-S PO ×2 (08:34→20:21)
[2024-09-13] MEDS: TYLENOL 650 MG PO (09:48)
[2024-09-13] MEDS: ROXICODONE 5 MG PO (11:28)
[2024-09-13 11:41] VITALS: BP 158/105
[2024-09-13] MEDS: ZANAFLEX 2 MG PO ×2 (12:06→21:49)
[2024-09-13] MEDS: ZOSTRIX-HP 0.075% CREAM 1 APPLIC TOPICAL ×2 (12:47→16:26)
[2024-09-13 12:50] LABS: Glucose - Point of Care 191 mg/dl (70-99)
[2024-09-13] MEDS: NOVOLOG FLEXPEN-LOW RESISTANCE 1 UNITS SC ×2 (12:52→17:16)
--- NOTE | 2024-09-13 14:40 | VNURNOTE ---
Home Health Liaison met with patient at bedside to discuss [facility] nurse/therapy, visits, schedule and homebound status. Patient is familiar with [facility] services and is agreeable. He understands that visits at home will be 2-3 x per week to assess and
teach medical management. [facility] aware [facility] for [facility] of care in 1-2 days after discharge from .
[facility].
[2024-09-13 15:04] VITALS: BP 132/81
[2024-09-13 17:11] LABS: Glucose - Point of Care 185 mg/dl (70-99)
[2024-09-13] MEDS: TYLENOL 1000 MG PO (17:15)
[2024-09-13 19:00] VITALS: BP 165/91
[2024-09-13] MEDS: AMBIEN 5 MG PO (21:49)
[2024-09-13] MEDS: CYMBALTA DELAYED RELEASE 60 MG PO (21:49)
[2024-09-13] MEDS: ZOSTRIX-HP 0.075% CREAM TOPICAL ×2 (21:49→21:52)
[2024-09-13 21:58] LABS: Glucose - Point of Care 124 mg/dl (70-99)
[2024-09-13 23:00] VITALS: BP 154/92
[2024-09-14 03:00] VITALS: BP 153/93
[2024-09-14 05:38] VITALS: BMI 28.2
--- NOTE | 2024-09-14 07:28 | W.PN.HOSP.TC ---
Today's Communication/Plan
-
discharge
Assessment / Plan
Assessment / Plan
Physical Exam
General: no acute distress appears comfortable at this time.
HEENT: NormoCephalic, Moist mucous membranes, Atraumatic, [place] Conjunctivae
Respiratory: Clear to auscultation b/l, stable respiratory status on room air.
Cardiac: S1/S2 and Regular Rhythm
GI: Soft, Non Tender, Non Distended and Normal Bowel Sounds;
Musculoskeletal: No Clubbing, No Cyanosis and No Edema
Skin: No Rash, multiple tattoos on body, back and b/l arms
Neuro: AOx3 conversant coherent
Psych: Calm and Intact Judgment/Insight
68M MDR HTN HLD DM2 neuropathy hx bladder ca hx cardiac ablation here for hypertensive emergency treated nicardipine gtt since weaned off and downgraded from ICU. Stay prolonged due to symptomatic orthostatic hypertension dizziness. Difficulty
treating hypertension without exacerbation orthostatic hypotension. Antihypertensive medications were subsequently reduced as a result. Orthostatic hypotension treated with abdomen binder and SURYA stockings, scheduled midodrine was also attempted
but discontinued as patient's pressures were frequently too high to receive.
#Symptomatic Orthostatic Hypotension secondary to autonomic neuropathy
#Dizziness 2/2 symptomatic orthostatic hypotension
TEDs Abd binder
possible Vertigo overlapping with symptoms dizziness, meclizine prn ordered (used briefly 09/07 -09/09, no clear benefit, has not used since)
Was Started on low-dose midodrine standing 2.5mg TID however frequently held d/t elevated pressures, since discontinued
Status post trial of IV fluids
Patient understand this is a chronic condition and symptoms will only be treated.
Recommend patient to get out of bed and sit in recliner and ambulate if not feeling dizzy
Neuro eval appreciated outpt EMG and CT thoracic lumbar spine recommended
PT/OT appreciated patient able to ambulate without need for assist device, outpt therapy recommended, scripts provided to facilitate
#Neck pain, hx disc implant/fusion
#Neuropathy
#Chronic pain
#hx spinal stimulator
CT neck appreciated no acute abn's, progressive degenerative disease, stable postsurgical change at C5/C6
periodic neck pain w associate headache causing elevated pressures requiring symptom control with subsequent improvement in pressures
continue duloxetine, home Xtampza substituted with Oxycontin while inpt, oxycodone prn
Duloxetine briefly tapered to 60 mg HS, morning 30 mg held, d/t concern possibly contributing to orthostatic hypotension, resumed morning dose given increase and neck pain and associate headache following hold
#Hypertensive urgency with associated dizziness/headache
#labile HTN
Head CT: No acute intracranial abnormality noted.
- Dr. Thompson is EP, Dr. Reeves is primary blender/braze applicator
- Cardio eval appreciated
- Child Care Centre Manager eval appreciated
- Nephro eval appreciated checking ARR, Coreg decreased further to 3.125 mg BID d/t orthostatic hypotension
- weaned off Nicardipine gtt, started on nifedipine 30 mg daily as per cardio later placed on hold/discontinued as per nephro d/t symptomatic orthostatic hypotension
- home candesartan reduced from 32 mg BID to 16 mg BID d/t hypotension, was placed on hold d/t WILLIAM, restarted at 32 mg daily but then placed on hold again d/t hyperkalemia as below
- UDS screen pos for oxycodone and marijuana
-urine normetanephrine noted elevated, CT abd/pelvis noted no acute abn's or adrenal masses, serum normetanephrine also noted elevated, discussed with endocrine, elevations modest, typically levels four-fold upper limit of normal elevations before
seriously considering Pheo, current elevations attributable to physiologic stress while being in hospital, Tylenol use can also cause false positives- typically need to be held 72 hrs prior to collection serum meta-nephrine levels.
-Renal Doppler no evidence of renal artery stenosis
- Recommended outpatient ophthalmology evaluation for retinal inspection as w/uncontrolled BP. No diplopia vision difficulty.
08/30 WILLIAM resolved
Cr elevated from 0.9 to 1.7 possibly 2/2 severe hypotension since resolved
Cr since improved
IVF gentle hydration completed
Nephro eval appreciated
Hyperkalemia
-Lokelma as per Nephro
-Candesartan placed on hold
-brief potassium restriction diet, discontinued with resolution hyperkalemia.
#headache, dizziness, cough
#suspected underlying asthma, outpt follow up as per Pulm/Child Care Centre Manager
- COVID/Flu negative
- PRN Tylenol
- PRN Reglan
-CR chest appreciated no acute abn's
#reporting ear congestion b/l
4 days debrox ear drops completed
#hyperlipidemia
- continue fenofibrate, rosuvastatin
#atrial fibrillation
#QT prolongation
-minimize use QT prolonging agents as possible
- continue Eliquis. Coreg dose decreased
- Sotalol held d/t WILLIAM since resumed with improvement in kidney function, sotalol 80 mg bid as per Cardio.
#NIDDM
-A1c 7.3
- AccuCheck AC & HS
- SSI
-metformin 500 mg bid started, briefly held d/t WILLIAM, since resumed, cont
-Carb controlled diet
#Hypokalemia
#Hypomagnesemia
monitor and replete as necessary
#GERD
- continue famotidine
- Maalox prn
#depression
- continue bupropion
PT/OT eval appreciated outpt therapy recommended
Code status: full code
DVT prophylaxis: Eliquis
PT-OP therapy. Recommend surya/abd binder/oob to recliner.
Medically stable for discharge home with outpatient follow up recommendations.
discussed with patient and patient's Nando
Total Time Preparing Discharge ___50____ minutes including examination of the patient, summary of the hospital stay, instructions for continuing care to all relevant caregivers; and preparation of discharge records, prescriptions, and referral
forms if necessary.
Anticipated Discharge: Today
Subjective/Interval History
-
Date of Service: September 14, 2024
Seen and examined at bedside in no acute distress resting comfortably in bed. Reports feeling overall well. Neck pain improved. Headache resolved at this time. Eager to go home.
Objective Data
-
Vital Signs:
Vital Signs
Temp Pulse Resp BP Pulse Ox
97.6 F 65 18 153/93 96
09/14/24 03:00 09/14/24 03:00 09/14/24 03:00 09/14/24 03:00 09/14/24 03:00
I&O
09/13/24 09/14/24 09/15/24
06:59 06:59 06:59
Intake Total 1660 / 1660 1200 / 1200
Output Total 990 / 990
Balance 670 / 670 1200 / 1200
[2024-09-14 07:42] LABS: Glucose - Point of Care 92 mg/dl (70-99)
[2024-09-14 07:50] VITALS: BP 139/90
[2024-09-14] MEDS: NOVOLOG FLEXPEN-LOW RESISTANCE SC ×3 (09:39→17:21)
[2024-09-14] MEDS: BETAPACE 80 MG PO (09:39)
[2024-09-14] MEDS: CLARITIN 10 MG PO (09:40)
[2024-09-14] MEDS: WELLBUTRIN XL (24 hour extended release) 150 MG PO (09:40)
[2024-09-14] MEDS: COREG 3.125 MG PO (09:40)
[2024-09-14] MEDS: GLUCOPHAGE 500 MG PO ×2 (09:40→17:20)
[2024-09-14] MEDS: CRESTOR 40 MG PO (09:40)
[2024-09-14] MEDS: CYMBALTA DELAYED RELEASE 30 MG PO (09:40)
[2024-09-14] MEDS: TRICOR 145 MG PO (09:40)
[2024-09-14] MEDS: OXYCONTIN (CONTROLLED RELEASE) 40 MG PO ×2 (09:40→17:20)
[2024-09-14] MEDS: PEPCID 20 MG PO (09:41)
[2024-09-14] MEDS: ELIQUIS 5 MG PO (09:41)
[2024-09-14] MEDS: LIDOCAINE 4% PATCH 1 PATCH TOPICAL (09:41)
[2024-09-14] MEDS: PROSCAR 5 MG PO (09:41)
[2024-09-14] MEDS: FLOMAX 0.4 MG PO (09:41)
[2024-09-14] MEDS: MIRALAX PO (09:42)
[2024-09-14] MEDS: SENOKOT-S PO (09:42)
[2024-09-14 11:54] LABS: Glucose - Point of Care 137 mg/dl (70-99)
[2024-09-14 11:55] VITALS: BP 157/86
[2024-09-14 12:13] VITALS: BP 152/86; BP 174/103
[2024-09-14 15:41] VITALS: BP 149/97
[2024-09-14 16:54] LABS: Glucose - Point of Care 129 mg/dl (70-99)
--- NOTE | 2024-09-14 18:12 | W.DCSUMMARY ---
Discharge Summary
Discharge Data
Date of Admission: 08/28/24
Date of Discharge: 09/14/24
-
Pending Results: No
Discharge Plan
-
Patient Disposition: Home (Routine Discharge)
Discharge Diagnosis/Procedures: Hypertension emergency/urgency
Labile hypertension
Symptomatic orthostatic hypotension suspected secondary to autonomic neuropathy
Acute kidney injury resolved
Hyperkalemia resolved
Neck Pain, history disc implant/fusion, progressive Cervical Degenerative Disease, cervical arthritis
Back pain, history spinal stimulator
Hyperlipidemia
Atrial Fibrillation
Mild QT prolongation
Diabetes
GERD
Chronic Pain
Depression
Condition: Fair
Diet: 2 Gram Sodium
Activity: As tolerated
Driving Restrictions: As prior to admission
Bathing Restrictions: None
Others Tests: Follow up with Dr. Mancia for outpatient EMG. Follow up with primary care provider or your orthopedic inventory management specialist for CT Thoracic and Lumbar Spine for further evaluation/treatment back pain.
Other Services: PT and OT
Activity Restrictions/Additional Instructions:
Follow up with your primary care provider in 1 week of discharge and your Coach Tour Driver in 2 weeks of discharge.
Coreg has been reduced to 3.125 mg twice a day due to symptomatic orthostatic hypotension.
Candesartan has been discontinued due to symptomatic orthostatic hypotension. Candesartan was also discontinued due to acute kidney injury and hyperkalemia since resolved. Please follow up with cardiology or primary care provider before
considering to resume.
Lidocaine patch has been prescribed for neck pain
Metformin prescribed for Diabetes.
Sotalol reduced to 80 mg twice a day as per Cardiology recommendations.
Tizanidine reduced from 4 mg to 2 mg three times a day as needed to limit polypharmacy.
Please take medications as prescribed/recommended and follow up with primary care provider and/or other healthcare provider involved in your care for refills and/or further adjustment to your medication regimen as necessary.
Referrals:
Ephraim Graf MD [Active] - in one month
Neptali Devine MD [Active] - in two weeks
Zachary Holly DO [Family Provider] - in one week
Alonso Fraga MD [Active] - in two to four weeks
Gunnar Mancia DO [Active] - in two weeks
Prescriptions:
New
metformin 500 mg Tablet
500 mg PO BID@0800,1700 Qty: 60 0RF
lidocaine 4 % Adhesive Patch,Medicated
1 patch topical DAILY Qty: 10 0RF
carvedilol 3.125 mg Tablet
3.125 mg PO BID Qty: 30 0RF
tizanidine 2 mg Tablet
2 mg PO TIDPRN PRN (Reason: spasms) Qty: 90 0RF
sotalol 80 mg Tablet
80 mg PO BID Qty: 60 0RF
Continued
famotidine [Pepcid] 40 mg Tablet
40 mg PO DAILY
oxycodone-acetaminophen 10-325 mg Tablet
1 tab PO 5/D PRN (Reason: break through)
tamsulosin [Flomax] 0.4 mg Capsule
0.4 mg PO DAILY
zolpidem 5 mg Tablet
5 mg PO HSPRN PRN (Reason: sleep)
rosuvastatin 40 mg Tablet
40 mg PO DAILY
bupropion HCl [Wellbutrin XL] 150 mg Tablet Extended Release 24 Hr
150 mg PO DAILY
tadalafil 5 mg Tablet
5 mg PO DAILY
duloxetine [Cymbalta] 60 mg Capsule,Delayed Release(Dr/Ec)
60 mg PO HS
fenofibrate 160 mg Tablet
200 mg PO DAILY
duloxetine [Cymbalta] 30 mg Capsule,Delayed Release(Dr/Ec)
30 mg PO DAILY
levalbuterol tartrate [Xopenex HFA] 45 mcg/actuation HFA aerosol inhaler
2 inh inhalation Q6H PRN (Reason: shortness of breath or wheezing) Qty: 15 0RF
(DME) Rolling [employer]
See Rx Instructions .Route .MEDSUPPLY Qty: 1 0RF
Rx Instructions:
As directed
finasteride 5 mg Tablet
5 mg PO DAILY
Eliquis 5 mg Tablet
5 mg PO BID Qty: 60 3RF
Xtampza ER 36 mg Cap,Sprinkl,Er12hr(Dont Crush)
36 mg PO TIDPRN PRN (Reason: pain)
Discontinued
sotalol 120 mg Tablet
120 mg PO BID
tizanidine 4 mg Tablet
4 mg PO TIDPRN PRN (Reason: spasms)
carvedilol 6.25 mg Tablet
6.25 mg PO BID Qty: 60 2RF
candesartan 32 mg Tablet
32 mg PO BID
Discharge Orders:
Discharge Patient (As Directed); Ordered 09/14/24
Ordered By: Richelle Orellana
Discharge Date and Time
Print Language: SAUDI ARABIAN
== END 2024-09-14 18:49 | disposition home or self-care (01) | DRG 305 ==
LOC: 4 EAST ACU 23:09
PROVIDERS: Hospitalist; Internal Medicine; Nurse Practitioner Family; Nurse Practitioner Primary Care; Physician Assistant; ADMITTING PHYSICIAN Internal Medicine; ATTENDING PHYSICIAN Internal Medicine; CONSULT PHYSICIAN Internal Medicine Nephrology; CONSULT PHYSICIAN Psychiatry & Neurology Neurology; EMERGENCY PHYSICIAN Student in an Organized Health Care Education/Training Program; FAMILY PHYSICIAN Family Medicine; OTHER PHYSICIAN Internal Medicine Critical Care Medicine; OTHER PHYSICIAN Student in an Organized Health Care Education/Training Program
DX: I16.0 Hypertensive urgency (principal); N17.9 Acute kidney failure, unspecified; F11.20 Opioid dependence, uncomplicated; I95.1 Orthostatic hypotension; E87.5 Hyperkalemia; E78.00 Pure hypercholesterolemia, unspecified; I48.0 Paroxysmal atrial fibrillation; K21.9 Gastro-esophageal reflux disease without esophagitis; G89.29 Other chronic pain; F32.A Depression, unspecified; M50.322 Other cervical disc degeneration at C5-C6 level; E11.43 Type 2 diabetes mellitus with diabetic autonomic (poly)neuropathy; F41.9 Anxiety disorder, unspecified; Z79.01 Long term (current) use of anticoagulants; Z87.891 Personal history of nicotine dependence; G47.00 Insomnia, unspecified; F12.90 Cannabis use, unspecified, uncomplicated; Z82.0 Family history of epilepsy and other diseases of the nervous system; Z80.0 Family history of malignant neoplasm of digestive organs; Z88.8 Allergy status to other drugs, medicaments and biological substances; E83.42 Hypomagnesemia; E87.6 Hypokalemia; Z85.51 Personal history of malignant neoplasm of bladder; Z79.899 Other long term (current) drug therapy; Z80.1 Family history of malignant neoplasm of trachea, bronchus and lung; Z11.52 Encounter for screening for COVID-19
CPT/HCPCS: 70450; 71045; 72125; 74177; 80048; 80053; 80076; 80306; 80307; 81003; 81015; 82088; 82248; 82533; 82962; 83036; 83735; 83835; 84100; 84244; 84443; 84484; 85025; 85027; 85610; 85730; 87502; 87811; 93005; 93975; 97110; 97116; 97163; 97167; 97530; 97535; 99285; Q9967